=== PATIENT | female | born 1985 | race Caucasian/White ===

== ENCOUNTER 2018-04-24 18:03 | Emergency (ER) | payer MEDICARE, SELFPAY ==
[2018-04-24 18:10] VITALS: BP 144/92; PULSE 102; RESP 16; TEMP 36.1; O2SAT 97
--- NOTE | 2018-04-24 18:45 | ED.GENADUL ---
Disposition Clinical Impression: Infected dental carries Disposition: HOME Condition: Stable Instructions: Dental Caries (ED), Dental Abscess (ED) Additional Instructions: Return immediately to the emergency department if you have any severe swelling of your tongue, back your throat, difficulty breathing or inability to swallow. Otherwise take your antibiotic as prescribed. Follow-up with your dentist in the next week for reassessment and further establishment of treatment plan. While on the ibuprofen please do not take any other NSAIDs but you may take [id number] acetaminophen/Tylenol as needed. Prescriptions: Ibuprofen 600 mg PO Q6H PRN #16 tablet PRN Reason: Pain Penicillin V Potassium 500 mg PO Q6H #28 tablet Referrals: Dilcia Swan [Primary Care Provider] - 1 week (If unable to follow-up with your dentist please follow-up with your primary care provider for reassessment in 1 week) Medical Decision Making - Medical Decision Making Patient presenting the emergency department with complaint of left-sided upper and lower dental pain with more specific on the lower jaw. Patient states over the past 24 hours she has noted some swelling to left side of her face and some earache and then today while eating dinner she had significant increase in pain of left lower tooth. Physical exam shows significant severe to decay throughout the oral cavity which patient has been told that she is going to have to have multiple teeth removed but she does not have the finances of the funding to have this done. Tooth of concern is tooth #19 that show severe decay, partial tooth loss, and significant amount of pain and discomfort with any pressure to the tooth. Given facial swelling, worsening dental pain and severe decay there is concern for slight infected dental caries but no obvious abscess is noted as there is no fluctuance seen. Patient did consent to dental block and Hurricaine gel was placed at the base of the tooth and then 1 mL of 0.5% benzocaine was injected for an apical block. Patient tolerated procedure appropriately. Patient states that she had appropriate anesthetic level achieved using this technique. Patient placed upon penicillin every 6 hours for 1 week and informed that she should follow-up with her dentist in 1 week's time. After discussion of diagnosis and plan of care with patient patient agreed and stated no further needs, questions, or concerns at this time. Patient educated on emergent signs of dental infection and to return if these occur. History of Present Illness - General Chief complaint: DentalOral Stated complaint: DENTAL Time Seen by Provider: 04/24/18 18:08 Source: patient, RN notes reviewed Mode of arrival: ambulatory Limitations: no limitations - History of Present Illness Initial comments: Patient reports for the past week she has had ongoing dental pain. She states that she has had very poor dentition and was recently seen by the dentist within the last month and told that she had to have a good majority of her teeth pulled but she was unable to afford this procedure. Today while eating dinner she bit down on a pork chop and noticed significant pain to her left lower jaw and somewhat to her upper jaw. Patient states over the past week she has had mild swelling to the left side of her face. Patient denies any fever, difficulty breathing, difficulty swallowing. Onset/Timin -: week(s) Location: face, left Severity scale (1-10): 10 Quality: aching, sharp Consistency: constant Improves with: none Worsens with: none Associated Symptoms: denies other symptoms Treatments Prior to Arrival: NSAID - Related Data Albuterol [Ventolin Hfa] 1 puff IH Q4H PRN PRN inh 04/17/15 Albuterol/Ipratropium [Duoneb Updraft] 3 ml IN Q4H PRN PRN 07/26/15 Budesonide/Formoterol Fumarate [Symbicort 80-4.5 Mcg Inhaler] 10.2 gm IH BID 03/09/17 Ibuprofen 600 mg PO Q6H PRN #16 tablet 04/24/18 Penicillin V Potassium 500 mg PO Q6H #28 tablet 04/24/18 Allergies Allergy/AdvReac Type Severity Reaction Status Date / Time No Known Allergies Allergy Unverified 10/23/17 15:51 Review of Systems Constitutional: no symptoms reported. denies: fever ENT: ear pain (Left side), dental pain. 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 Absent: normocephalic (Very mild swelling noted to left cheek) - Eye Eye exam: Present: normal apperance, PERRL, EOMI. Absent: scleral icterus, conjunctival injection, nystagmus Pupils: Present: normal accommodation - ENT ENT exam: Present: mucous membranes moist, TM's normal bilaterally, normal external ear exam - Expanded ENT Exam No standard instances Mouth exam: Present: tongue normal. Absent: drooling, trismus, muffled voice, tongue elevation Teeth exam: Present: dental caries (Significant throughout the entire oral cavity), fractured tooth # (Area of concern shows a partially fractured tooth [id number] and also tooth #14), dental tenderness # (13,14,16,18,19), other (Patient has multiple missing teeth). Absent: normal inspection, gingival enlargement Throat exam: normal inspection. negative: R peritonsillar mass, L peritonsillar mass - Neck Neck exam: Present: full ROM. Absent: tenderness, meningismus, lymphadenopathy - Respiratory Respiratory exam: Present: normal lung sounds bilaterally. Absent: respiratory distress - Cardiovascular Cardiovascular Exam: Present: regular rate, normal rhythm, normal heart sounds - Neurological Exam Neurological exam: Present: alert, oriented X3. Absent: altered - Psychiatric Psychiatric exam: Present: agitated, anxious - Skin Skin exam: Present: warm, dry, normal color Course Vital Signs - 24 hr 04/24/18 18:10 Temperature 36.1 C L Pulse 102 H Respiratory 16 Rate Blood Pressure 144/92 Pulse Oximetry 97
[2018-04-24] MEDS: Benzocaine 20% Gel 30 GM JAR MM (18:57)
[2018-04-24] MEDS: Bupivacaine 0.5% Pres-Free 30 ML VIAL (18:57)
[2018-04-24] MEDS: Penicillin V POTASSIUM 500 MG TAB PO (18:57)
[2018-04-24] MEDS: Bupivacaine 0.25% Pres-Free 30 ML VIAL IJ (18:57)
== END 2018-04-24 19:34 | disposition home or self-care (01) ==
LOC: ER 06-09 21:07
PROVIDERS: Emergency Provider Student in an Organized Health Care Education/Training Program; PCP Nurse Practitioner Family
DX: K02.9 Dental caries, unspecified (principal); K04.7 Periapical abscess without sinus; J44.9 Chronic obstructive pulmonary disease, unspecified; F17.210 Nicotine dependence, cigarettes, uncomplicated
CPT/HCPCS: 64402 ×2; 99283 ×2

== ENCOUNTER 2018-07-23 18:26 | Outpatient (REF) | payer MEDICARE, MEDICAID, SELFPAY ==
[2018-07-25 11:59] LABS: Hepatitis C Ab w Rflx HCV PCR Negative (NEGAT)
[2018-07-25 12:00] LABS: HIV-1/2 Ag & Ab Screen Negative (NEGAT)
[2018-07-25 12:47] LABS: Syphilis Serology (RPR) Negative (Negative)
[2018-07-25 15:25] LABS: Chlamydia Result Negative; GC Result Negative
[2018-07-27 11:45] LABS: HSV Type 1 Ab, IgG Negative; HSV Type 2 Ab, IgG Positive
== END 2018-07-23 18:46 ==
LOC: NCHCN 18:26
PROVIDERS: PCP Nurse Practitioner Family; Visit Provider Nurse Practitioner Family
DX: Z11.3 Encounter for screening for infections with a predominantly sexual mode of transmission (principal); Z11.59 Encounter for screening for other viral diseases; Z11.4 Encounter for screening for human immunodeficiency virus [HIV]
CPT/HCPCS: 86803; 87389; 87491; 87591; 86592; 86695; 86696

== ENCOUNTER 2018-08-22 15:01 | Emergency (ER) | payer MEDICARE, SELFPAY ==
[2018-08-22 15:06] VITALS: BP 134/88; PULSE 87; TEMP 36.5; O2SAT 98
--- NOTE | 2018-08-22 15:12 | W.ED.GENAD ---
Discharge Plan Disposition Patient Disposition: HOME Condition: Improving Discharge Details Chief Complaint: Orthopedic Clinical Impression: Left thumb sprain Primary Care Provider: Dilcia Swan ED Provider: Herberth Chavez Home Meds and New Rx's Prescriptions: Continued Ventolin HFA 60 PUFF HFA aerosol inhaler 1 puff Inhalation Q4H PRN PRNRF: 0 ipratropium-albuterol 3 ML solution for nebulization 3 ml IN Q4H PRN PRNRF: 0 Symbicort 10.2 GM HFA aerosol inhaler 10.2 gm Inhalation BID RF: 0 Discharge Instructions Instructions: Hand Sprain (ED) Additional Instructions: Wear splint for 5-7 days time as needed. May remove for sleep or bathing. Follow-up with regular doctor if he still of persistent pain in 1 week's time. Use ice to reduce discomfort. May continue [id number] medicine such as Tylenol or ibuprofen as needed for discomfort Medical Decision Making 32-year-old female states that she stumbled at a constitution party on [address] and struck her thumb against a wall. She is unable to describe the inciting event more than that. She got herself in any other way. Since that time she said dull, achy, constant left thumb pain is worse with movement. No numbness or tingling. Patient referred for x-ray: No evidence of underlying fracture. We will place in a splint for 1 week's time for thumb sprain. If she has persistent discomfort she may require repeat x-ray to rule out occult fracture which I discussed with her. HPI General Mode of arrival: ambulatory. Date/Time Provider Initiated Documentation: 08/22/18 15:05. Limitations to Documentation: no limitations. Information obtained by: patient. History of Present Illness 32 year old F presents to the emergency department with the chief complaint of Left thumb injury and persistent pain since Sandra, described as mild, Quality is described as aching, and is localized to the left and upper extremity. Patient reports no radiation. Patient started experiencing this day(s) and it has been constant. No relieving factors improve symptom(s), Movement worsens symptoms . Patient notes no other symptoms.. Patient did receive the following treatments prior to arrival, none Related Data Home Medications Medication Instructions Recorded Confirmed Ventolin HFA 1 puff INHALATION Q4H PRN PRN inh 04/17/15 08/22/18 ipratropium-albuterol 3 ml IN Q4H PRN PRN 07/26/15 08/22/18 Symbicort 10.2 gm INHALATION BID 03/09/17 08/22/18 Previous Rx's Medication Instructions Recorded Ventolin HFA 1 puff INHALATION Q4H PRN PRN inh 04/17/15 Allergies Allergy/AdvReac Type Severity Reaction Status Date / Time No Known Allergies Allergy Unverified 08/22/18 15:09 General Stated Complaint: Orthopedic DOROTEO: 4 Review of Systems Review of Systems For systems reviewed and otherwise neg [facility] Medical History Asthma Chronic anxiety Obesity Tobacco use Surgical History Myringotomy w/ PE (pressure equalizing) tubes Social History Smoking/Tobacco Use Status: Current every day Exam Narrative Exam Narrative: GEN: awake, alert, oriented 3. Pleasant, well groomed, interactive. HEAD: Normocephalic, atraumatic ENT: Mucous membranes moist, oropharynx unremarkable, External ear exam unremarkable EYES: PERRL, EOMI EXT: Full ROM, no edema, no rash. Pain with palpation of the base of the left thumb as well as some minimal disc with axial loading, no pain with resisted supination. Patient able to fully range the thumb actively on her own. Capillary refill less than 2 seconds and sensation is intact throughout Neuro: Grossly normal neurologic exam, conversant, interactive. Psych: Speech fluent, thoughts congruent, affect normal Course Vital Signs Temperature 36.5 C 08/22/18 15:06 Pulse 87 08/22/18 15:06 Blood Pressure 134/88 08/22/18 15:06 Pulse Oximetry 98 08/22/18 15:06 Temperature 36.5 C 08/22/18 15:06 Temperature Source Skin 08/22/18 15:06 Pulse 87 08/22/18 15:06 Respiratory Effort 08/22/18 15:08 Blood Pressure 134/88 08/22/18 15:06 Blood Pressure Position Sitting 08/22/18 15:06 Pulse Oximetry 98 08/22/18 15:06 Oxygen Delivery Method Room Air 08/22/18 15:06 Oxygen Flow Rate 0 08/22/18 15:06 Pain Level 8 08/22/18 15:08
--- NOTE | 2018-08-22 15:25 | DI.RAD_ITS ---
SYMPTOMS/DIAGNOSIS: LEFT BASE OF THUMB PAIN S/P HITTING AGAINST WALL, BENDING BACKWARDS, FELT LIKE A POP LEFT THUMB: Four views were obtained. No bony or soft tissue abnormality seen.
== END 2018-08-22 15:40 | disposition home or self-care (01) ==
PROVIDERS: Emergency Provider Emergency Medicine; PCP Nurse Practitioner Family
DX: S63.602A Unspecified sprain of left thumb, initial encounter (principal); W01.10XA Fall on same level from slipping, tripping and stumbling with subsequent striking against unspecified object, initial encounter
CPT/HCPCS: 99283; 73140; 99282; L3807

== ENCOUNTER 2018-10-18 13:56 | Outpatient (CLI) | payer MEDICARE, SELFPAY ==
[2018-10-18 15:54] LABS: Abs Immature Grans 0.02 k/cumm (0.0-0.09); Absolute Basophil Count 0.04 k/cumm (0.0-0.2); Absolute Eosinophil Count 0.38 k/cumm (0.0-0.7); Absolute Lymphocyte Count 2.72 k/cumm (1.2-3.4); Absolute Monocyte Count 0.63 k/cumm (0.11-0.7); Absolute Neutrophil Count 4.89 k/cumm (1.2-6.7); Basophils % 0.5; Eosinophils % 4.4; HCT 41.2 % (36.0-46.0); HGB 13.9 g/dL (12.0-15.5); Immature Grans % 0.2; Lymphocytes % 31.3; Mean Corp. HGB Concentration 33.7 g/dL (32.0-36.0); Mean Corpuscular Hemoglobin 30.5 pg (27.0-33.0); Mean Corpuscular Volume 90.4 fL (80-95); Mean Platelet Volume 10.4 fL (8.0-11.0); Monocytes % 7.3; Neutrophils % 56.3; Platelet Count 210 x1000/uL (130-400); RBC 4.56 m/cumm (4.00-5.20); RBC Distribution Width 14.3 % (11.7-14.6); White Blood Cell Count 8.68 k/cumm (4.4-10.8)
[2018-10-18 17:10] LABS: ALT 14 U/L (12-78); AST 15 U/L (15-37); Albumin 3.5 g/dL (3.4-5.0); Alkaline Phosphatase 70 U/L (46-116); BUN 12 mg/dL (7-18); Bilirubin, Total 0.5 mg/dL (0.2-1.0); CREATININE 0.78 mg/dL (0.55-1.02); Calcium 8.7 mg/dL (8.5-10.1); Chloride 106 mmol/L (98-107); Glucose 71 mg/dL (70-100); HCG Quant, Pregnancy 1 mIU/mL (1-3); Potassium 3.9 mmol/L (3.5-5.1); Sodium 142 mmol/L (136-145); TSH (W/Ref FT4) 1.76 uIU/mL (0.358-3.74); Total Protein 6.9 g/dL (6.4-8.2)
[2018-10-18 18:04] LABS: *AMPHETAMINES SCREEN URINE Negative (Negative); *BARBITURATES SCREEN URINE Negative (Negative); *BENZODIAZEPINES SCREEN URINE Negative (Negative); Cannabinoids THC POSITIVE (Negative); Cocaine Screen,Urine Negative (Negative); METHADONE URINE SCREEN Negative (Negative); OPIATES URINE SCREEN Negative (Negative)
[2018-10-18 18:20] LABS: Tricyclic Antidepressants Negative (Negative)
[2018-10-18 19:07] LABS: Hemoglobin A1C 5.1 % (4.5-6.2)
[2018-10-22 11:18] LABS: Hepatitis C Ab w Rflx HCV PCR Negative (NEGAT)
[2018-10-22 11:21] LABS: HIV-1/2 Ag & Ab Screen Negative (NEGAT)
[2018-10-22 13:42] LABS: Chlamydia Result Negative; GC Result Negative; Specimen Description URINE
[2018-10-22 14:00] LABS: HSV Type 1 Ab, IgG Negative; HSV Type 2 Ab, IgG Positive
== END 2018-10-18 14:16 ==
PROVIDERS: PCP Nurse Practitioner Family; Visit Provider Nurse Practitioner Psychiatric/Mental Health
DX: F33.9 Major depressive disorder, recurrent, unspecified (principal); Z79.899 Other long term (current) drug therapy; Z11.4 Encounter for screening for human immunodeficiency virus [HIV]; Z11.59 Encounter for screening for other viral diseases
CPT/HCPCS: 36415; 80053; 80307; 86803; 87389; 87491; 87591; 83036; 84443; 84702; 85025; 86695; 86696

== ENCOUNTER 2018-10-31 12:10 | Emergency (ER) | payer MEDICARE, SELFPAY ==
[2018-10-31 12:18] VITALS: BP 136/76; PULSE 97; RESP 16; TEMP 36.8; O2SAT 95
[2018-10-31] MEDS: Penicillin V POTASSIUM 500 MG TAB PO (13:48)
[2018-10-31] MEDS: Albuterol HFA 8 GM 60 PUFF INH IH (13:49)
[2018-10-31] MEDS: Inhaler, Assist Device 1 EACH MC (13:50)
--- NOTE | 2018-10-31 13:55 | ED.GENADUL_ITS ---
Discharge Plan Disposition Patient Disposition: HOME Condition: Stable Discharge Details Chief Complaint: DentalOral Clinical Impression: Dental infection Primary Care Provider: Dilcia Swan ED Provider: Jenniffer Mcclure Home Meds and New Rx's Prescriptions: Continued albuterol sulfate [Ventolin HFA] 60 PUFF HFA aerosol inhaler 1 puff Inhalation Q4H PRN PRNRF: 0 ipratropium-albuterol 3 ML solution for nebulization 3 ml IN Q4H PRN PRNRF: 0 Symbicort 10.2 GM HFA aerosol inhaler 10.2 gm Inhalation BID RF: 0 Discharge Instructions Instructions: Dental Abscess (ED) Additional Instructions: Please return immediately to the emergency department if you develop any new or worsening symptoms or if you become otherwise concerned. It is extremely important that you make an appointment to be seen by your primary care doctor and a dentist as soon as possible in follow-up for this visit. Referrals: Dilcia Swan [Primary Care Provider] - Discharge Data Discharge Date/Time-TO BE ENTERED AT DEPARTURE: 10/31/18 13:56 Medical Decision Making Conchita Kraus is a 33-year-old woman with history of asthma, anxiety, poor dentition who presented to the emergency department with 2-3 months of chronic intermittent left jaw pain more constant over the past few weeks without other ENT symptoms. On exam patient is very well and nontoxic appearing. There is tenderness over the body of the left mandible and erythema of the left lower gingiva along the molars without edema. Patient also with mild bilateral wheeze on auscultation. Concern for dental infection, mild asthma. Plan for penicillin, DuoNeb. Will give butyryl inhaler for use at home. Patient reports that he does have a spacer at home. Exam/history is not consistent with dental abscess, Rony's angina or other deep space infection, osteomyelitis, mastoiditis, meningitis, other acute emergent life-threatening process. With resolved on reassessment, patient reporting shortness of breath resolved completely. I had a lengthy discussion with the patient regarding home care, return to emergency department cautions, and importance of outpatient follow-up with her PCP and also with dentist as soon as possible. Patient verbalizes understanding the plan is amenable. Dental list provided. Medical Records Medical records reviewed: Yes I reviewed the patient's medical records. HPI General Mode of arrival: ambulatory . Date/Time Provider Initiated Documentation: 10/31/18 12:27 . Limitations to Documentation: no limitations . Information obtained by: patient, RN notes reviewed and old records reviewed . HPI Narrative: Conchita Kraus is a 33-year-old woman with history of asthma, anxiety presenting to the emergency department with jaw pain. Patient reports that she has been having intermittent left jaw pain for months. She has been seen by a dentist in the past for this, who told her that she needed to have 24 teeth removed. Patient reports that she has been unable to finance dental follow-up. She reports that she has had 2 weeks of pain throughout her left jaw, typical of the pain she has been having for months but now more constant, not changed in severity, location, or quality. Does not radiate. No pain or difficulty with swallowing. No facial or intraoral swelling. Pt reports that she hasnt had a chance to fill her nebulizer rx (but does have one), but does not have albuterol INH and has been feeling as though she has needed her inhaler over the past 1-2 days. No fever, no cough, no rash, no other pain, no n/v/d. Related Data Home Medications Medication Instructions Recorded Confirmed albuterol sulfate [Ventolin HFA] 1 puff INHALATION Q4H PRN PRN inh 04/17/15 11/13/18 ipratropium-albuterol 3 ml IN Q4H PRN PRN 07/26/15 11/13/18 Symbicort 10.2 gm INHALATION BID 03/09/17 11/13/18 Previous Rx's Medication Instructions Recorded albuterol sulfate [Ventolin HFA] 1 puff INHALATION Q4H PRN PRN inh 04/17/15 Allergies Allergy/AdvReac Type Severity Reaction Status Date / Time No Known Allergies Allergy Unverified 10/31/18 12:38 General Stated Complaint: DentalOral DOROTEO: 4 Review of Systems Review of Systems Constitutional: denies fevers Eyes: denies eye pain ENT: reports chronic left jaw pain now constant, denies sore throat, facial swelling Cardiovascular: denies chest pain, edema Respiratory: denies cough, reports mild SOB as per HPI GI: denies abdominal pain, vomiting, diarrhea : denies flank pain MSK: denies back pain, neck pain, arthralgias, myalgias Skin: denies rash Neuro: denies headaches, numbness, weakness PFSH Medical History Asthma Chronic anxiety Obesity Tobacco use Social History Smoking/Tobacco Use Status: Current every day Tobacco Type: cigarettes Alcohol Intake: current Alcohol Intake frequency: a few times a month Alcohol type: hard liquor Drug use: Daily Substance use type: marijuana and crack/cocaine Details: cocaine and marijuana last night Do you feel safe at home: Yes Do you feel safe in your relationship?: Yes Exam Narrative Exam Narrative: Constitutional: well and [id number], pleasant, conversing normally HENT: head atraumatic/normocephalic/normal inspection, mucous membranes moist, poor denition throughout, left lower outer gum line erythematous along molars without edema, left mandiblular body TTP without edema or overlying skin changes, no TMJ TTP, no trismus, normal voice, no mastoid tenderness palpation. External ears normal. Handling secretions without issue. Eyes: conjunctiva normal, sclera normal, pupils 3mm b/l Neck: no stridor, normal ROM, trachea midline Resp: normal work of breathing, mild wheeze throughout b/l, no rales or rhonchi Cardio: normal rate, normal rhythm, no murmur appreciated Skin: warm, dry, normal color, no rash Neuro: alert, not altered, grossly non-focal, normal tone Psych: normal mood, normal affect, normal behavior Course Vital Signs Temperature 36.8 C 10/31/18 12:18 Pulse 97 H 10/31/18 12:18 Respiratory Rate 16 10/31/18 12:18 Blood Pressure 136/76 10/31/18 12:18 Pulse Oximetry 95 10/31/18 12:18 Temperature 36.8 C 10/31/18 12:18 Temperature Source Temporal Artery Scan 10/31/18 12:18 Pulse 97 H 10/31/18 12:18 Respiratory Rate 16 10/31/18 12:18 Blood Pressure 136/76 10/31/18 12:18 Pulse Oximetry 95 10/31/18 12:18 Oxygen Delivery Method Room Air 10/31/18 12:18 Oxygen Flow Rate 0 10/31/18 12:18 Pain Level 8 10/31/18 12:18
== END 2018-10-31 13:56 | disposition home or self-care (01) ==
PROVIDERS: Emergency Provider Student in an Organized Health Care Education/Training Program; PCP Nurse Practitioner Family
DX: R68.84 Jaw pain (principal); K04.7 Periapical abscess without sinus; J44.9 Chronic obstructive pulmonary disease, unspecified; F17.210 Nicotine dependence, cigarettes, uncomplicated
CPT/HCPCS: 99283

== ENCOUNTER 2018-11-13 04:15 | Emergency (ER) | payer MEDICARE, SELFPAY ==
[2018-11-13 04:13] VITALS: BP 117/71; PULSE 76; RESP 16; TEMP 36.6; O2SAT 98
--- NOTE | 2018-11-13 04:17 | W.ED.GENAD ---
Discharge Plan Disposition Patient Disposition: HOME Condition: Stable Discharge Details Chief Complaint: SOB Clinical Impression: Asthma Reason For Visit: MIRYAM Primary Care Provider: Dilcia Swan ED Provider: Tomy Vidal Home Meds and New Rx's Prescriptions: No Action albuterol sulfate [Ventolin HFA] 60 PUFF HFA aerosol inhaler 1 puff Inhalation Q4H PRN PRNRF: 0 ipratropium-albuterol 3 ML solution for nebulization 3 ml IN Q4H PRN PRNRF: 0 Symbicort 10.2 GM HFA aerosol inhaler 10.2 gm Inhalation BID RF: 0 Discharge Instructions Additional Instructions: I placed you on our career development consultant's list to assist in getting a nebulizer machine if you are having difficulty follow up with your primary care provider as scheduled today return to the emergency department if you feel you are having worsening trouble breathing not improving with your inhaler Medical Decision Making 33 yo female with hx of asthma, anxiety, comes in with chief complaint of her nebulizer not working. she apparently has shortness of breath in the morning chronically and uses her nebulizer and resolves her symptoms. This morning she went to use it and it was broken so she called ems. EMS gave one neb and she now has no complaints on my exam other than that she wants a cup of coffee. She is speaking in full sentences with no respiratory dsitress. She has mild apical wheezing bilaterally otherwise clear lungs. Do not feel lab work or imaging indicated as she is currently asymptomatic. Will d/c home and placed her on the career development consultant's list to see if they can assist in getting her a new nebulizer machine Differential Diagnosis asthma, uri, anxiety, HPI General Mode of arrival: EMS. Date/Time Provider Initiated Documentation: 11/13/18 04:16. Limitations to Documentation: no limitations. Information obtained by: patient. History of Present Illness 33 year old F presents to the emergency department with the chief complaint of shortness of breath, described as mild, with intensity rated at 4. Patient started experiencing this day(s) (1) and it has been now resolved. No relieving factors improve symptom(s), No exacerbating factors reported . Related Data Home Medications Medication Instructions Recorded Confirmed albuterol sulfate [Ventolin HFA] 1 puff INHALATION Q4H PRN PRN inh 04/17/15 11/13/18 ipratropium-albuterol 3 ml IN Q4H PRN PRN 07/26/15 11/13/18 Symbicort 10.2 gm INHALATION BID 03/09/17 11/13/18 Previous Rx's Medication Instructions Recorded albuterol sulfate [Ventolin HFA] 1 puff INHALATION Q4H PRN PRN inh 04/17/15 Allergies Allergy/AdvReac Type Severity Reaction Status Date / Time No Known Allergies Allergy Unverified 10/31/18 12:38 General DOROTEO: 4 Review of Systems Review of Systems All systems reviewed & are unremarkable except as noted in HPI and below Constitutional Denies chills, Denies fever(s) and Denies weakness Cardiovascular Denies chest pain and Denies dyspnea Respiratory Denies cough and Denies dyspnea Gastrointestinal Denies abdominal pain, Denies nausea and Denies vomiting Genitourinary Denies dysuria Musculoskeletal Denies joint swelling Integumentary/Breasts Denies rash Neurologic Denies weakness [facility] Medical History Asthma Chronic anxiety Obesity Tobacco use Surgical History Myringotomy w/ PE (pressure equalizing) tubes Social History Smoking/Tobacco Use Status: Current every day Tobacco Type: cigarettes Alcohol Intake: current Alcohol Intake frequency: a few times a month Alcohol type: hard liquor Drug use: Daily Substance use type: marijuana and crack/cocaine Details: cocaine and marijuana last night Do you feel safe at home: Yes Do you feel safe in your relationship?: Yes Exam Const General: no acute distress Orientation: alert HENMT Head: normal to inspection Ears: external ears normal General nose exam: external nose normal Mouth: moist mucous membranes Eyes General: appearance normal, both eyes and all related structures Neck Neck: normal visual inspection Resp Effort & Inspection: normal respiratory effort and able to speak in complete sentences Cardio Rate: regular rate Skin General skin exam: no rashes or lesions noted Neuro General: alert and oriented x3 Extrem General: normal to inspection Psych Mental Status: mental status grossly normal
--- NOTE | 2018-11-13 04:23 | ED.GENADUL_ITS ---
Discharge Plan Disposition Patient Disposition: HOME Condition: Stable Discharge Details Chief Complaint: SOB Clinical Impression: Asthma Reason For Visit: MIRYAM Primary Care Provider: Dilcia Swan ED Provider: Tomy Vidal Home Meds and New Rx's Prescriptions: No Action albuterol sulfate [Ventolin HFA] 60 PUFF HFA aerosol inhaler 1 puff Inhalation Q4H PRN PRNRF: 0 ipratropium-albuterol 3 ML solution for nebulization 3 ml IN Q4H PRN PRNRF: 0 Symbicort 10.2 GM HFA aerosol inhaler 10.2 gm Inhalation BID RF: 0 Discharge Instructions Additional Instructions: I placed you on our medicare specialist's list to assist in getting a nebulizer machine if you are having difficulty follow up with your primary care provider as scheduled today return to the emergency department if you feel you are having worsening trouble breathing not improving with your inhaler Medical Decision Making 33 yo female with hx of asthma, anxiety, comes in with chief complaint of her nebulizer not working. she apparently has shortness of breath in the morning chronically and uses her nebulizer and resolves her symptoms. This morning she went to use it and it was broken so she called ems. EMS gave one neb and she now has no complaints on my exam other than that she wants a cup of coffee. She is speaking in full sentences with no respiratory dsitress. She has mild apical wheezing bilaterally otherwise clear lungs. Do not feel lab work or imaging indicated as she is currently asymptomatic. Will d/c home and placed her on the medicare specialist's list to see if they can assist in getting her a new nebulizer machine Differential Diagnosis asthma, uri, anxiety, HPI General Mode of arrival: EMS . Date/Time Provider Initiated Documentation: 11/13/18 04:16 . Limitations to Documentation: no limitations . Information obtained by: patient . History of Present Illness 33 year old F presents to the emergency department with the chief complaint of shortness of breath, described as mild, with intensity rated at 4. Patient started experiencing this day(s) (1) and it has been now resolved. No relieving factors improve symptom(s), No exacerbating factors reported . Related Data Home Medications Medication Instructions Recorded Confirmed albuterol sulfate [Ventolin HFA] 1 puff INHALATION Q4H PRN PRN inh 04/17/15 11/13/18 ipratropium-albuterol 3 ml IN Q4H PRN PRN 07/26/15 11/13/18 Symbicort 10.2 gm INHALATION BID 03/09/17 11/13/18 Previous Rx's Medication Instructions Recorded albuterol sulfate [Ventolin HFA] 1 puff INHALATION Q4H PRN PRN inh 04/17/15 Allergies Allergy/AdvReac Type Severity Reaction Status Date / Time No Known Allergies Allergy Unverified 10/31/18 12:38 General DOROTEO: 4 Review of Systems Review of Systems All systems reviewed & are unremarkable except as noted in HPI and below Constitutional Denies chills, Denies fever(s) and Denies weakness Cardiovascular Denies chest pain and Denies dyspnea Respiratory Denies cough and Denies dyspnea Gastrointestinal Denies abdominal pain, Denies nausea and Denies vomiting Genitourinary Denies dysuria Musculoskeletal Denies joint swelling Integumentary/Breasts Denies rash Neurologic Denies weakness [facility] Medical History Asthma Chronic anxiety Obesity Tobacco use Surgical History Myringotomy w/ PE (pressure equalizing) tubes Social History Smoking/Tobacco Use Status: Current every day Tobacco Type: cigarettes Alcohol Intake: current Alcohol Intake frequency: a few times a month Alcohol type: hard liquor Drug use: Daily Substance use type: marijuana and crack/cocaine Details: cocaine and marijuana last night Do you feel safe at home: Yes Do you feel safe in your relationship?: Yes Exam Const General: no acute distress Orientation: alert HENMT Head: normal to inspection Ears: external ears normal General nose exam: external nose normal Mouth: moist mucous membranes Eyes General: appearance normal, both eyes and all related structures Neck Neck: normal visual inspection Resp Effort & Inspection: normal respiratory effort and able to speak in complete sentences Cardio Rate: regular rate Skin General skin exam: no rashes or lesions noted Neuro General: alert and oriented x3 Extrem General: normal to inspection Psych Mental Status: mental status grossly normal
[2018-11-13 04:34] VITALS: RESP 18
[2018-11-13 04:47] VITALS: PULSE 77; RESP 18; O2SAT 99
[2018-11-13] MEDS: Inhaler, Assist Device 1 EACH MC (04:47)
[2018-11-13] MEDS: Albuterol HFA 8 GM 60 PUFF INH IH (04:47)
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
== END 2018-11-13 04:52 | disposition home or self-care (01) ==
LOC: ER 05:02
PROVIDERS: Emergency Provider Emergency Medicine; PCP Nurse Practitioner Family
DX: J45.909 Unspecified asthma, uncomplicated (principal); F17.210 Nicotine dependence, cigarettes, uncomplicated
CPT/HCPCS: 99283

== ENCOUNTER 2018-12-05 18:13 | Emergency (ER) | payer MEDICARE, SELFPAY ==
[2018-12-05 18:23] VITALS: BP 122/82; PULSE 88; RESP 16; TEMP 37; O2SAT 98
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
[2018-12-05 19:41] LABS: HCG Quant, Pregnancy 57420 mIU/mL (1-3)
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
--- NOTE | 2018-12-06 09:59 | PDOC.ERCMPRO ---
Care Management Progress Note 12/06-Conchita was transferred home via RCT last evening. RCT authorization completed and faxed by this CM today.
== END 2018-12-05 19:57 | disposition home or self-care (01) ==
PROVIDERS: Emergency Provider Emergency Medicine; PCP Nurse Practitioner Family
DX: S80.02XA Contusion of left knee, initial encounter (principal); V43.22XA Person on outside of car injured in collision with other type car in nontraffic accident, initial encounter
CPT/HCPCS: 36415; 73562; 99283; 84702; 99282

== ENCOUNTER 2018-12-27 12:28 | Emergency (ER) | payer MEDICARE, MEDICAID, SELFPAY ==
[2018-12-27 12:34] VITALS: BP 130/89; PULSE 97; RESP 20; TEMP 36.8; O2SAT 100
--- NOTE | 2018-12-27 12:49 | DI.RAD_ITS ---
SYMPTOMS/DIAGNOSIS: FALL, PAIN DISTAL 1/3 LEFT HUMERUS: Three views were obtained. No fracture is seen. Note is made of a small osteochondroma of the distal humeral diaphyseal, metaphyseal junction. Note is also made of soft tissue calcification probably representing a supraspinatus peritendinitis.
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
[2018-12-27] MEDS: Acetaminophen 325 MG TAB 650 MG PO (13:44)
[2018-12-27 16:50] VITALS: BP 130/89; PULSE 97; RESP 20; TEMP 36.8; O2SAT 100
== END 2018-12-27 13:44 | disposition home or self-care (01) ==
PROVIDERS: Emergency Provider Physician Assistant; PCP Nurse Practitioner Family
DX: M65.822 Other synovitis and tenosynovitis, left upper arm (principal); S40.021A Contusion of right upper arm, initial encounter; V43.22XA Person on outside of car injured in collision with other type car in nontraffic accident, initial encounter
CPT/HCPCS: 99283; 73060; 99282

== ENCOUNTER 2019-01-02 14:51 | Outpatient (CLI) | payer MEDICARE, MEDICAID, SELFPAY ==
[2019-01-02 16:05] LABS: ALT 22 U/L (12-78); AST 22 U/L (15-37); Albumin 3.3 g/dL (3.4-5.0); Alkaline Phosphatase 60 U/L (46-116); Bilirubin, Direct 0.09 mg/dL (0.00-0.20); Bilirubin, Total 0.2 mg/dL (0.2-1.0); CREATININE 0.53 mg/dL (0.55-1.02); TSH (W/Ref FT4) 1.79 uIU/mL (0.358-3.74); Total Protein 6.7 g/dL (6.4-8.2); Uric Acid 2.9 mg/dL (2.6-6.0)
[2019-01-02 16:39] LABS: Abs Immature Grans 0.02 k/cumm (0.0-0.09); Absolute Basophil Count 0.02 k/cumm (0.0-0.2); Absolute Eosinophil Count 0.18 k/cumm (0.0-0.7); Absolute Lymphocyte Count 2.97 k/cumm (1.2-3.4); Absolute Monocyte Count 0.64 k/cumm (0.11-0.7); Absolute Neutrophil Count 5.51 k/cumm (1.2-6.7); Basophils % 0.2; Eosinophils % 1.9; HCT 38.9 % (36.0-46.0); HGB 13.2 g/dL (12.0-15.5); Immature Grans % 0.2; Lymphocytes % 31.8; Mean Corp. HGB Concentration 33.9 g/dL (32.0-36.0); Mean Corpuscular Hemoglobin 30.7 pg (27.0-33.0); Mean Corpuscular Volume 90.5 fL (80-95); Mean Platelet Volume 10.3 fL (8.0-11.0); Monocytes % 6.9; Platelet Count 243 x1000/uL (130-400); RBC Distribution Width 13.8 % (11.7-14.6); White Blood Cell Count 9.34 k/cumm (4.4-10.8)
[2019-01-03 10:53] LABS: Rubella IgG Ab (UVM) Positive
[2019-01-03 11:08] LABS: Varicella IgG Antibody Positive
[2019-01-03 11:13] LABS: Syphilis Serology (RPR) Negative (Negative)
[2019-01-03 11:19] LABS: HIV-1/2 Ag & Ab Screen Negative (NEGAT)
[2019-01-03 11:41] LABS: Hepatitis B Surface Ag Negative (NEGAT)
[2019-01-03 11:57] LABS: Hepatitis C Ab w Rflx HCV PCR Negative (NEGAT)
== END 2019-01-02 15:11 ==
PROVIDERS: PCP Nurse Practitioner Family; Visit Provider Advanced Practice Midwife
DX: Z34.90 Encounter for supervision of normal pregnancy, unspecified, unspecified trimester (principal); Z13.29 Encounter for screening for other suspected endocrine disorder
CPT/HCPCS: 36415; 80055; 80076; 86787; 86803; 86850; 86900; 86901; 87340; 87389; 82565; 84443; 84550; 86592; 86762

== ENCOUNTER 2019-01-02 15:39 | Outpatient (REF) | payer MEDICARE, MEDICAID, SELFPAY ==
--- NOTE | 2019-01-02 14:20 | PAPFT_PTH ---
PATIENT: Conchita Kraus LOC: [facility] U#:[id number] AGE/SX: 33/F ROOM: RE01/02/[address]: Radha Azevedo RN : 1985 BED: DIS: 01/02/2019 SPEC #: [id number] RECD: 01/02/19 17:32 STATUS: DESIREE REKatrin #: [id number] LENA: 01/02/19 14:[address]: Radha Azevedo DEPT: [facility] Cytology RECD BY: Sonia Rodriguez ENTERED: 01/02/19 17:33 SP TYPE: PAPFT OTHR DR: Rochelle Muñoz Tissues: 1 - CX/ENDOCX FOR PAP SMEARS Procedures: PAP THIN PREP/UVM Screening HPV DNA PROBE Comments: [id number]
[2019-01-02 19:00] LABS: *AMPHETAMINES SCREEN URINE Negative (Negative); *BARBITURATES SCREEN URINE Negative (Negative); *BENZODIAZEPINES SCREEN URINE Negative (Negative); Cannabinoids THC POSITIVE (Negative); Cocaine Screen,Urine Negative (Negative); METHADONE URINE SCREEN Negative (Negative); OPIATES URINE SCREEN Negative (Negative)
[2019-01-02 19:16] LABS: Tricyclic Antidepressants Negative (Negative)
[2019-01-04 14:42] LABS: Chlamydia Result Negative; GC Result Negative; Specimen Description CERVIX
[2019-01-08 05:30] LABS: Buprenorphine Negative; Norbuprenorphine Negative
== END 2019-01-02 15:59 ==
LOC: LBN 15:39
PROVIDERS: PCP Nurse Practitioner Family; Visit Provider Advanced Practice Midwife
DX: Z34.91 Encounter for supervision of normal pregnancy, unspecified, first trimester (principal); Z11.3 Encounter for screening for infections with a predominantly sexual mode of transmission; Z12.4 Encounter for screening for malignant neoplasm of cervix; Z11.51 Encounter for screening for human papillomavirus (HPV); R82.79 Other abnormal findings on microbiological examination of urine
CPT/HCPCS: 80307; 87491; 87591; 88142; 87086; 87624

== ENCOUNTER 2019-01-11 13:22 | Emergency (ER) | payer MEDICARE, MEDICAID, SELFPAY ==
[2019-01-11 13:25] VITALS: BP 126/86; PULSE 97; RESP 18; TEMP 36.7; O2SAT 98
--- NOTE | 2019-01-11 13:49 | W.ED.GENAD ---
Discharge Plan Disposition Patient Disposition: HOME Discharge Details Chief Complaint: DentalOral Primary Care Provider: Rochelle Muñoz ED Provider: Jose Armando Conklin Home Meds and New Rx's Prescriptions: Continued albuterol sulfate [Ventolin HFA] 60 PUFF HFA aerosol inhaler 1 puff Inhalation Q4H PRN PRNRF: 0 ipratropium-albuterol 3 ML solution for nebulization 3 ml IN Q4H PRN PRNRF: 0 Symbicort 10.2 GM HFA aerosol inhaler 10.2 gm Inhalation BID RF: 0 Discharge Data Discharge Date/Time-TO BE ENTERED AT DEPARTURE: 01/11/19 14:40 Medical Decision Making Patient presenting to the emergency department for chief complaint of dental pain. Patient states that this is been ongoing. I had previously seen patient and patient had complained of some dental discomfort with no apparent physical exam findings. Patient was given penicillin prescription to start if she noticed any symptoms given previous history of dental infections and abscess which she stated she started the next day. Patient remained on this for a couple days and did not see improvement of symptoms and so was placed on clindamycin by another provider. Patient has seen a dentist who referred her to an oral surgeon and informed her to continue on the clindamycin. Patient states that yesterday evening she missed a dose of clindamycin and noted this morning increase in pain and discomfort along with some slight swelling to her left lower jaw. Physical exam does show some erythema and swelling surrounding the base of tooth #19 with area of fluctuance and induration palpated on the external jawline. Patient has no signs of Rony's angina, peritonsillar retropharyngeal abscess, or airway obstruction. Patient has no trismus drooling or difficulty speaking in full sentences. Did discuss with patient risk versus benefit of needle drainage which I feel would help her situation given that she is taking the clindamycin and still noting swelling. Patient is highly anxious about needle injections but is agreeable to needle drainage. Did discuss risk versus benefit of dental block along with topical medication and patient stated that she would prefer only to have one needle in her mouth as she is highly anxious. Oral benzocaine was placed upon the area for drainage and left for 10 minutes. Patient stated appropriate anesthetic level using this method. An additional 1 spray of oral benzocaine was sprayed onto the area just prior to attempt of needle drainage with 18-gauge needle. This was inserted into the area of fluctuance with only bloody drainage noted. Patient tolerated procedure appropriately. Patient was encouraged to continue use clindamycin given that penicillin did not seem to work otherwise close return precautions were discussed and patient was strongly encouraged to follow-up with dental provider. After discussion of diagnosis and plan of care patient has no further needs, questions, or concerns and states clear understanding to return to the emergency department for any worsening symptoms. HPI General Mode of arrival: ambulatory. Date/Time Provider Initiated Documentation: 01/11/19 13:24. Limitations to Documentation: no limitations. Information obtained by: patient. History of Present Illness 33 year old F presents to the emergency department with the chief complaint of Dental pain, described as severe, with intensity rated at 9. Quality is described as sharp, and is localized to the mouth. Patient started experiencing this day(s) (10) and it has been constant. No relieving factors improve symptom(s), Patient notes no other symptoms.. Patient did receive the following treatments prior to arrival, NSAID Related Data Home Medications Medication Instructions Recorded Confirmed albuterol sulfate [Ventolin HFA] 1 puff INHALATION Q4H PRN PRN inh 04/17/15 01/11/19 ipratropium-albuterol 3 ml IN Q4H PRN PRN 07/26/15 01/11/19 Symbicort 10.2 gm INHALATION BID 03/09/17 01/02/19 Previous Rx's Medication Instructions Recorded albuterol sulfate [Ventolin HFA] 1 puff INHALATION Q4H PRN PRN inh 04/17/15 Allergies Allergy/AdvReac Type Severity Reaction Status Date / Time No Known Allergies Allergy Unverified 01/11/19 13:31 General Stated Complaint: DentalOral DOROTEO: 3 Review of Systems Constitutional Denies chills and Denies fever(s) ENT Reports as per HPI, Denies change in voice, Reports dental pain, Denies dysphagia, Denies throat swelling and Denies tongue swelling Cardiovascular Denies chest pain and Denies dyspnea Respiratory Denies dyspnea, Denies stridor and Denies wheezing Gastrointestinal Denies abdominal pain, Denies dysphagia, Denies nausea and Denies vomiting Integumentary/Breasts Denies rash Allergic/Immunologic Denies throat swelling, Denies tongue swelling and Denies wheezing [facility] Medical History Asthma Chronic anxiety Obesity Tobacco use Surgical History Myringotomy w/ PE (pressure equalizing) tubes Social History Smoking/Tobacco Use Status: Current every day (1/2ppd) Tobacco Type: cigarettes Alcohol Intake: former (prior to ) Drug use: Daily Substance use type: marijuana (qd now bid) Details: marijuana 3 x daily Do you feel safe at home: Yes Do you feel safe in your relationship?: Yes History History 6 Para 3 Hx # Term Pregnancies 3 Multiple births 0 Hx # Pregnancies Ectopic pregnancies 0 AB induced 1 Hx Number of Living Children 3 AB spontaneous 1 Past Pregnancies Del. Date GA/Weeks # Outcome Route Wgt Sex Labor Lgth Anesthesia Location Prov Complic Unknown 40 No Successful vaginal 2.325 kg Female 20 min cottnah[place], by an rn dr conley Unknown 02/11/09 40 No Successful vaginal 2.325 kg Male 1 hr hesham conley Delivery Date: 02/11/09 No notes to display Delivery Date: On 01/14/19 @ 13:15 ERICA TALAMANTES DATE/INFO UNKNOWN, PT CLAIMS SHE HAS NO RECOLLECTION OF ONE OF HER PREGNANCIES. Delivery Date: On 01/02/19 @ 14:04 ERICA TALAMANTES precipitous, Exam Const General: cooperative Orientation: alert, awake and oriented x3 Limitations: mental status not altered [facility] Head: normal to inspection, normocephalic and atraumatic Ears: hearing grossly normal bilaterally, normal mastoids bilaterally and no periauricular adenopathy General nose exam: external nose normal Mouth: oropharynx normal, no drooling, no muffled voice, normal tongue and no trismus Teeth and gingiva: caries, gingiva abnormal, poor dentition and other (Partially fractured tooth #19erythema surrounding the base of the tooth) Throat: posterior oropharynx normal, tonsils normal and uvula midline Eyes General: appearance normal, both eyes and all related structures Pupils: PERRL Neck Neck: normal visual inspection, full ROM, no lymphadenopathy, no meningeal signs, trachea midline, supple, no anterior neck swelling and no midline deformity Resp Effort & Inspection: normal respiratory effort and able to speak in complete sentences Course Vital Signs Temperature 36.7 C 01/11/19 13:25 Pulse 97 H 01/11/19 13:25 Respiratory Rate 18 01/11/19 13:25 Blood Pressure 126/86 01/11/19 13:25 Pulse Oximetry 98 01/11/19 13:25 Temperature 36.7 C 01/11/19 13:25 Temperature Source Skin 01/11/19 13:25 Pulse 97 H 01/11/19 13:25 Respiratory Rate 18 01/11/19 13:25 Respiratory Effort Non-Labored 01/11/19 13:30 Blood Pressure 126/86 01/11/19 13:25 Blood Pressure Position Sitting 01/11/19 13:25 Pulse Oximetry 98 01/11/19 13:25 Oxygen Delivery Method Room Air 01/11/19 13:25 Oxygen Flow Rate 0 01/11/19 13:25 Pain Level 5 01/11/19 13:25
[2019-01-11] MEDS: Benzocaine 20% 60 ML CAN (14:36)
[2019-01-11 14:40] VITALS: BP 126/86; PULSE 97; RESP 18; TEMP 36.7; O2SAT 98
== END 2019-01-11 14:40 | disposition home or self-care (01) ==
PROVIDERS: Emergency Provider Nurse Practitioner Family; PCP Nurse Practitioner Family
DX: K04.7 Periapical abscess without sinus (principal)
CPT/HCPCS: 10160

== ENCOUNTER 2019-01-31 06:47 | Emergency (ER) | payer MEDICARE, MEDICAID, SELFPAY ==
[2019-01-31 06:52] VITALS: BP 130/81; PULSE 88; RESP 16; TEMP 36.4; O2SAT 98
== END 2019-01-31 07:52 ==
PROVIDERS: Emergency Provider Emergency Medicine; PCP Nurse Practitioner Family
DX: O99.612 Diseases of the digestive system complicating pregnancy, second trimester (principal); K04.7 Periapical abscess without sinus; Z3A.18 18 weeks gestation of pregnancy
CPT/HCPCS: 99283

== ENCOUNTER 2019-02-04 00:56 | Outpatient (CLI) | payer MEDICARE, MEDICAID, SELFPAY ==
--- NOTE | 2019-02-04 13:33 | DI.US_ITS ---
SYMPTOM/DIAGNOSIS: ROUTINE PNC, Z34.90 OBSTETRICAL ULTRASOUND: There is a single living intrauterine gestation. Estimated sonographic age is 19 weeks 1 day. No abnormalities are identified. The fetus is in the cephalic presentation. The placenta is posterior. The placental tip lies 2.5 cm from the internal os. IMPRESSION: Single living intrauterine gestation. Estimated sonographic age is 19 weeks 1 day. Predicted Gestational Age: Indication/History:routine PNC, z34.90 19 - Wks Range: 18 - to 20 - Prior US done on: 07/01/19 Determined by: xx First US xx History EDC by prior US: For multiple gestations: Baby PLACENTA: Grade: I Location: Posterior PRESENTATION: Cephalic XX Trans (Head RT LT ) Varied Breech BIOMETRY: Anatomy Identified: BPD: 43 mm 19 +1 wks 4 chamber Heart XX Heart Rate 155 BPM HC: 163 mm 19 +1 wks LVOT XX Post Fossa XX AC: 135 mm 19 - wks RVOT XX Ventricles XX FL: 30 mm 19 +1 wks Stomach XX Nose XX Bladder XX Lips XX Cisterna Magna: 3.6 mm CI: 80 Kidneys XX Palate XX Cerebellum: 1.9 CM 3 vessel cord XX Spine XX EFW: 272 grms 49 % Cord Insertion XX NS= not seen Composite Age (US) 19 +1 wks Many abnormalities cannot be diagnosed. A normal exam does not exclude congenital abnormality. EDC by US 06/30/19 Amniotic Fluid Index: Normal COMMENTS: RUQ: LUQ: RLQ: LLQ: Total: cm Biophysical Profile: Score 0/2 BRENNAN (>2cm) Respirations (>30 sec) Body flexion/extension Extremity flexion/extension TOTAL SCORE
== END 2019-02-04 01:16 ==
PROVIDERS: PCP Nurse Practitioner Family; Visit Provider Advanced Practice Midwife
DX: Z34.92 Encounter for supervision of normal pregnancy, unspecified, second trimester (principal)
CPT/HCPCS: 76805

== ENCOUNTER 2019-03-19 13:59 | Emergency (ER) | payer MEDICARE, MEDICAID, SELFPAY ==
[2019-03-19 14:07] VITALS: BP 134/72; PULSE 105; RESP 20; TEMP 36.5; O2SAT 98
--- NOTE | 2019-03-19 14:14 | ED.GENADUL_ITS ---
Discharge Plan Disposition Patient Disposition: AGAINST MEDICAL ADVICE Condition: Stable Discharge Details Chief Complaint: SOB Clinical Impression: Asthma exacerbation Primary Care Provider: Rochelle Muñoz ED Provider: Maria Esther Nieto Home Meds and New Rx's Prescriptions: Continued aspirin [Aspirin Low Dose] 81 mg tablet,delayed release (DR/EC) 81 mg PO DAILY Qty: 90 RF: 1 albuterol sulfate [Ventolin HFA] 60 PUFF HFA aerosol inhaler 1 puff Inhalation Q4H PRN PRNRF: 0 ipratropium-albuterol 3 ML solution for nebulization 3 ml IN Q4H PRN PRNRF: 0 Symbicort 10.2 GM HFA aerosol inhaler 10.2 gm Inhalation BID RF: 0 Discharge Instructions Instructions: Asthma (ED) Additional Instructions: Take your regular medications as directed. Follow-up with your primary care doctor in 1-2 days for reevaluation. Return immediately to the emergency department if you develop any worsening or new concerning symptoms. Discharge Data Discharge Date/Time-TO BE ENTERED AT DEPARTURE: 03/19/19 14:27 Discharge Physician: Maria Esther Nieto Medical Decision Making 33-year-old female at approximately 5 months presents after being sent from OB floor for possible asthma exacerbation. Upon arrival to room, patient cursing and yelling at staff. She is refusing staff to touch her and or help her with her gown. She initially refused me listening to her lungs with the stethoscope. She eventually was agreeable and she had diffuse rhonchi and wheezing throughout. Oxygen saturation 98% on room air, heart rate low 100s and remainder vitals within normal limits. Patient refusing steroids, blood work or imaging. She is requesting only albuterol neb treatment and is requesting to leave after. Before my reevaluation of patient, she was walking out of the room. She was noted by staff to be speaking in full sentences, cursing and yelling. She appeared to be improved after the albuterol neb treatment x2. Patient refused to sign AMA form. Case discussed with Dr. Willard who stated that patient returned to the OB floor after evaluated in the emergency department and appeared to be mildly improved. HPI General Mode of arrival: wheelchair . Date/Time Provider Initiated Documentation: 03/19/19 14:07 . Limitations to Documentation: no limitations . Information obtained by: patient . HPI Narrative: Patient is a 33-year-old female with a history of asthma, COPD, borderline personality disorder, PTSD who was sent from the OB floor for possible asthma exacerbation. She is G6, P3 at approximately 5 months . She states she has had bronchitis for the past month. She is a tobacco smoker. She is cursing and yelling at staff and difficult to obtain a history but states that she thinks she was affected by a smell up on the OB which triggered an asthma exacerbation today. She denies any history of intubations. Related Data Home Medications Medication Instructions Recorded Confirmed albuterol sulfate [Ventolin HFA] 1 puff INHALATION Q4H PRN PRN inh 04/17/15 03/19/19 ipratropium-albuterol 3 ml IN Q4H PRN PRN 07/26/15 03/19/19 Symbicort 10.2 gm INHALATION BID 03/09/17 03/19/19 aspirin 81 mg tablet,delayed 81 mg PO DAILY #90 tab 01/29/19 03/19/19 release Previous Rx's Medication Instructions Recorded albuterol sulfate [Ventolin HFA] 1 puff INHALATION Q4H PRN PRN inh 04/17/15 aspirin 81 mg tablet,delayed 81 mg PO DAILY #90 tab 01/29/19 release Allergies Allergy/AdvReac Type Severity Reaction Status Date / Time No Known Allergies Allergy Unverified 03/19/19 14:10 General Stated Complaint: SOB DOROTEO: 2 Review of Systems Review of Systems All systems reviewed & are unremarkable except as noted in HPI and below Constitutional Reports as per HPI, Denies chills and Denies fever(s) Eyes Denies blurry vision ENT Denies dizziness, Denies sore throat and Denies throat swelling Cardiovascular Denies chest pain and Reports dyspnea Respiratory Reports cough and Reports dyspnea Gastrointestinal Denies abdominal pain, Denies diarrhea and Denies vomiting Genitourinary Denies hematuria and Denies dysuria Musculoskeletal Denies back pain and Denies numbness Integumentary/Breasts Denies lesions and Denies rash Neurologic Denies dizziness, Denies focal weakness and Denies numbness Allergic/Immunologic Denies throat swelling PFSH Medical History Asthma Chronic anxiety Obesity Tobacco use Surgical History Myringotomy w/ PE (pressure equalizing) tubes Social History Smoking/Tobacco Use Status: Current every day Tobacco Type: cigarettes Alcohol Intake: former Drug use: Daily Substance use type: marijuana Details: marijuana 3 x daily Do you feel safe at home: Yes Do you feel safe in your relationship?: Yes Female Reproductive History Menstrual Age of Menarche: 12 Duration of menses: 3-5 days control method: none History History 6 Para 3 Hx # Term Pregnancies 3 Multiple births 0 Hx # Pregnancies Ectopic pregnancies 0 AB induced 1 Hx Number of Living Children 3 AB spontaneous 1 Past Pregnancies Del. Date GA/Weeks # Outcome Route Wgt Sex Labor Lgth Anesthes ia Location Prov Complic Unknown 40 No Successful vaginal 2.325 kg Female 20 min cottage, by an rn dr conley Unknown 02/11/09 40 No Successful vaginal 2.325 kg Male [address] conley 04/16/15 No Successful vaginal precipitous deliv ered 20 min after admission rn in Delivery Date: On 01/02/19 @ 14:04 ERICA TALAMANTES precipitous, Delivery Date: On 01/14/19 @ 13:15 ERICA TALAMANTES DATE/INFO UNKNOWN, PT CLAIMS SHE HAS NO RECOLLECTION OF ONE OF HER PREGNANCIES. Delivery Date: 02/11/09 No notes to display Delivery Date: 04/16/15 On 01/31/19 @ 11:24 ERICA TALAMANTES precipitous delivery w/o pp complications Exam Const General: well developed, anxious and other (cursing and yelling at staff) [facility] Head: normal to inspection Face and sinus: normal facial exam Eyes General: appearance normal, both eyes and all related structures Pupils: PERRL EOM: EOM intact bilaterally Neck Neck: normal visual inspection and No submandibular swelling Lymphatic: no lymphadenopathy noted Chest Chest: normal inspection of the chest and no tenderness Resp Effort & Inspection: normal respiratory effort and able to speak in complete sentences Auscultation: rhonchi upper bilaterally and lower bilaterally and wheezes lower bilaterally and upper bilaterally Cardio Rate: regular rate Rhythm: regular rhythm GI Inspection: normal to inspection Skin General skin exam: no rashes or lesions noted Neuro General: alert, awake and oriented x3 Cognition: normal cognition Motor: muscle tone normal throughout Sensory Exam: no sensory deficits noted Extrem General: normal to inspection, full ROM, normal capillary refill, no calf tenderness bilaterally and no edema Psych Appearance: grossly normal Mental Status: mental status grossly normal Speech and Movement: speech and movement normal Affect: anxious affect, hostile and irritable affect Attitude: belligerent Course Vital Signs Temperature 97.7 F 03/19/19 14:07 Pulse 105 H 03/19/19 14:07 Respiratory Rate 20 03/19/19 14:07 Blood Pressure 134/72 03/19/19 14:07 Pulse Oximetry 98 03/19/19 14:07 Temperature 97.7 F 03/19/19 14:07 Temperature Source Temporal Artery Scan 03/19/19 14:07 Pulse 105 H 03/19/19 14:07 Respiratory Rate 20 03/19/19 14:07 Respiratory Effort Labored 03/19/19 14:10 Blood Pressure 134/72 03/19/19 14:07 Blood Pressure Position Sitting 03/19/19 14:07 Pulse Oximetry 98 03/19/19 14:07 Oxygen Delivery Method Room Air 03/19/19 14:07 Oxygen Flow Rate 0 03/19/19 14:07
== END 2019-03-19 14:27 | disposition left against medical advice (07) ==
PROVIDERS: Emergency Provider Physician Assistant; PCP Nurse Practitioner Family
DX: O99.512 Diseases of the respiratory system complicating pregnancy, second trimester (principal); J45.901 Unspecified asthma with (acute) exacerbation; Z3A.22 22 weeks gestation of pregnancy
CPT/HCPCS: 36415; 80053; 94640; 99283; 83735; 84484; 85025

== ENCOUNTER 2019-03-20 23:06 | Inpatient (IN) | payer MEDICARE, MEDICAID, SELFPAY ==
[2019-03-20] MEDS: diphenhydrAMINE 25 MG CAP 50 MG PO (23:30)
[2019-03-20 23:37] VITALS: BP 142/81; PULSE 81; RESP 22; TEMP 36.4; O2SAT 100
--- NOTE | 2019-03-20 23:38 | W.ED.GENAD ---
Discharge Plan Disposition Patient Disposition: [facility] INPATIENT Condition: Poor Discharge Details Chief Complaint: PsychEval Clinical Impression: Threatening behavior, , Impulsiveness Primary Care Provider: Rochelle Muñoz ED Provider: Augie Luu Home Meds and New Rx's Prescriptions: No Action aspirin [Aspirin Low Dose] 81 mg tablet,delayed release (DR/EC) 81 mg PO DAILY Qty: 90 RF: 1 gabapentin 100 mg capsule 100 mg PO TID Qty: 60 RF: 2 albuterol sulfate [Ventolin HFA] 60 PUFF HFA aerosol inhaler 1 puff Inhalation Q4H PRN PRNRF: 0 ipratropium-albuterol 3 ML solution for nebulization 3 ml IN Q4H PRN PRNRF: 0 Symbicort 10.2 GM HFA aerosol inhaler 10.2 gm Inhalation BID RF: 0 Medical Decision Making After reviewing all of the medical records and notes available to me I do feel that patient currently has become unpredictable, impulsive, lacking insight and judgment. She has had multiple episodes of erratic and violent behavior. She has labile. She has reportedly made statements of ending her home . She has been mostly calm and cooperative here. There has been times of potential escalation which required redirection. She agreed to 50 mg of Benadryl to try to help her sleep. Because of her we are limited somewhat in terms of medications. Laboratory studies were obtained without incident. There are no significant abnormalities. Tylenol and aspirin are negative. Alcohol negative. Drug screen positive for marijuana which she has admitted to. Patient has been discussed with mental health. Patient has been discussed with care management. CPSO is present. EE paperwork has been completed by me. Case is been discussed with hospitalist. Patient will be placed in the transition unit while awaiting for second certification. Medical Records Medical records reviewed: Yes I reviewed the patient's medical records. Lab Data Lab results reviewed: Yes I reviewed the patient's lab results. HPI General Mode of arrival: ambulatory. Date/Time Provider Initiated Documentation: 03/20/19 23:35. Information obtained by: old records reviewed. HPI Narrative: Patient is brought in by police on a warrant for psychiatric evaluation. She currently is calm and cooperative with police chief present. However, she is not overly conversant with me. I have reviewed the medical records from her last few visits in this hospital including the center notes as well as the emergency department notes. I have reviewed mental health workers notes that were provided tonight. Patient's only complaint to me tonight is dental pain. She is on amoxicillin for a dental infection. She is 25 weeks and was seen in the center on the and the . The recent medical records and mental health notes report that she has been extremely impulsive, erratic, labile, aggressive and agitated. She has a long psychiatric history. On her visit to mental health today she reportedly threatened to self abort her on her own. It was deemed by her clinician Laine Chiang APRN that she has decompensated to the point of requiring involuntary hospitalization. Related Data Home Medications Medication Instructions Recorded Confirmed albuterol sulfate [Ventolin HFA] 1 puff INHALATION Q4H PRN PRN inh 04/17/15 03/21/19 ipratropium-albuterol 3 ml IN Q4H PRN PRN 07/26/15 03/21/19 Symbicort 10.2 gm INHALATION BID 03/09/17 03/21/19 aspirin 81 mg tablet,delayed 81 mg PO DAILY #90 tab 01/29/19 03/21/19 release gabapentin 100 mg capsule 100 mg PO TID #60 cap 03/20/19 03/21/19 Previous Rx's Medication Instructions Recorded albuterol sulfate [Ventolin HFA] 1 puff INHALATION Q4H PRN PRN inh 04/17/15 aspirin 81 mg tablet,delayed 81 mg PO DAILY #90 tab 01/29/19 release gabapentin 100 mg capsule 100 mg PO TID #60 cap 03/20/19 Allergies Allergy/AdvReac Type Severity Reaction Status Date / Time No Known Allergies Allergy Unverified 03/19/19 14:10 General Stated Complaint: PsychEval DOROTEO: 2 Review of Systems Review of Systems Unobtainable due to mental condition [facility] Medical History Asthma Chronic anxiety Obesity Tobacco use Surgical History Myringotomy w/ PE (pressure equalizing) tubes Social History Smoking/Tobacco Use Status: Current every day Tobacco Type: cigarettes Alcohol Intake: former Drug use: Daily Substance use type: marijuana Details: marijuana 3 x daily Do you feel safe at home: Yes Do you feel safe in your relationship?: Yes Female Reproductive History Menstrual Age of Menarche: 12 Duration of menses: 3-5 days control method: none History History 6 Para 3 Hx # Term Pregnancies 3 Multiple births 0 Hx # Pregnancies Ectopic pregnancies 0 AB induced 1 Hx Number of Living Children 3 AB spontaneous 1 Past Pregnancies Del. Date GA/Weeks # Outcome Route Wgt Sex Labor Lgth Anesthesia Location Prov Complic Unknown 40 No Successful vaginal 2.325 kg Female 20 min cottage, by an rn dr conley Unknown 02/11/09 40 No Successful vaginal 2.325 kg Male [address] conley 04/16/15 No Successful vaginal precipitous delivered 20 min after admission rn in Delivery Date: On 01/02/19 @ 14:04 ERICA TALAMANTES precipitous, Delivery Date: On 01/14/19 @ 13:15 ERICA TALAMANTES DATE/INFO UNKNOWN, PT CLAIMS SHE HAS NO RECOLLECTION OF ONE OF HER PREGNANCIES. Delivery Date: 02/11/09 No notes to display Delivery Date: 04/16/15 On 01/31/19 @ 11:24 ERICA TALAMANTES precipitous delivery w/o pp complications Exam Narrative Exam Narrative: Vitals: Afebrile. BP somewhat elevated but likely related to situation. Const: WDWN female in NAD. HEENT: NC/AT. Normal facial exam. Eyes: Normal conjunctiva and sclera. Neck: Supple. Trachea midline. Lungs: Normal respiratory effort. Lungs are clear tonight. Cor: RRR without murmur/gallop. Good radial pulses. Neuro: A+O x 3. CN grossly in tact. Good strength and no focal deficit. Skin: Warm and dry. Sores/scabs noted on arms. Psych: Poor eye contact, not willing to talk much with me, mostly calm but has had periods of escalation requiring re-direction
[2019-03-21 00:11] LABS: Abs Immature Grans 0.03 k/cumm (0.0-0.09); Absolute Basophil Count 0.03 k/cumm (0.0-0.2); Absolute Eosinophil Count 0.16 k/cumm (0.0-0.7); Absolute Lymphocyte Count 2.52 k/cumm (1.2-3.4); Absolute Monocyte Count 0.88 k/cumm (0.11-0.7); Absolute Neutrophil Count 6.72 k/cumm (1.2-6.7); Basophils % 0.3; Eosinophils % 1.5; HCT 40.8 % (36.0-46.0); HGB 13.3 g/dL (12.0-15.5); Immature Grans % 0.3; Lymphocytes % 24.4; Mean Corp. HGB Concentration 32.6 g/dL (32.0-36.0); Mean Corpuscular Hemoglobin 30.4 pg (27.0-33.0); Mean Corpuscular Volume 93.2 fL (80-95); Mean Platelet Volume 10.4 fL (8.0-11.0); Monocytes % 8.5; Platelet Count 203 x1000/uL (130-400); RBC 4.38 m/cumm (4.00-5.20); RBC Distribution Width 13.5 % (11.7-14.6); White Blood Cell Count 10.34 k/cumm (4.4-10.8)
[2019-03-21 00:31] LABS: ALT 17 U/L (12-78); AST 28 U/L (15-37); Albumin 3.2 g/dL (3.4-5.0); Alkaline Phosphatase 81 U/L (46-116); BUN 12 mg/dL (7-18); Bilirubin, Total 0.5 mg/dL (0.2-1.0); CREATININE 0.59 mg/dL (0.55-1.02); Calcium 9.1 mg/dL (8.5-10.1); Chloride 103 mmol/L (98-107); Glucose 86 mg/dL (70-100); Potassium 3.7 mmol/L (3.5-5.1); Sodium 136 mmol/L (136-145); TSH 3.76 uIU/mL (0.36-3.74); Total Protein 7.4 g/dL (6.4-8.2)
[2019-03-21 00:32] LABS: Bilirubin Negative (Negative); Blood Trace-lysed (Negative); Clarity Clear (Clear); Glucose Negative (Negative); Ketones 40 mg/dL (Negative); Leukocyte Esterase Trace (Negative); Nitrite Negative (Negative)
[2019-03-21 00:32] LABS: ETHANOL BLOOD < 3.0 mg/dL (<3)
[2019-03-21 00:39] LABS: Salicylate 3.2 mg/dL (2.8-20.0)
[2019-03-21 00:40] LABS: Acetaminophen < 2 ug/mL (10-30)
[2019-03-21 00:41] LABS: *AMPHETAMINES SCREEN URINE Negative (Negative); *BARBITURATES SCREEN URINE Negative (Negative); *BENZODIAZEPINES SCREEN URINE Negative (Negative); Cannabinoids THC POSITIVE (Negative); Cocaine Screen,Urine Negative (Negative); METHADONE URINE SCREEN Negative (Negative); OPIATES URINE SCREEN Negative (Negative)
[2019-03-21 00:43] LABS: Tricyclic Antidepressants Negative (Negative)
--- NOTE | 2019-03-21 00:47 | PDOC.ERCMPRO ---
Care Management Progress Note S/O: Conchita arrived in protective custody of law enforcement officers and is here under a Audit Manager's warrant requesting EE. Reported that she has been verbally threatening and exhibiting erratic behaviors. Conchita has not been taking her medications durig this and as been threatening to staff members and providers over the past few months. She has been refusing care after showing up for her office appointments and has left AMA from the ER during a recent visit. She is not currently actively voicing any intent to harm herself or anyone else. She accepted PO Benadryl and has been cooperative with care at this point. Dr. Luu completed the EE. Conchita is not able to agree with the plan for inpatient psychiatric admission for stabilization and treatment at this time. [facility] has been contacted to compete the psychiatric evaluation and is enroute from [facility]. Conchita is well known to our local agency, [facility], who will follow up in the morning. Conchita has been unable to exhibit capacity to agree with the need to seek inpatient psychiatric care. Please see and MD notes for further information. INVOLUNTARY FOR INPATIENT PSYCHIATRIC STABILIZATION. EE completed and she is now on involuntary status. High risk for elopement and high risk for impulsive, aggressive behaviors. Conchita is unpredictable in terms of her response at this time and cannot agree to inpatient psychiatric treatment but is at risk for harming herself and others. Safety plan has been established with the care team, to adhere to patient goals, identify restrictions based on behavioral status, address nutrition, and determine allowed personal belongings, tools for hygiene and personal care. Determine level of activity including ambulation, level of supervision, visitors, and determine privileges based on behaviors and level of engagement by patient; please note safety plan below. Conchita was not able to participate in developing the plan and is not able to articulate agreement. Huddle Participants: Sintia Gonzalez, Investigator Utility Bill Complaints; ANITRA Abad, Gala, RN-Mandate Retail Service Merchandiser SAFETY PLAN: ED Room #5 03/21/19 00:30 1. Will remain on suicide precautions. In Paper Clothes 2. Will remain in room under direct supervision of one-on-one staff at all times provided by CPSO; ANDRES, BAG FILLER MACHINE OPERATOR facility maintenance worker. 3. May have paper cups, plates, finger foods, safety spoon 4. Follow [facility] Management of the Admitted Behavioral Health Patient policy. 5. Comfort bath system only. May shower if available, escorted by clinical staff and at the discretion of the RN. 6. May keep her hat. No other personal belongings. 7. No visitors at this time. 9. Bathroom privileges: escort to bathroom at RN discretion. 10. No Phone at this time. 11. Will remain in the ED to complete her evaluation and transfer to a M/S Transition Bed will be coordinated by the Investigator Utility Bill Complaints based on bed availability and staffing. 12. TV and remote if available at RN discretion. 13. Paper and crayons for activity at RN discretion 14. Due to INVOLUNTARY status, the patient must remain in the hospital. Second Certification will be scheduled with [facility]. Patient is currently involuntarily at [facility] and in need of inpatient psychiatric admission when a bed becomes available. [facility]/Frontline Insurance Sales Producer will seek placement. Please contact the Principal Database Developer Mandate Retail Service Merchandiser ([phone]) and [facility] Insurance Sales Producer ([phone]) for any needed changes in the Safety Plan. Safety plan has been provided to interdepartmental care team including Clinical Coordinator, Nursing Grey Roll Man
[2019-03-21 00:48] LABS: Bacteria Few HPF (Negative); C & S Indicated? No/Sq. Contamination; Casts Negative LPF (Negative); Crystals Negative HPF (Negative); Epithelial Cells Many HPF (Negative); Mucus Negative (Negative); RBC 0-2 (0-2); WBC 0-2 HPF (0-5)
[2019-03-21] MEDS: Acetaminophen 325 MG TAB 650 MG PO ×2 (00:52→05:56)
[2019-03-21] MEDS: Amoxicillin 500 MG CAP PO ×3 (00:52→14:04)
--- NOTE | 2019-03-21 01:27 | CMSP_ITS ---
Care Management Safety Plan INVOLUNTARY FOR INPATIENT PSYCHIATRIC STABILIZATION. EE completed and she is now on involuntary status. High risk for elopement and high risk for impulsive, aggressive behaviors. Conchita is unpredictable in terms of her response at this time and cannot agree to inpatient psychiatric treatment but is at risk for harm ing herself and others. Safety plan has been established with the care team, to adhere to patient goals, identify restrictions based on behavioral status, address nutrition, and determine allowed personal belongings, tools for hygiene and personal care. Determine level of activity including ambulation, level of supervision, visitors, and determine privileges based on behaviors and level of engagement by patient; please note safety plan below. Conchita was not able to participate in developing the plan and is not able to articulate agreement. Huddle Participants: Sintia Gonzalez, Student Affairs Dean; ANITRA Abad, Gala, RN-Phlebotomist Medical Lab Assistant SAFETY PLAN: ED Room #5 03/21/19 00:30 1. Will remain on suicide precautions. In Paper Clothes 2. Will remain in room under direct supervision of one-on-one staff at all times provided by CPSO; ANDRES, BREASTFEEDING PROGRAM COORDINATOR cpr instructor. 3. May have paper cups, plates, finger foods, safety spoon 4. Follow [facility] Management of the Admitted Behavioral Health Patient policy. 5. Comfort bath system only. May shower if available, escorted by clinical staff and at the discretion of the RN. 6. May keep her hat. No other personal belongings. 7. No visitors at this time. 9. Bathroom privileges: escort to bathroom at RN discretion. 10. No Phone at this time. 11. Will remain in the ED to complete her evaluation and transfer to a M/S Transition Bed will be coordinated by the Student Affairs Dean based on bed availability and staffing. 12. TV and remote if available at RN discretion. 13. Paper and crayons for activity at RN discretion 14. Due to INVOLUNTARY status, the patient must remain in the hospital. Second Certification will be scheduled with [facility]. Patient is currently involuntarily at [facility] and in need of inpatient psychiatric admission when a bed becomes available. [facility]/Frontline Roller Cleaner will seek placement. Please contact the Binding End Stitcher Phlebotomist Medical Lab Assistant ([phone]) and [facility] Roller Cleaner ([phone]) for any needed changes in the Safety Plan. Safety plan has been provided to interdepartmental care team including Clinical Coordinator, Nursing Information Technology Instructor
--- NOTE | 2019-03-21 01:38 | NUR.NOTE ---
Verbal report given to ANITRA Kat Nursing Note:
[2019-03-21] MEDS: Albuterol 2.5 MG/3 ML INH SOLN VIAL UPD (03:00)
--- NOTE | 2019-03-21 03:54 | NUR.NOTE ---
Nursing Note: at 0200 pt was admitted to safety room with CPSO and ER nurse ([place]) with pt. Patient was immediately upset with room setup and lights. Bedside table and radio removed from room. Patient unlocked bed and moved to side of wall that is away from door, she also wanted a breathing treatment for her COPD, explained that she had an inhaler but MD would have to be called to get breathing treatment ordered. When this RN and charge nurse (Alana) went into room to talk to pt and pt became upset started to try and throw chair, then started to punch wall and hit her head on wall and kick at wall. 0225 aliyah barfield was called. Staff attempted to calm pt down and call to MD was made to get breathing treatment and Benadryl ordered. MD returned call and orders were placed for as needed medications.Aliyah barfield cancelled at 0233.
[2019-03-21] MEDS: Albuterol HFA 8 GM 60 PUFF INH IH (05:56)
[2019-03-21 06:00] VITALS: RESP 16
[2019-03-21] MEDS: diphenhydrAMINE 25 MG CAP 50 MG PO ×2 (06:03→19:40)
--- NOTE | 2019-03-21 06:37 | HPE_ITS ---
Date of service: 03/21/19 Time of Service: 06:37 Assessment and Plan (1) Borderline personality disorder: Current visit: Yes Status: Acute patient apparently has expressed intent of self harm and harm to her unborn child and expressed these intention to her mental health worker at [facility] leading to a court order for EE evaluation. Patient is admitted to [facility] under involuntary status pending 2nd psychiatric certification. She is not currently on any psychiatric meds. Last night when she became violent, attempting to hit her head against the wall, I ordered Zyprexa 10 mg IM based upon my conversation with Dr. Augie Luu as well as upon my own review of its class C rating. Apparently benzodiazepines have a class D rating out of concern for development of child having floppy baby syndrome. I also ordered Benadryl 50 mg orally. She had previously recieved this while in the ER. [facility] is suppose to follow up with psychiatric inpatient referrals once the 2nd psychiatric evaluation is completed. (2) Dental abscess: Current visit: Yes Status: Acute patient even refused my examination of her mouth to assess the degree of her dental infections. Her amoxicillin has been reordered. (3) : Current visit: No Status: Acute I have consulted w/ the [facility] for Dr. Willard to evaluate and follow the patient for her and to advise us on what can or can not be used to treat this patient including analgesics for her dental pain, medications for her asthma and what mood stabilizing or anxiolytics are safe to use in . Qualifiers: Weeks of gestation: 25 weeks Qualified Code(s): Z3A.25 - 25 weeks gestation of (4) Asthma: Current visit: No Status: Chronic continue Symbicort and prn DuoNeb treatments. Qualifiers: Asthma severity: mild Asthma persistence: persistent Asthma complication type: uncomplicated Qualified Code(s): J45.30 - Mild persistent asthma, uncomplicated History of Present Illness Chief Complaint: threatening self harm; harm to her unborn child; threat of harm to others Narrative: Information obtained from ER notes and notes from [facility]. Limited history obtained from patient as she asked me to leave the room and refused further interview and exam. 33 yr old female w/ PMH of unspecified psychiatric disorder and asthma. She was brought to [facility] ER last night upon court order and was accompanied by a [place] police. She was ordered for an EE evaluation by the court due to impulsive, erratic, labile and aggressive behaviors including threats to terminate her on her own. She is 25 weeks gravid. She has history of w/ 1 miscarriage and 1 . She has been very erratic in her behavior in the [facility] alte rnating between agreeing to care and refusing care including walking out on multiple occasions during her examinations, refusing heart rate monitoring/ultrasounds, glucose tolerance tests. She has indicated of desire to put her current child with which she is up for adoption but has refused cooperation in going through proper authorities for adoption wanting to just give the child away. Patient was not agreeable to voluntary psychiatric inpatient treatment and due to her threats of self harm and aggressive threatening behavior to her care providers, a manager group home ordered an involuntary emergencry evaluation (EE). She was evaluated by Dr. Luu last night who agreed with the need for involuntary admission. She is awaiting a 2nd certification today. Patient is currently being treated for couple of dental abscess and is on amoxicillin. Review of Systems Review of Systems Unobtainable due to mental condition [facility] Medical History (Updated 03/21/19 @ 08:42 by Brady Soria) Asthma Borderline personality disorder (Acute) Chronic anxiety Difficulty voiding (Inactive 01/08/15) Obesity Obesity affecting , antepartum (Inactive 10/08/14) PTSD (post-traumatic stress disorder) (Acute) Supervision of normal first (Inactive 10/08/14) Tobacco use Surgical History Myringotomy w/ PE (pressure equalizing) tubes Social History Smoking/Tobacco Use Status: Current every day Tobacco Type: cigarettes Alcohol Intake: former Drug use: Daily Substance use type: marijuana Details: marijuana 3 x daily Do you feel safe at home: Yes Do you feel safe in your relationship?: Yes Female Reproductive History Menstrual Age of Menarche: 12 Duration of menses: 3-5 days control method: none History History 6 Para 3 Hx # Term Pregnancies 3 Multiple births 0 Hx # Pregnancies Ectopic pregnancies 0 AB induced 1 Hx Number of Living Children 3 AB spontaneous 1 Past Pregnancies Del. Date GA/Weeks # Outcome Route Wgt Sex Labor Lgth Anesthes ia Location Prov Complic Unknown 40 No Successful vaginal 2.325 kg Female 20 min cottnahid, by an rn dr conley Unknown 02/11/09 40 No Successful vaginal 2.325 kg Male [address] conley 04/16/15 No Successful vaginal precipitous deliv ered 20 min after admission rn in Delivery Date: On 01/02/19 @ 14:04 ERICA TALAMANTES precipitous, Delivery Date: On 01/14/19 @ 13:15 ERICA TALAMANTES DATE/INFO UNKNOWN, PT CLAIMS SHE HAS NO RECOLLECTION OF ONE OF HER PREGNANCIES. Delivery Date: 02/11/09 No notes to display Delivery Date: 04/16/15 On 01/31/19 @ 11:24 ERICA TALAMANTES precipitous delivery w/o pp complications Meds Home Medications Medication Instructions Recorded Confirmed Type albuterol sulfate [Ventolin HFA] 1 puff INHALATION Q4H PRN PRN inh 04/17/15 03/21/19 Rx ipratropium-albuterol 3 ml IN Q4H PRN PRN 07/26/15 03/21/19 History Symbicort 10.2 gm INHALATION BID 03/09/17 03/21/19 History aspirin 81 mg tablet,delayed 81 mg PO DAILY #90 tab 01/29/19 03/21/19 Rx release gabapentin 100 mg capsule 100 mg PO TID #60 cap 03/20/19 03/21/19 Rx Allergies Allergy/AdvReac Type Severity Reaction Status Date / Time No Known Allergies Allergy Unverified 03/19/19 14:10 Exam Narrative Exam Narrative: patient refused examination Results Labs : 03/20/19 23:58 03/20/19 23:58 Laboratory Results - last 24 hr 03/20/19 03/20/19 03/20/19 23:58 23:58 23:58 WBC 10.34 RBC 4.38 Hgb 13.3 Hct 40.8 MCV 93.2 MCH 30.4 MCHC 32.6 RDW 13.5 Plt Count 203 MPV 10.4 Immature Gran % 0.3 Neutrophils % 65.0 Lymphocytes % 24.4 Monocytes % 8.5 Eosinophils % 1.5 Basophils % 0.3 Absolute Neutrophils 6.72 H Absolute Lymphocytes 2.52 Absolute Monocytes 0.88 H Absolute Eosinophils 0.16 Absolute Basophils 0.03 Sodium 136 Potassium 3.7 Chloride 103 Carbon Dioxide 22.0 Anion Gap 11.0 BUN 12 Creatinine 0.59 Estimated GFR/1.73 m2 >= 60.00 Glucose 86 Calcium 9.1 Total Bilirubin 0.5 AST 28 ALT 17 Alkaline Phosphatase 81 Total Protein 7.4 Albumin 3.2 L TSH 3.76 H Urine Color Urine Clarity Urine pH Ur Specific [place] Urine Protein Urine Ketones Urine Blood Urine Nitrite Urine Bilirubin Urine Urobilinogen Ur Leukocyte Esterase Urine RBC Urine WBC Ur Epithelial Cells Urine Crystals Urine Bacteria Urine Casts Urine Mucus Ur Culture Indicated? Urine Glucose Salicylates 3.2 Urine Opiates Screen Urine Methadone Screen Acetaminophen < 2 L Ur Barbiturates Screen Ur Tricyclics Screen Ur Amphetamines Screen U Benzodiazepines Scrn Urine Cocaine Screen Ur THC Screen Ethyl Alcohol < 3.0 03/21/19 03/21/19 00:10 00:10 WBC RBC Hgb Hct MCV MCH MCHC RDW Plt Count MPV Immature Gran % Neutrophils % Lymphocytes % Monocytes % Eosinophils % Basophils % Absolute Neutrophils Absolute Lymphocytes Absolute Monocytes Absolute Eosinophils Absolute Basophils Sodium Potassium Chloride Carbon Dioxide Anion Gap BUN Creatinine Estimated GFR/1.73 m2 Glucose Calcium Total Bilirubin AST ALT Alkaline Phosphatase Total Protein Albumin TSH Urine Color Yellow Urine Clarity Clear Urine pH 7.0 Ur Specific [place] 1.020 Urine Protein Negative Urine Ketones 40 H Urine Blood Trace-lysed H Urine Nitrite Negative Urine Bilirubin Negative Urine Urobilinogen 1.0 H Ur Leukocyte Esterase Trace H Urine RBC 0-2 Urine WBC 0-2 Ur Epithelial Cells Many Urine Crystals Negative Urine Bacteria Few Urine Casts Negative Urine Mucus Negative Ur Culture Indicated? No/sq. contamination Urine Glucose Negative Salicylates Urine Opiates Screen Negative Urine Methadone Screen Negative Acetaminophen Ur Barbiturates Screen Negative Ur Tricyclics Screen Negative Ur Amphetamines Screen Negative U Benzodiazepines Scrn Negative Urine Cocaine Screen Negative Ur THC Screen Positive Ethyl Alcohol Last Vital Signs Temp 36.4 C L 03/20/19 23:37 Pulse 81 03/20/19 23:37 Resp 16 03/21/19 06:00 BP 142/81 H 03/20/19 23:37 Pulse Ox 100 03/20/19 23:37
[2019-03-21] MEDS: Gabapentin 100 MG CAP PO ×2 (09:48→14:04)
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
[2019-03-21] MEDS: Acetaminophen 500 MG TAB 1000 MG PO (12:00)
--- NOTE | 2019-03-21 12:03 | PHARADMIT ---
Addendum entered by Christopher Abraham III 03/26/19 13:24: Pharmacy Note Subjective CM and Mental health workers progressing with keeping patient calm and informed. Objective No VS, No Labs, Had BM Assessment Refused meds over night, taking them today. Plan Awaiting placement at psych facility that can accommodate her Original Note: Admission Pharmacy Clinical Review ERRATIC BEHAVIOR, AGITATION, On EE Status Code Status Full Code Current Weight Wgt-86 kg (Old weight from 2018) Renally Cleared and Narrow Therapeutic Index Meds CrCl~ 79.1 mL//min Meds-OK QTc Value / Action Taken none current BP Control, Fever BP-142/81 Tmax-36.4C Electrolytes reviewed Na- 136 K+3.7 DVT Prophylaxis None ( uncooperative) Opiate Usage / Scheduled Bowel Regimen Ordered No No Plt/SCr for Heparin / Enoxaparin Plts-203 SCr-0.59 INR for Warfarin NA H/H stable, WBC/Bands H&H- 13.3/40.8 WBC-10.34 Antibiotic appropriateness Amoxil Cultures and Sensitivities NA Surgical ABX d/c within 24 hr NA DM control / Insulin Dosing BG-86 Heart Failure (Check EF%) (YEVGENIY's, B-Block, Diuretics) none IV to PO Switch NA Home Meds Reviewed Yes Home Meds Not Ordered Ordered Comments
[2019-03-21 12:15] VITALS: RESP 15
[2019-03-21] MEDS: QUEtiapine 25 MG TAB 50 MG PO (12:25)
[2019-03-21] MEDS: oxyCODONE 5 MG TAB PO (12:25)
--- NOTE | 2019-03-21 12:27 | PGE_ITS ---
Date of Service Date of service: 03/21/19 Time of Service: 12:27 Subjective Interval history since last seen: Conchita is here at [facility] in the transitional unit awaiting psychiatric placement. Mental health is working on placement. She has been followed by Supervisor Waterproofing, Dr. Willard saw her today. Dr. Willard is familiar with the patient from [facility]. She agrees to medical management with psychiatric medications. She recommends using any combination of medication to help the patient with her symptoms including seroquel, buspar, haldol or ativan, as well as any other psychiatric medication. The patient is in her 2nd trimester of at 25 weeks. The DISPATCHER RADIO service has been unable to assess heart tones due to the patient being unwilling to allow them to apply the doppler to her abdomen. The patient has been hitting her stomach, she states she does not want to feel the baby move. She has been calm for brief periods, alternating with severe agitation with yelling and throwing chairs and refusing care. She is refusing medications when offered. A stat dose of haldol was ordered when she appeared to be in danger of hurting herself and others, however, she was able to calm down on her own temporarily and it was not given. She appears to be a threat to herself and others and may need restraints to keep herself, her fetus and others around her safe. 1240- Conchita is becoming increasingly agitated. She is punching her stomach, kicking mann, yelling and screaming, attempting to hit and bite staff. Her case was discussed with Dr. Johnson who recommended Haldol, ativan and benadryl combination, IM. She is also placed in restraints for her safety and staff safety. 1325- Conchita is sitting up in bed. Nursing is attempting to give a nebulizer treatment. She is yelling but does not appear to be attempting to harm staff. There is food smeared on the wall, pieces of food all over the room, appears to have been thrown. 1545- Conchita is sleeping on her left side. No physical restraints in place. She has a 1:1 patient observer. Objective Objective Clinical Data: Abnormal lab results 03/20/19 03/20/19 03/20/19 Range/Units 23:58 23:58 23:58 Absolute Neutrophils 6.72 H (1.2-6.7) k/cumm Absolute Monocytes 0.88 H (0.11-0.7) k/cumm Albumin 3.2 L (3.4-5.0) g/dL TSH 3.76 H (0.36-3.74) uIU/mL Urine Ketones (Negative) mg/dL Urine Blood (Negative) Urine Urobilinogen (Up TO 0.2) EU/dL Ur Leukocyte Esterase (Negative) Acetaminophen < 2 L (10-30) ug/mL 03/21/19 Range/Units 00:10 Absolute Neutrophils (1.2-6.7) k/cumm Absolute Monocytes (0.11-0.7) k/cumm Albumin (3.4-5.0) g/dL TSH (0.36-3.74) uIU/mL Urine Ketones 40 H (Negative) mg/dL Urine Blood Trace-lysed H (Negative) Urine Urobilinogen 1.0 H (Up TO 0.2) EU/dL Ur Leukocyte Esterase Trace H (Negative) Acetaminophen (10-30) ug/mL Vital Signs Temperature 36.4 C L 03/20/19 23:37 Temperature Source Temporal Artery Scan 03/20/19 23:37 Pulse 81 03/20/19 23:37 Respiratory Rate 16 03/21/19 06:00 Respiratory Effort Non-Labored 03/21/19 03:00 Respiratory Depth Normal 03/21/19 03:00 Respiratory Pattern Normal 03/21/19 03:00 Blood Pressure 142/81 H 03/20/19 23:37 Pulse Oximetry 100 03/20/19 23:37 Oxygen Delivery Method Room Air 03/20/19 23:37 Oxygen Flow Rate 0 03/20/19 23:37 Pain Level 10 03/21/19 00:52 Comment 03/21/19 06:00 Intake & Output 03/20/19 03/21/19 03/21/19 23:59 11:59 23:59 Intake Total 240 / 240 Balance 240 / 240 Intake: Oral 240 / 240 Other: Comment pt noted to void in toilet; urine not assessed at this time r/t for agitation and flushing of toilet Voiding Methods Toilet Laboratory Results WBC 10.34 k/cumm (4.4-10.8) 03/20/19 23:58 RBC 4.38 m/cumm (4.00-5.20) 03/20/19 23:58 Hgb 13.3 g/dL (12.0-15.5) 03/20/19 23:58 Hct 40.8 % (36.0-46.0) 03/20/19 23:58 MCV 93.2 fL (80-95) 03/20/19 23:58 MCH 30.4 pg (27.0-33.0) 03/20/19 23:58 MCHC 32.6 g/dL (32.0-36.0) 03/20/19 23:58 RDW 13.5 % (11.7-14.6) 03/20/19 23:58 Plt Count 203 x1000/uL (130-400) 03/20/19 23:58 MPV 10.4 fL (8.0-11.0) 03/20/19 23:58 Immature Gran % 0.3 03/20/19 23:58 65.0 03/20/19 23:58 24.4 03/20/19 23:58 8.5 03/20/19 23:58 1.5 03/20/19 23:58 0.3 03/20/19 23:58 Absolute Neutrophils 6.72 k/cumm (1.2-6.7) H 03/20/19 23:58 Absolute Lymphocytes 2.52 k/cumm (1.2-3.4) 03/20/19 23:58 Absolute Monocytes 0.88 k/cumm (0.11-0.7) H 03/20/19 23:58 Absolute Eosinophils 0.16 k/cumm (0.0-0.7) 03/20/19 23:58 Absolute Basophils 0.03 k/cumm (0.0-0.2) 03/20/19 23:58 Sodium 136 mmol/L (136-145) 03/20/19 23:58 Potassium 3.7 mmol/L (3.5-5.1) 03/20/19 23:58 Chloride 103 mmol/L (98-107) 03/20/19 23:58 Carbon Dioxide 22.0 mmol/L (21.0-32.0) 03/20/19 23:58 11.0 mmol/L (3-11) 03/20/19 23:58 BUN 12 mg/dL (7-18) 03/20/19 23:58 0.59 mg/dL (0.55-1.02) 03/20/19 23:58 >= 60.00 (mL/min/1.73m2) 03/20/19 23:58 Glucose 86 mg/dL (70-100) 03/20/19 23:58 Calcium 9.1 mg/dL (8.5-10.1) 03/20/19 23:58 0.5 mg/dL (0.2-1.0) 03/20/19 23:58 AST 28 U/L (15-37) 03/20/19 23:58 ALT 17 U/L (12-78) 03/20/19 23:58 81 U/L (46-116) 03/20/19 23:58 7.4 g/dL (6.4-8.2) 03/20/19 23:58 3.2 g/dL (3.4-5.0) L 03/20/19 23:58 TSH 3.76 uIU/mL (0.36-3.74) H 03/20/19 23:58 Yellow (Yellow) 03/21/19 00:10 Clear (Clear) 03/21/19 00:10 7.0 (5-8) 03/21/19 00:10 Ur Specific [place] 1.020 (1.005-1.025) 03/21/19 00:10 Negative mg/dL (Negative) 03/21/19 00:10 40 mg/dL (Negative) H 03/21/19 00:10 Trace-lysed (Negative) H 03/21/19 00:10 Negative (Negative) 03/21/19 00:10 Negative (Negative) 03/21/19 00:10 1.0 EU/dL (Up TO 0.2) H 03/21/19 00:10 Ur Leukocyte Esterase Trace (Negative) H 03/21/19 00:10 0-2 (0-2) 03/21/19 00:10 0-2 HPF (0-5) 03/21/19 00:10 Ur Epithelial Cells Many HPF (Negative) 03/21/19 00:10 Negative HPF (Negative) 03/21/19 00:10 Few HPF (Negative) 03/21/19 00:10 Negative LPF (Negative) 03/21/19 00:10 Negative (Negative) 03/21/19 00:10 Ur Culture Indicated? No/sq. contamination 03/21/19 00:10 Negative mg/dL (Negative) 03/21/19 00:10 Salicylates 3.2 mg/dL (2.8-20.0) 03/20/19 23:58 Negative (Negative) 03/21/19 00:10 Negative (Negative) 03/21/19 00:10 Acetaminophen < 2 ug/mL (10-30) L 03/20/19 23:58 Ur Barbiturates Screen Negative (Negative) 03/21/19 00:10 Ur Tricyclics Screen Negative (Negative) 03/21/19 00:10 Ur Amphetamines Screen Negative (Negative) 03/21/19 00:10 U Benzodiazepines Scrn Negative (Negative) 03/21/19 00:10 Negative (Negative) 03/21/19 00:10 Ur THC Screen Positive (Negative) 03/21/19 00:10 Ethyl Alcohol < 3.0 mg/dL (<3) 03/20/19 23:58
[2019-03-21] MEDS: Haloperidol 5 MG/ML VIAL 2 MG IM (12:45)
[2019-03-21] MEDS: diphenhydrAMINE 50 MG/ML VIAL IM (13:03)
[2019-03-21] MEDS: LORazepam 2 MG/ML VIAL IM (13:04)
[2019-03-21 13:21] VITALS: RESP 4
[2019-03-21] MEDS: Albuterol/Ipratropium 3 ML UPD VIAL IH (13:21)
--- NOTE | 2019-03-21 14:21 | PDOC.CMSAFE ---
Care Management Safety Plan SAFETY PLAN: Transition Bed 235 Med/Surg 03/21/19 1300 1. Will remain on suicide precautions, in paper clothes and t-shirt. 2. Will remain in room under direct supervision of one-on-one staff at all times provided by [employer]; ANDRES, MINOR LEAGUE BASEBALL PLAYER hedis abstractor. 3. May have paper cups, plates, finger foods, safety spoon 4. Follow [facility] Management of the Admitted Behavioral Health Patient policy. 5. Comfort bath system only. May shower if available, escorted by clinical staff and at the discretion of the RN. 6. Permitted to have her hat, glasses, t-shirt (for comfort), necklace. No other personal belongings. 7. No visitors at this time. 8. No Phone contact or personal cell phone at this time. Incoming legal calls permitted. 9. Will remain in the ED to complete her evaluation and transfer to a M/S Transition Bed will be coordinated by the Metal [employer] Plastic Heater based on bed availability and staffing. 10. TV permitted, remote available at RN discretion. 11. Paper and crayons for activity at RN discretion. 12. Permitted toothpick to clean hole in tooth; facilitated by RN at RN discretion. 13. Due to INVOLUNTARY status, the patient must remain in the hospital. Second Certification will be scheduled with [facility]. Patient is currently involuntarily at [facility] and in need of inpatient psychiatric admission when a bed becomes available. [facility]/Frontline Admissions Manager will seek placement. Please contact the Administrative Intern Satellite Communications Engineer ([phone]) and [facility] Admissions Manager ([phone]) for any needed changes in the Safety Plan. Safety plan has been provided to interdepartmental care team including Clinical Coordinator, Nursing Top Cager
--- NOTE | 2019-03-21 14:29 | CMPROGNOTE_ITS ---
Care Management Progress Note Conchita continues to be verbally threatening and exhibit erratic behaviors. Conchita also continues to be high risk for elopement with impulsive, aggressive behaviors. BAKARI NELSON was called multiple times throughout the morning. Staff consulted Psychiatrist who recommended Three Legged Stool approach: 1. Validate: this is a really tough situation 2. Cheerlead you are really doing well in this situation 3. Problem solve: present two options this or that. 4. Avoid word but utilize word and. Conchita was able to have some sporadic appropriate conversations and made some appropriate requests identifying needs in the community including wanting better medication management (for someone to give her prescribed medications as prescribed) and processed her feelings around meeting with the adoptive parents for her baby. She verbalized knowledge around recommended medication changes per her [facility] provider. MARI spoke with Fely Cruz Conchita's BOOKSTORE MANAGER leather case finisher who reported Conchita has a long history of dysregulated, aggressive behavior and was on ONH status which was revoked last night to support EE process. MARI left voicemail for [facility] Cold Press Loader Lizett providing case review and requesting placement assistance as Fely is recommending placement at [facility] due to acuity. The first CODE BARFIELD was due to posturing, property destruction, throwing items such as an oxygen tank, food and particle board and banging on the radiator hard enough to release screws. She was screaming for long periods of time and then would begin to weep and shortly thereafter become angry and verbally aggressive and re-escalate. During the first code barfield when she saw the bed with restraints outside of her room she verbalized again and again that she would regulate herself. She did attempt to regulate. She then asked for the men outside the room to be removed. CM requested Conchita allow the particle board to be removed from her room and the gentlemen would leave and code barfield would be completed. Conchita agreed and continued to attempt to regulate. This went on for about twenty minutes. Conchita then escalated without provocation and ran from the room, pushing through staff and through the transition bed door resulting in the second CODE BARFIELD. She then ran through the hallway and circled back to her room around the hallway. As this was an elopement attempt staff responded to support Conchita. Again, she stated she could regulate and de-escalate without chemical or physical restraint and was permitted to do so but continued to be unable to safely regulate. Conchita continued to barter when presented with restraint and medications. Staff attempted multiple times to allow Conchita to de-escalate and regulate on her own. She was ultimately restrained after hitting and attempting to bite staff. She continued to struggle and was able to break through her arm restraints, resulting in chemical and physical restraint orders. She continued to escalate, spitting at staff and screaming profanities for an extended period of time. Throughout the day Conchita continued with verbal threats stating after this medication wears off its game on to nursing staff. At the time of this documentation she is sleeping soundly with restraints removed. Psychiatric inpatient hospitalization continues to be sought. Request for Second Certification by a Psychiatrist was signed by Dr. Marc and faxed to [facility]. [facility] reported the second certification will be completed by second shift [facility] staff. Referrals: [place]: F#[phone]@1020 [facility] F#[phone]@1208 [place]: F#[phone]@@1312 [place]: F#[phone]@1142 [facility]: F#[phone]@1112 [facility]: F#[phone]@1046
--- NOTE | 2019-03-21 19:17 | CMPROGNOTE_ITS ---
Care Management Progress Note S/O: 2nd Certification performed by Dr. Cynthia Joseph a Psychiatrist at [facility]. Conchita was lying in bed and refused to interact and answer any questions. She kept saying Go away I want to sleep. Conchita turned her back to the screen and pulled the covers up stating Good Bye. Dr. Joseph completed the documentation and Conchita remains Involuntary status in need of inpatient Psychiatric hospitalization as soon as a bed is available. Conchita is not able to agree with the plan for inpatient psychiatric admission for stabilization and treatment at this time. States she wants to go home. INVOLUNTARY FOR INPATIENT PSYCHIATRIC STABILIZATION. 2nd Certification completed and she remains on involuntary status. High risk for elopement and high risk for impulsive, aggressive behaviors. Conchita is unpredictable in terms of her response at this time and cannot agree to inpatient psychiatric treatment but is at risk for harming herself and others. No change to the care plan that was established today at 13:00. Safety plan has been established with the care team, to adhere to patient goals, identify restrictions based on behavioral status, address nutrition, and determine allowed personal belongings, tools for hygiene and personal care. Determine level of activity including ambulation, level of supervision, visitors, and determine privileges based on behaviors and level of engagement by patient; please note safety plan below. Conchita was not able to participate in developing the plan and is not able to articulate agreement. SAFETY PLAN: Transition Bed 235 Med/Surg 03/21/19 1300 1. Will remain on suicide precautions, in paper clothes and t-shirt. 2. Will remain in room under direct supervision of one-on-one staff at all times provided by CPS[employer]; ANDRES, LAND ACQUISITION ANALYST instant potato processing supervisor. 3. May have paper cups, plates, finger foods, safety spoon 4. Follow [facility] Management of the Admitted Behavioral Health Patient policy. 5. Comfort bath system only. May shower if available, escorted by clinical staff and at the discretion of the RN. 6. Permitted to have her hat, glasses, t-shirt (for comfort), necklace. No other personal belongings. 7. No visitors at this time. 8. No Phone contact or personal cell phone at this time. Incoming legal calls permitted. 9. Will remain in the ED to complete her evaluation and transfer to a M/S Transition Bed will be coordinated by the Housecalls Nurse based on bed availability and staffing. 10. TV permitted, remote available at RN discretion. 11. Paper and crayons for activity at RN discretion. 12. Permitted toothpick to clean hole in tooth; facilitated by RN at RN discretion. 13. Due to INVOLUNTARY status, the patient must remain in the hospital. Second Certification will be scheduled with [facility]. Patient is currently involuntarily at [facility] and in need of inpatient psychiatric admission when a bed becomes available. [facility]/Frontline Survey Research Center Director will seek placement. Please contact the Gripper Attacher Manager Media Relations ([phone]) and [facility] Survey Research Center Director ([phone]) for any needed changes in the Safety Plan. Safety plan has been provided to interdepartmental care team including Clinical Coordinator, Nursing Laboratory Equipment Installer
[2019-03-21] MEDS: Haloperidol 1 MG TAB 2 MG PO (19:41)
[2019-03-22 00:04] VITALS: RESP 18
[2019-03-22 03:52] VITALS: RESP 22
[2019-03-22] MEDS: Albuterol/Ipratropium 3 ML UPD VIAL IH ×2 (03:52→12:28)
[2019-03-22] MEDS: diphenhydrAMINE 25 MG CAP 50 MG PO (04:05)
[2019-03-22] MEDS: LORazepam 1 MG TAB 2 MG PO ×3 (04:05→22:36)
[2019-03-22 04:22] VITALS: RESP 16
[2019-03-22] MEDS: QUEtiapine 25 MG TAB 50 MG PO ×2 (06:13→12:38)
[2019-03-22] MEDS: Amoxicillin 500 MG CAP PO ×3 (08:48→20:44)
[2019-03-22] MEDS: oxyCODONE 5 MG TAB PO ×2 (08:49→20:44)
[2019-03-22] MEDS: Acetaminophen 500 MG TAB 1000 MG PO (08:49)
[2019-03-22] MEDS: Gabapentin 100 MG CAP PO ×3 (08:49→20:44)
--- NOTE | 2019-03-22 09:37 | PDOC.MHPN2 ---
Date of service: 03/22/19 Time of Service: 09:46 Mental Health Progress Note Progress Note: Presenting Issue:Patient was brought in to [facility] Ed on a Warrant after violent outbursts and threatening to harm her unborn baby. Patient was not engaging in treatment and eloped from [facility] Services. Precipitating Factors Patient was presenting with emotional outbursts and at one point had to be physically and chemically restrained. The patient is . Disposition Today the patient is sleeping, she is currently not requiring restraint. She is sleeping for the first time since arriving at [facility] on Monday evening. * Behavior:Unknown *Eye Contact: Patient was sleeping. She didnot participate in the Second Certification on afternoon. *Mood: *Affect:Unknown *Appetite:Unknown *Sleep(trouble falling/staying asleep): Today the patient is sleeping. Plan(please elaborate and include that physician is consulted with plan and/or placement):To continue on EE status and obtain an appropriate placement. Clinician's Name , Title, and Signature Herberth Bueno BA,[facility]. Make sure that you are photocopying and submitting this to [facility] records Dept. to be scanned into chart.
--- NOTE | 2019-03-22 11:58 | CMSP_ITS ---
Care Management Safety Plan Conchita is presenting much differently today than interactions yesterday. She was appropriate and reasonable in interaction when CM met with her. She requested a shower, a comb to brush her hair, to utilize her cell phone for music and games (without sim card). She also requested updated clinicals be sent to [facility] since s he has presented with good behavior this morning and would like to increase the opportunity of placement or being walked of the EE. Conchita also requested for her T-shirt to be returned after it was cleaned which CM permitted as it was already on her care plan and is an item of comfort. Conchita was bright eyed, wearing her glasses and communicated appropriately. CM applauded her presentation and revie wed safety plan and made note of requested privileges. CM discussed privileges with Susana; Marisabel FRANCISCO; Nursing Icer Machine Operator, Elinor CAMPOS and Tricia; ANITRA. All were in agreement to trial increased privileges. MARI also spoke with Lizett; Oss Architect at [facility] and provided case pertinent updates. Lizett then called [facility] requesting psychiatrist provide re-evaluation of Conchita. Lizett reported the outcome of that conversation was that Conchita required further observation as she was medicated multiple times overnight and would require a period of stabilization over the weekend with only oral medications. Lizett reported per her conversation with Dr. Simon at [facility] that Conchita would likely be permitted to discharge home on Monday and walked off the EE. [facility] reports the most suitable disposition in the event Conchita continues to dysregulate would be [facility] because the facility can provide medical care as Conchita is . SAFETY PLAN: Transition Bed 235 Med/Surg 03/22/19 1. Will remain on suicide precautions, in paper clothes and t-shirt. 2. Will remain in room under direct supervision of one-on-one staff at all times provided by CPSO; ANDRES, DORIE lumber tying machine operator. 3. May have paper cups, plates, finger foods, and metal spoon (to be accounted for after meals by [facility] staff). 4. Follow [facility] Management of the Admitted Behavioral Health Patient policy. 5. Comfort bath system only. May shower if available, escorted by clinical staff and at the discretion of the RN. 6. Permitted to have her hat, glasses, t-shirt (for comfort), necklace. No other personal belongings. 7. No visitors at this time. 8. No Phone contact or personal cell phone at this time. Incoming legal calls permitted. 9. Will remain in a M/S Transition Bed at this time. 10. TV permitted, remote available at RN discretion. 11. Paper and crayons for activity at RN discretion. 12. Permitted toothpick to clean hole in tooth; facilitated by RN at RN discretion. 13. Due to INVOLUNTARY status, the patient must remain in the hospital. Second Certification will be scheduled with [facility]. Patient is currently involuntarily at [facility] and in need of inpatient psychiatric admission when a bed becomes available. [facility]/Frontline Camp Manager will seek placement. Please contact the Media Reconciliation Specialist Oss Architect ([phone]) and [facility] Camp Manager ([phone]) for any needed changes in the Safety Plan. Safety plan has been provided to interdepartmental care team including Clinical Coordinator, Nursing Icer Machine Operator
[2019-03-22 12:28] VITALS: RESP 16
[2019-03-22] MEDS: Budesonide/Formoterol 160/4.5 6 GM 60 PUFF INH IH ×2 (12:28→20:47)
[2019-03-22 12:58] VITALS: RESP 16
--- NOTE | 2019-03-22 15:37 | PDOC.CMSAFE ---
Care Management Safety Plan Conchita is presenting much differently today than interactions yesterday. She was appropriate and reasonable in interaction when CM met with her. She requested a shower, a comb to brush her hair, to utilize her cell phone for music and games (without sim card). She also requested updated clinicals be sent to [facility] since she has presented with good behavior this morning and would like to increase the opportunity of placement or being walked of the EE. Conchita also requested for her T-shirt to be returned after it was cleaned which CM permitted as it was already on her care plan and is an item of comfort. Conchita was bright eyed, wearing her glasses and communicated appropriately. CM applauded her presentation and reviewed safety plan and made note of requested privileges. CM discussed privileges with Susana; Marisabel FRANCISCO; Nursing Water Rights Specialist, Elinor CAMPOS and Tricia; ANITRA. All were in agreement to trial increased privileges. MARI also spoke with Lizett; Master Automotive Technician at [facility] and provided case pertinent updates. Lizett then called [facility] requesting psychiatrist provide re-evaluation of Conchita. Lizett reported the outcome of that conversation was that Conchita required further observation as she was medicated multiple times overnight and would require a period of stabilization over the weekend with only oral medications. Lizett reported per her conversation with Dr. Simon at [facility] that Conchita would likely be permitted to discharge home on Monday and walked off the EE. [facility] reports the most suitable disposition in the event Conchita continues to dysregulate would be [facility] because the facility can provide medical care as Conchita is . SAFETY PLAN: Transition Bed 235 Med/Surg 03/22/19 3852 1. Will remain on suicide precautions, in paper clothes and t-shirt. 2. Will remain in M/S Transition Bed under direct supervision of one-on-one staff at all times provided by CPSO; ANDRES, DORIE liquor stores and agencies supervisor. 3. May have paper cups, plates, finger foods, and metal spoon (to be accounted for after meals by [facility] staff). 4. Follow [facility] Management of the Admitted Behavioral Health Patient policy. 5. Comfort bath system, and may shower if available, escorted by clinical staff and at the discretion of the RN. 6. Permitted to have her hat, glasses, t-shirt (for comfort), necklace, comb. No other personal belongings. 7. No visitors at this time. 8. Cell phone permitted at this time; charging at station outside of transition bed area managed by CPSO. Incoming legal calls permitted. 9. TV permitted, remote available at RN discretion. 10. Paper and crayons, soft tip markers for activity at RN discretion. 11. Permitted toothpick to clean hole in tooth; facilitated by RN at RN discretion. 12. Due to INVOLUNTARY status, the patient must remain in the hospital. Second Certification will be scheduled with [facility]. Patient is currently involuntarily at [facility] and in need of inpatient psychiatric admission when a bed becomes available. [facility]/Frontline Registered Diet Technician will seek placement. Please contact the Pest Control Service Sales Agent Master Automotive Technician ([phone]) and [facility] Registered Diet Technician ([phone]) for any needed changes in the Safety Plan. Safety plan has been provided to interdepartmental care team including Clinical Coordinator, Nursing Water Rights Specialist
--- NOTE | 2019-03-22 15:42 | CMPROGNOTE_ITS ---
Care Management Progress Note Herberth; [facility] reports following placement efforts: [place]: F#[phone]@1020 Declined due to needs med/[place] access [facility] [place]#[phone]@1208 Declined no beds [place]: F#[phone]@@1312 No response [facility]: F#[phone]@1142 Declined no beds---identified by DM as most appropriate setting for continued dysregulated behavior: [facility] Broderick [facility]: F#[phone]@1112 Declined no medical access [facility]: F#[phone]@1046 Declined no beds
--- NOTE | 2019-03-22 15:42 | PDOC.CMPRO ---
Care Management Progress Note Herberth; [facility] reports following placement efforts: [place]: F#[phone]@1020 Declined due to needs med/OB access [facility]: F#[phone]@1208 Declined no beds [place]: F#[phone]@@1312 No response [facility]: F#[phone]@1142 Declined no beds---identified by DM as most appropriate setting for continued dysregulated behavior: [facility]: F#[phone]@1112 Declined no medical access [facility]: F#[phone]@1046 Declined no beds
--- NOTE | 2019-03-22 16:12 | W.PM.PROGNOT ---
Date of Service Date of service: 03/22/19 Time of Service: 16:12 Assessment and Plan (1) History of psychiatric disorder: Current visit: No Status: Chronic Significant initial agitation requiring chemical and mechanical restraints - appears vastly improved from an overall mood and behavior standpoint. Per discussion with Care Management, effort is being put into improving the patient's overall status by attempting oral medications with the hopes of a period of stabilization over the weekend, with improvement in opportunity for placement vs. outright discharge by being walked off her Emergency Evaluation and Involunatary admission. For reevaluation monday by Psych. Subjective Interval history since last seen: Appears to be doing much better today. Had been significantly agitated, requiring both chemical and mechanical restraints yesterday and overnight. However now appears improved, conversant, and appropriate. Exam Narrative Exam Narrative: General: Patient appears comfortable, AAOX3, NAD Psych: Normal mood and affect at time of exam. Objective Objective Clinical Data: Vital Signs Temperature 36.4 C L 03/20/19 23:37 Temperature Source Temporal Artery Scan 03/20/19 23:37 Pulse 81 03/20/19 23:37 Respiratory Rate 16 03/22/19 12:58 Respiratory Effort Non-Labored 03/21/19 03:00 Respiratory Depth Normal 03/21/19 03:00 Respiratory Pattern Normal 03/21/19 03:00 Blood Pressure 142/81 H 03/20/19 23:37 Pulse Oximetry 100 03/20/19 23:37 Oxygen Delivery Method Room Air 03/22/19 12:28 Oxygen Flow Rate 0 03/22/19 12:28 Pain Level 5 03/22/19 08:49 Comment 03/22/19 00:04 Intake & Output 03/21/19 03/22/19 03/22/19 23:59 11:59 23:59 Intake Total 400 / 640 Balance 400 / 640 Weight 86 kg Intake: Oral 400 / 640 Laboratory Results WBC 10.34 k/cumm (4.4-10.8) 03/20/19 23:58 RBC 4.38 m/cumm (4.00-5.20) 03/20/19 23:58 Hgb 13.3 g/dL (12.0-15.5) 03/20/19 23:58 Hct 40.8 % (36.0-46.0) 03/20/19 23:58 MCV 93.2 fL (80-95) 03/20/19 23:58 MCH 30.4 pg (27.0-33.0) 03/20/19 23:58 MCHC 32.6 g/dL (32.0-36.0) 03/20/19 23:58 RDW 13.5 % (11.7-14.6) 03/20/19 23:58 Plt Count 203 x1000/uL (130-400) 03/20/19 23:58 MPV 10.4 fL (8.0-11.0) 03/20/19 23:58 Immature Gran % 0.3 03/20/19 23:58 65.0 03/20/19 23:58 24.4 03/20/19 23:58 8.5 03/20/19 23:58 1.5 03/20/19 23:58 0.3 03/20/19 23:58 Absolute Neutrophils 6.72 k/cumm (1.2-6.7) H 03/20/19 23:58 Absolute Lymphocytes 2.52 k/cumm (1.2-3.4) 03/20/19 23:58 Absolute Monocytes 0.88 k/cumm (0.11-0.7) H 03/20/19 23:58 Absolute Eosinophils 0.16 k/cumm (0.0-0.7) 03/20/19 23:58 Absolute Basophils 0.03 k/cumm (0.0-0.2) 03/20/19 23:58 Sodium 136 mmol/L (136-145) 03/20/19 23:58 Potassium 3.7 mmol/L (3.5-5.1) 03/20/19 23:58 Chloride 103 mmol/L (98-107) 03/20/19 23:58 Carbon Dioxide 22.0 mmol/L (21.0-32.0) 03/20/19 23:58 11.0 mmol/L (3-11) 03/20/19 23:58 BUN 12 mg/dL (7-18) 03/20/19 23:58 0.59 mg/dL (0.55-1.02) 03/20/19 23:58 >= 60.00 (mL/min/1.73m2) 03/20/19 23:58 Glucose 86 mg/dL (70-100) 03/20/19 23:58 Calcium 9.1 mg/dL (8.5-10.1) 03/20/19 23:58 0.5 mg/dL (0.2-1.0) 03/20/19 23:58 AST 28 U/L (15-37) 03/20/19 23:58 ALT 17 U/L (12-78) 03/20/19 23:58 81 U/L (46-116) 03/20/19 23:58 7.4 g/dL (6.4-8.2) 03/20/19 23:58 3.2 g/dL (3.4-5.0) L 03/20/19 23:58 TSH 3.76 uIU/mL (0.36-3.74) H 03/20/19 23:58 Yellow (Yellow) 03/21/19 00:10 Clear (Clear) 03/21/19 00:10 7.0 (5-8) 03/21/19 00:10 Ur Specific [place] 1.020 (1.005-1.025) 03/21/19 00:10 Negative mg/dL (Negative) 03/21/19 00:10 40 mg/dL (Negative) H 03/21/19 00:10 Trace-lysed (Negative) H 03/21/19 00:10 Negative (Negative) 03/21/19 00:10 Negative (Negative) 03/21/19 00:10 1.0 EU/dL (Up TO 0.2) H 03/21/19 00:10 Ur Leukocyte Esterase Trace (Negative) H 03/21/19 00:10 0-2 (0-2) 03/21/19 00:10 0-2 HPF (0-5) 03/21/19 00:10 Ur Epithelial Cells Many HPF (Negative) 03/21/19 00:10 Negative HPF (Negative) 03/21/19 00:10 Few HPF (Negative) 03/21/19 00:10 Negative LPF (Negative) 03/21/19 00:10 Negative (Negative) 03/21/19 00:10 Ur Culture Indicated? No/sq. contamination 03/21/19 00:10 Negative mg/dL (Negative) 03/21/19 00:10 Salicylates 3.2 mg/dL (2.8-20.0) 03/20/19 23:58 Negative (Negative) 03/21/19 00:10 Negative (Negative) 03/21/19 00:10 Acetaminophen < 2 ug/mL (10-30) L 03/20/19 23:58 Ur Barbiturates Screen Negative (Negative) 03/21/19 00:10 Ur Tricyclics Screen Negative (Negative) 03/21/19 00:10 Ur Amphetamines Screen Negative (Negative) 03/21/19 00:10 U Benzodiazepines Scrn Negative (Negative) 03/21/19 00:10 Negative (Negative) 03/21/19 00:10 Ur THC Screen Positive (Negative) 03/21/19 00:10 Ethyl Alcohol < 3.0 mg/dL (<3) 03/20/19 23:58
[2019-03-22 16:19] VITALS: BP 114/74; PULSE 68; RESP 18; TEMP 37; O2SAT 98
--- NOTE | 2019-03-22 17:34 | PDOC.MHCN_ITS ---
Date of service: 03/22/19 Time of Service: 17:30 Mental Health Crisis Note Disposition BEHAVIOR: Client appeared to be in a good space, and was cooperative when engaged in conversation with this life underwriter. EYE CONTACT: Client provided minimal eye contact; majority of time spent with client, client stared off in other directions (out the window, looking at the floor, or towards the door). MOOD: Client appeared to be calm, and friendly when first meeting with this life underwriter. When presented with topic around their kitten, client presented as concerned, especially about the care the kitten would receive. Client became anxious and heightened when discussing when they would be able to leave. Client was able to return to a calm friendly state, when this life underwriter redirected the conversation back to the care of their kitten. CLient remained in the calm state before this life underwriter left. AFFECT: Client appeared to be labile, depending on the conversation topic that was initiated by client. APPETITE: N/A SLEEP(trouble falling/staying asleep: N/A Plan Client is awaiting placement, as there isn;t available bed at this time. Plan for kitten: Shashank, the client's neighbor, will provide care for the kitten, until the client return home. Provisional Diagnosis Borderline Personality Disorder Signature Clinician's Name/Title: Gail Kruse-Fred CAMERON Crisis on-call
[2019-03-22] MEDS: Albuterol 2.5 MG/3 ML INH SOLN VIAL UPD (20:43)
[2019-03-23 08:21] VITALS: RESP 4
[2019-03-23] MEDS: Albuterol/Ipratropium 3 ML UPD VIAL IH ×2 (08:21→23:13)
[2019-03-23] MEDS: Amoxicillin 500 MG CAP PO ×3 (10:00→21:00)
[2019-03-23] MEDS: Gabapentin 100 MG CAP (10:00)
[2019-03-23] MEDS: QUEtiapine 25 MG TAB 50 MG PO (10:00)
[2019-03-23] MEDS: LORazepam 1 MG TAB 2 MG PO (10:20)
--- NOTE | 2019-03-23 10:32 | PGE_ITS ---
Date of Service Date of service: 03/23/19 Time of Service: 10:32 Subjective Interval history since last seen: Attempted to see the patient - she was yelling loudly in her room, which I could hear from my office with the closed and came to speak with her. She had just taken her seroquel and gabapentin. When I tried speaking with the patient, she refused to speak to anyone who is not [place] and does not belong in this country. She was not open to taking more seroquel as recommended by myself and Tania Puga, ERICK. Per nursing, there is a behavioral contract with patient that, if she continues to escalate, her phone would be taken away from her. I do not feel that the patient has insight into her medical condition, and her behavior demonstrates resistance to care. I fear for safety of her . We will continue to attempt to provide care for the patient, but at this time she most certainly appears to require psychiatric hospitalization. Objective Objective Clinical Data: Vital Signs Temperature 37.0 C 03/22/19 16:19 Temperature Source Tympanic 03/22/19 16:19 Pulse 68 03/22/19 16:19 Respiratory Rate 18 03/22/19 16:19 Respiratory Effort Non-Labored 03/23/19 07:58 Respiratory Depth Normal 03/23/19 07:58 Respiratory Pattern Normal 03/23/19 07:58 Blood Pressure 114/74 03/22/19 16:19 Pulse Oximetry 98 03/22/19 16:19 Oxygen Delivery Method Room Air 03/22/19 16:19 Oxygen Flow Rate 0 03/22/19 16:19 Pain Level 0 03/22/19 16:19 Comment 03/22/19 00:04 Intake & Output 03/22/19 03/22/19 03/23/19 11:59 23:59 11:59 Intake Total 1247 / 1247 Balance 1247 / 1247 Intake: Oral 1247 / 1247 Other: Urine Color Yellow Urine Appearance Clear Urine Odor Normal Comment patient uses toilet independently and states she has been using it frequently pt up to void independently Voiding Methods Toilet Toilet Laboratory Results WBC 10.34 k/cumm (4.4-10.8) 03/20/19 23:58 RBC 4.38 m/cumm (4.00-5.20) 03/20/19 23:58 Hgb 13.3 g/dL (12.0-15.5) 03/20/19 23:58 Hct 40.8 % (36.0-46.0) 03/20/19 23:58 MCV 93.2 fL (80-95) 03/20/19 23:58 MCH 30.4 pg (27.0-33.0) 03/20/19 23:58 MCHC 32.6 g/dL (32.0-36.0) 03/20/19 23:58 RDW 13.5 % (11.7-14.6) 03/20/19 23:58 Plt Count 203 x1000/uL (130-400) 03/20/19 23:58 MPV 10.4 fL (8.0-11.0) 03/20/19 23:58 Immature Gran % 0.3 03/20/19 23:58 65.0 03/20/19 23:58 24.4 03/20/19 23:58 8.5 03/20/19 23:58 1.5 03/20/19 23:58 0.3 03/20/19 23:58 Absolute Neutrophils 6.72 k/cumm (1.2-6.7) H 03/20/19 23:58 Absolute Lymphocytes 2.52 k/cumm (1.2-3.4) 03/20/19 23:58 Absolute Monocytes 0.88 k/cumm (0.11-0.7) H 03/20/19 23:58 Absolute Eosinophils 0.16 k/cumm (0.0-0.7) 03/20/19 23:58 Absolute Basophils 0.03 k/cumm (0.0-0.2) 03/20/19 23:58 Sodium 136 mmol/L (136-145) 03/20/19 23:58 Potassium 3.7 mmol/L (3.5-5.1) 03/20/19 23:58 Chloride 103 mmol/L (98-107) 03/20/19 23:58 Carbon Dioxide 22.0 mmol/L (21.0-32.0) 03/20/19 23:58 11.0 mmol/L (3-11) 03/20/19 23:58 BUN 12 mg/dL (7-18) 03/20/19 23:58 0.59 mg/dL (0.55-1.02) 03/20/19 23:58 >= 60.00 (mL/min/1.73m2) 03/20/19 23:58 Glucose 86 mg/dL (70-100) 03/20/19 23:58 Calcium 9.1 mg/dL (8.5-10.1) 03/20/19 23:58 0.5 mg/dL (0.2-1.0) 03/20/19 23:58 AST 28 U/L (15-37) 03/20/19 23:58 ALT 17 U/L (12-78) 03/20/19 23:58 81 U/L (46-116) 03/20/19 23:58 7.4 g/dL (6.4-8.2) 03/20/19 23:58 3.2 g/dL (3.4-5.0) L 03/20/19 23:58 TSH 3.76 uIU/mL (0.36-3.74) H 03/20/19 23:58 Yellow (Yellow) 03/21/19 00:10 Clear (Clear) 03/21/19 00:10 7.0 (5-8) 03/21/19 00:10 Ur Specific [place] 1.020 (1.005-1.025) 03/21/19 00:10 Negative mg/dL (Negative) 03/21/19 00:10 40 mg/dL (Negative) H 03/21/19 00:10 Trace-lysed (Negative) H 03/21/19 00:10 Negative (Negative) 03/21/19 00:10 Negative (Negative) 03/21/19 00:10 1.0 EU/dL (Up TO 0.2) H 03/21/19 00:10 Ur Leukocyte Esterase Trace (Negative) H 03/21/19 00:10 0-2 (0-2) 03/21/19 00:10 0-2 HPF (0-5) 03/21/19 00:10 Ur Epithelial Cells Many HPF (Negative) 03/21/19 00:10 Negative HPF (Negative) 03/21/19 00:10 Few HPF (Negative) 03/21/19 00:10 Negative LPF (Negative) 07/25/19 00:10 Negative (Negative) 03/21/19 00:10 Ur Culture Indicated? No/sq. contamination 03/21/19 00:10 Negative mg/dL (Negative) 03/21/19 00:10 Salicylates 3.2 mg/dL (2.8-20.0) 03/20/19 23:58 Negative (Negative) 03/21/19 00:10 Negative (Negative) 03/21/19 00:10 Acetaminophen < 2 ug/mL (10-30) L 03/20/19 23:58 Ur Barbiturates Screen Negative (Negative) 03/21/19 00:10 Ur Tricyclics Screen Negative (Negative) 03/21/19 00:10 Ur Amphetamines Screen Negative (Negative) 03/21/19 00:10 U Benzodiazepines Scrn Negative (Negative) 03/21/19 00:10 Negative (Negative) 03/21/19 00:10 Ur THC Screen Positive (Negative) 03/21/19 00:10 Ethyl Alcohol < 3.0 mg/dL (<3) 03/20/19 23:58
--- NOTE | 2019-03-23 10:36 | W.PM.PROGNOT ---
Date of Service Date of service: 03/23/19 Time of Service: 10:36 Assessment and Plan (1) History of psychiatric disorder: Start date: 03/23/19 Start time: 10:42 Current visit: No Status: Chronic Irritated and agitated. Abusive toward staff unwilling to cooperate with nursing or physician. Refusing to take medication but on her terms. Screaming profanities. Refusing to be treated by Dr. Bojorquez because she is not spanish. Trying to correct her when she is talking. Patient is erratic increase seroquel and monitor Subjective Patient reports: other Interval history since last seen: Escalated at this time, screaming and yelling at staff. Abusive verbally towards staff. Resistant to care. Would not speak to Dr. Bojorquez because she was not spanish. Trying to correct and argue with staff. Refusing to take medication, only on her terms. Not open to suggestions or ideas. Exam Narrative Exam Narrative: Const: Looks about 20 years older than stated age, agitated, escalating. Yelling and screaming at staff. HENMT: Normocephalic, poor dentition EYES: Appear normal Chest: normal appearing Resp: not short of breath, speaking in complete sentences. Does not appear in distress Cardio: did not auscultate due to escalation Skin: wearing scrubs unable to examine skin and legs at this time. Neuro: Escalated, agitated Objective Objective Clinical Data: Vital Signs Temperature 37.0 C 03/22/19 16:19 Temperature Source Tympanic 03/22/19 16:19 Pulse 68 03/22/19 16:19 Respiratory Rate 18 03/22/19 16:19 Respiratory Effort Non-Labored 03/23/19 07:58 Respiratory Depth Normal 03/23/19 07:58 Respiratory Pattern Normal 03/23/19 07:58 Blood Pressure 114/74 03/22/19 16:19 Pulse Oximetry 98 03/22/19 16:19 Oxygen Delivery Method Room Air 03/22/19 16:19 Oxygen Flow Rate 0 03/22/19 16:19 Pain Level 0 03/22/19 16:19 Comment 03/22/19 00:04 Intake & Output 03/22/19 03/22/19 03/23/19 11:59 23:59 11:59 Intake Total 1247 / 1247 Balance 1247 / 1247 Intake: Oral 1247 / 1247 Other: Urine Color Yellow Urine Appearance Clear Urine Odor Normal Comment patient uses toilet independently and states she has been using it frequently pt up to void independently Voiding Methods Toilet Toilet Laboratory Results WBC 10.34 k/cumm (4.4-10.8) 03/20/19 23:58 RBC 4.38 m/cumm (4.00-5.20) 03/20/19 23:58 Hgb 13.3 g/dL (12.0-15.5) 03/20/19 23:58 Hct 40.8 % (36.0-46.0) 03/20/19 23:58 MCV 93.2 fL (80-95) 03/20/19 23:58 MCH 30.4 pg (27.0-33.0) 03/20/19 23:58 MCHC 32.6 g/dL (32.0-36.0) 03/20/19 23:58 RDW 13.5 % (11.7-14.6) 03/20/19 23:58 Plt Count 203 x1000/uL (130-400) 03/20/19 23:58 MPV 10.4 fL (8.0-11.0) 03/20/19 23:58 Immature Gran % 0.3 03/20/19 23:58 65.0 03/20/19 23:58 24.4 03/20/19 23:58 8.5 03/20/19 23:58 1.5 03/20/19 23:58 0.3 03/20/19 23:58 Absolute Neutrophils 6.72 k/cumm (1.2-6.7) H 03/20/19 23:58 Absolute Lymphocytes 2.52 k/cumm (1.2-3.4) 03/20/19 23:58 Absolute Monocytes 0.88 k/cumm (0.11-0.7) H 03/20/19 23:58 Absolute Eosinophils 0.16 k/cumm (0.0-0.7) 03/20/19 23:58 Absolute Basophils 0.03 k/cumm (0.0-0.2) 03/20/19 23:58 Sodium 136 mmol/L (136-145) 03/20/19 23:58 Potassium 3.7 mmol/L (3.5-5.1) 03/20/19 23:58 Chloride 103 mmol/L (98-107) 03/20/19 23:58 Carbon Dioxide 22.0 mmol/L (21.0-32.0) 03/20/19 23:58 11.0 mmol/L (3-11) 03/20/19 23:58 BUN 12 mg/dL (7-18) 03/20/19 23:58 0.59 mg/dL (0.55-1.02) 03/20/19 23:58 >= 60.00 (mL/min/1.73m2) 03/20/19 23:58 Glucose 86 mg/dL (70-100) 03/20/19 23:58 Calcium 9.1 mg/dL (8.5-10.1) 03/20/19 23:58 0.5 mg/dL (0.2-1.0) 03/20/19 23:58 AST 28 U/L (15-37) 03/20/19 23:58 ALT 17 U/L (12-78) 03/20/19 23:58 81 U/L (46-116) 03/20/19 23:58 7.4 g/dL (6.4-8.2) 03/20/19 23:58 3.2 g/dL (3.4-5.0) L 03/20/19 23:58 TSH 3.76 uIU/mL (0.36-3.74) H 03/20/19 23:58 Yellow (Yellow) 03/21/19 00:10 Clear (Clear) 03/21/19 00:10 7.0 (5-8) 03/21/19 00:10 Ur Specific [place] 1.020 (1.005-1.025) 03/21/19 00:10 Negative mg/dL (Negative) 03/21/19 00:10 40 mg/dL (Negative) H 03/21/19 00:10 Trace-lysed (Negative) H 03/21/19 00:10 Negative (Negative) 03/21/19 00:10 Negative (Negative) 03/21/19 00:10 1.0 EU/dL (Up TO 0.2) H 03/21/19 00:10 Ur Leukocyte Esterase Trace (Negative) H 03/21/19 00:10 0-2 (0-2) 03/21/19 00:10 0-2 HPF (0-5) 03/21/19 00:10 Ur Epithelial Cells Many HPF (Negative) 03/21/19 00:10 Negative HPF (Negative) 03/21/19 00:10 Few HPF (Negative) 03/21/19 00:10 Negative LPF (Negative) 03/21/19 00:10 Negative (Negative) 03/21/19 00:10 Ur Culture Indicated? No/sq. contamination 03/21/19 00:10 Negative mg/dL (Negative) 03/21/19 00:10 Salicylates 3.2 mg/dL (2.8-20.0) 03/20/19 23:58 Negative (Negative) 03/21/19 00:10 Negative (Negative) 03/21/19 00:10 Acetaminophen < 2 ug/mL (10-30) L 03/20/19 23:58 Ur Barbiturates Screen Negative (Negative) 03/21/19 00:10 Ur Tricyclics Screen Negative (Negative) 03/21/19 00:10 Ur Amphetamines Screen Negative (Negative) 03/21/19 00:10 U Benzodiazepines Scrn Negative (Negative) 03/21/19 00:10 Negative (Negative) 03/21/19 00:10 Ur THC Screen Positive (Negative) 03/21/19 00:10 Ethyl Alcohol < 3.0 mg/dL (<3) 03/20/19 23:58
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
[2019-03-23] MEDS: QUEtiapine 25 MG TAB (11:43)
--- NOTE | 2019-03-23 15:01 | CMPROGNOTE_ITS ---
- If Service Date Differs Date of service: 03/23/19 Time of Service: 15:01 Care Management Progress Note S/O: Conchita was much more cooperative yesterday but her behaviors escalated again this morning. She was refusing to take her medications, was uncooperative with staff and was yelling and using profanity with staff and providers. A discussion was held between Conchita and her nurse that involved the privilege to use her cell phone. The nurse agreed to let her keep the phone only if she was a ble to calm down, take her medications and remain appropriate. Conchita complied and for the remainder of the day was compliant. INVOLUNTARY FOR INPATIENT PSYCHIATRIC STABILIZATION. Conchita remains on involuntary status. High risk for elopement and high risk for impulsive, aggressive behaviors. Conchita is unpredictable in terms of her response at this time and cannot agree to inpatient psychiatric treatment but is at risk for harming herself and others. A Safety plan has been established with the care team, to adhere to patient goals, identify restrictions based on behavioral status, address nutrition, and determine allowed personal belongings, tools for hygiene and personal care. Determine level of activity including ambulation, level of supervision, visitors, and determine privileges based on behaviors and level of engagement by patient; please note safety plan below. Conchita was able to participate in developing the plan and is able to articulate agreement. Safety Plan discussed with PAPER MACHINE BACKTENDER wardrobe specialty worker Susana Reynolds RNCC, ANITRA Clarke, Mya [facility] and Theresa GUERRA. SAFETY PLAN: Transition Bed 235 Med/Surg 03/21/19 1300 1. Will remain on suicide precautions, in paper clothes and t-shirt. She may wear her Pikachu pajama bottoms at nursing discretion. 2. Will remain in room under direct supervision of one-on-one staff at all times provided by [employer]; ANDRES, VACUUM SPINDLE SANDER steam hoist operator. 3. May have paper cups, plates, finger foods, safety spoon 4. Follow [facility] Management of the Admitted Behavioral Health Patient policy. 5. Comfort bath system only. May shower if available, escorted by clinical staff and at the discretion of the RN. 6. Permitted to have her hat, glasses, t-shirt (for comfort), pajama bottoms and necklace. No other personal belongings. 7. No visitors at this time. 8. Cell phone permitted at this time at the discretion of the RN. Phone is to be charged at the nurses station outside of the transition area managed by [employer]. Incoming legal calls permitted. 9. TV permitted, remote available at RN discretion. 10. Paper and crayons for activity at RN discretion. 11. Permitted toothpick to clean hole in tooth; facilitated by RN at RN discretion. 12. Due to INVOLUNTARY status, the patient must remain in the hospital. Patient is currently involuntarily at [facility] and in need of inpatient psychiatric admission when a bed becomes available. [facility] QMHP/Frontline Chief Knowledge Officer will seek placement. Please contact the Broadcast Chief Engineer Counter Attendant ([phone]) and [facility] Chief Knowledge Officer ([phone]) for any needed changes in the Safety Plan. Safety plan has been provided to interdepartmental care team including Clinical Coordinator, Nursing Government Operations Consultant
--- NOTE | 2019-03-23 15:21 | PDOC.MHCN ---
Date of service: 03/23/19 Time of Service: 11:00 Mental Health Crisis Note Presenting Issue How did you arrive at the ED and why did you come: Client was reported to be in a heightened state and asked for this appeals writer to be present. Client was concerned about their kitten's wellbeing, as they believed that the med care manager (Shashank) was going to feed their kitten raw chicken. Precipitating Factors Upon arrival, client appeared to be in a heightened state. This appeals writer asked client what was going on for them and the client shared that they wanted to know if they were going to be able to go home, on Monday. Upon further questioning, client shared that they were told that they were going to be able to leave/go home, on Monday, if they had a good weekend. The client was very concerned, and wanted validation that this was accurate, as this was the client's desired outcome. This appeals writer explained to the client that this was not a decision that this appeals writer could make, and that it would be handled by a [facility], and the team. Client then shared that they were upset about their kitten and wanted to go home to ensure the safety of their kitten, as the kitten's med care manager (Shashank) asked if they could feed the kitten raw chicken (via Facebook Messenger). Client reported that they were experiencing heartburn and were uninterested in eating their eggs, as everything caused heartburn. Client shared that they were exhausted, and had been struggling to sleep for months and clarified that it was not due to being . Disposition BEHAVIOR: The client appeared to be agitated, uncertain where to go, wanting to sit but, not wanting to sit in the hallway chair or on their bed. Client chose to stand outside the doorway to their room, while talking with this appeals writer. Client displayed several emotions while talking to this appeals writer. Client reported to be irritated, worried and scared. EYE CONTACT: Client made minimal eye contact, and only when looking for responses from this appeals writer in reference to questions the client asked. All other times the client looked around, floor, window, door and into their room. MOOD: Upon arrival client appeared to be irritated with the current situation. When engaged in conversation, with this appeals writer, client appeared to be calm and willing to engage in conversation about their worries. Client was not willing to acknowledge the fetus, and stated that their main focus was to make sure that they were okay, first. AFFECT: Client appeared Labile, with Blunted speech patterns, which occurred when the topic of discussion was upsetting. APPETITE: Client shared that they were hungry but, that everything gave them heartburn and refused their eggs. SLEEP(trouble falling/staying asleep: Client shared that they were having a hard time sleeping for months, previous to coming into [facility]. Client shared that in order to have good behaviors until Monday that they wanted drugs to help them sleep, as this was the only way that they could think of to have good behaviors, until Monday. Plan This appeals writer provided cat food for the clients kitten (Leonarda Ray, soft food, from [facility], dropped off to (Shashank). [facility] staff were providing client with medication to help her sleep. [facility] staff were going to ensure client had heartburn medication, in hopes that they could eat after.
--- NOTE | 2019-03-23 15:23 | CMSP_ITS ---
- If Service Date Differs Date of service: 03/23/19 Time of Service: 15:23 Care Management Safety Plan INVOLUNTARY FOR INPATIENT PSYCHIATRIC STABILIZATION. Conchita remains on involuntary status. High risk for elopement and high risk for impulsive, aggressive behaviors. Conchita is unpredictable in terms of her response at this time and cannot agree to inpatient psychiatric treatment but is at risk for harming herself and others. A Safety plan has been established with the care team, to adhere to patient goals, identify restrictions based on behavioral status, address nutrition, and determine allowed personal belongings, tools for hygiene and personal care. Det ermine level of activity including ambulation, level of supervision, visitors, and determine privileges based on behaviors and level of engagement by patient; please note safety plan below. Conchita was able to participate in developing the plan and is able to articulate agreement. Safety Plan discussed with ROUSTABOUT CREW LEADER ornamental metal worker Susana Reynolds RNCC, Tricia, ANITRA, Mya [facility] and Theresa GUERRA. SAFETY PLAN: Transition Bed 235 Med/Surg 03/21/19 1300 1. Will remain on suicide precautions, in paper clothes and t-shirt. She may wear her Pikachu pajama bottoms at nursing discretion. 2. Will remain in room under direct supervision of one-on-one staff at all times provided by [employer]; ANDRES, DIRECTOR DIGITAL MARKETING order picker. 3. May have paper cups, plates, finger foods, safety spoon 4. Follow [facility] Management of the Admitted Behavioral Health Patient policy. 5. Comfort bath system only. May shower if available, escorted by clinical staff and at the discretion of the RN. 6. Permitted to have her hat, glasses, t-shirt (for comfort), pajama bottoms and necklace. No other personal belongings. 7. No visitors at this time. 8. Cell phone permitted at this time at the discretion of the RN. Phone is to be charged at the nurses station outside of the transition area managed by [employer]. Incoming legal calls permitted. 9. TV permitted, remote available at RN discretion. 10. Paper and crayons for activity at RN discretion. 11. Permitted toothpick to clean hole in tooth; facilitated by RN at RN discretion. 12. Due to INVOLUNTARY status, the patient must remain in the hospital. Patient is currently involuntarily at [facility] and in need of inpatient psychiatric admission when a bed becomes available. [facility] QMHP/Frontline Map Compiler will seek placement. Please contact the Client Care Coordinator Tire Fabric Impregnating Range Tender ([phone]) and [facility] Map Compiler ([phone]) for any needed changes in the Safety Plan. Safety plan has been provided to interdepartmental care team including Clinical Coordinator, Nursing Cook Chili
[2019-03-23] MEDS: Gabapentin 100 MG CAP PO ×2 (15:29→21:01)
[2019-03-23] MEDS: oxyCODONE 5 MG TAB PO (15:29)
[2019-03-23 16:02] VITALS: BP 114/80; PULSE 99; TEMP 36.8; O2SAT 97
[2019-03-24] MEDS: LORazepam 1 MG TAB 2 MG PO ×2 (00:24→16:51)
[2019-03-24 08:30] VITALS: PULSE 78; RESP 18; TEMP 36.1; O2SAT 98
[2019-03-24] MEDS: Amoxicillin 500 MG CAP PO ×3 (08:30→23:00)
[2019-03-24] MEDS: Folic Acid 1 MG TAB PO (08:30)
[2019-03-24] MEDS: Gabapentin 100 MG CAP PO ×3 (08:30→23:00)
[2019-03-24] MEDS: Aspirin E.C. 81 MG TABEC PO (08:31)
[2019-03-24] MEDS: QUEtiapine 25 MG TAB 50 MG PO (09:15)
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
[2019-03-24] MEDS: Polyethylene Glycol 3350 17 GM PACKET PO (11:36)
[2019-03-24] MEDS: Prenatal Multivitamin w/CA,FE TAB 1 TAB PO (11:36)
--- NOTE | 2019-03-24 14:21 | W.PM.PROGNOT ---
Date of Service Date of service: 03/24/19 Time of Service: 14:21 Assessment and Plan (1) History of psychiatric disorder: Start date: 03/24/19 Start time: 14:27 Current visit: No Status: Chronic Irritated and agitated. Continues to be noncompliant with treatment. Will not take meds the way they are scheduled. Does not want to cooperate with provider. Irrational throwing food at staff. Does not want Heart tones done on baby, unsure if any care given. I do not feel patient is safe to herself or to her baby with her outbursts and irrational thinking. Subjective Patient reports: other (Erratic behavior.) Interval history since last seen: Resistant to care, uncooperative with provider; would not speak to provider because she was eating, though when this provider tried to meet with her an hour and a half prior patient was still eating. Tried to talk to patient she started screaming at the top of her lungs, I told you I didn't want anyone until I was done eating. She looked as though she was going to throw her food at me and I told her don't even think about throwing your food or you will loose phone privelages. She then said she was going to eat her food somewhere else grabbed and walked to another room. I told her if she had any questions for me now was the time to speak with me she refused with child like behavior stating jc, I am not listening. I then proceeded to leave. I do not feel patient is safe to herself or to her baby with her outbursts and irrational thinking. Exam Narrative Exam Narrative: Const: Looks about 20 years older than stated age, agitated, escalating. Yelling and screaming at staff. HENMT: Normocephalic, poor dentition EYES: Appear normal Chest: normal appearing Resp: not short of breath, speaking in complete sentences. Does not appear in distress Cardio: did not auscultate due to escalation Skin: wearing scrubs unable to examine skin and legs at this time. Neuro: Escalated, agitated Objective Objective Clinical Data: Vital Signs Temperature 36.1 C L 03/24/19 08:30 Temperature Source Tympanic 03/24/19 08:30 Pulse 78 03/24/19 08:59 Respiratory Rate 16 03/24/19 08:59 Respiratory Effort Non-Labored 03/24/19 08:00 Respiratory Depth Normal 03/24/19 08:00 Respiratory Pattern Normal 03/24/19 08:00 Blood Pressure 114/80 03/23/19 16:02 Pulse Oximetry 98 03/24/19 08:59 Oxygen Delivery Method Room Air 03/24/19 08:59 Oxygen Flow Rate 0 03/24/19 08:59 Pain Level 0 03/24/19 08:30 Comment 03/22/19 00:04 Intake & Output 03/23/19 03/24/19 03/24/19 23:59 11:59 23:59 Intake Total 2700 / 3300 1000 / 1000 Balance 2700 / 3300 1000 / 1000 Weight 86 kg Intake: Oral 2700 / 3300 1000 / 1000 Other: Urine Color Yellow Urine Appearance Clear Urine Odor None Stool Characteristics Formed Hard Voiding Methods Toilet Toilet Laboratory Results WBC 10.34 k/cumm (4.4-10.8) 03/20/19 23:58 RBC 4.38 m/cumm (4.00-5.20) 03/20/19 23:58 Hgb 13.3 g/dL (12.0-15.5) 03/20/19 23:58 Hct 40.8 % (36.0-46.0) 03/20/19 23:58 MCV 93.2 fL (80-95) 03/20/19 23:58 MCH 30.4 pg (27.0-33.0) 03/20/19 23:58 MCHC 32.6 g/dL (32.0-36.0) 03/20/19 23:58 RDW 13.5 % (11.7-14.6) 03/20/19 23:58 Plt Count 203 x1000/uL (130-400) 03/20/19 23:58 MPV 10.4 fL (8.0-11.0) 03/20/19 23:58 Immature Gran % 0.3 03/20/19 23:58 65.0 03/20/19 23:58 24.4 03/20/19 23:58 8.5 03/20/19 23:58 1.5 03/20/19 23:58 0.3 03/20/19 23:58 Absolute Neutrophils 6.72 k/cumm (1.2-6.7) H 03/20/19 23:58 Absolute Lymphocytes 2.52 k/cumm (1.2-3.4) 03/20/19 23:58 Absolute Monocytes 0.88 k/cumm (0.11-0.7) H 03/20/19 23:58 Absolute Eosinophils 0.16 k/cumm (0.0-0.7) 03/20/19 23:58 Absolute Basophils 0.03 k/cumm (0.0-0.2) 03/20/19 23:58 Sodium 136 mmol/L (136-145) 03/20/19 23:58 Potassium 3.7 mmol/L (3.5-5.1) 03/20/19 23:58 Chloride 103 mmol/L (98-107) 03/20/19 23:58 Carbon Dioxide 22.0 mmol/L (21.0-32.0) 03/20/19 23:58 11.0 mmol/L (3-11) 03/20/19 23:58 BUN 12 mg/dL (7-18) 03/20/19 23:58 0.59 mg/dL (0.55-1.02) 03/20/19 23:58 >= 60.00 (mL/min/1.73m2) 03/20/19 23:58 Glucose 86 mg/dL (70-100) 03/20/19 23:58 Calcium 9.1 mg/dL (8.5-10.1) 03/20/19 23:58 0.5 mg/dL (0.2-1.0) 03/20/19 23:58 AST 28 U/L (15-37) 03/20/19 23:58 ALT 17 U/L (12-78) 03/20/19 23:58 81 U/L (46-116) 03/20/19 23:58 7.4 g/dL (6.4-8.2) 03/20/19 23:58 3.2 g/dL (3.4-5.0) L 03/20/19 23:58 TSH 3.76 uIU/mL (0.36-3.74) H 03/20/19 23:58 Yellow (Yellow) 03/21/19 00:10 Clear (Clear) 03/21/19 00:10 7.0 (5-8) 03/21/19 00:10 Ur Specific [place] 1.020 (1.005-1.025) 03/21/19 00:10 Negative mg/dL (Negative) 03/21/19 00:10 40 mg/dL (Negative) H 03/21/19 00:10 Trace-lysed (Negative) H 03/21/19 00:10 Negative (Negative) 03/21/19 00:10 Negative (Negative) 03/21/19 00:10 1.0 EU/dL (Up TO 0.2) H 03/21/19 00:10 Ur Leukocyte Esterase Trace (Negative) H 03/21/19 00:10 0-2 (0-2) 03/21/19 00:10 0-2 HPF (0-5) 03/21/19 00:10 Ur Epithelial Cells Many HPF (Negative) 03/21/19 00:10 Negative HPF (Negative) 03/21/19 00:10 Few HPF (Negative) 03/21/19 00:10 Negative LPF (Negative) 03/21/19 00:10 Negative (Negative) 03/21/19 00:10 Ur Culture Indicated? No/sq. contamination 03/21/19 00:10 Negative mg/dL (Negative) 03/21/19 00:10 Salicylates 3.2 mg/dL (2.8-20.0) 03/20/19 23:58 Negative (Negative) 03/21/19 00:10 Negative (Negative) 03/21/19 00:10 Acetaminophen < 2 ug/mL (10-30) L 03/20/19 23:58 Ur Barbiturates Screen Negative (Negative) 03/21/19 00:10 Ur Tricyclics Screen Negative (Negative) 03/21/19 00:10 Ur Amphetamines Screen Negative (Negative) 03/21/19 00:10 U Benzodiazepines Scrn Negative (Negative) 03/21/19 00:10 Negative (Negative) 03/21/19 00:10 Ur THC Screen Positive (Negative) 03/21/19 00:10 Ethyl Alcohol < 3.0 mg/dL (<3) 03/20/19 23:58
[2019-03-24] MEDS: QUEtiapine 25 MG TAB PO ×2 (16:13→23:00)
--- NOTE | 2019-03-24 18:20 | CMPROGNOTE_ITS ---
- If Service Date Differs Date of service: 03/24/19 Time of Service: 18:20 Care Management Progress Note S/O: Conchita remains unpredictable at this point. She appears to try to be compliant but quickly becomes agitated when someone enters the room or says or does something she does not like. She has refrained from throwing anything but has had several verbal outbursts. The safety plan was reviewed with staff and no new privileges have been added nor any removed. She continues to state she th inks she is leaving tomorrow and asked CM if she was the one who would make the decision. She has been asking for and taking PRN medications appropriately. INVOLUNTARY FOR INPATIENT PSYCHIATRIC STABILIZATION. Conchita remains on involuntary status. High risk for elopement and high risk for impulsive, aggressive behaviors. Conchita is unpredictable in terms of her response at this time and cannot agree to inpatient psychiatric treatment but is at risk for harming herself and others. A Safety plan has been established with the care team, to adhere to patient goals, identify restrictions based on behavioral status, address nutrition, and determine allowed personal belongings, tools for hygiene and personal care. Determine level of activity including ambulation, level of supervision, visitors, and determine privileges based on behaviors and level of engagement by patient; please note safety plan below. Conchita was able to participate in developing the plan and is able to articulate agreement. Safety Plan discussed with NATURAL GAS PLANT SUPERVISOR street worker Susana Reynolds RNCC, Anay, ANITRA, Mya DOUGHERTY and Theresa GUERRA. SAFETY PLAN: Transition Bed 235 Med/Surg 03/24/19 1500 1. Will remain on suicide precautions, in paper clothes and t-shirt. She may wear her Pikachu pajama bottoms at nursing discretion. 2. Will remain in room under direct supervision of one-on-one staff at all times provided by [employer]; ANDRES, MANUFACTURING ENGINEER PAINT supervisor customer records division. 3. May have paper cups, plates, finger foods, safety spoon and metal spoon. 4. Follow [facility] Management of the Admitted Behavioral Health Patient policy. 5. Comfort bath system only. May shower if available, escorted by clinical staff and at the discretion of the RN. 6. Permitted to have her hat, glasses, t-shirt (for comfort), pajama bottoms and necklace. No other personal belongings. 7. No visitors at this time. 8. Cell phone permitted at this time at the discretion of the RN. Phone is to be charged at the nurses station outside of the transition area managed by [employer]. Incoming legal calls permitted. 9. TV permitted, remote available at RN discretion. 10. Paper and crayons for activity at RN discretion. 11. Permitted toothpick to clean hole in tooth; facilitated by RN at RN discretion. 12. Due to INVOLUNTARY status, the patient must remain in the hospital. Patient is currently involuntarily at [facility] and in need of inpatient psychiatric admission when a bed becomes available. [facility]/Frontline Coat Joiner Lockstitch will seek placement. Please contact the Log Cutter Community Relations Director ([phone]) and [facility] Coat Joiner Lockstitch ([phone]) for any needed changes in the Safety Plan. Safety plan has been provided to interdepartmental care team including Clinical Coordinator, Nursing Housekeeper/Laundry Assistant
--- NOTE | 2019-03-24 18:27 | CMSP_ITS ---
- If Service Date Differs Date of service: 03/24/19 Time of Service: 18:27 Care Management Safety Plan NVOLUNTARY FOR INPATIENT PSYCHIATRIC STABILIZATION. Conchita remains on involuntary status. High risk for elopement and high risk for impulsive, aggressive behaviors. Conchita is unpredictable in terms of her response at this time and cannot agree to inpatient psychiatric treatment but is at risk for harming herself and others. A Safety plan has been established with the care team, to adhere to patient goals, identify restrictions based on behavioral status, address nutrition, and determine allowed personal belongings, tools for hygiene and personal care. Dete rmine level of activity including ambulation, level of supervision, visitors, and determine privileges based on behaviors and level of engagement by patient; please note safety plan below. Conchita was able to participate in developing the plan and is able to articulate agreement. Safety Plan discussed with DIDACTIC PROGRAM IN DIETETICS DIRECTOR mission worker Susana Reynolds RNCC, Anay, ANITRA, Mya DOUGHERTY and Theresa GUERRA. SAFETY PLAN: Transition Bed 235 Med/Surg 03/24/19 1500 1. Will remain on suicide precautions, in paper clothes and t-shirt. She may wear her Pikachu pajama bottoms at nursing discretion. 2. Will remain in room under direct supervision of one-on-one staff at all times provided by [employer]; ANDRES, RADIOCOMMUNICATIONS TECHNICIAN senior software quality engineer. 3. May have paper cups, plates, finger foods, safety spoon and metal spoon. 4. Follow [facility] Management of the Admitted Behavioral Health Patient policy. 5. Comfort bath system only. May shower if available, escorted by clinical staff and at the discretion of the RN. 6. Permitted to have her hat, glasses, t-shirt (for comfort), pajama bottoms and necklace. No other personal belongings. 7. No visitors at this time. 8. Cell phone permitted at this time at the discretion of the RN. Phone is to be charged at the nurses station outside of the transition area managed by [employer]. Incoming legal calls permitted. 9. TV permitted, remote available at RN discretion. 10. Paper and crayons for activity at RN discretion. 11. Permitted toothpick to clean hole in tooth; facilitated by RN at RN discretion. 12. Due to INVOLUNTARY status, the patient must remain in the hospital. Patient is currently involuntarily at [facility] and in need of inpatient psychiatric admission when a bed becomes available. [facility]/Frontline Nurse Aide Evaluator will seek placement. Please contact the Ward Secretary Utilities And Maintenance Supervisor ([phone]) and [facility] Nurse Aide Evaluator ([phone]) for any needed changes in the Safety Plan. Safety plan has been provided to interdepartmental care team including Clinical Coordinator, Nursing Manager Provider Relations
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
[2019-03-24] MEDS: Albuterol 2.5 MG/3 ML INH SOLN VIAL UPD (23:35)
[2019-03-24] MEDS: oxyCODONE 5 MG TAB PO (23:35)
[2019-03-25] MEDS: LORazepam 1 MG TAB 2 MG PO ×4 (01:28→18:13)
[2019-03-25] MEDS: Polyethylene Glycol 3350 17 GM PACKET PO ×2 (02:27→15:14)
[2019-03-25] MEDS: QUEtiapine 25 MG TAB PO ×4 (02:54→20:32)
[2019-03-25] MEDS: diphenhydrAMINE 25 MG CAP 50 MG PO ×2 (02:54→20:32)
[2019-03-25] MEDS: oxyCODONE 5 MG TAB PO ×2 (06:51→18:12)
[2019-03-25] MEDS: Amoxicillin 500 MG CAP PO ×3 (07:41→20:30)
[2019-03-25] MEDS: Gabapentin 100 MG CAP PO ×3 (07:42→20:30)
[2019-03-25] MEDS: Budesonide/Formoterol 160/4.5 6 GM 60 PUFF INH IH (10:00)
--- NOTE | 2019-03-25 12:39 | PGE_ITS ---
Date of Service Date of service: 03/25/19 Time of Service: 12:39 Assessment and Plan (1) History of psychiatric disorder: Start date: 03/25/19 Start time: 12:42 Current visit: No Status: Chronic Today calm and cooperative with provider. Allowed for physical exam. Concerned about leaving her cat and not being able to smoke at facility when placed. Continue to monitor behavior and look for placement. Subjective Patient reports: other (Erratic behavior.) Interval history since last seen: Doing better today, calm and cooperative with provider. Allowed for physical exam. Awaiting on placement at this time. Exam Narrative Exam Narrative: Const: Looks about 20 years older than stated age, calm, c ooperative sitting in chair. HENMT: Normocephalic, poor dentition EYES: Appear normal Chest: normal appearing Resp: not short of breath, LSC no wheezing, rales or rhonchi Cardio: RRR no murmur appreciated. Skin: wearing scrubs unable to examine skin and legs at this time. Neuro: [id number] calm cooperative Objective Objective Clinical Data: Vital Signs Temperature 36.1 C L 03/24/19 08:30 Temperature Source Tympanic 03/24/19 08:30 Pulse 78 03/24/19 08:59 Pulse Rhythm Regular 03/25/19 09:00 Respiratory Rate 16 03/24/19 08:59 Respiratory Effort Non-Labored 03/25/19 09:00 Respiratory Depth Normal 03/25/19 09:00 Respiratory Pattern Normal 03/25/19 09:00 Blood Pressure 114/80 03/23/19 16:02 Pulse Oximetry 98 03/24/19 08:59 Oxygen Delivery Method Room Air 03/24/19 08:59 Oxygen Flow Rate 0 03/24/19 08:59 Pain Level 0 03/25/19 05:23 Comment 03/25/19 08:36 Intake & Output 03/24/19 03/25/19 03/25/19 23:59 11:59 23:59 Intake Total 600 / 1600 2240 / 2240 Balance 600 / 1600 2240 / 2240 Intake: Oral 600 / 1600 2240 / 2240 Other: Comment patient voids independently in toilet voided in toilet Voiding Methods Toilet Toilet Laboratory Results WBC 10.34 k/cumm (4.4-10.8) 03/20/19 23:58 RBC 4.38 m/cumm (4.00-5.20) 03/20/19 23:58 Hgb 13.3 g/dL (12.0-15.5) 03/20/19 23:58 Hct 40.8 % (36.0-46.0) 03/20/19 23:58 MCV 93.2 fL (80-95) 03/20/19 23:58 MCH 30.4 pg (27.0-33.0) 03/20/19 23:58 MCHC 32.6 g/dL (32.0-36.0) 03/20/19 23:58 RDW 13.5 % (11.7-14.6) 03/20/19 23:58 Plt Count 203 x1000/uL (130-400) 03/20/19 23:58 MPV 10.4 fL (8.0-11.0) 03/20/19 23:58 Immature Gran % 0.3 03/20/19 23:58 65.0 03/20/19 23:58 24.4 03/20/19 23:58 8.5 03/20/19 23:58 1.5 03/20/19 23:58 0.3 03/20/19 23:58 Absolute Neutrophils 6.72 k/cumm (1.2-6.7) H 03/20/19 23:58 Absolute Lymphocytes 2.52 k/cumm (1.2-3.4) 03/20/19 23:58 Absolute Monocytes 0.88 k/cumm (0.11-0.7) H 03/20/19 23:58 Absolute Eosinophils 0.16 k/cumm (0.0-0.7) 03/20/19 23:58 Absolute Basophils 0.03 k/cumm (0.0-0.2) 03/20/19 23:58 Sodium 136 mmol/L (136-145) 03/20/19 23:58 Potassium 3.7 mmol/L (3.5-5.1) 03/20/19 23:58 Chloride 103 mmol/L (98-107) 03/20/19 23:58 Carbon Dioxide 22.0 mmol/L (21.0-32.0) 03/20/19 23:58 11.0 mmol/L (3-11) 03/20/19 23:58 BUN 12 mg/dL (7-18) 03/20/19 23:58 0.59 mg/dL (0.55-1.02) 03/20/19 23:58 >= 60.00 (mL/min/1.73m2) 03/20/19 23:58 Glucose 86 mg/dL (70-100) 03/20/19 23:58 Calcium 9.1 mg/dL (8.5-10.1) 03/20/19 23:58 0.5 mg/dL (0.2-1.0) 03/20/19 23:58 AST 28 U/L (15-37) 03/20/19 23:58 ALT 17 U/L (12-78) 03/20/19 23:58 81 U/L (46-116) 03/20/19 23:58 7.4 g/dL (6.4-8.2) 03/20/19 23:58 3.2 g/dL (3.4-5.0) L 03/20/19 23:58 TSH 3.76 uIU/mL (0.36-3.74) H 03/20/19 23:58 Yellow (Yellow) 03/21/19 00:10 Clear (Clear) 03/21/19 00:10 7.0 (5-8) 03/21/19 00:10 Ur Specific [place] 1.020 (1.005-1.025) 03/21/19 00:10 Negative mg/dL (Negative) 03/21/19 00:10 40 mg/dL (Negative) H 03/21/19 00:10 Trace-lysed (Negative) H 03/21/19 00:10 Negative (Negative) 03/21/19 00:10 Negative (Negative) 03/21/19 00:10 1.0 EU/dL (Up TO 0.2) H 03/21/19 00:10 Ur Leukocyte Esterase Trace (Negative) H 03/21/19 00:10 0-2 (0-2) 03/21/19 00:10 0-2 HPF (0-5) 03/21/19 00:10 Ur Epithelial Cells Many HPF (Negative) 03/21/19 00:10 Negative HPF (Negative) 03/21/19 00:10 Few HPF (Negative) 03/21/19 00:10 Negative LPF (Negative) 03/21/19 00:10 Negative (Negative) 03/21/19 00:10 Ur Culture Indicated? No/sq. contamination 03/21/19 00:10 Negative mg/dL (Negative) 03/21/19 00:10 Salicylates 3.2 mg/dL (2.8-20.0) 03/20/19 23:58 Negative (Negative) 03/21/19 00:10 Negative (Negative) 03/21/19 00:10 Acetaminophen < 2 ug/mL (10-30) L 03/20/19 23:58 Ur Barbiturates Screen Negative (Negative) 03/21/19 00:10 Ur Tricyclics Screen Negative (Negative) 03/21/19 00:10 Ur Amphetamines Screen Negative (Negative) 03/21/19 00:10 U Benzodiazepines Scrn Negative (Negative) 03/21/19 00:10 Negative (Negative) 03/21/19 00:10 Ur THC Screen Positive (Negative) 03/21/19 00:10 Ethyl Alcohol < 3.0 mg/dL (<3) 03/20/19 23:58
[2019-03-25] MEDS: Prenatal Multivitamin w/CA,FE TAB 1 TAB PO (13:00)
--- NOTE | 2019-03-25 15:00 | PDOC.MHCN_ITS ---
Date of service: 03/25/19 Time of Service: 10:45 Mental Health Crisis Note Presenting Issue How did you arrive at the ED and why did you come: Client was brought to [facility] ([facility]) by law enforcement on a mental health warrant on 03/20/2019 to be screened for safety. Precipitating Factors Refer to Application for Warrant for Emergency Examination dated 03/20/2019 written by Lennox Robertson. Disposition BEHAVIOR: Cooperative and appropriate with this clinician. EYE CONTACT: Minimal MOOD: Euthymic AFFECT: Anxious APPETITE: Unknown to this clinician. SLEEP(trouble falling/staying asleep: Unknown to this clinician. Plan The client remains on Emergency Examination status and there are no available psychiatric beds in the [facility]; CV = Timur reports no available beds, UV = Tena Ledezma reports no available beds, BR = Talat reports per Dr. Hagen that the client needs on site medical and OB services, RR = Brandy reports there is only one bed available and they are saving it for their ED, [facility] = [facility] reports that they are not currently taking individuals on EE status and [facility] = [facility] are aware that the client remains at [facility] on EE status. The client will be reevaluated within 12 hours for admission into a psychiatric facility.
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
[2019-03-25] MEDS: Albuterol 2.5 MG/3 ML INH SOLN VIAL UPD (20:01)
[2019-03-26] MEDS: LORazepam 1 MG TAB 2 MG PO ×4 (05:58→18:36)
[2019-03-26] MEDS: QUEtiapine 25 MG TAB PO ×3 (06:26→19:42)
[2019-03-26] MEDS: Polyethylene Glycol 3350 17 GM PACKET PO ×2 (06:27→19:42)
[2019-03-26] MEDS: Prenatal Multivitamin w/CA,FE TAB 1 TAB PO (10:28)
[2019-03-26] MEDS: Gabapentin 100 MG CAP PO ×3 (10:28→19:42)
[2019-03-26] MEDS: Amoxicillin 500 MG CAP PO ×3 (10:29→19:42)
[2019-03-26] MEDS: Budesonide/Formoterol 160/4.5 6 GM 60 PUFF INH IH (10:38)
--- NOTE | 2019-03-26 11:12 | CMSP_ITS ---
Care Management Safety Plan INVOLUNTARY FOR INPATIENT PSYCHIATRIC STABILIZATION. Conchita remains on involuntary status at this time though has been compliant with all expectations and is taking her medications appropriately and articulating her needs, feelings and processing her emotional responses. Due to previous presentation it is assumed Conchita has the ability to present with impulsive, unpredictable and aggressive behaviors though she has shown vast improvement over the weekend and remains cooperative at this time. Please refer to Mental Health screener note and Care Management progress note for further details. A Safety plan has been established to adhere to patient goals, identify restrictions based on behavioral status, address nutrition, and determine allowed personal belongings, tools for hygiene and personal care. Determine level of activity including ambulation, level of supervision, visitors, and determine privileges based on behaviors and level of engagement by patient; please note safety plan below. Conchita was able to participate in developing the plan and articulated agreement. SAFETY PLAN: Transition Bed 235 Med/Surg 03/26/19 1400 1. Will remain on suicide precautions, in paper clothes, permitted to have her t-shirt and her pajama bottoms. 2. Will remain in room under direct supervision of one-on-one staff at all times provided by [employer]; ANDRES, TRANSMISSIONS SYSTEMS OPERATOR corporate scheduler. 3. May have paper cups, plastic plates and bowels, safety spoon and/or metal spoon. 4. Follow [facility] Management of the Admitted Behavioral Health Patient policy. 5. Comfort bath system. May shower if available, escorted by clinical staff and at the discretion of the RN. 6. Permitted to have her hat, glasses, t-shirt, pajama bottoms, comb and necklace. No other personal belongings. 7. No visitors at this time. 8. Cell phone, tablet and wireless earphones permitted at this time at the discretion of the RN. Personal Phone is to be charged at the nurses station outside of the transition area managed by [employer]. Incoming legal calls permitted. 9. TV permitted, remote available at RN discretion. 10. Paper, crayons and chalk for activity at RN discretion. 11. Permitted toothpick to clean hole in tooth; facilitated by RN at RN discretion. 12. Due to INVOLUNTARY status, the patient must remain in the hospital until released or placed by [facility]. Patient is currently involuntarily at [facility] and in need of inpatient psychiatric admission when a bed becomes available. [facility] QM[facility]/Frontline Gang Knife Fish Chopper will seek placement. Please contact the [place] Assembler Site Interpreter ([phone]) and [facility] Gang Knife Fish Chopper ([phone]) for any needed changes in the Safety Plan. Safety plan has been provided to interdepartmental care team including Clinical Coordinator, Nursing Chiropractic Assistant
--- NOTE | 2019-03-26 11:14 | PDOC.CMPRO ---
Care Management Progress Note 0930 CM spoke with Ester and Gail at [facility] requesting information regarding who from WHOLESALE LOAN PROCESSOR and Emergency Services would be seeing Conchita this morning. Neither were able to provide this information. 1000 CM left VM for Lizett [facility] CM requesting updates on placement efforts and provided case review from yesterday/this morning as Lizett was out sick. CM met with Conchita and reviewed planning for the day and agreed to keep Conchita updated with any developments. Conchita reviewed her evening and morning and shared hopes for gaining momentum in planning her return home. 1100 CM spoke with Lizett [facility] health careers instructor who reported she would be reaching out to WHOLESALE LOAN PROCESSOR and [facility] re: Psychiatric re-evaluation for involuntary status. As well, she validated concerns around lack of placement progress and agreed to follow up with this inspector automatic typewriter regarding next steps. 1130 Jeanette Frausto: WHOLESALE LOAN PROCESSOR CM and QMHP of [facility] arrived to see Conchita. She reported coordination of a coordinated services plan scheduled for today with all of Conchita's providers through [facility] including her therapist, as well as women's wellness and PCP to discuss managing Conchita in the community. Jeanette Lucas spoke with Conchita and reviewed expectations and goals (please refer to her note for further details). Jeanette Lucas reported Conchita was completely appropriate in her interaction with her and was able to regulate through some tough discussions. She reported Conchita showed good insight and verbalized her needs appropriately. 1220 CM met with Conchita and applauded her progress and ability to appropriately engage with Jeanette Lucas. Conchita was eating lunch and struggling with the paper products as her rice was softening the paper and releasing it into her food. CM discussed plastic plate alternative with the Kitchen, and Dr. Bojorquez who agreed to permit plastic plates/bowls when appropriate. 1430 CM left VM for Lizett [facility] CM requesting updates on Psychiatric evaluation. 1445 CM met with Conchita who was friendly and appropriate in interaction. She joked around and discussed serious topics as well including worries around having a possible yeast infection and disposition. She reported wanting to return home to her jessie and feeling she could be successful with the plan discussed with Jeanette Frausto earlier in the day. CM modeled coping mechanisms as Conchita reported feeling bored; CM encouraged her to utilize the chalk board (and modeled some doodling) and to look outside the window. 1530 CM rec'd call from Lizett who reported Conchita's community based WHOLESALE LOAN PROCESSOR team was moving forward with a plan to walk her off Involuntary status tomorrow. 1615 CM rec'd call from Meghna stating [facility] was requiring a Psychiatric evaluation provided by a [facility] Psychiatrist prior to permitting Conchita to be walked off involuntary status. Jeanette Frausto reported she had not yet been required to complete a request for second certification form-CM reviewed the new requirement with the [facility] as one was completed for Conchita after admission to [facility]. Jeanette Frausto reported another form would need to be completed. CM completed form, obtained MD signature and faxed to [email or web address]. 1635 CM responded to Conchita's request to see her. Conchita requested a fan. CM attempted to move forward with adding a wireless fan to her care plan but came across opposition with a steaming cabinet tender who shared concerns around the blades and questioned well, will she flip out if she doesn't get it?. 1640 CM met with Conchita and reviewed requirement of Psych Eval. Conchita appropriately shared concerns stating I hope this won't block me from going home. CM reminded Conchita that the evaluation was a process we had been advocating for and part of the process; she was receptive to this information. CM notified Conchita that the fan would not be permitted. CM reviewed process of care planning and re-educated Conchita on process of adding items to the care plan as unilateral decision making is not permitted with patients. Conchita reported well darn and appropriately processed her feelings around not being permitted to have a fan for further comfort. CM also noted an area at her doorway where forced cool air blew from a ceiling vent and encouraged Conchita to utilize it. CM validated and encouraged her continued stabilization and ability to verbalize her emotions even when faced with rejection of her appropriate request. CM reviewed on-call support, encouraged Conchita to have a good evening and agreed to check in with Conchita in the morning. Anticipate Tele Psyche Eval via [facility] within the next twenty four hours.
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
[2019-03-26] MEDS: oxyCODONE 5 MG TAB PO ×2 (16:31→23:07)
[2019-03-26] MEDS: diphenhydrAMINE 25 MG CAP 50 MG PO (19:45)
[2019-03-26] MEDS: Albuterol/Ipratropium 3 ML UPD VIAL IH (21:05)
[2019-03-27] MEDS: QUEtiapine 25 MG TAB PO ×2 (01:58→13:34)
[2019-03-27] MEDS: Acetaminophen 500 MG TAB 1000 MG PO ×2 (01:58→16:50)
[2019-03-27] MEDS: Prenatal Multivitamin w/CA,FE TAB 1 TAB PO (07:17)
[2019-03-27] MEDS: Amoxicillin 500 MG CAP PO ×2 (07:17→13:09)
[2019-03-27] MEDS: Polyethylene Glycol 3350 17 GM PACKET PO (07:18)
[2019-03-27] MEDS: oxyCODONE 5 MG TAB PO ×3 (07:18→16:50)
[2019-03-27] MEDS: Gabapentin 100 MG CAP PO ×2 (07:18→13:09)
[2019-03-27] MEDS: LORazepam 1 MG TAB 2 MG PO ×2 (07:38→15:06)
[2019-03-27] MEDS: Budesonide/Formoterol 160/4.5 6 GM 60 PUFF INH IH (09:45)
--- NOTE | 2019-03-27 10:24 | PDOC.CMPRO ---
Care Management Progress Note 0945 CM attended morning meeting and reviewed anticipated plan for the day. NS requested updates re: discharge planning due to [employer] scheduling. [address] [facility] P#[phone] and spoke to Filiberto requesting Tele-Psyche evaluation information. Filiberto reported as soon as an MD was identified to complete the evaluation he would contact this filing writer. 1020 M/S notified that Conchita was requesting CM visit. 1030 CM spoke with Jeanette Frausto at [facility] who reported she would arrive to complete Conchita's morning evaluation at 1100. She reported speaking with Lizett: [facility] CM and shared the expectation would be for Psyche evaluation to take place around [id number], but that both were advocating for a sooner time period to allow her community based team to support her after discharge. 1035 CM rec'd call from [employer] Mya Gallo re: processing interactions with Conchita and concerns. Mya offered supports for Conchita if needed throughout the day and required clinical support. 1045 ANITRA Clarke entered CM office to inquire around process of DC and share concerns re: discharge plan to the community and re-admission concerns. 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 1100 Jeanette Frausto HP and Viktoria from [employer] arrived to meet with Conchita. 1140 Jeanette Frausto QMHP and Viktoria came out from meeting with Conchita and reported she continues to be appropriate and well engaged in discharge planning discussions. 1155 Jeanette Frausto called to inquire around 24 hour requirements for repeat Psyche [id number] Certifications and reported she would clarify timing requirements. She also shared concerns around Conchita discharging in the evening due to lack of availability of services. 1155 ANITRA Clarke entered CM office to inform that Conchita was requesting CM presence. 1200 CM met with Conchita who was appropriate in interaction and verbalized understanding around planning for the day. She shared concerns around an area on her lower thigh above her knee where she reported her muscle felt hard and she thought she might be developing a clot. CM then informed MAINSTREAMING FACILITATOR: Margie of patient report. 1320 Filiberto from [facility] called to inform Psych Evaluation was coordinated for 1600. CM notified Jeanette Frausto at [facility] of timing. 1345 Tricia; RN entered CM office to notify of concern for clot in Conchita's leg-reporting the area was warm to the touch and near her varicose vein. She also reported Conchita's yeast infection had not been attended to yesterday evening as planning and Conchita had now itched herself to the point of bleeding. CM notified Margie of the above immediately after report. [id number] CM met with Conchita and provided de-escalation and processing support to allow Conchita to share her concerns appropriately due to struggling with the idea of transitioning home and meeting with the Psychiatrist. 1600 CM spoke with Ana Cristina Hazel, Psychiatrist at [facility], providing case review with [facility] crisis workers. CM facilitated psychiatric evaluation in which Conchita presented honestly and engaged fully. Afterward, Ana Cristina reported she would be walking Conchita off the Involuntary status. CM met with provider, and nurse to review needs for discharge.
--- NOTE | 2019-03-27 11:07 | CMSP_ITS ---
Care Management Safety Plan INVOLUNTARY FOR INPATIENT PSYCHIATRIC STABILIZATION. Conchita remains on involuntary status at this time though has been compliant with all expectations and is taking her medications appropriately and articulating her needs, feelings and processing her emotional responses. Due to previous presentation it is assumed Conchita has the ability to present with impulsive, unpredictable and aggressive behaviors though she has shown vast improvement over the weekend and remains cooperative at this time. Please refer to Mental Health screener note and Care Management progress note for further details. A Safety plan has been established to adhere to patient goals, identify restrictions based on behavioral status, address nutrition, and determine allowed personal belongings, tools for hygiene and personal care. Determine level of activity including ambulation, level of supervision, visitors, and determine privileges based on behaviors and level of engagement by patient; please note safety plan below. Conchita was able to participate in developing the plan and articulated agreement. SAFETY PLAN: Transition Bed 235 Med/Surg 03/27/19 1. Will remain on suicide precautions, in paper clothes, permitted to have her t-shirt and her pajama bottoms. 2. Will remain in room under direct supervision of one-on-one staff at all times provided by [employer]; ANDRES, INSURANCE APPRAISER social work program coordinator. 3. May have paper cups, plastic plates and bowels, safety spoon and/or metal spoon. 4. Follow [facility] Management of the Admitted Behavioral Health Patient policy. 5. Comfort bath system. May shower if available, escorted by clinical staff and at the discretion of the RN. 6. Permitted to have her hat, glasses, t-shirt, pajama bottoms, comb and necklace. No other personal belongings. 7. No visitors at this time. 8. Cell phone, tablet and wireless earphones permitted at this time at the discretion of the RN. Personal Phone is to be charged at the nurses station outside of the transition area managed by [employer]. Incoming legal calls permitted. 9. TV permitted, remote available at RN discretion. 10. Paper, crayons and chalk for activity at RN discretion. 11. Permitted toothpick to clean hole in tooth; facilitated by RN at RN discretion. 12. Due to INVOLUNTARY status, the patient must remain in the hospital until released or placed by [facility]. Patient is currently involuntarily at [facility] and in need of inpatient psychiatric admission when a bed becomes available. [facility] QMHP/Frontline Procedure Writer will seek placement. Please contact the Institutional Asset Manager Tool Polishing Machine Operator ([phone]) and [facility] Procedure Writer ([phone]) for any needed changes in the Safety Plan. Safety plan has been provided to interdepartmental care team including Clinical Coordinator, Nursing Blade Boner
--- NOTE | 2019-03-27 15:00 | W.PM.PROGNOT ---
Date of Service Date of service: 03/27/19 Time of Service: 15:00 Assessment and Plan (1) History of psychiatric disorder: Current visit: No Status: Chronic mental health re-evaluation this afternoon at 4 pm. continue medications and hold on EE per court order for now. no behavioral issues today (2) Asthma: Current visit: No Status: Chronic stable, inhalers prn Qualifiers: Asthma severity: mild Asthma persistence: persistent Asthma complication type: uncomplicated Qualified Code(s): J45.30 - Mild persistent asthma, uncomplicated (3) Smoker: Current visit: No Status: Chronic non smoking facility, no issues (4) : Current visit: No Status: Acute stable. OB following Qualifiers: Weeks of gestation: 25 weeks Qualified Code(s): Z3A.25 - 25 weeks gestation of (5) Dental abscess: Current visit: Yes Status: Acute continue amoxicillin day 03/06 (6) Discharge planning issues: Current visit: Yes Status: Acute inpatient psychiatric facility when bed available. mental health re-evaluation today at 4 pm (7) Yeast infection involving the vagina and surrounding area: Current visit: Yes Status: Acute likely secondary to antibiotic therapy for dental abscess. consistent with episodes in the past. discussed with OB who recommends fluconizole. patient prefers per past experience. fluconazole 150 mg po today and repeat on monday (8) Right leg swelling: Current visit: Yes Status: Acute will obtain right lower extremity US to r/o DVT. patient has been declining asa. Subjective Interval history since last seen: patient has been compliant with medication management today. c/o vaginal itching and white discharge consistent with history of vaginal yeast infection per her report. she is also c/o right lateral lower extremity pain and swelling. she has had no fevers, is eating and drinking and reports she is voiding and moving her bowels. she denies any other issues and has been cooperative. initially she refused her seroquel this morning stating I don't like to put pills in my body, especially if I don't think they are helping, and that one doesn't help. She ultimately did agree to take it without incident. she was weepy during my interview stating she was missing someone she couldn't speak to. Exam Const General: in distress mild, disheveled and ill appearing (older than stated age) chronically Nutritional Appearance: obese Orientation: alert and awake Limitations: behavioral limitations HENMT Head: normal to inspection, normocephalic and atraumatic Mouth: moist mucous membranes Resp Effort & Inspection: normal respiratory effort and able to speak in complete sentences Cardio Rate: regular rate Rhythm: regular rhythm GI Inspection: obesity Skin Lesions: lesion noted (multiple lesion extremities bilaterally consistent with picking, ) Rashes: no rashes (no infected appearance to lesions) Neuro General: alert, awake and oriented x3 Speech: speech normal Gait: normal gait Motor: muscle tone normal throughout Psych Appearance: disheveled Mood: labile mood Affect: sad Attitude: cooperative Insight: poor Judgment: poor Objective Objective Clinical Data: Vital Signs Temperature 36.1 C L 03/24/19 08:30 Temperature Source Tympanic 03/24/19 08:30 Pulse 78 03/24/19 08:30 Pulse Rhythm Regular 03/27/19 08:35 Respiratory Rate 18 03/24/19 08:30 Respiratory Effort Non-Labored 03/27/19 08:35 Respiratory Depth Normal 03/27/19 08:35 Respiratory Pattern Normal 03/27/19 08:35 Blood Pressure 114/80 03/23/19 16:02 Pulse Oximetry 98 03/24/19 08:30 Oxygen Delivery Method Room Air 03/24/19 08:30 Oxygen Flow Rate 0 03/24/19 08:30 Pain Level 4 03/27/19 13:58 Comment 03/26/19 20:41 Intake & Output 03/26/19 03/27/19 03/27/19 23:59 11:59 23:59 Intake Total 1050 / 1950 600 / 900 300 / 900 Balance 1050 / 1950 600 / 900 300 / 900 Intake: Oral 1050 / 1950 600 / 900 300 / 900 Other: Urine Appearance Clear Clear Comment voded in toilet voided in the toilet voided in toilet Stool Size Small Small Small Stool Characteristics Hard Hard Hard Voiding Methods Toilet Toilet Laboratory Results WBC 10.34 k/cumm (4.4-10.8) 03/20/19 23:58 RBC 4.38 m/cumm (4.00-5.20) 03/20/19 23:58 Hgb 13.3 g/dL (12.0-15.5) 03/20/19 23:58 Hct 40.8 % (36.0-46.0) 03/20/19 23:58 MCV 93.2 fL (80-95) 03/20/19 23:58 MCH 30.4 pg (27.0-33.0) 03/20/19 23:58 MCHC 32.6 g/dL (32.0-36.0) 03/20/19 23:58 RDW 13.5 % (11.7-14.6) 03/20/19 23:58 Plt Count 203 x1000/uL (130-400) 03/20/19 23:58 MPV 10.4 fL (8.0-11.0) 03/20/19 23:58 Immature Gran % 0.3 03/20/19 23:58 65.0 03/20/19 23:58 24.4 03/20/19 23:58 8.5 03/20/19 23:58 1.5 03/20/19 23:58 0.3 03/20/19 23:58 Absolute Neutrophils 6.72 k/cumm (1.2-6.7) H 03/20/19 23:58 Absolute Lymphocytes 2.52 k/cumm (1.2-3.4) 03/20/19 23:58 Absolute Monocytes 0.88 k/cumm (0.11-0.7) H 03/20/19 23:58 Absolute Eosinophils 0.16 k/cumm (0.0-0.7) 03/20/19 23:58 Absolute Basophils 0.03 k/cumm (0.0-0.2) 03/20/19 23:58 Sodium 136 mmol/L (136-145) 03/20/19 23:58 Potassium 3.7 mmol/L (3.5-5.1) 03/20/19 23:58 Chloride 103 mmol/L (98-107) 03/20/19 23:58 Carbon Dioxide 22.0 mmol/L (21.0-32.0) 03/20/19 23:58 11.0 mmol/L (3-11) 03/20/19 23:58 BUN 12 mg/dL (7-18) 03/20/19 23:58 0.59 mg/dL (0.55-1.02) 03/20/19 23:58 >= 60.00 (mL/min/1.73m2) 03/20/19 23:58 Glucose 86 mg/dL (70-100) 03/20/19 23:58 Calcium 9.1 mg/dL (8.5-10.1) 03/20/19 23:58 0.5 mg/dL (0.2-1.0) 03/20/19 23:58 AST 28 U/L (15-37) 03/20/19 23:58 ALT 17 U/L (12-78) 03/20/19 23:58 81 U/L (46-116) 03/20/19 23:58 7.4 g/dL (6.4-8.2) 03/20/19 23:58 3.2 g/dL (3.4-5.0) L 03/20/19 23:58 TSH 3.76 uIU/mL (0.36-3.74) H 03/20/19 23:58 Yellow (Yellow) 03/21/19 00:10 Clear (Clear) 03/21/19 00:10 7.0 (5-8) 03/21/19 00:10 Ur Specific [place] 1.020 (1.005-1.025) 03/21/19 00:10 Negative mg/dL (Negative) 03/21/19 00:10 40 mg/dL (Negative) H 03/21/19 00:10 Trace-lysed (Negative) H 03/21/19 00:10 Negative (Negative) 03/21/19 00:10 Negative (Negative) 03/21/19 00:10 1.0 EU/dL (Up TO 0.2) H 03/21/19 00:10 Ur Leukocyte Esterase Trace (Negative) H 03/21/19 00:10 0-2 (0-2) 03/21/19 00:10 0-2 HPF (0-5) 03/21/19 00:10 Ur Epithelial Cells Many HPF (Negative) 03/21/19 00:10 Negative HPF (Negative) 03/21/19 00:10 Few HPF (Negative) 03/21/19 00:10 Negative LPF (Negative) 03/21/19 00:10 Negative (Negative) 03/21/19 00:10 Ur Culture Indicated? No/sq. contamination 03/21/19 00:10 Negative mg/dL (Negative) 03/21/19 00:10 Salicylates 3.2 mg/dL (2.8-20.0) 03/20/19 23:58 Negative (Negative) 03/21/19 00:10 Negative (Negative) 03/21/19 00:10 Acetaminophen < 2 ug/mL (10-30) L 03/20/19 23:58 Ur Barbiturates Screen Negative (Negative) 03/21/19 00:10 Ur Tricyclics Screen Negative (Negative) 03/21/19 00:10 Ur Amphetamines Screen Negative (Negative) 03/21/19 00:10 U Benzodiazepines Scrn Negative (Negative) 03/21/19 00:10 Negative (Negative) 03/21/19 00:10 Ur THC Screen Positive (Negative) 03/21/19 00:10 Ethyl Alcohol < 3.0 mg/dL (<3) 03/20/19 23:58
[2019-03-27] MEDS: Fluconazole 150 MG TAB PO (16:12)
--- NOTE | 2019-03-27 17:15 | DSE_ITS ---
Date of service: 03/27/19 Time of Service: 16:00 DS: Diagnosis Discharge Diagnosis (1) History of psychiatric disorder: Status: Chronic (2) Asthma: Status: Chronic (3) Smoker: Status: Chronic (4) : Status: Acute (5) Dental abscess: Status: Acute (6) Discharge planning issues: Status: Acute (7) Yeast infection involving the vagina and surrounding area: Status: Acute (8) Right leg swelling: Status: Acute Discharge Plan Disposition Patient Disposition: HOME Condition: Poor Discharge Details Chief Complaint: PsychEval Clinical Impression: Threatening behavior, , Impulsiveness Reason For Visit: ERRATIC BEHAVIOR, AGITATION, Admit Date/Time: 03/23/19 17:33 Admit Provider: Brady Soria Attending Provider: Amy Bojorquez Primary Care Provider: Rochelle Muñoz ED Provider: Augie Luu [facility] Course Hospital Course: this is a 33 yr old female w/ PMH of unspecified psychiatric disorder and asthma. She was brought to [facility] ER upon court order and was accompanied by a traffic police officer. She was ordered for an EE evaluation by the court due to impulsive, erratic, labile and aggressive behaviors including threats to terminate her on her own. She is 25 weeks gravid. She has history of w/ 1 miscarriage and 1 . She has been very erratic in her behavior in the [facility] [facility] [employer] clinic alternating between agreeing to care and refusing care including walking out on multiple occasions during her examinations, refusing heart rate monitoring/ultrasounds, glucose tolerance tests. She has indicated of desire to put her current child with which she is up for adoption but has refused cooperation in going through proper authorities for adoption wanting to just give the child away. Patient was not agreeable to voluntary psychiatric inpatient treatment and due to her threats of self harm and aggressive threatening behavior to her care providers, a patrol judge ordered an involuntary emergency evaluation (EE). She was evaluated by Dr. Luu who agreed with the need for involuntary admission. She underwent another certification today and is now deemed safe to discharge back to home. She has been started on and taking seroquel, buspar and has been cooperative and back to her baseline. She is also currently being treated for couple of dental abscess and is on amoxicillin. She will follow up in the am with her provider for discharge evaluation. Mental health is following. medically she has been stable. she is complaining of a vaginal yeast infection but was refusing diflucan after requesting it. she has had no bleeding or abdominal pain. she refuses evaluation by the grab jack worker transportation inspector. she has had no fevers. Home Meds and New Rx's Prescriptions: New quetiapine 25 mg Tablet 25 mg PO BID Qty: 2 RF: 0 amoxicillin 500 mg Capsule 500 mg PO TID Qty: 1 RF: 0 buspirone 5 mg Tablet 10 mg PO TID Qty: 1 RF: 0 ranitidine HCl 150 mg Tablet 75 mg PO BID Qty: 2 RF: 0 folic acid 1 mg Tablet 1 mg PO DAILY Qty: 30 RF: 0 lorazepam 1 mg Tablet 2 mg PO Q4H PRN PRN (Reason: Agitation) Qty: 2 RF: 0 PNV cmb#95-ferrous fumarate-FA [] 28 mg iron- 800 mcg Tablet 1 tab PO DAILY Qty: 30 RF: 0 Continued aspirin [Aspirin Low Dose] 81 mg tablet,delayed release (DR/EC) 81 mg PO DAILY Qty: 90 RF: 1 gabapentin 100 mg capsule 100 mg PO TID Qty: 60 RF: 2 albuterol sulfate [Ventolin HFA] 60 PUFF HFA aerosol inhaler 1 puff Inhalation Q4H PRN PRNRF: 0 ipratropium-albuterol 3 ML solution for nebulization 3 ml IN Q4H PRN PRNRF: 0 Symbicort 10.2 GM HFA aerosol inhaler 10.2 gm Inhalation BID RF: 0 Discharge Instructions Instructions: Suicide Prevention for Adults (DC) Additional Instructions: keep MD appointment tomorrow as planned as you will need your prescriptions and close follow up. return sooner for new or worsening symptoms. Stand Alone Forms: Nursing Discharge Form Activity:: Activity as Tolerated Equipment/Supplies:: No Equipment Needed Diet:: As Tolerated Discharge Orders Discharge Orders: Discharge Order (Routine); Ordered 03/27/19 Ordered By: Margie Mckenna Discharge Data Discharge Date/Time-TO BE ENTERED AT DEPARTURE: 03/27/19 19:45 DS: Data Vitals/I&O Vitals and I&O: Vital Signs Temperature 36.1 C L 03/24/19 08:30 Temperature Source Tympanic 03/24/19 08:30 Pulse 78 03/24/19 08:30 Pulse Rhythm Regular 03/27/19 08:35 Respiratory Rate 18 03/24/19 08:30 Respiratory Effort Non-Labored 03/27/19 08:35 Respiratory Depth Normal 03/27/19 08:35 Respiratory Pattern Normal 03/27/19 08:35 Blood Pressure 114/80 03/23/19 16:02 Pulse Oximetry 98 03/24/19 08:30 Oxygen Delivery Method Room Air 03/24/19 08:30 Oxygen Flow Rate 0 03/24/19 08:30 Pain Level 8 03/27/19 16:50 Comment 03/26/19 20:41 Intake & Output 03/26/19 03/27/19 03/27/19 23:59 11:59 23:59 Intake Total 1050 / 1950 600 / 900 300 / 900 Balance 1050 / 1950 600 / 900 300 / 900 Intake: Oral 1050 / 1950 600 / 900 300 / 900 Other: Urine Appearance Clear Clear Comment voded in toilet voided in the toilet voided in toilet Stool Size Small Small Small Stool Characteristics Hard Hard Hard Voiding Methods Toilet Toilet [facility] Medical History (Updated 03/27/19 @ 15:07 by Margie Mckenna NP) Asthma Borderline personality disorder (Acute) Chronic anxiety Difficulty voiding (Inactive 01/08/15) Obesity Obesity affecting , antepartum (Inactive 10/08/14) PTSD (post-traumatic stress disorder) (Acute) Supervision of normal first (Inactive 10/08/14) Tobacco use Surgical History Myringotomy w/ PE (pressure equalizing) tubes Social History Smoking/Tobacco Use Status: Current every day Tobacco Type: cigarettes Alcohol Intake: former Drug use: Daily Substance use type: marijuana Details: marijuana 3 x daily Do you feel safe at home: Yes Do you feel safe in your relationship?: Yes Female Reproductive History Menstrual Age of Menarche: 12 Duration of menses: 3-5 days control method: none History History 6 Para 3 Hx # Term Pregnancies 3 Multiple births 0 Hx # Pregnancies Ectopic pregnancies 0 AB induced 1 Hx Number of Living Children 3 AB spontaneous 1 Past Pregnancies Del. Date GA/Weeks # Outcome Route Wgt Sex Labor Lgth Anesthes ia Location Prov Complic Unknown 40 No Successful vaginal 2.325 kg Female 20 min [place], by an rn dr conley Unknown 02/11/09 40 No Successful vaginal 2.325 kg Male [address] conley 04/16/15 No Successful vaginal precipitous deliv ered 20 min after admission rn in Delivery Date: On 01/02/19 @ 14:04 ERICA TALAMANTES precipitous, Delivery Date: On 01/14/19 @ 13:15 ERICA TALAMANTES DATE/INFO UNKNOWN, PT CLAIMS SHE HAS NO RECOLLECTION OF ONE OF HER PREGNANCIES. Delivery Date: 02/11/09 No notes to display Delivery Date: 04/16/15 On 01/31/19 @ 11:24 ERICA TALAMANTES precipitous delivery w/o pp complications
--- NOTE | 2019-03-27 17:34 | PDOC.CMDIS ---
LACE Index Scoring Tool - Questions: Length of Stay (in days): 7 - 13 Acuity (Admit via E.D.?): Yes E.D. Visits: 10 - Answers: Total Score: 12 Risk of Readmission: High Risk Care Management Discharge Reason for Hospitalization: Erratic Behaviors, Agitation, Discharge Plan: Conchita was released from Involuntary Status by Dr. Ana Cristina Hazel at [facility]. CM coordianated a ride with [employer] [place] for [id number] at the front entrance. Conchita reported she would not be utilizing the ride and would be walking home. CM provided clinical information to Patient/Family Education Needs: Review of discharge instructions, discuss Ask Me Three. - MH Services (Omit if N/A) Current MH Services: CLIENT RESOLUTION SPECIALIST (Resumption of supports with addition of medication managment.)
--- NOTE | 2019-03-27 20:14 | PDOC.CMPRO ---
- If Service Date Differs Date of service: 03/27/19 Time of Service: 20:14
--- NOTE | 2019-03-28 14:15 | PDOC.MHCN ---
Date of service: 03/27/19 Time of Service: 11:00 Mental Health Crisis Note Presenting Issue How did you arrive at the ED and why did you come: Client was brought to [facility] ([facility]) by law enforcement on an Application for Warrant for Emergency Examination on 03/20/2019. Precipitating Factors Refer to Application for Warrant for Emergency Examination dated 03/20/2019 written by Lennox Robertson. Disposition BEHAVIOR: Appropriate and cooperative with this clinician. EYE CONTACT: Appropriate MOOD: Anxiuos AFFECT: Congruent to mood APPETITE: Difficulty eating because dental issues. Client reports eating with her front teeth. SLEEP(trouble falling/staying asleep: Client states, As good as I can in a hospital bed. She reports having difficulty falling back to sleep after waking up in the night to urinate. Plan Client engaged in a telemedicine psychiatric evaluation with Dr. Ana Cristina Hazel from [facility] and she added an addendum to the Second Physician (Psychiatrist) Certification originally dated 03/21/2019 stating that Conchita is a person in need of treatment but does not pose imminent risk of harm to herself or others and can be treated in a less restrictive setting. The client states that she does not wish to pursue inpatient treatment and is able to participate in outpatient treatment planning. The client agreed to engage in mental health treatment; 1) daily medication monitoring, 2) scheduled appointment with Laine Chiang on 03/28/2019 at 3:00 p.m., 3) scheduled appointment with Adelita Gallagher, client's therapist, on 04/08/2019 at 11:00 a.m., 4) follow up with [facility], 5) follow up with UDAY Alfonso, and 6) engage with Ruben Marti around developing a Wellness Action Recovery Plan to assist with maintaining stability. The client has been walked off her Emergency Examination and discharged from [facility] with H.S medications for 03/27/2019 and a.m. medications for 03/28/2019. The client will follow up with [facility] staff in the morning to follow up with treatment.
== END 2019-03-27 19:45 | disposition home or self-care (01) | DRG 883 ==
LOC: ER 03-21 01:21 → TMS 03-21 01:54 → MS 03-27 17:16
PROVIDERS: Nurse Practitioner Family; Admitting Provider Internal Medicine; Emergency Provider Emergency Medicine; PCP Nurse Practitioner Family; Visit Provider Internal Medicine
DX: F60.3 Borderline personality disorder (principal); O98.812 Other maternal infectious and parasitic diseases complicating pregnancy, second trimester; K04.7 Periapical abscess without sinus; Z3A.25 25 weeks gestation of pregnancy; J45.909 Unspecified asthma, uncomplicated; Z91.19 Patient's noncompliance with other medical treatment and regimen; Z78.1 Physical restraint status; O99.334 Smoking (tobacco) complicating childbirth; F17.210 Nicotine dependence, cigarettes, uncomplicated; B37.3 Candidiasis of vulva and vagina
CPT/HCPCS: 36415; 80053; 80307; 99219; 99231; 99233; 99285; NC; 80320; 80329; 81003; 81015; 84443; 85025; 99224; 99239; 99284; G0378; J1200; J1630; J2060; J7613; J7620

== ENCOUNTER 2019-04-02 16:53 | Emergency (ER) | payer MEDICARE, MEDICAID, SELFPAY ==
[2019-04-02 16:56] VITALS: BP 130/78; PULSE 83; RESP 16; TEMP 36.6; O2SAT 97
--- NOTE | 2019-04-02 16:57 | ED.GENADUL_ITS ---
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 Clinical Impression: Abdominal cramping affecting Primary Care Provider: Rochelle Muñoz ED Provider: Estrella Doll Home Meds and New Rx's Prescriptions: Continued aspirin [Aspirin Low Dose] 81 mg tablet,delayed release (DR/EC) 81 mg PO DAILY Qty: 90 RF: 1 gabapentin 100 mg capsule 100 mg PO TID Qty: 60 RF: 2 albuterol sulfate [Ventolin HFA] 60 PUFF HFA aerosol inhaler 1 puff Inhalation Q4H PRN PRNRF: 0 ipratropium-albuterol 3 ML solution for nebulization 3 ml IN Q4H PRN PRNRF: 0 Symbicort 10.2 GM HFA aerosol inhaler 10.2 gm Inhalation BID RF: 0 quetiapine 25 mg Tablet 25 mg PO BID Qty: 2 RF: 0 amoxicillin 500 mg Capsule 500 mg PO TID Qty: 1 RF: 0 buspirone 5 mg Tablet 10 mg PO TID Qty: 1 RF: 0 ranitidine HCl 150 mg Tablet 75 mg PO BID Qty: 2 RF: 0 folic acid 1 mg Tablet 1 mg PO DAILY Qty: 30 RF: 0 lorazepam 1 mg Tablet 2 mg PO Q4H PRN PRN (Reason: Agitation) Qty: 2 RF: 0 PNV cmb#95-ferrous fumarate-FA [] 28 mg iron- 800 mcg Tablet 1 tab PO DAILY Qty: 30 RF: 0 Discharge Instructions Instructions: Abdominal Pain in (ED) Additional Instructions: Encourage hydration. Keep your upcoming appointment with Dr. Willard. If you develop fevers/chills, increased pain, vaginal discharge or other new/worsening symptoms please seek care urgently once again. You may use Tylenol for your discomfort. We will contact you if there are any unusual re Referrals: Shayy Willard MD [ [facility] STAFF PHYSICIAN] - Discharge Data Discharge Date/Time-TO BE ENTERED AT DEPARTURE: 04/02/19 19:36 Medical Decision Making Patient 33 year old female, well known to the department, presenting today, brought in via EMS, with c/c of abdominal discomfort. STates that she is 6 months gestation. REcently admitted here. States that she has had this abdominal pain intermittently for the past week. Reprots that it feels like cramping. Denies any vaginal discharge, no bleeding. Denies SOB, CP. Continues to feel movement. States that pain can be severe but lasts short period of time. On exam, abdomen is consistent with gestational age. No pain elicitaed with palpation, no guarding or peritoneal findings. Plan for labs, hydration, consult with RN RESEARCH. Discussed these plans with the patient who is in agreement. She has had US showing single intrauterine . heart rate 140. Consulted with Dr. Galindo. Patient has had very difficult thus far, primarily from her mental health issues. She has plan to put child up for adoption after. He advised that patient needs a stress test but that patient becomes very upset when he is around. Patient reports to me that she will not be assessed by anyone other than Dr. Willard who is currenlty on vacation. Nursing staff from OB will come to evaluate the patient and monitor her while in the deparment. testing preformed by OB nurse with patient in the ER. Results relayed to Dr. Galindo. Consulted with Dr. Galindo who advised that patient is safe for discharge. Labs reviewed, no significant abnormality noted. Mild leukocytosis. With the abdomen benign, OB testing reassuring, do not feel that imaging is needed at this time. Patient lives locally, is able to return with worsneing symptoms. UA pending. 1918: patient yelling in the room, very anxious. this came on very suddenly. Patient had been calm and cooperative. She has 2mg PO ativan PRN ordered at baseline. As she has IV access, will give 1mg IV now. Patient requesting I need one of my PRNs. 0: Patient offered to have PO and she continued to yell profanities at myself and nursing staff. Wants to have IV out and leave department. Nurse she is requesting is with another patient, will not allow another nurse to remove IV. Patient deescalated once her preferred nurse was able to see her and remove her IV. She declines medications. She will not wait for UA. Patient eloped from department. She has appointment with Dr. Willard next week and refuses to see another provider this week despite my urging for her to be seen sooner. Se was given strict return precautions. HPI General Mode of arrival: EMS . Date/Time Provider Initiated Documentation: 04/02/19 16:55 . Limitations to Documentation: no limitations . Information obtained by: patient, EMS and RN notes reviewed . History of Present Illness 33 year old F presents to the emergency department with the chief complaint of LLQ cramping affecting second trimester , described as severe, with intensity rated at 9. Quality is described as other (cramping), and is localized to the abdomen. Patient reports no radiation. Patient started experiencing this day(s) (intermittent, currently for the past 2 hours) and it has been intermittent. No relieving factors improve symptom(s), No exacerbating factors reported . Patient notes no other symptoms.; denies chest pain, cough, fever/chills, headaches, loss of appetite, nausea/vomiting, rash, shortness of breath, syncope and weakness. Patient did receive the following treatments prior to arrival, none Related Data Home Medications Medication Instructions Recorded Confirmed albuterol sulfate [Ventolin HFA] 1 puff INHALATION Q4H PRN PRN inh 04/17/15 04/02/19 ipratropium-albuterol 3 ml IN Q4H PRN PRN 07/26/15 04/02/19 Symbicort 10.2 gm INHALATION BID 03/09/17 04/02/19 aspirin 81 mg tablet,delayed 81 mg PO DAILY #90 tab 01/29/19 04/02/19 release gabapentin 100 mg capsule 100 mg PO TID #60 cap 03/20/19 04/02/19 PNV cmb#95-ferrous fumarate-FA 1 tab PO DAILY #30 tab 03/27/19 04/02/19 [] amoxicillin 500 mg PO TID #1 cap 03/27/19 04/02/19 buspirone 10 mg PO TID #1 tab 03/27/19 04/02/19 folic acid 1 mg PO DAILY #30 tab 03/27/19 04/02/19 lorazepam 2 mg PO Q4H PRN PRN #2 tab 03/27/19 04/02/19 quetiapine 25 mg PO BID #2 tab 03/27/19 04/02/19 ranitidine HCl 75 mg PO BID #2 tab 03/27/19 04/02/19 Previous Rx's Medication Instructions Recorded albuterol sulfate [Ventolin HFA] 1 puff INHALATION Q4H PRN PRN inh 04/17/15 aspirin 81 mg tablet,delayed 81 mg PO DAILY #90 tab 01/29/19 release gabapentin 100 mg capsule 100 mg PO TID #60 cap 03/20/19 PNV cmb#95-ferrous fumarate-FA 1 tab PO DAILY #30 tab 03/27/19 [] amoxicillin 500 mg PO TID #1 cap 03/27/19 buspirone 10 mg PO TID #1 tab 03/27/19 folic acid 1 mg PO DAILY #30 tab 03/27/19 lorazepam 2 mg PO Q4H PRN PRN #2 tab 03/27/19 quetiapine 25 mg PO BID #2 tab 03/27/19 ranitidine HCl 75 mg PO BID #2 tab 03/27/19 Allergies Allergy/AdvReac Type Severity Reaction Status Date / Time No Known Allergies Allergy Unverified 04/02/19 17:00 General DOROTEO: 2 Review of Systems Constitutional Reports as per HPI, Denies chills, Denies fatigue, Denies fever(s) and Denies headache(s) ENT Denies headache(s) Cardiovascular Reports as per HPI, Denies chest pain and Denies dyspnea Respiratory Reports as per HPI, Denies cough and Denies dyspnea Gastrointestinal Reports as per HPI, Reports abdominal pain, Denies melena, Denies change in stool character, Denies coffee ground emesis, Denies constipation, Denies diarrhea, Denies nausea and Denies vomiting Genitourinary Reports as per HPI, Reports abnormal menses (patient ), Denies genital lesions, Denies dysuria, Denies flank pain, Denies urinary hesitancy, Denies vaginal discharge and Denies vaginal odor Musculoskeletal Reports as per HPI and Denies back pain Integumentary/Breasts Reports as per HPI and Denies rash Neurologic Reports as per HPI and Denies headache(s) Endocrine Denies fatigue [facility] Medical History Asthma Borderline personality disorder (Acute) Chronic anxiety Difficulty voiding (Inactive 01/08/15) Obesity Obesity affecting , antepartum (Inactive 10/08/14) PTSD (post-traumatic stress disorder) (Acute) Supervision of normal first (Inactive 10/08/14) Tobacco use Surgical History Myringotomy w/ PE (pressure equalizing) tubes Social History Smoking/Tobacco Use Status: Current every day Tobacco Type: cigarettes Alcohol Intake: former Drug use: Daily Substance use type: marijuana Details: marijuana 3 x daily Do you feel safe at home: Yes Do you feel safe in your relationship?: Yes Female Reproductive History Menstrual Age of Menarche: 12 Duration of menses: 3-5 days control method: none History History 6 Para 3 Hx # Term Pregnancies 3 Multiple births 0 Hx # Pregnancies Ectopic pregnancies 0 AB induced 1 Hx Number of Living Children 3 AB spontaneous 1 Past Pregnancies Del. Date GA/Weeks # Outcome Route Wgt Sex Labor Lgth Anesthes ia Location Prov Complic Unknown 40 No Successful vaginal 2.325 kg Female 20 min cottage, by an rn dr conley Unknown 02/11/09 40 No Successful vaginal 2.325 kg Male [address] conley 04/16/15 No Successful vaginal precipitous deliv ered 20 min after admission rn in Delivery Date: On 01/02/19 @ 14:04 ERICA TALAMANTES precipitous, Delivery Date: On 01/14/19 @ 13:15 ERICA TALAMANTES DATE/INFO UNKNOWN, PT CLAIMS SHE HAS NO RECOLLECTION OF ONE OF HER PREGNANCIES. Delivery Date: 02/11/09 No notes to display Delivery Date: 04/16/15 On 01/31/19 @ 11:24 ERICA TALAMANTES precipitous delivery w/o pp complications Exam Const General: cooperative, uncomfortable (patient appears uncomfortable, holding LLQ), no acute distress, well developed, No well groomed (patient disheveled) and ill appearing chronically (poor skin color) Nutritional Appearance: average body habitus and well nourished Orientation: alert and awake HENMT Head: normal to inspection Mouth: moist mucous membranes Resp Effort & Inspection: normal respiratory effort, able to speak in complete sentences and no respiratory distress Auscultation: clear to auscultation bilaterally, no rales, no rhonchi and no wheezes Cardio Rate: regular rate Rhythm: regular rhythm Heart Sounds: S1 normal and S2 normal GI Inspection: normal to inspection (patient 6 months gestation, exam is normal for gestational age) Palpation: firm (normal palpation of uterus), no guarding, no pulsatile masses, not rigid and nontender Back/Spine/Pelvis Back: no CVA tenderness Skin Wounds: wounds noted (patient has been picking at skin on all extremities, wounds in various stat) Neuro General: alert and awake Cognition: normal cognition Speech: speech normal Gait: normal gait Extrem General: normal capillary refill, no joint enlargement, no pedal edema, no calf tenderness, normal gait and other (patient has multiple pick beltran to all extremities) Psych Appearance: grossly normal and well kempt Mental Status: mental status grossly normal Speech and Movement: speech and movement normal
[2019-04-02] MEDS: Normal Saline 1,000 ML 1000 ML IV (17:29)
[2019-04-02 17:31] LABS: Abs Immature Grans 0.09 k/cumm (0.0-0.09); Absolute Basophil Count 0.02 k/cumm (0.0-0.2); Absolute Eosinophil Count 0.21 k/cumm (0.0-0.7); Absolute Lymphocyte Count 2.33 k/cumm (1.2-3.4); Absolute Monocyte Count 1.03 k/cumm (0.11-0.7); Basophils % 0.2; Eosinophils % 1.8; HCT 34.9 % (36.0-46.0); HGB 11.5 g/dL (12.0-15.5); Immature Grans % 0.8; Lymphocytes % 20.1; Mean Corpuscular Hemoglobin 30.9 pg (27.0-33.0); Mean Corpuscular Volume 93.8 fL (80-95); Mean Platelet Volume 10.1 fL (8.0-11.0); Monocytes % 8.9; Neutrophils % 68.2; Platelet Count 209 x1000/uL (130-400); RBC 3.72 m/cumm (4.00-5.20); RBC Distribution Width 13.3 % (11.7-14.6); White Blood Cell Count 11.58 k/cumm (4.4-10.8)
[2019-04-02 17:46] LABS: ALT 22 U/L (12-78); AST 17 U/L (15-37); Albumin 2.5 g/dL (3.4-5.0); Alkaline Phosphatase 66 U/L (46-116); Anion Gap 10.2 mmol/L (3-11); BUN 20 mg/dL (7-18); Bilirubin, Total 0.2 mg/dL (0.2-1.0); CO2 24.8 mmol/L (21.0-32.0); CREATININE 0.76 mg/dL (0.55-1.02); Chloride 104 mmol/L (98-107); Glucose 87 mg/dL (70-100); Lipase 157 U/L (73-393); Potassium 4.3 mmol/L (3.5-5.1); Sodium 139 mmol/L (136-145); Total Protein 6.5 g/dL (6.4-8.2)
== END 2019-04-02 19:36 | disposition home or self-care (01) ==
PROVIDERS: Emergency Provider Physician Assistant; PCP Nurse Practitioner Family
DX: O26.892 Other specified pregnancy related conditions, second trimester (principal); O99.332 Smoking (tobacco) complicating pregnancy, second trimester; O99.322 Drug use complicating pregnancy, second trimester; O99.342 Other mental disorders complicating pregnancy, second trimester; Z3A.26 26 weeks gestation of pregnancy; F60.3 Borderline personality disorder; F17.210 Nicotine dependence, cigarettes, uncomplicated; F12.90 Cannabis use, unspecified, uncomplicated
CPT/HCPCS: 36415; 80053; 83690; 96360; 96361; 99284; 85025

== ENCOUNTER 2019-04-05 17:29 | Emergency (ER) | payer MEDICARE, MEDICAID, SELFPAY ==
--- NOTE | 2019-04-05 17:37 | NUR.NOTE ---
Nursing Note: pt states that she has a tooth infection pt had [pervious tooth infection 1 month ago in what she believes to be the same tooth. pt states that she cant get them pulled because im
[2019-04-05 17:39] VITALS: BP 119/72; PULSE 91; RESP 16; TEMP 37.2; O2SAT 97
--- NOTE | 2019-04-05 17:51 | ED.GENADUL_ITS ---
Discharge Plan Disposition Patient Disposition: HOME Discharge Details Chief Complaint: DentalOral Clinical Impression: Pain, dental Primary Care Provider: Rochelle Muñoz ED Provider: Jose Armando Conklin Home Meds and New Rx's Prescriptions: New penicillin V potassium 500 mg tablet 500 mg PO QID 7 Days Qty: 28 RF: 0 Continued aspirin [Aspirin Low Dose] 81 mg tablet,delayed release (DR/EC) 81 mg PO DAILY Qty: 90 RF: 1 albuterol sulfate [Ventolin HFA] 60 PUFF HFA aerosol inhaler 1 puff Inhalation Q4H PRN PRNRF: 0 ipratropium-albuterol 3 ML solution for nebulization 3 ml IN Q4H PRN PRNRF: 0 Symbicort 10.2 GM HFA aerosol inhaler 10.2 gm Inhalation BID RF: 0 quetiapine 25 mg Tablet 25 mg PO BID Qty: 2 RF: 0 buspirone 5 mg Tablet 10 mg PO TID Qty: 1 RF: 0 ranitidine HCl 150 mg Tablet 75 mg PO BID Qty: 2 RF: 0 folic acid 1 mg Tablet 1 mg PO DAILY Qty: 30 RF: 0 lorazepam 1 mg Tablet 2 mg PO Q4H PRN PRN (Reason: Agitation) Qty: 2 RF: 0 PNV cmb#95-ferrous fumarate-FA [] 28 mg iron- 800 mcg Tablet 1 tab PO DAILY Qty: 30 RF: 0 gabapentin 400 mg Capsule 400 mg PO DAILY RF: 0 Discharge Instructions Instructions: Toothache (ED) Additional Instructions: Continue to take your [id number] Tylenol as needed for pain and do salt water rinses. If symptoms are not improving in the next 24 hours please please start the antibiotics. Return the emergency department for new or worsening symptoms otherwise follow-up with your primary care provider as needed for reassessment Referrals: Rochelle Muñoz [Primary Care Provider] - Discharge Data Discharge Date/Time-TO BE ENTERED AT DEPARTURE: 04/05/19 18:11 Medical Decision Making Patient presenting to the emergency department for chief complaint of dental pain. She states that this started yesterday after eating ice cream. She states significant history of dental fractures and infections and is and dentist has informed her that she cannot have any procedures done when she is . Physical exam shows multiple fractured teeth and tooth loss. Area of concern is left upper and lower jaw. Patient has significant tenderness to tooth #20. No erythema surrounding the base, no palpable fluctuance or swelling to the face, no signs of Rony's angina, peritonsillar abscess, retropharyngeal abscess or acute airway emergency. It is difficult given patient's significant dental loss, and caries with patient's increasing pain whether this is infection or just chronic dental pain. Did discuss with patient waiting additional 24 hours before starting antibiotic but so that patient does not have to return to the emergency department she was given a prescription for penicillin and informed to start this if her symptoms do not improve in the next day or so. Return precautions discussed. After discussion of diagnosis and plan of care patient has no further needs, questions, or concerns and states clear understanding to return to the emergency department for any worsening symptoms. HPI General Mode of arrival: ambulatory . Date/Time Provider Initiated Documentation: 04/05/19 17:42 . Limitations to Documentation: no limitations . Information obtained by: patient . History of Present Illness 33 year old F presents to the emergency department with the chief complaint of Dental pain, described as severe, with intensity rated at 8. Quality is described as sharp, and is localized to the mouth. Patient started experiencing this day(s) (1) and it has been constant. No relieving factors improve symptom(s), Patient notes no other symptoms.. Patient did receive the following treatments prior to arrival, other (Acetaminophen) Related Data Home Medications Medication Instructions Recorded Confirmed albuterol sulfate [Ventolin HFA] 1 puff INHALATION Q4H PRN PRN inh 04/17/15 04/05/19 ipratropium-albuterol 3 ml IN Q4H PRN PRN 07/26/15 04/05/19 Symbicort 10.2 gm INHALATION BID 03/09/17 04/05/19 aspirin 81 mg tablet,delayed 81 mg PO DAILY #90 tab 01/29/19 04/05/19 release PNV cmb#95-ferrous fumarate-FA 1 tab PO DAILY #30 tab 03/27/19 04/05/19 [] buspirone 10 mg PO TID #1 tab 03/27/19 04/05/19 folic acid 1 mg PO DAILY #30 tab 03/27/19 04/05/19 lorazepam 2 mg PO Q4H PRN PRN #2 tab 03/27/19 04/05/19 quetiapine 25 mg PO BID #2 tab 03/27/19 04/05/19 ranitidine HCl 75 mg PO BID #2 tab 03/27/19 04/05/19 gabapentin 400 mg PO DAILY 04/05/19 04/05/19 penicillin V potassium 500 mg PO QID 7 Days #28 tab 04/05/19 Previous Rx's Medication Instructions Recorded albuterol sulfate [Ventolin HFA] 1 puff INHALATION Q4H PRN PRN inh 04/17/15 aspirin 81 mg tablet,delayed 81 mg PO DAILY #90 tab 01/29/19 release PNV cmb#95-ferrous fumarate-FA 1 tab PO DAILY #30 tab 03/27/19 [] buspirone 10 mg PO TID #1 tab 03/27/19 folic acid 1 mg PO DAILY #30 tab 03/27/19 lorazepam 2 mg PO Q4H PRN PRN #2 tab 03/27/19 quetiapine 25 mg PO BID #2 tab 03/27/19 ranitidine HCl 75 mg PO BID #2 tab 03/27/19 penicillin V potassium 500 mg PO QID 7 Days #28 tab 04/05/19 Allergies Allergy/AdvReac Type Severity Reaction Status Date / Time No Known Allergies Allergy Unverified 04/05/19 17:40 General Stated Complaint: DentalOral DOROTEO: 4 Review of Systems Constitutional Denies chills and Denies fever(s) ENT Reports as per HPI, Denies change in voice, Reports dental pain, Denies dysphagia, Denies throat swelling and Denies tongue swelling Cardiovascular Denies chest pain and Denies dyspnea Respiratory Denies dyspnea, Denies stridor and Denies wheezing Gastrointestinal Denies abdominal pain, Denies dysphagia, Denies nausea and Denies vomiting Integumentary/Breasts Denies rash Allergic/Immunologic Denies throat swelling, Denies tongue swelling and Denies wheezing [facility] Medical History Asthma Borderline personality disorder (Acute) Chronic anxiety Difficulty voiding (Inactive 01/08/15) Obesity Obesity affecting , antepartum (Inactive 10/08/14) PTSD (post-traumatic stress disorder) (Acute) Supervision of normal first (Inactive 10/08/14) Tobacco use Surgical History Myringotomy w/ PE (pressure equalizing) tubes Social History Smoking/Tobacco Use Status: Current every day Tobacco Type: cigarettes Alcohol Intake: former Drug use: Daily Substance use type: marijuana Details: marijuana 3 x daily Do you feel safe at home: Yes Do you feel safe in your relationship?: Yes Female Reproductive History Menstrual Age of Menarche: 12 Duration of menses: 3-5 days control method: none History History 6 Para 3 Hx # Term Pregnancies 3 Multiple births 0 Hx # Pregnancies Ectopic pregnancies 0 AB induced 1 Hx Number of Living Children 3 AB spontaneous 1 Past Pregnancies Del. Date GA/Weeks # Outcome Route Wgt Sex Labor Lgth Anesthes ia Location Prov Complic Unknown 40 No Successful vaginal 2.325 kg Female 20 min cottage, by an rn dr conley Unknown 02/11/09 40 No Successful vaginal 2.325 kg Male [address] conley 04/16/15 No Successful vaginal precipitous deliv ered 20 min after admission rn in Delivery Date: On 01/02/19 @ 14:04 ERICA TALAMANTES precipitous, Delivery Date: On 01/14/19 @ 13:15 ERICA TALAMANTES DATE/INFO UNKNOWN, PT CLAIMS SHE HAS NO RECOLLECTION OF ONE OF HER PREGNANCIES. Delivery Date: 02/11/09 No notes to display Delivery Date: 04/16/15 On 01/31/19 @ 11:24 ERICA TALAMANTES precipitous delivery w/o pp complications Exam Const General: cooperative Orientation: alert, awake and oriented x3 Limitations: mental status not altered [facility] Head: normal to inspection, normocephalic and atraumatic Ears: hearing grossly normal bilaterally, normal mastoids bilaterally and no periauricular adenopathy General nose exam: external nose normal Mouth: oropharynx normal, no drooling, no muffled voice, normal tongue and no trismus Teeth and gingiva: caries, poor dentition and other (Multiple fractured teeth and missing teeth) Throat: posterior oropharynx normal, tonsils normal and uvula midline Eyes General: appearance normal, both eyes and all related structures Pupils: PERRL Neck Neck: normal visual inspection, full ROM, no lymphadenopathy, no meningeal s igns, trachea midline, supple, no anterior neck swelling and no midline deformity Resp Effort & Inspection: normal respiratory effort and able to speak in complete sentences Course Vital Signs Temperature 37.2 C 04/05/19 17:39 Pulse 91 H 04/05/19 17:39 Respiratory Rate 16 04/05/19 17:39 Blood Pressure 119/72 04/05/19 17:39 Pulse Oximetry 97 04/05/19 17:39 Temperature 37.2 C 04/05/19 17:39 Temperature Source Skin 04/05/19 17:39 Pulse 91 H 04/05/19 17:39 Respiratory Rate 16 04/05/19 17:39 Respiratory Effort 04/05/19 17:42 Blood Pressure 119/72 04/05/19 17:39 Blood Pressure Position Sitting 04/05/19 17:39 Pulse Oximetry 97 04/05/19 17:39 Oxygen Delivery Method Room Air 04/05/19 17:39 Oxygen Flow Rate 0 04/05/19 17:39 Pain Level 6 04/05/19 17:39
[2019-04-05 18:08] VITALS: BP 119/72; PULSE 91; RESP 16; TEMP 37.2; O2SAT 97
== END 2019-04-05 18:11 | disposition home or self-care (01) ==
PROVIDERS: Emergency Provider Nurse Practitioner Family; PCP Nurse Practitioner Family
DX: O99.89 Other specified diseases and conditions complicating pregnancy, childbirth and the puerperium (principal); G89.29 Other chronic pain; K08.89 Other specified disorders of teeth and supporting structures; Z3A.00 Weeks of gestation of pregnancy not specified
CPT/HCPCS: 99282

== ENCOUNTER 2019-04-08 10:16 | Outpatient (CLI) | payer MEDICARE, MEDICAID, SELFPAY ==
--- NOTE | 2019-04-08 10:45 | DI.US_ITS ---
SYMPTOM/DIAGNOSIS; EDEMA BILATERAL LEGS R60.0, RULE OUT DVT DUPLEX VENOUS ULTRASOUND BOTH LOWER EXTREMITIES: 04/08 Duplex evaluation of the deep venous system was performed according to the usual protocol. The deep veins are freely compressible throughout to the level of the popliteal veins. There is normal doppler flow visible throughout and there is excellent flow augmentation with manual calf compression. CONCLUSION: No evidence of deep venous thrombosis.
== END 2019-04-08 10:36 ==
PROVIDERS: PCP Nurse Practitioner Family; Visit Provider Obstetrics & Gynecology
DX: R60.0 Localized edema (principal)
CPT/HCPCS: 93970

== ENCOUNTER 2019-05-01 17:59 | Outpatient (REF) | payer MEDICARE, MEDICAID, SELFPAY | END 2019-05-01 18:19 | LOC: LBN 17:59 | PROVIDERS: PCP Nurse Practitioner Family; Visit Provider Obstetrics & Gynecology Gynecology | DX: Z34.93 Encounter for supervision of normal pregnancy, unspecified, third trimester (principal); R82.79 Other abnormal findings on microbiological examination of urine | CPT/HCPCS: 87086 ==

== ENCOUNTER 2019-05-03 02:50 | Outpatient (CLI) | payer MEDICARE, MEDICAID, SELFPAY ==
--- NOTE | 2019-05-03 13:28 | DI.US_ITS ---
SYMPTOMS/DIAGNOSIS: INTERVAL GROWTH IN OBESE PT, Z34.90 OB ULTRASOUND: OB ultrasound was performed utilizing third trimester protocol. biometry is consistent with a gestational age of 30 weeks 5 days and an EDC of 07/07/19. The estimated weight is 1633 grams which is at the 16th percentile for predicted gestational age. The placenta is posterior with no evidence of placenta previa. The fetus is in cephalic presentation. cardiac activity observed at a rate of 145 bpm. The amniotic fluid index is 16 which is in the normal range and visually there is a normal quantity of amniotic fluid. Predicted Gestational Age: Indication/History: 31+4 Wks Range: 30+4 to 32+4 Prior US done on: Determined by: First US LMP History EDC by prior US: 07/01/19 For multiple gestations: Baby PLACENTA: Grade: I-II Location: Anterior Posterior X PRESENTATION: RT X LT LOW LYING PREVIA Cephalic X Trans (Head RT LT ) Varied Breech BIOMETRY: Anatomy Identified: BPD: 75 mm 30+1 wks 4 chamber Heart Heart Rate 145 BPM HC: 283 mm 31+1 wks LVOT Post Fossa AC: 266 mm 30+5 wks RVOT Ventricles FL: 59 mm 30+6 wks Stomach Nose Bladder Lips Cisterna Magna: mm CI: 81.2 Kidneys Palate Cerebellum: mm 3 vessel cord Spine EFW: 1633 grms 16% Cord Insertion NS= not seen Composite Age (US) 30+5 wks Many abnormalities cannot be diagnosed. A normal exam does not exclude congenital abnormality. EDC by US 07/07/19 Amniotic Fluid Index: Normal COMMENTS: RUQ: 6.18 LUQ: 3.81 RLQ: 6.48 LLQ: 0.00 Total: 16.5 cm Biophysical Profile: Score 0/2 BRENNAN (>2cm) Respirations (>30 sec) Body flexion/extension Extremity flexion/extension TOTAL SCORE
== END 2019-05-03 03:10 ==
PROVIDERS: PCP Nurse Practitioner Family; Visit Provider Obstetrics & Gynecology Gynecology
DX: Z34.93 Encounter for supervision of normal pregnancy, unspecified, third trimester (principal)
CPT/HCPCS: 76816

== ENCOUNTER 2019-05-06 10:14 | Emergency (ER) | payer MEDICARE, MEDICAID, SELFPAY ==
--- NOTE | 2019-05-06 09:54 | W.ED.GENAD ---
Discharge Plan Disposition Patient Disposition: OTHER Condition: Stable Discharge Details Chief Complaint: SOB Clinical Impression: Asthma exacerbation, Left before treatment completed Primary Care Provider: Rochelle Muñoz ED Provider: Maria Esther Nieto Home Meds and New Rx's Prescriptions: No Action aspirin [Aspirin Low Dose] 81 mg tablet,delayed release (DR/EC) 81 mg PO DAILY Qty: 90 RF: 1 cephalexin [Keflex] 500 mg capsule 500 mg PO TID Qty: 5 RF: 0 gabapentin 100 mg capsule 100 mg PO TID Qty: 90 RF: 5 (DME) blood-glucose meter [Accu-Chek Ethel Plus Meter] Misc See Rx Instructions .ROUTE .MEDSUPPLY Qty: 1 RF: 0 (DME) Accu-Chek Ethel Plus test strp Strip See Rx Instructions .ROUTE .MEDSUPPLY Qty: 100 RF: 1 (DME) lancets [Accu-Chek Softclix Lancets] Misc See Rx Instructions .ROUTE .MEDSUPPLY Qty: 100 RF: 2 albuterol sulfate [Ventolin HFA] 60 PUFF HFA aerosol inhaler 1 puff Inhalation Q4H PRN PRNRF: 0 ipratropium-albuterol 3 ML solution for nebulization 3 ml IN Q4H PRN PRNRF: 0 Symbicort 10.2 GM HFA aerosol inhaler 10.2 gm Inhalation BID RF: 0 quetiapine 25 mg Tablet 25 mg PO BID Qty: 2 RF: 0 buspirone 5 mg Tablet 10 mg PO TID Qty: 1 RF: 0 ranitidine HCl 150 mg Tablet 75 mg PO BID Qty: 2 RF: 0 folic acid 1 mg Tablet 1 mg PO DAILY Qty: 30 RF: 0 lorazepam 1 mg Tablet 2 mg PO Q4H PRN PRN (Reason: Agitation) Qty: 2 RF: 0 PNV cmb#95-ferrous fumarate-FA [] 28 mg iron- 800 mcg Tablet 1 tab PO DAILY Qty: 30 RF: 0 Discharge Data Discharge Date/Time-TO BE ENTERED AT DEPARTURE: 05/06/19 11:32 Medical Decision Making 33-year-old female with history of asthma, borderline personality disorder, PTSD who presents with shortness of breath [place] the court house today. Per EMS they gave her nebs and her oxygen saturation was 98% on room air. Upon arrival to the ED, patient ran away from the ambulance and through the front hospital lobby. Nurse was able to track patient down on OB and brought her down by wheelchair. Upon my evaluation, she is on the phone with [facility] [employer] requesting her regular medications. She is screaming and yelling. She was refusing neb treatment and attempted to rip off her hospital bracelet and broke 1 of her own bracelet and became very anxious, irritable and ran out of the ER. She was speaking in full sentences and had wheezing and rhonchi but had no signs of airway compromise. O2 sat 97% on room air with normal respiratory rate and good air movement. HPI General Mode of arrival: EMS. Date/Time Provider Initiated Documentation: 05/06/19 10:17. Limitations to Documentation: no limitations. Information obtained by: patient and EMS. HPI Narrative: Patient is a 33-year-old female who is approximately 6 months with history of asthma, borderline personality disorder, PTSD who presented per EMS for shortness of breath. EMS had picked patient up at the court house where she became short of breath today. Upon EMS arrival, patient ran from the ambulance and went through the hospital front entrance. The nurse was able to track patient down in OB and brought her down by wheelchair. Patient admits to shortness of breath since this morning. Related Data Home Medications Medication Instructions Recorded Confirmed albuterol sulfate [Ventolin HFA] 1 puff INHALATION Q4H PRN PRN inh 04/17/15 05/03/19 ipratropium-albuterol 3 ml IN Q4H PRN PRN 07/26/15 05/03/19 Symbicort 10.2 gm INHALATION BID 03/09/17 05/03/19 aspirin 81 mg tablet,delayed 81 mg PO DAILY #90 tab 01/29/19 05/03/19 release PNV cmb#95-ferrous fumarate-FA 1 tab PO DAILY #30 tab 03/27/19 05/03/19 [] buspirone 10 mg PO TID #1 tab 03/27/19 05/03/19 folic acid 1 mg PO DAILY #30 tab 03/27/19 05/03/19 lorazepam 2 mg PO Q4H PRN PRN #2 tab 03/27/19 05/03/19 quetiapine 25 mg PO BID #2 tab 03/27/19 05/03/19 ranitidine HCl 75 mg PO BID #2 tab 03/27/19 05/03/19 gabapentin 100 mg capsule 100 mg PO TID #90 cap 04/12/19 05/03/19 blood sugar diagnostic #100 each 04/22/19 05/03/19 blood-glucose meter #1 each 04/22/19 05/03/19 lancets #100 each 04/22/19 05/03/19 cephalexin 500 mg capsule 500 mg PO TID #5 cap 05/03/19 05/03/19 Previous Rx's Medication Instructions Recorded albuterol sulfate [Ventolin HFA] 1 puff INHALATION Q4H PRN PRN inh 04/17/15 aspirin 81 mg tablet,delayed 81 mg PO DAILY #90 tab 01/29/19 release PNV cmb#95-ferrous fumarate-FA 1 tab PO DAILY #30 tab 03/27/19 [] buspirone 10 mg PO TID #1 tab 03/27/19 folic acid 1 mg PO DAILY #30 tab 03/27/19 lorazepam 2 mg PO Q4H PRN PRN #2 tab 03/27/19 quetiapine 25 mg PO BID #2 tab 03/27/19 ranitidine HCl 75 mg PO BID #2 tab 03/27/19 gabapentin 100 mg capsule 100 mg PO TID #90 cap 04/12/19 blood sugar diagnostic #100 each 04/22/19 blood-glucose meter #1 each 04/22/19 lancets #100 each 04/22/19 cephalexin 500 mg capsule 500 mg PO TID #5 cap 05/03/19 Allergies Allergy/AdvReac Type Severity Reaction Status Date / Time No Known Allergies Allergy Unverified 05/06/19 15:48 General DOROTEO: 4 Review of Systems Review of Systems All systems reviewed & are unremarkable except as noted in HPI and below Constitutional Reports as per HPI, Denies chills and Denies fever(s) Eyes Denies blurry vision ENT Denies dizziness, Denies sore throat and Denies throat swelling Cardiovascular Denies chest pain and Reports dyspnea Respiratory Denies cough and Reports dyspnea Gastrointestinal Denies abdominal pain, Denies diarrhea and Denies vomiting Genitourinary Denies hematuria and Denies dysuria Musculoskeletal Denies back pain and Denies numbness Integumentary/Breasts Denies lesions and Denies rash Neurologic Denies dizziness, Denies focal weakness and Denies numbness Allergic/Immunologic Denies throat swelling PFSH Medical History Asthma Borderline personality disorder (Acute) Cellulitis of left lower extremity without foot (Acute) 05/03/19. Onset of pain with cellulitis. Rx with Keflex. Chronic anxiety with depression Difficulty voiding (Inactive 01/08/15) urge to void, but only able to void in small amounts Lymphedema (Acute) 2nd trimester. 02/2019. nl bilateral LE dopplers. ARLEY hose not helpful (hard time staying on). 04/2019 PT declined massage secondary to new onset of LLE cellulitis Obesity Obesity affecting , antepartum (Inactive 10/08/14) early 1hr GTT. PTSD (post-traumatic stress disorder) (Acute) Supervision of normal first (Inactive 10/08/14) Tobacco use Surgical History Myringotomy w/ PE (pressure equalizing) tubes as a child Social History Smoking/Tobacco Use Status: Current every day Tobacco Type: cigarettes Alcohol Intake: former Drug use: Daily Substance use type: marijuana Details: marijuana 3 x daily Do you feel safe at home: Yes Do you feel safe in your relationship?: Yes Female Reproductive History Menstrual Age of Menarche: 12 Duration of menses: 3-5 days control method: none History History 6 Para 3 Hx # Term Pregnancies 3 Multiple births 0 Hx # Pregnancies Ectopic pregnancies 0 AB induced 1 Hx Number of Living Children 3 AB spontaneous 1 Past Pregnancies Del. Date GA/Weeks # Outcome Route Wgt Sex Labor Lgth Anesthesia Location Prov Complic Unknown 40 No Successful vaginal 2.325 kg Female 20 min cottage, by an rn dr conley Unknown 02/11/09 40 No Successful vaginal 2.325 kg Male 1 hr hesham conley 04/16/15 No Successful vaginal precipitous delivered 20 min after admission rn in Delivery Date: On 01/02/19 @ 14:04 ERICA TALAMANTES precipitous, Delivery Date: On 01/14/19 @ 13:15 ERICA TALAMANTES DATE/INFO UNKNOWN, PT CLAIMS SHE HAS NO RECOLLECTION OF ONE OF HER PREGNANCIES. Delivery Date: 02/11/09 No notes to display Delivery Date: 04/16/15 On 01/31/19 @ 11:24 ERICA TALAMANTES precipitous delivery w/o pp complications Exam Const General: anxious Nutritional Appearance: obese Orientation: alert and awake [facility] Head: normal to inspection Face and sinus: normal facial exam Eyes General: appearance normal, both eyes and all related structures EOM: EOM intact bilaterally Neck Neck: normal visual inspection and No submandibular swelling Lymphatic: no lymphadenopathy noted Resp Effort & Inspection: normal respiratory effort and able to speak in complete sentences Auscultation: rhonchi and wheezes Cardio Rate: regular rate Rhythm: regular rhythm GI Inspection: normal to inspection Palpation: soft, not firm, not rigid and nontender Auscultation: normal bowel sounds Skin General skin exam: no rashes or lesions noted Neuro General: alert, awake and oriented x3 Cognition: normal cognition Speech: speech normal Motor: muscle tone normal throughout Sensory Exam: no sensory deficits noted Extrem General: normal to inspection, full ROM, normal capillary refill, no calf tenderness bilaterally and no edema Psych Appearance: disheveled Speech and Movement: agitated Mood: anxious mood Affect: anxious affect and irritable affect
[2019-05-06 10:10] VITALS: BP 126/73; PULSE 98; RESP 16; TEMP 36.7; O2SAT 96
--- NOTE | 2019-05-06 10:26 | NUR.NOTE ---
patient brought in by ems. left ems and refused to come in er. went into main lobby and up to specialty clinics. patient agreed to come to er. brought down in w/c. patient allowed vs to be taken. patient then tried to call [facility] for delivery of her meds and was hung up on per her. patient then stated she doesn't have time to be sick. she ripped her medical bracelet off and in the process ripped a personal rubber bracelet off that she had worn for the past three years. patient became extremely upset and left the er to go to the lobby where she now is screaming and undirectable. patient is 6 mths . RT is trying to work with her to get her a breathing treatment if she agrees.
== END 2019-05-06 11:32 | disposition other institution (70) ==
LOC: ER 10:43
PROVIDERS: Emergency Provider Physician Assistant; PCP Nurse Practitioner Family
DX: O99.513 Diseases of the respiratory system complicating pregnancy, third trimester (principal); O99.333 Smoking (tobacco) complicating pregnancy, third trimester; O99.323 Drug use complicating pregnancy, third trimester; O99.343 Other mental disorders complicating pregnancy, third trimester; J45.901 Unspecified asthma with (acute) exacerbation; F17.210 Nicotine dependence, cigarettes, uncomplicated; F12.10 Cannabis abuse, uncomplicated; F60.3 Borderline personality disorder; Z53.29 Procedure and treatment not carried out because of patient's decision for other reasons; Z3A.30 30 weeks gestation of pregnancy
CPT/HCPCS: 94640; 99284

== ENCOUNTER 2019-05-06 12:27 | Inpatient (IN) | payer MEDICARE, MEDICAID, SELFPAY ==
--- NOTE | 2019-05-06 13:24 | NUR.NOTE ---
Nursing Note: pt presents here with [facility] after leaving from this facility a few hrs ago. Pt here with SOFTWARE CONFIGURATION ANALYST worker Karla who states pt was seen [place] [address] stating I dont feel safe so I will make myself unsafe. There is currently no room available in ED- have requested 1:1 to sit with pt. Continues to remain in protective custody of [facility] until room available and pt can safely be brought back into the department. pt is tearful at times, but states shes 'calm' and doesnt want to be institutionalized again.
[2019-05-06 13:45] VITALS: BP 131/75; PULSE 111; RESP 20; TEMP 37.2; O2SAT 99
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
[2019-05-06] MEDS: Albuterol/Ipratropium 3 ML UPD VIAL UPD ×3 (16:24→22:59)
--- NOTE | 2019-05-06 16:50 | CMSP_ITS ---
Care Management Safety Plan VOLUNTARY FOR INPATIENT PSYCHIATRIC STABILIZATION. Conchita is well known to [facility] due to previous admissions. She became dysregulated in the Emergency Department during scheduled breathing treatment. She was escorted out of the building after screaming and spitting at staff in the ED. responded when she started walking down the middle of the road. She was brought back to the ED for evaluation by tar pot worker who deemed Conchita meets criteria for inpatient stabilization. Conchita is voluntary at this time. Staff consulted Psychiatrist who recommended morning huddles to keep staff on same page and focused with consistent limit setting behavior. Three Legged Stool approach: 1. Validate: this is a really tough situation 2. Cheerlead you are really doing well in this situation 3. Problem solve: present two options this or that. 4. Avoid word but utilize word and. Conchita remains in the ED at this time. May transition to M/S. CM spoke with Fely Cruz Conchita's WELT SOLE LAYER rn case management who reported Conchita is voluntary at this time and will need to be re-evaluated if she attempts to leave [facility]. Safety plan has been established with patient, and care team, to adhere to patient goals, identify restrictions based on behavioral status, address nutrition, and determine allowed personal belongings, tools for hygiene and personal care. Determine level of activity including ambulation, level of supervision, visitors, and determine privileges based on behaviors and level of engagement by pt. SAFETY PLAN: 1. Will remain on suicide precautions and in paper clothes 2. Will remain in room under direct supervision of one-on-one staff at all times provided by CPSO; ANDRES, ARTILLERY OR NAVAL GUNFIRE OBSERVER automatic grinder operator. 3. May have paper cups, plates, finger foods. 4. Follow [facility] Management of the Admitted Behavioral Health Patient policy. 5. Comfort bath system only. 6. No personal belongings 7. Visitors-No visitors at this time 8. Activities: per RN discretion; no sharps. Television permitted if appropriate. 9. [facility] when ambulating outside of room at all times. 10. Phone: limited to legal contact at this time. 11. Due to VOLUNTARY status, if patient wishes to leave [facility], the [facility] limehouse worker must be contacted to re-evaluate patient prior to patient exiting the building. Patient is currently voluntarily at [facility] and seeking inpatient admission when a bed becomes available. [facility] Frontline Pediatric Neurologist will continue seeking placement. Please contact the Raw Juice Weigher Grocery Caddy ([phone]) and [facility] Pediatric Neurologist ([phone]) for any needed changes in the Safety Plan. Safety plan has been provided to interdepartmental care team.
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
[2019-05-06] MEDS: Haloperidol 5 MG/ML VIAL IM (19:45)
[2019-05-06 20:26] VITALS: PULSE 105; O2SAT 95
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
--- NOTE | 2019-05-06 21:34 | PDOC.CMSAFED ---
Care Management Safety Plan CM received notification from M/S Director that Conchita would be admitted to Transition Bed. Due to ongoing posturing, and verbal and physical outbursts requiring multiple CODE ACOSTA responses, Conchita required additional Emergency Evaluation (EE) and transitioned to INVOLUNTARY STATUS. At this time, Conchita is a danger to others. Coupled with the events that occurred earlier today, an emergency examination was completed by this screener, Fely Cruz, REPRODUCTION ARTIST Broomcorn Sorter [facility]. Dr. Maria Esther Nieto completed the physician's certificate. Both were faxed to [facility] ([facility] Conchita is currently in custody of the [[facility]] commissioner as the EE paperwork and physician's certificate have been completed and faxed. Second certification should be completed in the next 24 hours. Conchita will be admitted to a psychiatric transition bed on the MED/SURG unit. CM consulted Psychiatrist, Dr. Johnson who recommended morning huddles to keep staff informed, aligned and collectively focused with consistent limit setting in response to Conchita's behavior. No changes to current safety plan at this time. Plan for huddle with [facility] M/S Staff including Dr. Johnson @0800, 05/07/19 for treatment planning considerations. Three Legged Stool approach: 1. Validate: this is a really tough situation 2. Cheerlead you are really doing well in this situation 3. Problem solve: present two options this or that. 4. Avoid word but utilize word and. Safety plan has been established with patient, and care team, to adhere to patient goals, identify restrictions based on behavioral status, address nutrition, and determine allowed personal belongings, tools for hygiene and personal care. Determine level of activity including ambulation, level of supervision, visitors, and determine privileges based on behaviors and level of engagement by pt. SAFETY PLAN: 1. Will remain on suicide precautions and in paper clothes 2. Will remain in room under direct supervision of one-on-one staff at all times provided by CPSO; ANDRES, NATURAL GAS FIELD PROCESSING SUPERVISOR case worker. 3. May have paper cups, plates, finger foods. 4. Follow [facility] Management of the Admitted Behavioral Health Patient policy. 5. Comfort bath system only. 6. No personal belongings 7. Visitors-No visitors at this time 8. Activities: per RN discretion; no sharps. Television and remote permitted at RN discretion. 9. Bathroom privileges-bathroom available in transition room. 10. Phone: limited to legal contact at this time. 11. Due to INVOLUNTARY status, Conchita will remain at [facility] until disposition determination by [facility] and [facility] pipe production worker coordination. Patient is currently involuntarily at [facility]. Care Management will support [facility] Crisis Team in seeking inpatient admission. Due to INVOLUNTARY status, required Senior Sales Administrator supported transport will be coordinated through [facility]. Please contact the Forging Machine Operator Public Transit Bus Driver ([phone]) and [facility] Accounting Clerk ([phone]) for any needed changes in the Safety Plan. Safety plan has been provided to interdepartmental care team.
[2019-05-06 21:48] VITALS: BP 131/75; PULSE 105; RESP 20; O2SAT 95
--- NOTE | 2019-05-06 23:57 | NUR.NOTE ---
at 2200 pt arrived to med/surg room 235. pt was asked to get off the ED stretcher and onto her stretcher bed. pt was told that she would be more comfortable. sheets were removed from bed and pt was transferred over to stretcher bed. pt then tried to rene the ED Nurse this nurse and the CPSO with the ED stretcher. This nurse was able to grab the stretcher away from pt ED nurse told pt to stop and sit on the bed. pt did so then went to use the bathroom.
[2019-05-07] MEDS: Albuterol 2.5 MG/3 ML INH SOLN VIAL UPD (03:13)
--- NOTE | 2019-05-07 03:19 | NUR.NOTE ---
pt wanted PRN updraft at around 0300 with a piece to make it go deeper into her lungs pt was told that this was not avaliable at this time. pt said I don't want it then I'm just going to suffocate. nurse walked out of room. pt then took updraft. pt requested to have something to help her sleep pt offered ativan. pt refused. pt was upset and yelling and swearing. pt was told to let the nurse know if she changed her mind about the Ativan. at 0322 pt appears to be resting in stretcher. will continue to monitor.
--- NOTE | 2019-05-07 06:38 | NUR.NOTE ---
pt requested to have TV remote nurse went to get remote as requested and brought it into her room. pt yelled, Get out! what is wrong with you, and just screaming at this time. remote was put back with CPSO. pt was told that she could have it back if she calmed down.
--- NOTE | 2019-05-07 08:05 | NUR.NOTE ---
Nursing Note: Late entry for 05/06/19 @ 1500- Pt was verbally abusive You queer, get out of my room slamming door into my back. Pt later telling staff members that this press writer likes it up the ass and is a queer. Screaming and banging of door is scaring other patients in the department. Difficult to re-direct patient, de-escalation techniques unsuccessful. 1:[address]
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
[2019-05-07] MEDS: Albuterol/Ipratropium 3 ML UPD VIAL UPD ×2 (10:17→16:30)
[2019-05-07] MEDS: LORazepam 1 MG TAB 2 MG PO ×2 (10:58→15:04)
--- NOTE | 2019-05-07 12:09 | PDOC.CMSAFE ---
- If Service Date Differs Date of service: 05/07/19 Time of Service: 12:09 Care Management Safety Plan When engaging with Conchita the best approach is straight forward and direct, do not change direction or offer to give in to demands Per the following approach works well: Three Legged Stool approach: 1. Validate: this is a really tough situation 2. Cheerlead you are really doing well in this situation 3. Problem solve: present two options this or that. 4. Avoid word but utilize word and. Huddle: Fely BALLARD ([facility]), Ioaan, RN CM, RNCC Susana and Primary RN Charmaine Safety plan has been established with patient, and care team, to adhere to patient goals, identify restrictions based on behavioral status, address nutrition, and determine allowed personal belongings, tools for hygiene and personal care. Determine level of activity including ambulation, level of supervision, visitors, and determine privileges based on behaviors and level of engagement by patient. SAFETY PLAN: 1. Will remain on suicide precautions she is able to wear her own clothing 2. Will remain in room under direct supervision of one-on-one staff at all times provided by [employer]; ANDRES, DEVELOPMENT TECHNOLOGIST director of accounts payable. 3. May have paper cups, plates, finger foods and cardboard utensils 4. Follow [facility] Management of the Admitted Behavioral Health Patient policy. 5. Comfort bath system only. 6. No personal belongings 7. Visitors-No visitors at this time with the exception of SENIOR BIOINFORMATICS SCIENTIST or mental health 8. Activities: per RN discretion; no sharps. Television and remote permitted at RN discretion. 9. Bathroom privileges-bathroom available in transition room. 10. Phone: limited to legal contact at this time. 11. Due to INVOLUNTARY status, Conchita will remain at [facility] until disposition determination by [facility] and [facility] therapeutic activities services worker coordination. Plan:[facility] has contacted [facility] there are no beds available at this time. [facility] will continue to be in contact with DM and facility to determine bed availability. Conchita remains involuntary at this time the 2nd certification with [place] psychiatric facility will occur within 24 hours. If psychiatric facility is identified Conchita will be transported via automobile club membership sales agent coordinated by [facility].
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
[2019-05-07] MEDS: Gabapentin 100 MG CAP PO (13:01)
[2019-05-07] MEDS: busPIRone 5 MG TAB 10 MG PO (13:01)
--- NOTE | 2019-05-07 13:40 | PDOC.CMPRO ---
- If Service Date Differs Date of service: 05/07/19 Time of Service: 13:40 Care Management Progress Note S/O: CM met with Conchita in the transition bed area. She has been destructive to property today including punching the windows in the transition area and the computer screen. She was yelling and screaming uncontrollably at staff, Conchita was able to peacefully enter into restraints which was discontinued once she was calm. Conchita is alert today she refused to take her medications this morning she did however agree to taking oral Ativan. was consulted r/t Conchita's concern that she had not felt the baby move in two days. Conchita does ask what will happen to her if there is no psychiatric facility willing to take her. A: Conchita is a 33 year old female admitted involuntary status awaiting 2nd certification and placement at psychiatric facility. She is well known to [facility] and [facility]. She is serviced by CLIENT ADVISOR program and has been for several years. Conchita has a history of chronic anxiety, borderline personality disorder, PTSD and currently 6 1/2 months . When engaging with Conchita the best approach is straight forward and direct, do not change direction or offer to give in to demands Per the following approach works well: Three Legged Stool approach: 1. Validate: this is a really tough situation 2. Cheerlead you are really doing well in this situation 3. Problem solve: present two options this or that. 4. Avoid word but utilize word and. Huddle: Fely BALLARD ([facility]), Ioana, ANITRA GUERRA, RNARMAAN Meza and Primary RN Charmaine Safety plan has been established with patient, and care team, to adhere to patient goals, identify restrictions based on behavioral status, address nutrition, and determine allowed personal belongings, tools for hygiene and personal care. Determine level of activity including ambulation, level of supervision, visitors, and determine privileges based on behaviors and level of engagement by patient. SAFETY PLAN: 1. Will remain on suicide precautions she is able to wear her own clothing 2. Will remain in room under direct supervision of one-on-one staff at all times provided by [employer]; ANDERS, PULPWOOD BUYER woodworking shop laborer. 3. May have paper cups, plates, finger foods and cardboard utensils 4. Follow [facility] Management of the Admitted Behavioral Health Patient policy. 5. Comfort bath system only. 6. No personal belongings 7. Visitors-No visitors at this time with the exception of CLIENT ADVISOR or mental health 8. Activities: per RN discretion; no sharps. Television and remote permitted at RN discretion. 9. Bathroom privileges-bathroom available in transition room. 10. Phone: limited to legal contact at this time. 11. Due to INVOLUNTARY status, Conchita will remain at [facility] until disposition determination by [facility] and [facility] reel worker coordination. Plan:[facility] has contacted [facility] there are no beds available at this time. [facility] will continue to be in contact with [facility] and facility to determine bed availability. Conchita remains involuntary at this time the 2nd certification with [place] psychiatric facility will occur within 24 hours. If psychiatric facility is identified Conchita will be transported via laboratory cureman coordinated by [facility].
[2019-05-07 16:30] VITALS: RESP 18; RESP 5
--- NOTE | 2019-05-07 16:54 | PDOC.CMDIS ---
- If Service Date Differs Date of service: 05/07/19 Time of Service: 16:55 LACE Index Scoring Tool - Questions: Length of Stay (in days): 3 Acuity (Admit via E.D.?): Yes Care Management Discharge Reason for Hospitalization: Psychiatric admission Discharge Plan: Second Certification did not go through patient met with from the [facility] over the IPAD. It was determined that Conchita could be discharged with ongoing community supports. Conchita is being d/c home today to continue with AIRCRAFT LOADMASTER SUPERINTENDENT support and psychiatric provider support. She will be discharged home with enough medication this evenings dose, AIRCRAFT LOADMASTER SUPERINTENDENT will deliver her regular medications on Monday. CM to coordinate transportation home through [facility]. Patient/Family Education Needs: Discharge education, limitations and follow up plan of care including self management. Conchita was able to discuss her concerns with psychiatric provider and Conchita states going home is the best option for her she would like to be with her 'jessie. - MH Services (Omit if N/A) Current MH Services: AIRCRAFT LOADMASTER SUPERINTENDENT
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
[2019-05-07] MEDS: Acetaminophen 325 MG TAB PO (17:12)
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
--- NOTE | 2019-05-08 08:34 | PT.INNT ---
Date of service: 05/08/19 Time of Service: 08:34 PT Notes Physical therapy evaluation and treatment not done today as patient was discharged to home on 05/07/2019. Thank you very much for this referral. Winnie Velázquez PT, DPT, CLT [facility]
== END 2019-05-07 17:46 | disposition home or self-care (01) | DRG 832 ==
LOC: ER 18:16 → MS 21:56
PROVIDERS: Admitting Provider Family Medicine; Emergency Provider Physician Assistant; PCP Nurse Practitioner Family; Visit Provider Internal Medicine
DX: O99.342 Other mental disorders complicating pregnancy, second trimester (principal); R45.851 Suicidal ideations; L03.116 Cellulitis of left lower limb; O99.412 Diseases of the circulatory system complicating pregnancy, second trimester; O26.892 Other specified pregnancy related conditions, second trimester; O99.332 Smoking (tobacco) complicating pregnancy, second trimester; F91.8 Other conduct disorders; F60.3 Borderline personality disorder; Z78.1 Physical restraint status; Z3A.25 25 weeks gestation of pregnancy; I89.0 Lymphedema, not elsewhere classified; F17.210 Nicotine dependence, cigarettes, uncomplicated
CPT/HCPCS: 80048; 93005; 94640; 96374; 99222; 99238; 99284; 99285; NC; 80320; 85025; 93010; J1630; J7613; J7620

== ENCOUNTER 2019-05-20 09:40 | Emergency (ER) | payer MEDICARE, MEDICAID, SELFPAY ==
--- NOTE | 2019-05-20 09:42 | ED.GENADUL_ITS ---
Discharge Plan Disposition Patient Disposition: HOME Condition: Good Discharge Details Chief Complaint: EarProblem Clinical Impression: Left otitis externa, Acute left otitis media Primary Care Provider: Rochelle Muñoz ED Provider: Brian Radford Home Meds and New Rx's Prescriptions: New wvaoodmm-ebqwkjqxt-SA 3.5-10,000-1 mg/mL-unit/mL-% drops,suspension 4 drp OT Q6H 7 Days Qty: 10 RF: 0 amoxicillin 500 mg tablet 500 mg PO BID 7 Days Qty: 14 RF: 0 No Action aspirin [Aspirin Low Dose] 81 mg tablet,delayed release (DR/EC) 81 mg PO DAILY Qty: 90 RF: 1 hydrocodone-acetaminophen [[place]] 5-325 mg tablet 1 tab PO BID MDD 2 PRN (Reason: pain) Qty: 10 RF: 0 (DME) POCKET CHAMBER Spacer See Rx Instructions .ROUTE .MEDSUPPLY Qty: 1 RF: 0 (DME) blood-glucose meter [Accu-Chek Ethel Plus Meter] Misc See Rx Instructions .ROUTE .MEDSUPPLY Qty: 1 RF: 0 (DME) Accu-Chek Ethel Plus test strp Strip See Rx Instructions .ROUTE .MEDSUPPLY Qty: 100 RF: 1 (DME) lancets [Accu-Chek Softclix Lancets] Misc See Rx Instructions .ROUTE .MEDSUPPLY Qty: 100 RF: 2 albuterol sulfate [Ventolin HFA] 60 PUFF HFA aerosol inhaler 1 puff Inhalation Q4H PRN PRNRF: 0 ipratropium-albuterol 3 ML solution for nebulization 3 ml IN Q4H PRN PRNRF: 0 Symbicort 10.2 GM HFA aerosol inhaler 10.2 gm Inhalation BID RF: 0 quetiapine 25 mg Tablet 25 mg PO BID Qty: 2 RF: 0 buspirone 5 mg Tablet 10 mg PO TID Qty: 1 RF: 0 ranitidine HCl 150 mg Tablet 75 mg PO BID Qty: 2 RF: 0 folic acid 1 mg Tablet 1 mg PO DAILY Qty: 30 RF: 0 lorazepam 1 mg Tablet 2 mg PO Q4H PRN PRN (Reason: Agitation) Qty: 2 RF: 0 PNV cmb#95-ferrous fumarate-FA [] 28 mg iron- 800 mcg Tablet 1 tab PO DAILY Qty: 30 RF: 0 gabapentin 100 mg Capsule 100 mg PO DAILY@1400 Qty: 0 RF: 0 gabapentin 100 mg Capsule 200 mg PO BID Qty: 30 RF: 0 Discharge Instructions Instructions: Otitis Externa (ED), Otitis Media (ED) Additional Instructions: You have an ear infection in your left ear. You have both otitis externa which is an infection of the canal and otitis media which is an infection behind the ear. Please continue to take 25 mg of Benadryl every 6 hours to help with the congestion. Take Tylenol as needed for pain. If you notice any worsening of your symptoms, or any new symptoms such as vomiting, diarrhea, fever, chills, shortness of breath, chest pain, numbness, weakness, or fainting , please return immediately to the emergency department for reevaluation. Please follow up with your primary care provider as soon as possible for reassessment and reevaluation. As always, it was a pleasure participating in your medical care today. Referrals: Rochelle Muñoz [Primary Care Provider] - Medical Decision Making This is a 33-year-old female who arrives notably pleasant today. She presents with left-sided ear pain for the last few days. She admits to some mild serous discharge from the left ear. Physical exam demonstrates mild serous effusion behind the right tympanic membrane, left tympanic membrane demonstrates purulent effusion with no evidence of rupture or perforation. TM is bulging. There is evidence of notable otitis externa as well. No mastoid tenderness, no clinical evidence of meningitis. At this time signs and symptoms are clinically consistent with unruptured otitis media of the left as well as otitis externa on the left. She is . We will avoid any floor quinolones even topically. She will be given topical polymyxin neomycin steroid drop for the left and amoxicillin for the otitis media on the left. We will recommend continued Benadryl at home for antihistamine effect. I have extensively reviewed the treatment plan and discharge instructions with the patient. I have addressed all patient concerns at this time. The patient was made aware of what symptoms to monitor for that would warrant a return to the emergency department. Discussed the plan with the patient, they demonstrate verbal understanding and agreement with our assessment and plan at this time. HPI General Date/Time Provider Initiated Documentation: 05/20/19 09:41 . HPI Narrative: 33-year-old female with a history of asthma, COPD, borderline personality disorder, PTSD, , who presents today for evaluation of left ear pain. Patient states that for the last 2 to 3 days she has noticed pain in her left ear in conjunction with mild serous drainage. Pain is made worse with palpation. She notes a slight decrease in hearing. She denies any fever, headache, neck pain. She denies any cough, shortness of breath, abdominal pain, nausea vomiting or diarrhea. No other complaints at this time. Related Data Home Medications Medication Instructions Recorded Confirmed albuterol sulfate [Ventolin HFA] 1 puff INHALATION Q4H PRN PRN inh 04/17/15 05/20/19 ipratropium-albuterol 3 ml IN Q4H PRN PRN 07/26/15 05/20/19 Symbicort 10.2 gm INHALATION BID 03/09/17 05/20/19 aspirin 81 mg tablet,delayed 81 mg PO DAILY #90 tab 01/29/19 05/20/19 release PNV cmb#95-ferrous fumarate-FA 1 tab PO DAILY #30 tab 03/27/19 05/20/19 [] buspirone 10 mg PO TID #1 tab 03/27/19 05/20/19 folic acid 1 mg PO DAILY #30 tab 03/27/19 05/20/19 lorazepam 2 mg PO Q4H PRN PRN #2 tab 03/27/19 05/20/19 quetiapine 25 mg PO BID #2 tab 03/27/19 05/20/19 ranitidine HCl 75 mg PO BID #2 tab 03/27/19 05/20/19 blood sugar diagnostic #100 each 04/22/19 05/20/19 blood-glucose meter #1 each 04/22/19 05/20/19 lancets #100 each 04/22/19 05/20/19 gabapentin 100 mg PO DAILY@1400 #0 cap 05/07/19 05/20/19 gabapentin 200 mg PO BID #30 cap 05/07/19 05/20/19 inhalational spacing device #1 each 05/11/19 05/20/19 hydrocodone 5 mg-acetaminophen 325 1 tab PO BID PRN #10 tab MDD 2 05/17/19 05/20/19 mg tablet amoxicillin 500 mg PO BID 7 Days #14 tab 05/20/19 hadnrxma-ersluuqss-QM 4 drp OT Q6H 7 Days #10 ml 05/20/19 Previous Rx's Medication Instructions Recorded albuterol sulfate [Ventolin HFA] 1 puff INHALATION Q4H PRN PRN inh 04/17/15 aspirin 81 mg tablet,delayed 81 mg PO DAILY #90 tab 01/29/19 release PNV cmb#95-ferrous fumarate-FA 1 tab PO DAILY #30 tab 03/27/19 [] buspirone 10 mg PO TID #1 tab 03/27/19 folic acid 1 mg PO DAILY #30 tab 03/27/19 lorazepam 2 mg PO Q4H PRN PRN #2 tab 03/27/19 quetiapine 25 mg PO BID #2 tab 03/27/19 ranitidine HCl 75 mg PO BID #2 tab 03/27/19 blood sugar diagnostic #100 each 04/22/19 blood-glucose meter #1 each 04/22/19 lancets #100 each 04/22/19 gabapentin 100 mg PO DAILY@1400 #0 cap 05/07/19 gabapentin 200 mg PO BID #30 cap 05/07/19 inhalational spacing device #1 each 05/11/19 hydrocodone 5 mg-acetaminophen 325 1 tab PO BID PRN #10 tab MDD 2 05/17/19 mg tablet amoxicillin 500 mg PO BID 7 Days #14 tab 05/20/19 hlpbwmhd-tvdrjtaka-EE 4 drp OT Q6H 7 Days #10 ml 05/20/19 Allergies Allergy/AdvReac Type Severity Reaction Status Date / Time No Known Allergies Allergy Verified 05/17/19 13:55 General DOROTEO: 2 PFSH Social History Smoking/Tobacco Use Status: Current every day Tobacco Type: cigarettes Alcohol Intake: former Drug use: Daily Substance use type: marijuana Details: marijuana 3 x daily Do you feel safe at home: Yes Do you feel safe in your relationship?: Yes Female Reproductive History Menstrual Age of Menarche: 12 Duration of menses: 3-5 days control method: none History History 6 Para 3 Hx # Term Pregnancies 3 Multiple births 0 Hx # Pregnancies Ectopic pregnancies 0 AB induced 1 Hx Number of Living Children 3 AB spontaneous 1 Past Pregnancies Del. Date GA/Weeks # Outcome Route Wgt Sex Labor Lgth Anesthes ia Location Prov Complic Unknown 40 No Successful vaginal 2.325 kg Female 20 min [place], by an rn dr conley Unknown 02/11/09 40 No Successful vaginal 2.325 kg Male [address] conley 04/16/15 No Successful vaginal precipitous deliv ered 20 min after admission rn in Delivery Date: On 01/02/19 @ 14:04 ERICA TALAMANTES precipitous, Delivery Date: On 01/14/19 @ 13:15 ERICA TALAMANTES DATE/INFO UNKNOWN, PT CLAIMS SHE HAS NO RECOLLECTION OF ONE OF HER PREGNANCIES. Delivery Date: 02/11/09 No notes to display Delivery Date: 04/16/15 On 01/31/19 @ 11:24 ERCIA TALAMANTES precipitous delivery w/o pp complications Exam Narrative Exam Narrative: 1.Const: Well-nourished, Well-developed, appearing stated age 2.Eyes: PERRL, no conjunctival injection, and symmetrical lids. 3.ENT: Atraumatic external nose and ears. Moist MM. Neck: Symmetric, trachea midline, No thyromegaly. Right ear demonstrates a small amount of serous fluid behind the right tympanic membrane, no evidence of otitis externa. No evidence of purulent otitis media. Left ear demonstrates notable inflammation and irritation of the left ear canal, no mastoid tenderness. No evidence of rupture of the tympanic membrane. Left tympanic membrane demonstrates notable bulging with evidence of purulent fluid. No evidence of acute rupture. Signs and symptoms consistent with otitis externa and otitis media on the left. 4.CVS: +S1/S2, No murmurs or gallops. Peripheral pulses 2+ and equal in all extremities. Brisk capillary refill in all extremities. 5.RESP: Unlabored respiratory effort. Clear to auscultation bilaterally. No wheezes rales or rhonchi 6.GI: Soft, Nontender/Nondistended, No hepatosplenomegaly. No guarding or rebound. 7.MSK: Normocephalic/Atraumatic, Extremities w/o deformity or ttp No cyanosis or clubbing, Normal movement of all extremities patient demonstrates good movement of cervical neck. There is no nuchal rigidity, no nuchal tenderness. Patient is able to flex the neck without any difficulty or significant pain. Negative Kernig's and Brudzinski sign. 8.Skin: Warm, Dry. No rashes or lesions. 9.Neuro: clinical data programmer II-XII grossly intact. Sensation grossly intact, no focal neurologic deficits. 10.Psych: (AAO) x3. Appropriate mood and affect
[2019-05-20 09:43] VITALS: BP 117/78; PULSE 99; RESP 18; TEMP 37.1; O2SAT 97
[2019-05-20 09:59] VITALS: BP 117/78; PULSE 99; RESP 18; TEMP 37.1; O2SAT 97
== END 2019-05-20 10:00 | disposition home or self-care (01) ==
LOC: ER 09:54
PROVIDERS: Emergency Provider Student in an Organized Health Care Education/Training Program; PCP Nurse Practitioner Family
DX: O99.89 Other specified diseases and conditions complicating pregnancy, childbirth and the puerperium (principal); H60.502 Unspecified acute noninfective otitis externa, left ear; H66.92 Otitis media, unspecified, left ear; J44.9 Chronic obstructive pulmonary disease, unspecified; J45.909 Unspecified asthma, uncomplicated; F17.210 Nicotine dependence, cigarettes, uncomplicated; Z3A.34 34 weeks gestation of pregnancy
CPT/HCPCS: 99283

== ENCOUNTER 2019-05-21 18:39 | Emergency (ER) | payer MEDICARE, MEDICAID, SELFPAY ==
[2019-05-21 18:45] VITALS: BP 161/99; PULSE 96; RESP 16; TEMP 36.7
[2019-05-21] MEDS: Acetaminophen 500 MG TAB 1000 MG PO (20:02)
[2019-05-21 20:57] VITALS: BP 155/90; PULSE 9; RESP 16; TEMP 36.7
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
== END 2019-05-21 21:00 | disposition home or self-care (01) ==
PROVIDERS: Emergency Provider Physician Assistant; PCP Nurse Practitioner Family
DX: T23.201A Burn of second degree of right hand, unspecified site, initial encounter (principal); T31.10 Burns involving 10-19% of body surface with 0% to 9% third degree burns; X19.XXXA Contact with other heat and hot substances, initial encounter
CPT/HCPCS: 16020

== ENCOUNTER 2019-05-25 02:50 | Emergency (ER) | payer MEDICARE, MEDICAID, SELFPAY ==
[2019-05-25 03:02] VITALS: BP 116/84; PULSE 83; RESP 18; TEMP 37; O2SAT 97
--- NOTE | 2019-05-25 03:05 | ED.GENADUL_ITS ---
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 Clinical Impression: Worried well, Primary Care Provider: Rochelle Muñoz ED Provider: Brian Radford Home Meds and New Rx's Prescriptions: No Action aspirin [Aspirin Low Dose] 81 mg tablet,delayed release (DR/EC) 81 mg PO DAILY Qty: 90 RF: 1 hydrocodone-acetaminophen [[place]] 5-325 mg tablet 1 tab PO BID MDD 2 PRN (Reason: pain) Qty: 10 RF: 0 (DME) POCKET CHAMBER Spacer See Rx Instructions .ROUTE .MEDSUPPLY Qty: 1 RF: 0 (DME) blood-glucose meter [Accu-Chek Ethel Plus Meter] Misc See Rx Instructions .ROUTE .MEDSUPPLY Qty: 1 RF: 0 (DME) Accu-Chek Ethel Plus test strp Strip See Rx Instructions .ROUTE .MEDSUPPLY Qty: 100 RF: 1 (DME) lancets [Accu-Chek Softclix Lancets] Misc See Rx Instructions .ROUTE .MEDSUPPLY Qty: 100 RF: 2 albuterol sulfate [Ventolin HFA] 60 PUFF HFA aerosol inhaler 1 puff Inhalation Q4H PRN PRNRF: 0 ipratropium-albuterol 3 ML solution for nebulization 3 ml IN Q4H PRN PRNRF: 0 Symbicort 10.2 GM HFA aerosol inhaler 10.2 gm Inhalation BID RF: 0 quetiapine 25 mg Tablet 25 mg PO BID Qty: 2 RF: 0 buspirone 5 mg Tablet 10 mg PO TID Qty: 1 RF: 0 ranitidine HCl 150 mg Tablet 75 mg PO BID Qty: 2 RF: 0 folic acid 1 mg Tablet 1 mg PO DAILY Qty: 30 RF: 0 lorazepam 1 mg Tablet 2 mg PO Q4H PRN PRN (Reason: Agitation) Qty: 2 RF: 0 PNV cmb#95-ferrous fumarate-FA [] 28 mg iron- 800 mcg Tablet 1 tab PO DAILY Qty: 30 RF: 0 xdtyrkhj-sznebvuaz-PG 3.5-10,000-1 mg/mL-unit/mL-% drops,suspension 4 drp OT Q6H 7 Days Qty: 10 RF: 0 amoxicillin 500 mg tablet 500 mg PO BID 7 Days Qty: 14 RF: 0 gabapentin 100 mg Capsule 100 mg PO DAILY@1400 Qty: 0 RF: 0 gabapentin 100 mg Capsule 200 mg PO BID Qty: 30 RF: 0 Discharge Instructions Instructions: (ED) Additional Instructions: At this time your baby has an excellent heart rate, and shows normal movements. Please return promptly on Monday for your follow-up appointment with your obstetrics health insurance adjuster. If you notice any vaginal bleeding, worsening cramping, change in movement, pain, please return immediately for reassessment. If you notice any worsening of your symptoms, or any new symptoms such as vomiting, diarrhea, fever, chills, shortness of breath, chest pain, numbness, weakness, or fainting , please return immediately to the emergency department for reevaluation. Please follow up with your primary care provider as soon as possible for reassessment and reevaluation. As always, it was a pleasure participating in your medical care today. Referrals: 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,[facility] [OTHER] - Discharge Data Discharge Date/Time-TO BE ENTERED AT DEPARTURE: 05/25/19 03:11 Medical Decision Making This is a 33-year-old female who is currently at 7 months, with a past medical history of PTSD, borderline personality disorder, who presents today for evaluation of movements. Patient states that yesterday she was walking, tripped and landed on her left knee, however she also very gently grazed her abdomen on the ground at that time. She denies any significant pain, or change in her chronic cramping. She denies any vaginal discharge or bleeding. However today she felt that she noticed no kicking of the baby throughout the whole day. She contacted EMS for further evaluation. Currently the patient denies any other complaints. She states that her cramping is normal and not worse than normal. She denies any significant abdominal or pelvic pain. She denies any vaginal discharge or bleeding. Physical exam demonstrates no evidence of significant trauma. No abdominal tenderness, no pain out of proportion. Bedside ultrasound demonstrated fetus and was actively moving, demonstrated a heart rate in the 140s. Notably limited bedside exam showed no gross evidence of large vascular lozano or atypical presentation of the placenta, however exam was limited. With normal movements and normal heart rate no abdominal tenderness the patient was notably reassured. With no evidence of significant trauma and signs and symptoms and consistent with a significant traumatic mechanism I feel that the patient signs and symptoms at this time are clinically inconsistent with abruption. However I did make it clear to the patient that my exam is extremely limited, and not formal. I did discuss transfer for formal ultrasonography versus continued observation here versus discharge with close follow-up on Monday. At this time patient does not want transfer, and she does feel comfortable would like to go home with close follow-up on Monday with her obstetrics health insurance adjuster. We discussed risks and benefits of this, as well as red flags for which to immediately return and she understands. I have extensively reviewed the treatment plan and discharge instructions with the patient. I have addressed all patient concerns at this time. The patient was made aware of what symptoms to monitor for that would warrant a return to the emergency department. Discussed the plan with the patient, they demonstrate verbal understanding and agreement with our assessment and plan at this time. HPI General Date/Time Provider Initiated Documentation: 05/25/19 03:05 . HPI Narrative: This is a 33-year-old female who is currently at 7 months, with a past medical history of PTSD, borderline personality disorder, who presents today for evaluation of movements. Patient states that yesterday she was walking, tripped and landed on her left knee, however she also very gently grazed her abdomen on the ground at that time. She denies any significant pain, or change in her chronic cramping. She denies any vaginal discharge or bleeding. However today she felt that she noticed no kicking of the baby throughout the whole day. She contacted EMS for further evaluation. Currently the patient denies any other complaints. She states that her cramping is normal and not worse than normal. She denies any significant abdominal or pelvic pain. She denies any vaginal discharge or bleeding. She denies any other complaints at this time. Related Data Home Medications Medication Instructions Recorded Confirmed albuterol sulfate [Ventolin HFA] 1 puff INHALATION Q4H PRN PRN inh 04/17/15 05/24/19 ipratropium-albuterol 3 ml IN Q4H PRN PRN 07/26/15 05/24/19 Symbicort 10.2 gm INHALATION BID 03/09/17 05/24/19 aspirin 81 mg tablet,delayed 81 mg PO DAILY #90 tab 01/29/19 05/24/19 release PNV cmb#95-ferrous fumarate-FA 1 tab PO DAILY #30 tab 03/27/19 05/24/19 [] buspirone 10 mg PO TID #1 tab 03/27/19 05/24/19 folic acid 1 mg PO DAILY #30 tab 03/27/19 05/24/19 lorazepam 2 mg PO Q4H PRN PRN #2 tab 03/27/19 05/24/19 quetiapine 25 mg PO BID #2 tab 03/27/19 05/24/19 ranitidine HCl 75 mg PO BID #2 tab 03/27/19 05/24/19 blood sugar diagnostic #100 each 04/22/19 05/24/19 blood-glucose meter #1 each 04/22/19 05/24/19 lancets #100 each 04/22/19 05/24/19 gabapentin 100 mg PO DAILY@1400 #0 cap 05/07/19 05/24/19 gabapentin 200 mg PO BID #30 cap 05/07/19 05/24/19 inhalational spacing device #1 each 05/11/19 05/24/19 hydrocodone 5 mg-acetaminophen 325 1 tab PO BID PRN #10 tab MDD 2 05/17/19 05/24/19 mg tablet amoxicillin 500 mg PO BID 7 Days #14 tab 05/20/19 05/24/19 gorcruzk-jsiqisrhq-FI 4 drp OT Q6H 7 Days #10 ml 05/20/19 05/24/19 Previous Rx's Medication Instructions Recorded albuterol sulfate [Ventolin HFA] 1 puff INHALATION Q4H PRN PRN inh 04/17/15 aspirin 81 mg tablet,delayed 81 mg PO DAILY #90 tab 01/29/19 release PNV cmb#95-ferrous fumarate-FA 1 tab PO DAILY #30 tab 03/27/19 [] buspirone 10 mg PO TID #1 tab 03/27/19 folic acid 1 mg PO DAILY #30 tab 03/27/19 lorazepam 2 mg PO Q4H PRN PRN #2 tab 03/27/19 quetiapine 25 mg PO BID #2 tab 03/27/19 ranitidine HCl 75 mg PO BID #2 tab 03/27/19 blood sugar diagnostic #100 each 04/22/19 blood-glucose meter #1 each 04/22/19 lancets #100 each 04/22/19 gabapentin 100 mg PO DAILY@1400 #0 cap 05/07/19 gabapentin 200 mg PO BID #30 cap 05/07/19 inhalational spacing device #1 each 05/11/19 hydrocodone 5 mg-acetaminophen 325 1 tab PO BID PRN #10 tab MDD 2 05/17/19 mg tablet amoxicillin 500 mg PO BID 7 Days #14 tab 05/20/19 rojxtuwa-ymajoqpsj-TR 4 drp OT Q6H 7 Days #10 ml 05/20/19 Allergies Allergy/AdvReac Type Severity Reaction Status Date / Time No Known Allergies Allergy Verified 05/25/19 03:05 General Stated 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: 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 DOROTEO: 4 Review of Systems Review of Systems ROS Unobtainable: All systems reviewed & are unremarkable except as noted in HPI and below PFSH Social History Smoking/Tobacco Use Status: Current every day Tobacco Type: cigarettes Alcohol Intake: former Drug use: Daily Substance use type: marijuana Details: marijuana 3 x daily Do you feel safe at home: Yes Do you feel safe in your relationship?: Yes Female Reproductive History Menstrual Age of Menarche: 12 Duration of menses: 3-5 days control method: none History History 6 Para 3 Hx # Term Pregnancies 3 Multiple births 0 Hx # Pregnancies Ectopic pregnancies 0 AB induced 1 Hx Number of Living Children 3 AB spontaneous 1 Past Pregnancies Del. Date GA/Weeks # Outcome Route Wgt Sex Labor Lgth Anesthes ia Location Prov Complic Unknown 40 No Successful vaginal 2.325 kg Female 20 min [place], by an rn dr conley Unknown 02/11/09 40 No Successful vaginal 2.325 kg Male 1 hr c ottnahid conley 04/16/15 No Successful vaginal precipitous deliv ered 20 min after admission rn in Delivery Date: On 01/02/19 @ 14:04 ERICA TALAMANTES precipitous, Delivery Date: On 01/14/19 @ 13:15 ERICA TALAMANTES DATE/INFO UNKNOWN, PT CLAIMS SHE HAS NO RECOLLECTION OF ONE OF HER PREGNANCIES. Delivery Date: 02/11/09 No notes to display Delivery Date: 04/16/15 On 01/31/19 @ 11:24 ERICA TALAMANTES precipitous delivery w/o pp complications Exam Narrative Exam Narrative: 1.Const: Well-nourished, Well-developed, appearing stated age 2.Eyes: PERRL, no conjunctival injection, and symmetrical lids. 3.ENT: Atraumatic external nose and ears. Moist MM. Neck: Symmetric, trachea midline, No thyromegaly. 4.CVS: +S1/S2, No murmurs or gallops. Peripheral pulses 2+ and equal in all extremities. Brisk capillary refill in all extremities. 5.RESP: Unlabored respiratory effort. Clear to auscultation bilaterally. No wheezes rales or rhonchi 6.GI: Soft, Nontender/Nondistended, No hepatosplenomegaly. No guarding or rebound. Appropriately gravid abdomen, nontender. No evidence of bruising, abrasions, or trauma to the abdomen. 7.MSK: Normocephalic/Atraumatic, Extremities w/o deformity or ttp No cyanosis or clubbing, Normal movement of all extremities 8.Skin: Warm, Dry. No rashes or lesions. Mild abrasion over the left knee. 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 Sensation grossly intact, no focal neurologic deficits. 10.Psych: (AAO) x3. Appropriate mood and affect Course Vital Signs Vital signs: Vital Signs Temperature 37 C 05/25/19 03:02 Pulse 83 05/25/19 03:02 Respiratory Rate 18 05/25/19 03:02 Blood Pressure 116/84 05/25/19 03:02 Pulse Oximetry 97 05/25/19 03:02 Temperature 37 C 05/25/19 03:02 Temperature Source Temporal Artery Scan 05/25/19 03:02 Pulse 83 05/25/19 03:02 Respiratory Rate 18 05/25/19 03:02 Blood Pressure 116/84 05/25/19 03:02 Pulse Oximetry 97 05/25/19 03:02 Oxygen Delivery Method Room Air 05/25/19 03:02 Oxygen Flow Rate 0 05/25/19 03:02 Pain Level 0 05/25/19 03:02
--- NOTE | 2019-05-25 04:04 | NUR.NOTE ---
Nursing Note: faxed referal to pr[facility] ortega on 05/25/19
== END 2019-05-25 03:11 | disposition home or self-care (01) ==
LOC: ER 03:11
PROVIDERS: Emergency Provider Student in an Organized Health Care Education/Training Program; PCP Nurse Practitioner Family
DX: O36.8130 Decreased fetal movements, third trimester, not applicable or unspecified (principal); Z3A.30 30 weeks gestation of pregnancy; Z71.1 Person with feared health complaint in whom no diagnosis is made
CPT/HCPCS: 99282

== ENCOUNTER 2019-05-27 15:03 | Emergency (ER) | payer MEDICARE, MEDICAID, SELFPAY ==
[2019-05-27 15:08] VITALS: BP 129/82; PULSE 80; RESP 18; TEMP 36.4; O2SAT 99
--- NOTE | 2019-05-27 15:19 | DI.US_ITS ---
EXAM: US LOWER EXTREMITY VENOUS LT CLINICAL HISTORY: calf pain, edema, . TECHNIQUE: Left lower extremity venous ultrasound performed using grayscale, color-flow, and spectra l Doppler analysis. COMPARISON: US extremity venous BI from 04/08/2019 FINDINGS: The left common femoral, femoral and popliteal veins demonstrate normal compressibility, augmentation , and color Doppler. The posterior tibial vein are patent. There is edema seen in the soft tissues o f the left lower extremity. No focal fluid collection is present. IMPRESSION: Negative for DVT.
[2019-05-27 15:23] VITALS: RESP 18
--- NOTE | 2019-05-27 15:33 | W.ED.GENAD ---
Discharge Plan Disposition Patient Disposition: HOME Condition: Stable Discharge Details Chief Complaint: Vascular Clinical Impression: Acute leg pain Primary Care Provider: Rochelle Muñoz ED Provider: Jose Armando Conklin Home Meds and New Rx's Prescriptions: No Action (DME) POCKET CHAMBER Spacer See Rx Instructions .ROUTE .MEDSUPPLY Qty: 1 RF: 0 (DME) blood-glucose meter [Accu-Chek Ethel Plus Meter] Misc See Rx Instructions .ROUTE .MEDSUPPLY Qty: 1 RF: 0 (DME) Accu-Chek Ethel Plus test strp Strip See Rx Instructions .ROUTE .MEDSUPPLY Qty: 100 RF: 1 (DME) lancets [Accu-Chek Softclix Lancets] Misc See Rx Instructions .ROUTE .MEDSUPPLY Qty: 100 RF: 2 olanzapine [Zyprexa] 5 mg tablet 5 mg PO BID Qty: 30 RF: 4 albuterol sulfate [Ventolin HFA] 60 PUFF HFA aerosol inhaler 1 puff Inhalation Q4H PRN PRNRF: 0 ipratropium-albuterol 3 ML solution for nebulization 3 ml IN Q4H PRN PRNRF: 0 Symbicort 10.2 GM HFA aerosol inhaler 10.2 gm Inhalation BID RF: 0 folic acid 1 mg Tablet 1 mg PO DAILY Qty: 30 RF: 0 PNV cmb#95-ferrous fumarate-FA [] 28 mg iron- 800 mcg Tablet 1 tab PO DAILY Qty: 30 RF: 0 omeprazole 40 mg Capsule,Delayed Release(Dr/Ec) 40 mg PO DAILY AM RF: 0 buspirone 5 mg tablet 15 mg PO TID RF: 0 lorazepam [Ativan] 2 mg Tablet 2 mg PO 5XW RF: 0 olanzapine 2.5 mg Tablet RF: 0 aspirin [Aspir-81] 81 mg Tablet,Delayed Release (Dr/Ec) RF: 0 gabapentin 100 mg Capsule 100 mg PO DAILY@1400 Qty: 0 RF: 0 gabapentin 100 mg Capsule 200 mg PO BID Qty: 30 RF: 0 Discharge Instructions Instructions: RICE Therapy (ED), Leg Pain (ED) Additional Instructions: You may take acetaminophen as needed for discomfort just take as directed on packaging. Follow-up with your primary care provider if you continue with your leg pain over the next 2 weeks. Referrals: Rochelle Muñoz [Primary Care Provider] - (As needed for reassessment or if not improving) Discharge Data Discharge Date/Time-TO BE ENTERED AT DEPARTURE: 05/27/19 16:55 Medical Decision Making <SOM Naylor - Last Filed: 05/29/19 15:34> Patient is a 33-year-old female, well-known to the department, who is 7 months gestation presenting today with chief complaint of left posterior calf pain. She reports the Pain began approximately 2 days ago after trauma. She reports that she did fall. Denies any altered sensation. Denies other injury the time of the incident. Patient has since then been having pain in the posterior left calf. She does have chronic bilateral lower extremity edema. She is followed closely by CLINIC LICENSED PRACTICAL NURSE. She denies any chest pain or shortness of breath. Is not having any bleeding or vaginal discharge. No abdominal pain. On exam, she is resting comfortably. She does have a positive Homans exam. Nursing staff measured bilateral calves and noted the left to be at 1 cm larger than the right. 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 No evidence of cellulitis at this point. She is afebrile with stable vital signs. Patient has been in consult with her CLINIC LICENSED PRACTICAL NURSE who advised that she come here for a formal DVT study. Patient has no history of blood clot. At the end of my shift, care was transitioned to Jose Armando Conklin NP with imaging pending. Plan is to be in contact with CLINIC LICENSED PRACTICAL NURSE once imaging has been completed. <Jose Armando Conklin NP - Last Filed: 05/27/19 17:05> Patient signed out to me by Estrella KEARNS. Patient is pending ultrasound for rule out of DVT. Patient became agitated on way to ultrasound and requesting her normal dose of 2 mg of Ativan. This was ordered to help keep patient calm during procedure. chiller technician called emergency department and stated that patient was again for the third time refusing study. Dr. Epperson CLIN[facility] LICENSED PRACTICAL NURSE whom referred patient to the ER was contacted. He stated he would come down and discuss treatment plan with patient. He was able to calm patient down enough to finish the study and DI. After ultrasound study was performed by botany technician patient started becoming irate and upset again. Technicians stated pulmonary port showed no evidence of DVT. Due to this and patient's agitation about being in the hospital setting discharge paperwork was prepared for her to be able to leave given negative study. Patient was informed to follow-up with primary care as needed for reassessment. HPI <SOM Naylor - Last Filed: 05/29/19 15:34> General Mode of arrival: ambulatory. Date/Time Provider Initiated Documentation: 05/27/19 15:05. Limitations to Documentation: no limitations. Information obtained by: patient and RN notes reviewed. History of Present Illness 33 year old F presents to the emergency department with the chief complaint of left posterior calf pain, described as moderate, with intensity rated at 6. Quality is described as aching, and is localized to the left and lower extremity. Patient reports no radiation. Patient started experiencing this day(s) (2) and it has been constant. Immobilization improves symptom(s), Movement worsens symptoms . Patient notes no other symptoms.; denies chest pain, fever/chills, nausea/vomiting, rash and shortness of breath. Patient did receive the following treatments prior to arrival, none Related Data Home Medications Medication Instructions Recorded Confirmed albuterol sulfate [Ventolin HFA] 1 puff INHALATION Q4H PRN PRN inh 04/17/15 05/24/19 ipratropium-albuterol 3 ml IN Q4H PRN PRN 07/26/15 05/27/19 Symbicort 10.2 gm INHALATION BID 03/09/17 05/27/19 PNV cmb#95-ferrous fumarate-FA 1 tab PO DAILY #30 tab 03/27/19 05/27/19 [] folic acid 1 mg PO DAILY #30 tab 03/27/19 05/24/19 blood sugar diagnostic #100 each 04/22/19 05/24/19 blood-glucose meter #1 each 04/22/19 05/24/19 lancets #100 each 04/22/19 05/24/19 gabapentin 100 mg PO DAILY@1400 #0 cap 05/07/19 05/27/19 gabapentin 200 mg PO BID #30 cap 05/07/19 05/27/19 inhalational spacing device #1 each 05/11/19 05/24/19 aspirin [Aspir-81] 05/27/19 buspirone 15 mg PO TID 05/27/19 05/27/19 lorazepam [Ativan] 2 mg PO 5XW 05/27/19 05/27/19 olanzapine mg 05/27/19 omeprazole 40 mg PO DAILY AM 05/27/19 05/27/19 olanzapine 5 mg tablet 5 mg PO BID #30 tab 05/29/19 Previous Rx's Medication Instructions Recorded albuterol sulfate [Ventolin HFA] 1 puff INHALATION Q4H PRN PRN inh 04/17/15 PNV cmb#95-ferrous fumarate-FA 1 tab PO DAILY #30 tab 03/27/19 [] folic acid 1 mg PO DAILY #30 tab 03/27/19 blood sugar diagnostic #100 each 04/22/19 blood-glucose meter #1 each 04/22/19 lancets #100 each 04/22/19 gabapentin 100 mg PO DAILY@1400 #0 cap 05/07/19 gabapentin 200 mg PO BID #30 cap 05/07/19 inhalational spacing device #1 each 05/11/19 olanzapine 5 mg tablet 5 mg PO BID #30 tab 05/29/19 Allergies Allergy/AdvReac Type Severity Reaction Status Date / Time No Known Allergies Allergy Verified 05/27/19 15:13 General Stated Complaint: Vascular DOROTEO: 3 Review of Systems <SOM Naylor Last Filed: 05/29/19 15:34> Constitutional Constitutional: Reports as per HPI, Denies chills, Denies fever(s), Denies headache(s) and Denies weakness ENT Ears, Nose, Mouth, and Throat: Denies headache(s) Cardiovascular Cardiovascular: Reports as per HPI, Denies chest pain, Denies chest pain at rest, Denies chest pain with activity, Denies dyspnea and Denies dyspnea on exertion Respiratory Respiratory: Reports as per HPI, Denies cough, Denies hemoptysis, Denies pain on inspiration, Denies pain with cough, Denies dyspnea and Denies dyspnea on exertion Musculoskeletal Musculoskeletal: Reports as per HPI and Denies tingling Integumentary/Breasts Skin/Breast: Reports as per HPI, Denies rash and Denies wounds Neurologic Neurologic: Reports as per HPI, Denies headache(s), Denies tingling, Denies paresthesias and Denies weakness PFSH <SOM Naylor - Last Filed: 05/29/19 15:34> Medical History Asthma Borderline personality disorder (Acute) Cellulitis of left lower extremity without foot (Acute) 05/03/19. Onset of pain with cellulitis. Rx with Keflex. Chronic anxiety with depression Difficulty voiding (Inactive 01/08/15) urge to void, but only able to void in small amounts Lymphedema (Acute) 2nd trimester. 02/2019. nl bilateral LE dopplers. ARLEY hose not helpful (hard time staying on). 04/2019 PT declined massage secondary to new onset of LLE cellulitis Obesity Obesity affecting , antepartum (Inactive 10/08/14) early 1hr GTT. PTSD (post-traumatic stress disorder) (Acute) Supervision of normal first (Inactive 10/08/14) Tobacco use Surgical History Myringotomy w/ PE (pressure equalizing) tubes as a child Social History Smoking/Tobacco Use Status: Current every day Tobacco Type: cigarettes Alcohol Intake: former Drug use: Daily Substance use type: does not use Details: marijuana 3 x daily Do you feel safe at home: Yes Do you feel safe in your relationship?: Yes Female Reproductive History Menstrual Age of Menarche: 12 Duration of menses: 3-5 days control method: none History History 6 Para 3 Hx # Term Pregnancies 3 Multiple births 0 Hx # Pregnancies Ectopic pregnancies 0 AB induced 1 Hx Number of Living Children 3 AB spontaneous 1 Past Pregnancies Del. Date GA/Weeks # Outcome Route Wgt Sex Labor Lgth Anesthesia Location Prov Complic Unknown 40 No Successful vaginal 2.325 kg Female 20 min [place], by an rn dr conley Unknown 02/11/09 40 No Successful vaginal 2.325 kg Male 1 hr hesham conley 04/16/15 No Successful vaginal precipitous delivered 20 min after admission rn in Delivery Date: On 01/02/19 @ 14:04 ERICA TALAMANTES precipitous, Delivery Date: On 01/14/19 @ 13:15 ERICA TALAMANTES DATE/INFO UNKNOWN, PT CLAIMS SHE HAS NO RECOLLECTION OF ONE OF HER PREGNANCIES. Delivery Date: 02/11/09 No notes to display Delivery Date: 04/16/15 On 01/31/19 @ 11:24 [place] precipitous delivery w/o pp complications Exam <SOM Naylor - Last Filed: 05/29/19 15:34> Const General: cooperative, comfortable, no acute distress, well developed, well groomed and ill appearing chronically Nutritional Appearance: well nourished and overweight Orientation: alert and awake Resp Effort & Inspection: normal respiratory effort, able to speak in complete sentences and no respiratory distress Auscultation: clear to auscultation bilaterally Cardio Rate: regular rate Rhythm: regular rhythm Heart Sounds: S1 normal and S2 normal Skin General skin exam: other (patient has scabs diffusely about the RLE and left knee consistent iwth pic) Neuro General: alert and awake Cognition: normal cognition Speech: speech normal Gait: normal gait Motor: muscle tone normal throughout Sensory Exam: no sensory deficits noted Extrem General: normal capillary refill, no joint enlargement, normal gait, calf tenderness (+Homanns) on the left and edema Laterality: bilateral (equal bilaterally ) Psych Appearance: grossly normal and well kempt Mental Status: mental status grossly normal Speech and Movement: speech and movement normal Course <SOM Naylor - Last Filed: 05/29/19 15:34> Vital Signs Vital signs: Vital Signs Temperature 36.4 C L 05/27/19 15:08 Pulse 80 05/27/19 15:08 Respiratory Rate 18 05/27/19 15:08 Blood Pressure 129/82 05/27/19 15:08 Pulse Oximetry 99 05/27/19 15:08 Temperature 36.4 C L 05/27/19 15:08 Pulse 80 05/27/19 15:08 Respiratory Rate 18 05/27/19 15:23 Respiratory Effort 05/27/19 15:26 Respiratory Depth Normal 05/27/19 15:23 Respiratory Pattern Normal 05/27/19 15:23 Blood Pressure 129/82 05/27/19 15:08 Blood Pressure Position Sitting 05/27/19 15:08 Pulse Oximetry 99 05/27/19 15:08 Oxygen Delivery Method Room Air 05/27/19 15:08 Oxygen Flow Rate 0 05/27/19 15:08 Pain Level 4 05/27/19 15:23 Comment 05/27/19 15:08
--- NOTE | 2019-05-27 15:47 | NUR.NOTE ---
pt has been pleasant and cooperative , she has a bandange on her right hand and all five fingers . it is clean and intact Nursing Note:
[2019-05-27] MEDS: LORazepam 1 MG TAB 2 MG PO (16:23)
--- NOTE | 2019-05-27 16:25 | NUR.NOTE ---
pt became agitated at ultrasound when she refused to take her pants off. she was returned to the ER and she requested her ativan. nurse brought it but she refused pills and requested an injection , when nurse returned with the injection , she refused the injection and demanded pills but not from this nurse . eventually she took the pills and ambulated to the ultrasound unit .Nursing Note:
--- NOTE | 2019-05-27 16:49 | NUR.NOTE ---
code flip called in DI after pt becoming agitated and yelling swears . she said that she would not come out of the DI room if this nurse ( me ) was still standing in the naik. Nursing Note:
--- NOTE | 2019-05-27 16:56 | NUR.NOTE ---
pt was given her discharge papers and was seen leaving the hospital by Bharati mckeon social services analyst. Nursing Note:
--- NOTE | 2019-05-27 17:10 | DI.VRAD_ITS ---
PROCEDURE INFORMATION: Exam: US Duplex Left Lower Extremity Veins, Limited Exam date and time: 05/27/2019 3:20 PM Clinical history: 33 years old, female; Pain; Leg, lower; Left TECHNIQUE: Imaging protocol: Real-time Duplex ultrasound of the Left Lower Extremity with 2-D [place] scale, color Doppler flow and spectral waveform analysis with image documentation. Limited exam focused on the left lower extremity veins. COMPARISON: US extremity venous BI 04/08/2019 10:52 AM FINDINGS: Left deep veins: Unremarkable. The common femoral, femoral, proximal profunda femoral and popliteal veins are patent without thrombus. Normal Doppler waveforms. Normal compressibility and/or augmentation response. Left superficial veins: Unremarkable. Saphenofemoral junction is patent without thrombus. Soft tissues: There is diffuse subcutaneous edema. No subcutaneous fluid collections are identified. IMPRESSION: 1. Negative for DVT. 2. Subcutaneous edema. Dictated and Authenticated by: Westley Jaquez MD. Ordering:CANDICE De La Rosa MD
== END 2019-05-27 16:55 | disposition home or self-care (01) ==
PROVIDERS: Emergency Provider Nurse Practitioner Family; PCP Nurse Practitioner Family
DX: O99.89 Other specified diseases and conditions complicating pregnancy, childbirth and the puerperium (principal); M79.605 Pain in left leg; Z3A.30 30 weeks gestation of pregnancy
CPT/HCPCS: 99283; 93971

== ENCOUNTER 2019-05-29 13:55 | Emergency (ER) | payer MEDICARE, MEDICAID, SELFPAY ==
[2019-05-29] VITALS (8 sets, daily range): BP systolic 113–119; BP diastolic 44–59; PULSE 71–85; RESP 16; TEMP 36.6; O2SAT 97–98
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
--- NOTE | 2019-05-29 14:34 | NUR.NOTE ---
Nursing Note: DI notified that patient is ready for echo. staff from [facility] at bedside.
[2019-05-29 14:40] LABS: HCT 34.8 % (36.0-46.0); HGB 11.2 g/dL (12.0-15.5); Mean Corp. HGB Concentration 32.2 g/dL (32.0-36.0); Mean Corpuscular Hemoglobin 29.2 pg (27.0-33.0); Mean Corpuscular Volume 90.9 fL (80-95); Platelet Count 210 x1000/uL (130-400); RBC 3.83 m/cumm (4.00-5.20); RBC Distribution Width 13.3 % (11.7-14.6); White Blood Cell Count 9.41 k/cumm (4.4-10.8)
[2019-05-29 14:57] LABS: NT-proBNP 152 pg/mL
[2019-05-29 15:17] LABS: ALT 16 U/L (14-59); AST 19 U/L (15-37); Albumin 2.5 g/dL (3.4-5.0); Alkaline Phosphatase 149 U/L (46-116); Anion Gap 8.9 mmol/L (3-11); BUN 7 mg/dL (7-18); Bilirubin, Total 0.5 mg/dL (0.2-1.0); CO2 26.1 mmol/L (21.0-32.0); CREATININE 0.76 mg/dL (0.55-1.02); Calcium 8.4 mg/dL (8.5-10.1); Chloride 102 mmol/L (98-107); Glucose 95 mg/dL (70-100); Potassium 3.9 mmol/L (3.5-5.1); Sodium 137 mmol/L (136-145); Total Protein 6.7 g/dL (6.4-8.2)
[2019-05-29 15:17] LABS: Bilirubin Negative (Negative); Blood Negative (Negative); Clarity Clear (Clear); Glucose Negative (Negative); Ketones Negative (Negative); Leukocyte Esterase Trace (Negative); Nitrite Negative (Negative); Urobilinogen 0.2 EU/dL (Up TO 0.2)
[2019-05-29 15:25] LABS: Bacteria Moderate HPF (Negative); C & S Indicated? Yes; Casts Negative LPF (Negative); Crystals Negative HPF (Negative); Epithelial Cells Few HPF (Negative); Mucus Heavy (Negative); Other Cells Negative (Negative); RBC Negative (0-2)
[2019-05-29] MEDS: Albuterol HFA 8 GM 60 PUFF INH IH (16:05)
== END 2019-05-29 16:13 | disposition home or self-care (01) ==
PROVIDERS: Emergency Provider Student in an Organized Health Care Education/Training Program; PCP Nurse Practitioner Family
DX: O12.03 Gestational edema, third trimester (principal); F17.210 Nicotine dependence, cigarettes, uncomplicated; Z3A.30 30 weeks gestation of pregnancy
CPT/HCPCS: 36415; 80053; 85027; 99283; 81003; 81015; 83880; 87086

== ENCOUNTER 2019-06-04 17:27 | Outpatient (REF) | payer MEDICARE, MEDICAID, SELFPAY | END 2019-06-04 17:47 | LOC: LBN 17:27 | PROVIDERS: PCP Nurse Practitioner Family; Visit Provider Obstetrics & Gynecology Gynecology | DX: Z34.93 Encounter for supervision of normal pregnancy, unspecified, third trimester (principal); Z36.85 Encounter for antenatal screening for Streptococcus B | CPT/HCPCS: 87081 ==

== ENCOUNTER 2019-06-11 13:05 | Outpatient (CLI) | payer MEDICARE, MEDICAID, SELFPAY ==
--- NOTE | 2019-06-11 15:00 | DI.US_ITS ---
EXAM: US OB [facility] CLINICAL HISTORY: EFW, smoker, , Z34.90 TECHNIQUE: Ultrasound performed using standard protocol. FINDINGS: The fetus is in cephalic position. The placenta is posterior and grade 1-2. The biometric measureme nts correspond to 35 weeks 4 days. The estimated weight is 2676 grams. The amniotic fluid ind ex is 16.2. IMPRESSION: Fetus size and weight are at the low normal range.
== END 2019-06-11 13:25 ==
PROVIDERS: PCP Nurse Practitioner Family; Visit Provider Obstetrics & Gynecology Gynecology
DX: O26.843 Uterine size-date discrepancy, third trimester
CPT/HCPCS: 76816

== ENCOUNTER 2019-06-14 10:09 | Observation (INO) | payer MEDICARE, MEDICAID, SELFPAY ==
[2019-06-14 10:52] LABS: HCT 37.3 % (36.0-46.0); HGB 12.3 g/dL (12.0-15.5); Mean Corpuscular Hemoglobin 29.1 pg (27.0-33.0); Mean Corpuscular Volume 88.4 fL (80-95); Mean Platelet Volume 10.7 fL (8.0-11.0); Platelet Count 259 x1000/uL (130-400); RBC 4.22 m/cumm (4.00-5.20); RBC Distribution Width 13.6 % (11.7-14.6)
[2019-06-14] MEDS: Gabapentin 100 MG CAP 200 MG PO (14:22)
[2019-06-14] MEDS: Haloperidol 5 MG/ML VIAL IM (14:28)
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
== END 2019-06-14 16:30 | disposition home or self-care (01) | DRG 833 ==
PROVIDERS: Admitting Provider Obstetrics & Gynecology; PCP Nurse Practitioner Family; Visit Provider Obstetrics & Gynecology
DX: O26.893 Other specified pregnancy related conditions, third trimester (principal); O99.343 Other mental disorders complicating pregnancy, third trimester; O99.333 Smoking (tobacco) complicating pregnancy, third trimester; O99.313 Alcohol use complicating pregnancy, third trimester; Z3A.37 37 weeks gestation of pregnancy; F60.3 Borderline personality disorder; F43.10 Post-traumatic stress disorder, unspecified; F91.8 Other conduct disorders; F17.210 Nicotine dependence, cigarettes, uncomplicated; Z72.89 Other problems related to lifestyle
CPT/HCPCS: 85027; 86850; 86900; 86901; 99223; 99233; J1630

== ENCOUNTER 2019-06-24 00:28 | Inpatient (IN) | payer MEDICARE, MEDICAID, SELFPAY ==
[2019-06-24] MEDS: MORPHine 10 MG/ML VIAL IM (00:52)
[2019-06-24] MEDS: Normal Saline Flush 10 ML SYR IVP ×2 (01:05→14:44)
--- NOTE | 2019-06-24 08:59 | W.PM.HP.N ---
Date of service: 06/24/19 Time of Service: 09:00 Assessment and Plan Assessment and plan (1) Self-harming behavior: Status: Acute (2) Cellulitis of left lower extremity without foot: Status: Acute (3) Lymphedema: Status: Acute (4) Borderline personality disorder: Status: Acute Assessment and plan: Patient is currently 38.4 weeks gestation with significant mental health issues. Repeatedly in prior conversations she has threatened self-harm and harm to the fetus. Her care has been significantly limited due to these mental health issues and inability to cooperate with staff and routine visits. I reviewed options with the patient. My recommendation would be that if labor did not ensue spontaneously by the morning that we would augment labor by rupture of membranes. The patient is agreeable to this. History of Present Illness History of Present Illness Chief Complaint: Rule out labor. Narrative: 33 year old presents at 38.4 weeks gestation last evening with complaint of contractions and pelvic pressure. On initial examination cervix was 2.5cm/70/-2 and soft. The patient reported that she could not do it anymore . She reports being extremely uncomfortable and wishes to undergo induction of labor. As per earlier encounter she did attempt induction of labor just over 1 week ago which ended and combative behavior and having been removed by the police from the hospital premises. She has been having quite a bit of difficulty with the father the baby who has not been terribly involved in this process. This has been a source of agitation for her. By 2 AM she was noted to be adele every 3 to 4 minutes and was becoming increasingly aggravated. She was provided 10 mg of IM morphine in addition to an oral Ativan that she had taken prior to presenting to the hospital. [facility] Social History Smoking/Tobacco Use Status: Current every day Tobacco Type: cigarettes Alcohol Intake: former Drug use: Daily Substance use type: does not use Details: marijuana 3 x daily Do you feel safe at home: Yes Do you feel safe in your relationship?: Yes Female Reproductive History Menstrual Age of Menarche: 12 Duration of menses: 3-5 days control method: none History History 6 Para 3 Hx # Term Pregnancies 3 Multiple births 0 Hx # Pregnancies Ectopic pregnancies 0 AB induced 1 Hx Number of Living Children 3 AB spontaneous 1 Past Pregnancies Del. Date GA/Weeks # Outcome Route Wgt Sex Labor Lgth Anesthesia Location Prov Complic Unknown 40 No Successful vaginal 5 lb 2 oz Female 20 min cottage, by an rn dr conley Unknown 02/11/09 40 No Successful vaginal 5 lb 2 oz Male [address] conley 04/16/15 No Successful vaginal precipitous delivered 20 min after admission rn in Delivery Date: On 01/02/19 @ 14:04 ERICA TALAMANTES precipitous, Delivery Date: On 01/14/19 @ 13:15 ERICA TALAMANTES DATE/INFO UNKNOWN, PT CLAIMS SHE HAS NO RECOLLECTION OF ONE OF HER PREGNANCIES. Delivery Date: 02/11/09 No notes to display Delivery Date: 04/16/15 On 01/31/19 @ 11:24 ERICA TALAMANTES precipitous delivery w/o pp complications Meds Home Medications and Allergies Home Medications Medication Instructions Recorded Confirmed Type albuterol sulfate [Ventolin HFA] 1 puff INHALATION Q4H PRN PRN inh 04/17/15 05/24/19 Rx ipratropium-albuterol 3 ml IN Q4H PRN PRN 07/26/15 05/27/19 History Symbicort 10.2 gm INHALATION BID 03/09/17 05/27/19 History PNV cmb#95-ferrous fumarate-FA 1 tab PO DAILY #30 tab 03/27/19 05/27/19 Rx [] folic acid 1 mg PO DAILY #30 tab 03/27/19 05/24/19 Rx blood sugar diagnostic #100 each 04/22/19 05/24/19 Rx blood-glucose meter #1 each 04/22/19 05/24/19 Rx lancets #100 each 04/22/19 05/24/19 Rx gabapentin 100 mg PO DAILY@1400 #0 cap 05/07/19 05/27/19 Rx gabapentin 200 mg PO BID #30 cap 05/07/19 05/27/19 Rx inhalational spacing device #1 each 05/11/19 05/24/19 Rx aspirin [Aspir-81] 05/27/19 History buspirone 15 mg PO TID 05/27/19 05/27/19 History lorazepam [Ativan] 2 mg PO 5XW 05/27/19 05/27/19 History olanzapine mg 05/27/19 History omeprazole 40 mg PO DAILY AM 05/27/19 05/27/19 History olanzapine 5 mg tablet 5 mg PO BID #30 tab 05/29/19 Rx terconazole 0.8 % vaginal cream 1 appful VG QHS 3 Days #20 gm 05/31/19 Rx furosemide 20 mg tablet 20 mg PO ONCE #1 tab 06/07/19 Rx quetiapine 25 mg tablet 25 mg PO BID #60 tab 06/16/19 Rx Allergies Allergy/AdvReac Type Severity Reaction Status Date / Time No Known Allergies Allergy Verified 06/04/19 15:25 Exam Other: Cervix is 2/70%/-2/soft Results Labs Result diagrams: 06/24/19 09:28
[2019-06-24 09:52] LABS: Abs Immature Grans 0.04 k/cumm (0.0-0.09); Absolute Basophil Count 0.02 k/cumm (0.0-0.2); Absolute Eosinophil Count 0.18 k/cumm (0.0-0.7); Absolute Lymphocyte Count 2.22 k/cumm (1.2-3.4); Absolute Monocyte Count 0.86 k/cumm (0.11-0.7); Absolute Neutrophil Count 6.98 k/cumm (1.2-6.7); Basophils % 0.2; Eosinophils % 1.7; HCT 38.6 % (36.0-46.0); HGB 12.4 g/dL (12.0-15.5); Immature Grans % 0.4; Lymphocytes % 21.6; Mean Corp. HGB Concentration 32.1 g/dL (32.0-36.0); Mean Corpuscular Hemoglobin 28.7 pg (27.0-33.0); Mean Corpuscular Volume 89.4 fL (80-95); Mean Platelet Volume 11.2 fL (8.0-11.0); Monocytes % 8.3; Neutrophils % 67.8; Platelet Count 241 x1000/uL (130-400); RBC 4.32 m/cumm (4.00-5.20); RBC Distribution Width 14.5 % (11.7-14.6)
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
[2019-06-24] MEDS: diphenhydrAMINE 50 MG/ML VIAL IM (13:25)
[2019-06-24] MEDS: LORazepam 2 MG/ML VIAL IM (13:26)
[2019-06-24] MEDS: Haloperidol 5 MG/ML VIAL 4 MG IM (13:27)
[2019-06-24] MEDS: Lactated Ringers 1,000 ML 125 ML IV (14:10)
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
--- NOTE | 2019-06-24 15:43 | PDOC.ANES ---
Date of service: 06/24/19 Time of Service: 14:00 Anesthesia Note Report Anesthesia Note: Patient met at bedside to place PIV x2. Placement #3 and #4 by myself today as the patient previously removed the other two PIVs. 20g placed in Left AC and 20 in Right AC on first attempt on both IVs. The IVs were secured with tegaderm and reinforced with a soft gauze dressing. An attempt was made to interview patient on past anesthesia history and patient would not participate. [facility] record was reviewed.
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
[2019-06-25] MEDS: Ibuprofen 600 MG TAB PO ×2 (05:35→11:46)
[2019-06-25] MEDS: Acetaminophen 325 MG TAB 650 MG PO (08:41)
[2019-06-25] MEDS: LORazepam 1 MG TAB PO (10:35)
[2019-06-25] MEDS: Gabapentin 100 MG CAP 200 MG PO (10:35)
[2019-06-25] MEDS: busPIRone 5 MG TAB 15 MG PO (10:36)
[2019-06-25] MEDS: OLANZapine 5 MG TAB PO (10:36)
[2019-06-25] MEDS: Budesonide/Formoterol 160/4.5 6 GM 60 PUFF INH IH (10:39)
[2019-06-25] MEDS: Albuterol HFA 8 GM 60 PUFF INH IH (11:35)
--- NOTE | 2019-06-26 11:33 | PDOC.MHCN ---
Date of service: 06/24/19
== END 2019-06-25 11:55 | disposition home or self-care (01) | DRG 806 ==
PROVIDERS: Admitting Provider Obstetrics & Gynecology; PCP Nurse Practitioner Family; Visit Provider Obstetrics & Gynecology
DX: O99.344 Other mental disorders complicating childbirth (principal); O99.324 Drug use complicating childbirth; Z37.0 Single live birth; O99.334 Smoking (tobacco) complicating childbirth; Z3A.39 39 weeks gestation of pregnancy; F17.210 Nicotine dependence, cigarettes, uncomplicated; F60.3 Borderline personality disorder; F12.90 Cannabis use, unspecified, uncomplicated; Z91.5 Personal history of self-harm; F91.8 Other conduct disorders; Z78.1 Physical restraint status; Z53.29 Procedure and treatment not carried out because of patient's decision for other reasons
CPT/HCPCS: 36415; 85027; 86850; 86900; 86901; 99223; 99233; 85025; J1200; J1630; J2060; J2270; J3490

== ENCOUNTER 2019-07-04 13:36 | Emergency (ER) | payer MEDICARE, MEDICAID, SELFPAY ==
--- NOTE | 2019-07-04 13:54 | W.ED.GENAD ---
Discharge Plan Disposition Patient Disposition: OTHER Discharge Details Clinical Impression: Vaginal bleeding Primary Care Provider: Rochelle Muñoz ED Provider: Hugo Mcclure Home Meds and New Rx's Prescriptions: No Action (DME) POCKET CHAMBER Spacer See Rx Instructions .ROUTE .MEDSUPPLY Qty: 1 RF: 0 (DME) blood-glucose meter [Accu-Chek Ethel Plus Meter] Misc See Rx Instructions .ROUTE .MEDSUPPLY Qty: 1 RF: 0 olanzapine [Zyprexa] 5 mg tablet 5 mg PO BID Qty: 30 RF: 4 ibuprofen 600 mg tablet 600 mg PO Q6H PRN (Reason: pain) Qty: 30 RF: 1 albuterol sulfate [Ventolin HFA] 90 mcg/actuation HFA aerosol inhaler 1 puff Inhalation Q4H PRN PRN (Reason: bronchospasm) Qty: 200 RF: 5 ibuprofen 600 mg tablet 600 mg PO Q6H PRN (Reason: pain) Qty: 30 RF: 2 amoxicillin-pot clavulanate [Augmentin] 875-125 mg tablet 1 tab PO BID Qty: 14 RF: 0 ipratropium-albuterol 3 ML solution for nebulization 3 ml IN Q4H PRN PRNRF: 0 PNV cmb#95-ferrous fumarate-FA [] 28 mg iron- 800 mcg Tablet 1 tab PO DAILY Qty: 30 RF: 0 omeprazole 40 mg Capsule,Delayed Release(Dr/Ec) 40 mg PO DAILY AM RF: 0 buspirone 5 mg tablet 15 mg PO TID RF: 0 lorazepam [Ativan] 2 mg Tablet 2 mg PO 5XW RF: 0 gabapentin 100 mg Capsule 100 mg PO DAILY@1400 Qty: 0 RF: 0 gabapentin 100 mg Capsule 200 mg PO BID Qty: 30 RF: 0 Symbicort 160-4.5 mcg/actuation Hfa Aerosol Inhaler 2 puff INHALATION BID RF: 0 Medical Decision Making 33-year-old female with borderline personality disorder, status post recent uncomplicated delivery, here with vaginal bleeding after intercourse last night. Unfortunately, patient is not willing to provide history or allow for examination. She is requesting a female physician. I explained that I am the only physician present in the emergency department and that I would be happy to contact production laborer obstetrics to evaluate her. I noted to her that Dr. Epperson, who she knows well, was on-call for obstetrics and she refused this consultation. Plan to identify a potential alternative physician to perform medical screening exam. Patient eloped from the emergency department prior to completion of medical screening exam. I have notified her industrial design engineer. HPI General Mode of arrival: ambulatory. Date/Time Provider Initiated Documentation: 07/04/19 13:54. Limitations to Documentation: no limitations. Information obtained by: patient. HPI Narrative: 33-year-old female presents approximately 1 week status post uncomplicated delivery, here with complaint of vaginal bleeding after intercourse last night per triage nurse. Patient is refusing to provide history to me and refuses review of systems. Related Data Home Medications Medication Instructions Recorded Confirmed ipratropium-albuterol 3 ml IN Q4H PRN PRN 07/26/15 05/27/19 PNV cmb#95-ferrous fumarate-FA 1 tab PO DAILY #30 tab 03/27/19 05/27/19 [] blood-glucose meter #1 each 04/22/19 05/24/19 gabapentin 100 mg PO DAILY@1400 #0 cap 05/07/19 05/27/19 gabapentin 200 mg PO BID #30 cap 05/07/19 05/27/19 inhalational spacing device #1 each 05/11/19 05/24/19 buspirone 15 mg PO TID 05/27/19 05/27/19 lorazepam [Ativan] 2 mg PO 5XW 05/27/19 05/27/19 omeprazole 40 mg PO DAILY AM 05/27/19 05/27/19 olanzapine 5 mg tablet 5 mg PO BID #30 tab 05/29/19 Symbicort 2 puff INHALATION BID 06/25/19 06/25/19 albuterol sulfate 90 mcg/actuation 1 puff INHALATION Q4H PRN PRN #200 06/25/19 aerosol inhaler inh ibuprofen 600 mg tablet 600 mg PO Q6H PRN #30 tab 06/25/19 ibuprofen 600 mg tablet 600 mg PO Q6H PRN #30 tab 06/26/19 amoxicillin 875 mg-potassium 1 tab PO BID #14 tab 06/28/19 clavulanate 125 mg tablet Previous Rx's Medication Instructions Recorded PNV cmb#95-ferrous fumarate-FA 1 tab PO DAILY #30 tab 03/27/19 [] blood-glucose meter #1 each 04/22/19 gabapentin 100 mg PO DAILY@1400 #0 cap 05/07/19 gabapentin 200 mg PO BID #30 cap 05/07/19 inhalational spacing device #1 each 05/11/19 olanzapine 5 mg tablet 5 mg PO BID #30 tab 05/29/19 albuterol sulfate 90 mcg/actuation 1 puff INHALATION Q4H PRN PRN #200 06/25/19 aerosol inhaler inh ibuprofen 600 mg tablet 600 mg PO Q6H PRN #30 tab 06/25/19 ibuprofen 600 mg tablet 600 mg PO Q6H PRN #30 tab 06/26/19 amoxicillin 875 mg-potassium 1 tab PO BID #14 tab 06/28/19 clavulanate 125 mg tablet Allergies Allergy/AdvReac Type Severity Reaction Status Date / Time No Known Allergies Allergy Verified 06/04/19 15:25 General DOROTEO: 3 Review of Systems Narrative: Patient not willing to provide review of systems PFSH Social History Smoking/Tobacco Use Status: Current every day Tobacco Type: cigarettes Alcohol Intake: former Drug use: Daily Substance use type: does not use Details: marijuana 3 x daily Do you feel safe at home: Yes Do you feel safe in your relationship?: Yes Female Reproductive History Menstrual Age of Menarche: 12 Duration of menses: 3-5 days control method: none History History 6 Para 4 Hx # Term Pregnancies 4 Multiple births 0 Hx # Pregnancies Ectopic pregnancies 0 AB induced 1 Hx Number of Living Children 4 AB spontaneous 1 Past Pregnancies Del. Date GA/Weeks # Outcome Route Wgt Sex Labor Lgth Anesthesia Location Prov Complic Unknown 40 No Successful vaginal 2.325 kg Female 20 min cottage, by an rn dr conley Unknown 02/11/09 40 No Successful vaginal 2.325 kg Male [address] conley 04/16/15 No Successful vaginal precipitous delivered 20 min after admission rn in 06/24/19 39 No Successful vaginal 2.41 kg Male Shayy Aquino'Jeff Delivery Date: On 01/02/19 @ 14:04 ERICA TALAMANTES precipitous, Delivery Date: On 01/14/19 @ 13:15 ERICA TALAMANTES DATE/INFO UNKNOWN, PT CLAIMS SHE HAS NO RECOLLECTION OF ONE OF HER PREGNANCIES. Delivery Date: 02/11/09 No notes to display Delivery Date: 04/16/15 On 01/31/19 @ 11:24 ERICA TALAMANTES precipitous delivery w/o pp complications Delivery Date: 06/24/19 On 07/03/19 @ 15:45 Bharati Martell Artificial ROM; augemented by oxytocin; 18hrs 45 min. Exam Narrative Exam Narrative: Patient refusing to allow me to examine her or even enter the room Const General: no acute distress
== END 2019-07-04 13:55 | disposition other institution (70) ==
PROVIDERS: Emergency Provider Student in an Organized Health Care Education/Training Program; PCP Nurse Practitioner Family
DX: N93.0 Postcoital and contact bleeding (principal); F60.3 Borderline personality disorder; Z53.29 Procedure and treatment not carried out because of patient's decision for other reasons

== ENCOUNTER 2019-07-04 14:01 | Emergency (ER) | payer MEDICARE, MEDICAID, SELFPAY ==
[2019-07-04 14:14] VITALS: BP 132/84; PULSE 77; RESP 18; O2SAT 97
--- NOTE | 2019-07-04 14:58 | ED.GENADUL_ITS ---
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 Clinical Impression: Anxiousness Primary Care Provider: Rochelle Muñoz ED Provider: Hugo Mcclure Home Meds and New Rx's Prescriptions: No Action (DME) POCKET CHAMBER Spacer See Rx Instructions .ROUTE .MEDSUPPLY Qty: 1 RF: 0 (DME) blood-glucose meter [Accu-Chek Ethel Plus Meter] Misc See Rx Instructions .ROUTE .MEDSUPPLY Qty: 1 RF: 0 olanzapine [Zyprexa] 5 mg tablet 5 mg PO BID Qty: 30 RF: 4 ibuprofen 600 mg tablet 600 mg PO Q6H PRN (Reason: pain) Qty: 30 RF: 1 albuterol sulfate [Ventolin HFA] 90 mcg/actuation HFA aerosol inhaler 1 puff Inhalation Q4H PRN PRN (Reason: bronchospasm) Qty: 200 RF: 5 ibuprofen 600 mg tablet 600 mg PO Q6H PRN (Reason: pain) Qty: 30 RF: 2 amoxicillin-pot clavulanate [Augmentin] 875-125 mg tablet 1 tab PO BID Qty: 14 RF: 0 ipratropium-albuterol 3 ML solution for nebulization 3 ml IN Q4H PRN PRNRF: 0 PNV cmb#95-ferrous fumarate-FA [] 28 mg iron- 800 mcg Tablet 1 tab PO DAILY Qty: 30 RF: 0 omeprazole 40 mg Capsule,Delayed Release(Dr/Ec) 40 mg PO DAILY AM RF: 0 buspirone 5 mg tablet 15 mg PO TID RF: 0 lorazepam [Ativan] 2 mg Tablet 2 mg PO 5XW RF: 0 gabapentin 100 mg Capsule 100 mg PO DAILY@1400 Qty: 0 RF: 0 gabapentin 100 mg Capsule 200 mg PO BID Qty: 30 RF: 0 Symbicort 160-4.5 mcg/actuation Hfa Aerosol Inhaler 2 puff INHALATION BID RF: 0 Discharge Instructions Instructions: Against Medical Advice (ED), Anxiety (ED) Additional Instructions: You are leaving the emergency department without complete assessment. You have refused to provide a history and allow for physical examination. This is AGAINST MEDICAL ADVICE. Please follow-up with your doctor and mental health specialist. Return to the ER for any worsening or new concerning symptoms or if you wish to have examination. Referrals: Rochelle Muñoz [Primary Care Provider] - Discharge Data Discharge Date/Time-TO BE ENTERED AT DEPARTURE: 07/04/19 16:30 Medical Decision Making 14:45 --33-year-old female with borderline personality disorder, status post recent uncomplicated vaginal delivery, recently seen here briefly in the emerge department and eloped, now returns requesting evaluation. She again does not wish to provide me any medical history nor allow me to perform examination. She now request speaking with Dr. Epperson, her portfolio management marketing, as well as a mental health counselor. I was able to overhear her speaking with on-call mental health at [facility] and she noted that she is feeling overwhelmed, is afraid of herself but that she is not suicidal. I have contacted Dr. Epperson who will come down to evaluate the patient. I have also contacted [facility] crisis screener who will come to evaluate the patient. --When Dr. Epperson arrived to evaluate the patient, she noted that she did not want to see Dr. Epperson and requested that mental health speak with her. Dr. Epperson left the room in mental health entered and she noted she did not want to speak with mental health in 1 to speak with an emergency physician. Mental health of the room and I entered the room and she noted she did not want to speak with me but wanted to speak with Dr. Epperson. Dr. Epperson, mental health spool worker, and myself all reentered the room to try to address the patient's needs. Patient then noted she only wanted to speak with Dr. Epperson. Dr. Epperson did evaluate the patient and initial plan was for IUD placement here in the emerge department. Room was set up for this procedure and when Dr. Epperson return to perform procedure, patient refused. Patient refused further evaluation and treatment. Given unwillingness to allow for history taking, exam, and participation in evaluation, patient opted to not receive care AGAINST MEDICAL ADVICE. Patient was then escorted out of the emergency department by hospital security. HPI General Mode of arrival: ambulatory . Date/Time Provider Initiated Documentation: 07/04/19 14:58 . Limitations to Documentation: no limitations . Information obtained by: patient . HPI Narrative: 33-year-old female with borderline personality disorder, 1 week status post recent uncomplicated vaginal delivery, here for unknown reason. Patient stated to nursing that she had va ginal bleeding and abdominal discomfort after intercourse yesterday. She refuses to discuss this with me. Patient will not provide history or review of systems. Patient was just here in the emergency department and eloped prior to evaluation and medical screening exam. Related Data Home Medications Medication Instructions Recorded Confirmed ipratropium-albuterol 3 ml IN Q4H PRN PRN 07/26/15 05/27/19 PNV cmb#95-ferrous fumarate-FA 1 tab PO DAILY #30 tab 03/27/19 05/27/19 [] blood-glucose meter #1 each 04/22/19 05/24/19 gabapentin 100 mg PO DAILY@1400 #0 cap 05/07/19 05/27/19 gabapentin 200 mg PO BID #30 cap 05/07/19 05/27/19 inhalational spacing device #1 each 05/11/19 05/24/19 buspirone 15 mg PO TID 05/27/19 05/27/19 lorazepam [Ativan] 2 mg PO 5XW 05/27/19 05/27/19 omeprazole 40 mg PO DAILY AM 05/27/19 05/27/19 olanzapine 5 mg tablet 5 mg PO BID #30 tab 05/29/19 Symbicort 2 puff INHALATION BID 06/25/19 06/25/19 albuterol sulfate 90 mcg/actuation 1 puff INHALATION Q4H PRN PRN #200 06/25/19 aerosol inhaler inh ibuprofen 600 mg tablet 600 mg PO Q6H PRN #30 tab 06/25/19 ibuprofen 600 mg tablet 600 mg PO Q6H PRN #30 tab 06/26/19 amoxicillin 875 mg-potassium 1 tab PO BID #14 tab 06/28/19 clavulanate 125 mg tablet Previous Rx's Medication Instructions Recorded PNV cmb#95-ferrous fumarate-FA 1 tab PO DAILY #30 tab 03/27/19 [] blood-glucose meter #1 each 04/22/19 gabapentin 100 mg PO DAILY@1400 #0 cap 05/07/19 gabapentin 200 mg PO BID #30 cap 05/07/19 inhalational spacing device #1 each 05/11/19 olanzapine 5 mg tablet 5 mg PO BID #30 tab 05/29/19 albuterol sulfate 90 mcg/actuation 1 puff INHALATION Q4H PRN PRN #200 06/25/19 aerosol inhaler inh ibuprofen 600 mg tablet 600 mg PO Q6H PRN #30 tab 06/25/19 ibuprofen 600 mg tablet 600 mg PO Q6H PRN #30 tab 06/26/19 amoxicillin 875 mg-potassium 1 tab PO BID #14 tab 06/28/19 clavulanate 125 mg tablet Allergies Allergy/AdvReac Type Severity Reaction Status Date / Time No Known Allergies Allergy Verified 07/04/19 17:58 General Stated Complaint: SUPERVISOR SEWING ROOM DOROTEO: 4 Review of Systems Narrative: Unable to obtain [facility] Medical History Active labor (Acute) Asthma Borderline personality disorder (Acute) Cellulitis of left lower extremity without foot (Acute) 05/03/19. Onset of pain with cellulitis. Rx with Keflex. Chronic anxiety with depression Difficulty voiding (Inactive 01/08/15) urge to void, but only able to void in small amounts Lymphedema (Acute) 2nd trimester. 02/2019. nl bilateral LE dopplers. ARLEY hose not helpful (hard time staying on). 04/2019 PT declined massage secondary to new onset of LLE cellulitis Obesity Obesity affecting , antepartum (Inactive 10/08/14) early 1hr GTT. (Acute) PTSD (post-traumatic stress disorder) (Acute) Supervision of normal first (Inactive 10/08/14) Tobacco use Surgical History Myringotomy w/ PE (pressure equalizing) tubes as a child Social History Smoking/Tobacco Use Status: Current every day Tobacco Type: cigarettes Alcohol Intake: former Drug use: Daily Substance use type: does not use Details: marijuana 3 x daily Do you feel safe at home: Yes Do you feel safe in your relationship?: Yes Female Reproductive History Menstrual Age of Menarche: 12 Duration of menses: 3-5 days control method: none History History 6 Para 4 Hx # Term Pregnancies 4 Multiple births 0 Hx # Pregnancies Ectopic pregnancies 0 AB induced 1 Hx Number of Living Children 4 AB spontaneous 1 Past Pregnancies Del. Date GA/Weeks # Outcome Route Wgt Sex Labor Lgth Anesthes ia Location Prov Complic Unknown 40 No Successful vaginal 2.325 kg Female 20 min [place], by an rn dr conley Unknown 02/11/09 40 No Successful vaginal 2.325 kg Male [address] conley 04/16/15 No Successful vaginal precipitous deliv ered 20 min after admission rn in 06/24/19 39 No Successful vaginal 2.41 kg Male An ne O'Jeff Delivery Date: On 01/02/19 @ 14:04 ERICA TALAMANTES precipitous, Delivery Date: On 01/14/19 @ 13:15 ERICA TALAMANTES DATE/INFO UNKNOWN, PT CLAIMS SHE HAS NO RECOLLECTION OF ONE OF HER PREGNANCIES. Delivery Date: 02/11/09 No notes to display Delivery Date: 04/16/15 On 01/31/19 @ 11:24 ERICA TALAMANTES precipitous delivery w/o pp complications Delivery Date: 06/24/19 On 07/03/19 @ 15:45 Bharati Martell Artificial ROM; augemented by oxytocin; 18hrs 45 min. Exam Narrative Exam Narrative: Patient will not allow me to examine her Const General: uncooperative and no acute distress Psych Affect: anxious affect Course Vital Signs Vital signs: Vital Signs Pulse 77 07/04/19 14:14 Respiratory Rate 18 07/04/19 14:14 Blood Pressure 132/84 07/04/19 14:14 Pulse Oximetry 97 07/04/19 14:14 Pulse 77 07/04/19 14:14 Respiratory Rate 18 07/04/19 14:14 Respiratory Effort 07/04/19 14:17 Blood Pressure 132/84 07/04/19 14:14 Pulse Oximetry 97 07/04/19 14:14 Oxygen Delivery Method Room Air 07/04/19 14:14 Oxygen Flow Rate 0 07/04/19 14:14 Pain Level 9 07/04/19 14:14
--- NOTE | 2019-07-04 15:39 | PDOC.MHCN_ITS ---
Date of service: 07/04/19 Time of Service: 15:00 Mental Health Crisis Note Presenting Issue How did you arrive at the ED and why did you come: Client arrived to the ED for medical needs, while in the ED client refused to accept medical treatment. Doctor requested mental health to screen client. Precipitating Factors Client denied any homicidal or suicidal thoughts. Disposition BEHAVIOR: Upon arrival client was sitting on the bed, in her room, playing on her cellphone. Client reported to be waiting to see her doctor, Dr. Gale. EYE CONTACT: Client had appropriate eye contact when she was talking, when she was listening she remained focused on her cellphone that she was playing on. MOOD: Client remained calm but, became boisterous when requested the curtains to be closed. AFFECT: Flat. APPETITE: Client didn't share. SLEEP(trouble falling/staying asleep: Client didn't share Plan Client was going to be escorted of the property. Provisional Diagnosis Major depressive, BPD and PTSD and substance abuse. Signature Clinician's Name/Title: Gail Loyola [facility] mental health Screener
--- NOTE | 2019-07-04 16:22 | NUR.NOTE ---
Dr Valverde here to assess patient. pt refuses to be seen. Dr avila left and said he would not come back. Nursing Note:
== END 2019-07-04 16:30 | disposition left against medical advice (07) ==
PROVIDERS: Emergency Provider Student in an Organized Health Care Education/Training Program; PCP Nurse Practitioner Family
DX: F41.9 Anxiety disorder, unspecified (principal); F60.3 Borderline personality disorder; Z53.29 Procedure and treatment not carried out because of patient's decision for other reasons

== ENCOUNTER 2019-07-04 17:53 | Emergency (ER) | payer MEDICARE, MEDICAID, SELFPAY ==
[2019-07-04 17:55] VITALS: TEMP 36.5
--- NOTE | 2019-07-04 18:05 | ED.GENADUL_ITS ---
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 Clinical Impression: Borderline personality disorder Primary Care Provider: Rocehlle Muñoz ED Provider: Hugo Mcclure Home Meds and New Rx's Prescriptions: No Action (DME) POCKET CHAMBER Spacer See Rx Instructions .ROUTE .MEDSUPPLY Qty: 1 RF: 0 (DME) blood-glucose meter [Accu-Chek Ethel Plus Meter] Misc See Rx Instructions .ROUTE .MEDSUPPLY Qty: 1 RF: 0 olanzapine [Zyprexa] 5 mg tablet 5 mg PO BID Qty: 30 RF: 4 ibuprofen 600 mg tablet 600 mg PO Q6H PRN (Reason: pain) Qty: 30 RF: 1 albuterol sulfate [Ventolin HFA] 90 mcg/actuation HFA aerosol inhaler 1 puff Inhalation Q4H PRN PRN (Reason: bronchospasm) Qty: 200 RF: 5 ibuprofen 600 mg tablet 600 mg PO Q6H PRN (Reason: pain) Qty: 30 RF: 2 amoxicillin-pot clavulanate [Augmentin] 875-125 mg tablet 1 tab PO BID Qty: 14 RF: 0 ipratropium-albuterol 3 ML solution for nebulization 3 ml IN Q4H PRN PRNRF: 0 PNV cmb#95-ferrous fumarate-FA [] 28 mg iron- 800 mcg Tablet 1 tab PO DAILY Qty: 30 RF: 0 omeprazole 40 mg Capsule,Delayed Release(Dr/Ec) 40 mg PO DAILY AM RF: 0 buspirone 5 mg tablet 15 mg PO TID RF: 0 lorazepam [Ativan] 2 mg Tablet 2 mg PO 5XW RF: 0 gabapentin 100 mg Capsule 100 mg PO DAILY@1400 Qty: 0 RF: 0 gabapentin 100 mg Capsule 200 mg PO BID Qty: 30 RF: 0 Symbicort 160-4.5 mcg/actuation Hfa Aerosol Inhaler 2 puff INHALATION BID RF: 0 Discharge Data Discharge Date/Time-TO BE ENTERED AT DEPARTURE: 07/04/19 18:10 Medical Decision Making 33-year-old female with borderline personality disorder, here after refusing examination and care earlier this afternoon, again refusing to participate in history and examination. I explained to the patient that we would not be able to perform medical screening exam given her reluctance to participate in this exam. She became quite irate and verbally threatening. I asked security to escort the patient out of the building. I did encourage her to return at any point should she have any worsening, new concerning symptoms or or desire to participate in medical screening examination. HPI General Mode of arrival: ambulatory . Date/Time Provider Initiated Documentation: 07/04/19 18:05 . Information obtained by: patient . HPI Narrative: 33yo f with borderline personality disorder returns after leaving the emergency department without medical screening earlier. Patient does not wish to provide history again. Patient will not come into triage box for initial assessment. Related Data Home Medications Medication Instructions Recorded Confirmed ipratropium-albuterol 3 ml IN Q4H PRN PRN 07/26/15 05/27/19 PNV cmb#95-ferrous fumarate-FA 1 tab PO DAILY #30 tab 03/27/19 05/27/19 [] blood-glucose meter #1 each 04/22/19 05/24/19 gabapentin 100 mg PO DAILY@1400 #0 cap 05/07/19 05/27/19 gabapentin 200 mg PO BID #30 cap 05/07/19 05/27/19 inhalational spacing device #1 each 05/11/19 05/24/19 buspirone 15 mg PO TID 05/27/19 05/27/19 lorazepam [Ativan] 2 mg PO 5XW 05/27/19 05/27/19 omeprazole 40 mg PO DAILY AM 05/27/19 05/27/19 olanzapine 5 mg tablet 5 mg PO BID #30 tab 05/29/19 Symbicort 2 puff INHALATION BID 06/25/19 06/25/19 albuterol sulfate 90 mcg/actuation 1 puff INHALATION Q4H PRN PRN #200 06/25/19 aerosol inhaler inh ibuprofen 600 mg tablet 600 mg PO Q6H PRN #30 tab 06/25/19 ibuprofen 600 mg tablet 600 mg PO Q6H PRN #30 tab 06/26/19 amoxicillin 875 mg-potassium 1 tab PO BID #14 tab 06/28/19 clavulanate 125 mg tablet Previous Rx's Medication Instructions Recorded PNV cmb#95-ferrous fumarate-FA 1 tab PO DAILY #30 tab 03/27/19 [] blood-glucose meter #1 each 04/22/19 gabapentin 100 mg PO DAILY@1400 #0 cap 05/07/19 gabapentin 200 mg PO BID #30 cap 05/07/19 inhalational spacing device #1 each 05/11/19 olanzapine 5 mg tablet 5 mg PO BID #30 tab 05/29/19 albuterol sulfate 90 mcg/actuation 1 puff INHALATION Q4H PRN PRN #200 06/25/19 aerosol inhaler inh ibuprofen 600 mg tablet 600 mg PO Q6H PRN #30 tab 06/25/19 ibuprofen 600 mg tablet 600 mg PO Q6H PRN #30 tab 06/26/19 amoxicillin 875 mg-potassium 1 tab PO BID #14 tab 06/28/19 clavulanate 125 mg tablet Allergies Allergy/AdvReac Type Severity Reaction Status Date / Time No Known Allergies Allergy Verified 07/04/19 17:58 General Stated 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 DOROTEO: 3 Review of Systems Narrative: Unable to obtain [facility] Social History Smoking/Tobacco Use Status: Current every day Tobacco Type: cigarettes Alcohol Intake: former Drug use: Daily Substance use type: does not use Details: marijuana 3 x daily Do you feel safe at home: Yes Do you feel safe in your relationship?: Yes Female Reproductive History Menstrual Age of Menarche: 12 Duration of menses: 3-5 days control method: none History History 6 Para 4 Hx # Term Pregnancies 4 Multiple births 0 Hx # Pregnancies Ectopic pregnancies 0 AB induced 1 Hx Number of Living Children 4 AB spontaneous 1 Past Pregnancies Del. Date GA/Weeks # Outcome Route Wgt Sex Labor Lgth Anesthes ia Location Prov Complic Unknown 40 No Successful vaginal 2.325 kg Female 20 min cottage, by an rn dr conley Unknown 02/11/09 40 No Successful vaginal 2.325 kg Male [address] conley 04/16/15 No Successful vaginal precipitous deliv ered 20 min after admission rn in 06/24/19 39 No Successful vaginal 2.41 kg Male [place] Delivery Date: On 01/02/19 @ 14:04 ERICA TALAMANTES precipitous, Delivery Date: On 01/14/19 @ 13:15 ERICA TALAMANTES DATE/INFO UNKNOWN, PT CLAIMS SHE HAS NO RECOLLECTION OF ONE OF HER PREGNANCIES. Delivery Date: 02/11/09 No notes to display Delivery Date: 04/16/15 On 01/31/19 @ 11:24 ERICA TALAMANTES precipitous delivery w/o pp complications Delivery Date: 06/24/19 On 07/03/19 @ 15:45 Bharati Martell Artificial ROM; augemented by oxytocin; 18hrs 45 min. Exam Narrative Exam Narrative: Patient declined examination Course Vital Signs Vital signs: Vital Signs Temperature 36.5 C 07/04/19 17:55 Temperature 36.5 C 07/04/19 17:55 Comment cannot estimate weight - refusing to step on scale 07/04/19 17:55
== END 2019-07-04 18:10 | disposition left against medical advice (07) ==
LOC: ER 18:24
PROVIDERS: Emergency Provider Student in an Organized Health Care Education/Training Program; PCP Nurse Practitioner Family
DX: F60.3 Borderline personality disorder (principal); Z53.29 Procedure and treatment not carried out because of patient's decision for other reasons
CPT/HCPCS: 99281; 99284; 99282

== ENCOUNTER 2019-07-05 02:39 | Emergency (ER) | payer MEDICARE, MEDICAID, SELFPAY ==
--- NOTE | 2019-07-05 02:48 | W.ED.GENAD ---
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 Clinical Impression: Vaginal spotting Primary Care Provider: Rochelle Muñoz ED Provider: Brian Radford Home Meds and New Rx's Prescriptions: No Action (DME) POCKET CHAMBER Spacer See Rx Instructions .ROUTE .MEDSUPPLY Qty: 1 RF: 0 (DME) blood-glucose meter [Accu-Chek Ethel Plus Meter] Misc See Rx Instructions .ROUTE .MEDSUPPLY Qty: 1 RF: 0 olanzapine [Zyprexa] 5 mg tablet 5 mg PO BID Qty: 30 RF: 4 ibuprofen 600 mg tablet 600 mg PO Q6H PRN (Reason: pain) Qty: 30 RF: 1 albuterol sulfate [Ventolin HFA] 90 mcg/actuation HFA aerosol inhaler 1 puff Inhalation Q4H PRN PRN (Reason: bronchospasm) Qty: 200 RF: 5 ibuprofen 600 mg tablet 600 mg PO Q6H PRN (Reason: pain) Qty: 30 RF: 2 amoxicillin-pot clavulanate [Augmentin] 875-125 mg tablet 1 tab PO BID Qty: 14 RF: 0 ipratropium-albuterol 3 ML solution for nebulization 3 ml IN Q4H PRN PRNRF: 0 PNV cmb#95-ferrous fumarate-FA [] 28 mg iron- 800 mcg Tablet 1 tab PO DAILY Qty: 30 RF: 0 omeprazole 40 mg Capsule,Delayed Release(Dr/Ec) 40 mg PO DAILY AM RF: 0 buspirone 5 mg tablet 15 mg PO TID RF: 0 lorazepam [Ativan] 2 mg Tablet 2 mg PO 5XW RF: 0 gabapentin 100 mg Capsule 100 mg PO DAILY@1400 Qty: 0 RF: 0 gabapentin 100 mg Capsule 200 mg PO BID Qty: 30 RF: 0 Symbicort 160-4.5 mcg/actuation Hfa Aerosol Inhaler 2 puff INHALATION BID RF: 0 Discharge Data Discharge Date/Time-TO BE ENTERED AT DEPARTURE: 07/05/19 04:00 Medical Decision Making This is a 33-year-old female with a past medical history of PTSD, borderline personality disorder, recent delivery that was uneventful 10 days ago who presents for vaginal pain and spotting. Patient states that early yesterday she had anal intercourse and then subsequently vaginal intercourse. She has had pain and mild bleeding since then. She has come to the ER 3 times prior to [facility]'s visit, each time she is left AGAINST MEDICAL ADVICE, eloped, or refused medical screening exam. She presents again for continued symptoms. Patient's course during [facility] is been notably tumultuous. She has threatened to leave and actually left once and then turned around in the lobby and come back to be evaluated. Vaginal exam demonstrates no evidence of large tear, or other significant abnormality. Mild pelvic tenderness on exam. Physical exam is otherwise unremarkable. Patient has caused multiple delays in management and evaluation. She is repeatedly refused treatments and then again accepted later and then again refused and then shortly thereafter accepted. Currently the plan is to get a CT scan is no ultrasound is available, basic labs, and reassess. 4:30 AM Initially the patient did allow placement of the IV, which unfortunately she promptly ripped out. Repeat attempts were made however the patient became extremely noncompliant. For instance when the new IV was meant to be placed it was cleaned with alcohol on the prep to skin, patient was then immediately wipe that area with her hand. This happened multiple times multiple attempts. Unfortunately the patient continued to become noncompliant, things escalated, she began screaming, becoming very confrontational with staff. She then refused any further treatment or work-up. And her behavior became incongruent with safe, appropriate and effective medical management. Eventually she became a notable threat to staff. With a medical screening exam having been performed and demonstrating no evidence of an acute surgical abdomen, in conjunction with notably stable vital signs, no evidence of significant vaginal hemorrhage or bleed, and otherwise unremarkable exam and assessment the patient was allowed to leave AGAINST MEDICAL ADVICE, but safely and appropriately. She was escorted out of the emergency department by the [facility] staff. Prior to leaving it was made very clear to the patient on my recommendations for close follow-up, importance of avoiding any vaginal intercourse, and red flags for which to immediately return. She demonstrated clear verbal understanding of this. HPI General Date/Time Provider Initiated Documentation: 07/05/19 02:40. HPI Narrative: This is a 33-year-old female with a past medical history of PTSD, borderline personality disorder, recent uneventful vaginal delivery who presents for vaginal pain after vaginal intercourse. She had an unremarkable vaginal delivery 10 days ago. She had a vaginal intercourse earlier today immediately after anal intercourse. After that she had mild pain mild spotting. She is come to the ER 3 times prior to this evening, each time she is left AGAINST MEDICAL ADVICE after either eloping or refusing medical evaluation. Aside for vaginal pain she denies any other complaints at this time. She denies any nausea, vomiting, diarrhea or other complaints. Related Data Home Medications Medication Instructions Recorded Confirmed ipratropium-albuterol 3 ml IN Q4H PRN PRN 07/26/15 05/27/19 PNV cmb#95-ferrous fumarate-FA 1 tab PO DAILY #30 tab 03/27/19 05/27/19 [] blood-glucose meter #1 each 04/22/19 05/24/19 gabapentin 100 mg PO DAILY@1400 #0 cap 05/07/19 05/27/19 gabapentin 200 mg PO BID #30 cap 05/07/19 05/27/19 inhalational spacing device #1 each 05/11/19 05/24/19 buspirone 15 mg PO TID 05/27/19 05/27/19 lorazepam [Ativan] 2 mg PO 5XW 05/27/19 05/27/19 omeprazole 40 mg PO DAILY AM 05/27/19 05/27/19 olanzapine 5 mg tablet 5 mg PO BID #30 tab 05/29/19 Symbicort 2 puff INHALATION BID 06/25/19 06/25/19 albuterol sulfate 90 mcg/actuation 1 puff INHALATION Q4H PRN PRN #200 06/25/19 aerosol inhaler inh ibuprofen 600 mg tablet 600 mg PO Q6H PRN #30 tab 06/25/19 ibuprofen 600 mg tablet 600 mg PO Q6H PRN #30 tab 06/26/19 amoxicillin 875 mg-potassium 1 tab PO BID #14 tab 06/28/19 clavulanate 125 mg tablet Previous Rx's Medication Instructions Recorded PNV cmb#95-ferrous fumarate-FA 1 tab PO DAILY #30 tab 03/27/19 [] blood-glucose meter #1 each 04/22/19 gabapentin 100 mg PO DAILY@1400 #0 cap 05/07/19 gabapentin 200 mg PO BID #30 cap 05/07/19 inhalational spacing device #1 each 05/11/19 olanzapine 5 mg tablet 5 mg PO BID #30 tab 05/29/19 albuterol sulfate 90 mcg/actuation 1 puff INHALATION Q4H PRN PRN #200 06/25/19 aerosol inhaler inh ibuprofen 600 mg tablet 600 mg PO Q6H PRN #30 tab 06/25/19 ibuprofen 600 mg tablet 600 mg PO Q6H PRN #30 tab 06/26/19 amoxicillin 875 mg-potassium 1 tab PO BID #14 tab 06/28/19 clavulanate 125 mg tablet Allergies Allergy/AdvReac Type Severity Reaction Status Date / Time No Known Allergies Allergy Verified 07/04/19 17:58 General DOROTEO: 3 Review of Systems All systems reviewed & are unremarkable except as noted in HPI and below PFSH Social History Smoking/Tobacco Use Status: Current every day Tobacco Type: cigarettes Alcohol Intake: former Drug use: Daily Substance use type: does not use Details: marijuana 3 x daily Do you feel safe at home: Yes Do you feel safe in your relationship?: Yes Female Reproductive History Menstrual Age of Menarche: 12 Duration of menses: 3-5 days control method: none History History 6 Para 4 Hx # Term Pregnancies 4 Multiple births 0 Hx # Pregnancies Ectopic pregnancies 0 AB induced 1 Hx Number of Living Children 4 AB spontaneous 1 Past Pregnancies Del. Date GA/Weeks # Outcome Route Wgt Sex Labor Lgth Anesthesia Location Prov Complic Unknown 40 No Successful vaginal 2.325 kg Female 20 min cottage, by an rn dr conley Unknown 02/11/09 40 No Successful vaginal 2.325 kg Male [address] conley 04/16/15 No Successful vaginal precipitous delivered 20 min after admission rn in 06/24/19 39 No Successful vaginal 2.41 kg Male [facility] Delivery Date: On 01/02/19 @ 14:04 ERICA TALAMANTES precipitous, Delivery Date: On 01/14/19 @ 13:15 ERICA TALAMANTES DATE/INFO UNKNOWN, PT CLAIMS SHE HAS NO RECOLLECTION OF ONE OF HER PREGNANCIES. Delivery Date: 02/11/09 No notes to display Delivery Date: 04/16/15 On 01/31/19 @ 11:24 ERICA TALAMANTES precipitous delivery w/o pp complications Delivery Date: 06/24/19 On 07/03/19 @ 15:45 Bharati Martell Artificial ROM; augemented by oxytocin; 18hrs 45 min. Exam Narrative Exam Narrative: 1.Const: Well-nourished, Well-developed, appearing stated age 2.Eyes: PERRL, no conjunctival injection, and symmetrical lids. 3.ENT: Atraumatic external nose and ears. Moist MM. Neck: Symmetric, trachea midline, No thyromegaly. 4.CVS: +S1/S2, No murmurs or gallops. Peripheral pulses 2+ and equal in all extremities. Brisk capillary refill in all extremities. 5.RESP: Unlabored respiratory effort. Clear to auscultation bilaterally. No wheezes rales or rhonchi 6.GI: Soft, Nontender/Nondistended, No hepatosplenomegaly. No guarding or rebound. Mild pelvic tenderness on palpation. No evidence of an acute surgical abdomen. Female nurse Shanae was at bedside when vaginal exam was performed and there is no evidence of significant vaginal laceration, cervix appears unremarkable. No active bleeding. Small amount of old brown coagulated blood is noted over the cervix. Patient's vaginal pad demonstrates no evidence of acute bleeding. 7.MSK: Normocephalic/Atraumatic, Extremities w/o deformity or ttp No cyanosis or clubbing, Normal movement of all extremities 8.Skin: Warm, Dry. No rashes or lesions. 9.Neuro: recording engineer II-XII grossly intact. Sensation grossly intact, no focal neurologic deficits. 10.Psych: (AAO) x3. Notably confrontational, noncompliant with request.
[2019-07-05 03:08] VITALS: BP 144/92; PULSE 89; RESP 16; TEMP 36.5; O2SAT 95
--- NOTE | 2019-07-05 03:10 | NUR.NOTE ---
attempted to place pt in room 9, initially refused to go into room and stated she did not want to be seen if she was placed in room 9. Pt to waiting room for several minutes, then came back to room 9 and agreed to be examined by MD Radford. pelvic exam with RN flight control tower operator.
--- NOTE | 2019-07-05 03:35 | NUR.NOTE ---
Pt agreeable to having labs and CT. #20 RAC, labs drawn.
[2019-07-05 03:37] LABS: Abs Immature Grans 0.02 k/cumm (0.0-0.09); Absolute Basophil Count 0.03 k/cumm (0.0-0.2); Absolute Eosinophil Count 0.15 k/cumm (0.0-0.7); Absolute Lymphocyte Count 2.06 k/cumm (1.2-3.4); Absolute Neutrophil Count 4.19 k/cumm (1.2-6.7); Basophils % 0.4; Eosinophils % 2.1; HCT 44.9 % (36.0-46.0); HGB 14.5 g/dL (12.0-15.5); Immature Grans % 0.3; Lymphocytes % 29.2; Mean Corp. HGB Concentration 32.3 g/dL (32.0-36.0); Mean Corpuscular Hemoglobin 28.7 pg (27.0-33.0); Mean Corpuscular Volume 88.7 fL (80-95); Mean Platelet Volume 9.6 fL (8.0-11.0); Monocytes % 8.5; Neutrophils % 59.5; Platelet Count 327 x1000/uL (130-400); RBC 5.06 m/cumm (4.00-5.20); RBC Distribution Width 14.9 % (11.7-14.6); White Blood Cell Count 7.05 k/cumm (4.4-10.8)
--- NOTE | 2019-07-05 03:56 | NUR.NOTE ---
Pt pulled RAC IV. Refused to allow bandage to be placed. Pt agreeable to new IV. Attempted to place, pt repeatedly rubbing area after cleansed. Pt asked not to touch, states fuck you, it's itchy. Advised pt that no further attempts would be made to place IV. Pt screaming in room. engraver copperplate in to escort pt off property.
[2019-07-05 03:58] LABS: ALT 22 U/L (14-59); AST 24 U/L (15-37); Albumin 3.5 g/dL (3.4-5.0); Alkaline Phosphatase 147 U/L (46-116); Anion Gap 8.5 mmol/L (3-11); BUN 14 mg/dL (7-18); Bilirubin, Total 0.6 mg/dL (0.2-1.0); CO2 28.5 mmol/L (21.0-32.0); CREATININE 0.94 mg/dL (0.55-1.02); Calcium 9.1 mg/dL (8.5-10.1); Chloride 104 mmol/L (98-107); Glucose 86 mg/dL (70-100); Potassium 3.7 mmol/L (3.5-5.1); Sodium 141 mmol/L (136-145); Total Protein 8.4 g/dL (6.4-8.2)
== END 2019-07-05 04:00 | disposition left against medical advice (07) ==
LOC: ER 02:48
PROVIDERS: Emergency Provider Student in an Organized Health Care Education/Training Program; PCP Nurse Practitioner Family
DX: N93.9 Abnormal uterine and vaginal bleeding, unspecified (principal); Z53.29 Procedure and treatment not carried out because of patient's decision for other reasons
CPT/HCPCS: 36415; 80053; 99283; 85025

== ENCOUNTER 2019-07-14 19:33 | Emergency (ER) | payer MEDICARE, MEDICAID, SELFPAY ==
[2019-07-14 20:01] VITALS: BP 150/111; PULSE 84; RESP 22; TEMP 35.6; O2SAT 98
--- NOTE | 2019-07-14 20:30 | DI.CT_ITS ---
EXAM: CT ABDOMEN AND PELVIS WO CLINICAL HISTORY: pelvic pain, recent Mirena device TECHNIQUE: Without IV or oral contrast. COMPARISON: No exams were available for comparison FINDINGS: The patient was unable to cooperate with the exam and unable to breath hold. There is significant mo tion throughout the exam. The heart size is normal. The lung bases clear. The liver, spleen, pancr eas, kidneys and adrenals are grossly normal. The gallbladder is not well seen and appears contracte d. The appendix is reasonably well seen and appears normal. There is a moderate increased quantity of stool. There is no bowel wall thickening or gross evidence of inflammatory change. The uterus is enlarged. No discrete fibroid is seen. IUD is noted within the uterus; the superior arms appear to be positioned posteriorly and do not appear to extend into the uterine cornua. The IUD appears posi tioned low in the lower uterine segment. The bladder is unremarkable. IMPRESSION: Limited exam due to patient motion. An IUD is seen within an enlarged uterus; however, it appears to be positioned inferiorly in the lower uterine segment. No acute abnormality is seen.
--- NOTE | 2019-07-14 21:05 | DI.VRAD_ITS ---
PROCEDURE INFORMATION: Exam: CT Abdomen And Pelvis Without Contrast Exam date and time: 07/14/2019 8:24 PM Clinical history: 33 years old, female; Abdominal pain; Patient HX: Pelvic pain, recent merena device TECHNIQUE: Imaging protocol: Computed tomography of the abdomen and pelvis without contrast. Radiation optimization: All CT scans at this facility use at least one of these dose optimization techniques: automated exposure control; mA and/or kV adjustment per patient size (includes targeted exams where dose is matched to clinical indication); or iterative reconstruction. Other technique: Motion degraded study. COMPARISON: US OB [facility] WEIGHT 06/11/2019 3:20 PM FINDINGS: Lungs: Clear lung bases. Liver: Normal. No mass. Gallbladder and bile ducts: Normal. No calcified stones. No ductal dilation. Pancreas: Normal. No ductal dilation. Spleen: Normal. No splenomegaly. Adrenals: Normal. No mass. Kidneys and ureters: Normal. No hydronephrosis. Stomach and bowel: Unremarkable. No obstruction. No mucosal thickening. Appendix: No evidence of appendicitis. Intraperitoneal space: No free intraperitoneal gas. No ascites. Vasculature: Dilated greater saphenous veins at saphenofemoral junctions. Lymph nodes: No adenopathy. Bladder: Unremarkable as visualized. Reproductive: Enlarged anteverted uterus. Metallic intrauterine contraceptive device is suboptimally positioned and lower uterine segment. Superior arms of the device do not extend into cornuae. Bones/joints: Unremarkable. No acute fracture. The spine demonstrates mild degenerative changes at multiple levels. Soft tissues: Unremarkable. IMPRESSION: 1. Suboptimal positioning of intrauterine contraceptive device. 2. Dilated greater saphenous veins. Dictated and Authenticated by: Anthony Harkins MD. Ordering:JANAY Torres MD
--- NOTE | 2019-07-14 21:09 | NUR.NOTE ---
pt removed cap from iv tubing, screaming i'm bleeding. pt noted to have blood on left hand and right arm. IV flushed, +BR, +flush. Pt refused to clean blood off hand and arm, rubbing left hand on right forearm.
--- NOTE | 2019-07-14 21:17 | NUR.NOTE ---
pt refused her IV and then changed her mind and demanded it , once in, she took the drsng off. it was replaced. she then unscrewed the cap, bleeding all over. she is refusing her iv meds .Nursing Note:
[2019-07-14 21:27] LABS: Abs Immature Grans 0.02 k/cumm (0.0-0.09); Absolute Basophil Count 0.03 k/cumm (0.0-0.2); Absolute Lymphocyte Count 2.98 k/cumm (1.2-3.4); Absolute Monocyte Count 0.69 k/cumm (0.11-0.7); Absolute Neutrophil Count 4.71 k/cumm (1.2-6.7); Basophils % 0.3; Eosinophils % 3.4; HCT 42.1 % (36.0-46.0); HGB 13.2 g/dL (12.0-15.5); Immature Grans % 0.2; Lymphocytes % 34.1; Mean Corp. HGB Concentration 31.4 g/dL (32.0-36.0); Mean Corpuscular Hemoglobin 28.3 pg (27.0-33.0); Mean Corpuscular Volume 90.3 fL (80-95); Mean Platelet Volume 10.2 fL (8.0-11.0); Monocytes % 7.9; Neutrophils % 54.1; Platelet Count 261 x1000/uL (130-400); RBC 4.66 m/cumm (4.00-5.20); RBC Distribution Width 15.6 % (11.7-14.6); White Blood Cell Count 8.73 k/cumm (4.4-10.8)
--- NOTE | 2019-07-14 21:38 | ED.GENADUL_ITS ---
Discharge Plan Disposition Patient Disposition: HOME Condition: Stable Discharge Details Chief Complaint: Abd Prob Clinical Impression: Pelvic pain Primary Care Provider: Rochelle Muñoz ED Provider: Brian Radford Home Meds and New Rx's Prescriptions: No Action (DME) POCKET CHAMBER Spacer See Rx Instructions .ROUTE .MEDSUPPLY Qty: 1 RF: 0 Mirena 20 mcg/24 hours (5 yrs) 52 mg intrauterine device 1 device IY ONCE RF: 0 (DME) blood-glucose meter [Accu-Chek Ethel Plus Meter] Misc See Rx Instructions .ROUTE .MEDSUPPLY Qty: 1 RF: 0 olanzapine [Zyprexa] 5 mg tablet 5 mg PO BID Qty: 30 RF: 4 ibuprofen 600 mg tablet 600 mg PO Q6H PRN (Reason: pain) Qty: 30 RF: 1 albuterol sulfate [Ventolin HFA] 90 mcg/actuation HFA aerosol inhaler 1 puff Inhalation Q4H PRN PRN (Reason: bronchospasm) Qty: 200 RF: 5 ibuprofen 600 mg tablet 600 mg PO Q6H PRN (Reason: pain) Qty: 30 RF: 2 ipratropium-albuterol 3 ML solution for nebulization 3 ml IN Q4H PRN PRNRF: 0 PNV cmb#95-ferrous fumarate-FA [] 28 mg iron- 800 mcg Tablet 1 tab PO DAILY Qty: 30 RF: 0 omeprazole 40 mg Capsule,Delayed Release(Dr/Ec) 40 mg PO DAILY AM RF: 0 buspirone 5 mg tablet 15 mg PO TID RF: 0 lorazepam [Ativan] 2 mg Tablet 2 mg PO 5XW RF: 0 gabapentin 100 mg Capsule 100 mg PO DAILY@1400 Qty: 0 RF: 0 gabapentin 100 mg Capsule 200 mg PO BID Qty: 30 RF: 0 Symbicort 160-4.5 mcg/actuation Hfa Aerosol Inhaler 2 puff INHALATION BID RF: 0 Discharge Instructions Instructions: Pelvic Pain (ED) Additional Instructions: Your CT scan shows no evidence of life-threatening pelvic or abdominal abnormality. Your intrauterine device is still present in your uterus. Recommend avoid trying to pick at this or remove it. Please follow-up closely with your OB doctor. Please take Tylenol and Motrin as needed for pain. If you notice any worsening of your symptoms, or any new symptoms such as vomiting, diarrhea, fever, chills, shortness of breath, chest pain, numbness, weakness, or fainting , please return immediately to the emergency department for reevaluation. Please follow up with your primary care provider as soon as possible for reassessment and reevaluation. As always, it was a pleasure participating in your medical care today. Referrals: Rochelle Muñoz [Primary Care Provider] - Medical Decision Making This is a 33-year-old female well-known to the ED and hospital staff. She presents today for evaluation of pelvic pain. Symptoms have been present since she had an IUD placed 3 days ago. She denies any discharge or bleeding. She admits to mild cramping sensation. Exam demonstrates a nonsurgical appearing abdomen, and stable vital signs. No evidence of sepsis. Vaginal exam refused. CT scan was ordered and demonstrates slightly malpositioned intrauterine device per radiology, however the case was reviewed with Dr. Epperson of OB, he states that these findings are notably consistent with the patient's current state, and that this is a normal finding for her at this stage. Patient's laboratory work-up demonstrates no elevated white count, notably stable hemoglobin, and a normal lactate. No severe electrolyte abno rmalities or renal dysfunction. With no evidence of acute life-threatening abnormality, no acute evidence of surgical abdomen on exam or CT scan, and no evidence of acute life-threatening pelvic pathology, the patient will be discharged home. Discussed red flags which to return and prompt OB follow-up. I have extensively reviewed the treatment plan and discharge instructions with the patient. I have addressed all patient concerns at this time. The patient was made aware of what symptoms to monitor for that would warrant a return to the emergency department. Discussed the plan with the patient, they demonstrate verbal understanding and agreement with our assessment and plan at this time. Of note at time of discharge when the patient's IV was removed she refused to let us place a 4 x 4 gauze on it, which did cause some very mild bleeding which resolved on its own. Additionally when the discharge paperwork was handed to her she subsequently ripped it up into multiple pieces and threw it all over the room and the emergency department as she left. We did offer to get her new discharge paperwork however she refused. FINDINGS: Lungs: Clear lung bases. Liver: Normal. No mass. Gallbladder and bile ducts: Normal. No calcified stones. No ductal dilation. Pancreas: Normal. No ductal dilation. Spleen: Normal. No splenomegaly. Adrenals: Normal. No mass. Kidneys and ureters: Normal. No hydronephrosis. Stomach and bowel: Unremarkable. No obstruction. No mucosal thickening. Appendix: No evidence of appendicitis. Intraperitoneal space: No free intraperitoneal gas. No ascites. Vasculature: Dilated greater saphenous veins at saphenofemoral junctions. Lymph nodes: No adenopathy. Bladder: Unremarkable as visualized. Reproductive: Enlarged anteverted uterus. Metallic intrauterine contraceptive device is suboptimally positioned and lower uterine segment. Superior arms of the device do not extend into cornuae. Bones/joints: Unremarkable. No acute fracture. The spine demonstrates mild degenerative changes at multiple levels. Soft tissues: Unremarkable. IMPRESSION: 1. Suboptimal positioning of intrauterine contraceptive device. 2. Dilated greater saphenous veins. Thank you for allowing us to participate in the care of your patient. Dictated and Authenticated by: Anthony Harkins DO [facility] General Date/Time Provider Initiated Documentation: 07/14/19 20:02 . HPI Narrative: This is a 33-year-old female who is well-known to the emergency department. She presents today for evaluation of pelvic pain. Patient had an IUD placed 3 days ago. This is after a few previous episodes where she personally removed her intrauterine devices. Patient states that since then she has had some mild cramping. She denies any vaginal discharge or bleeding. She denies any fever or chills. She denies any nausea vomiting or diarrhea. She has no other complaints at this time. No other modifying factors. Related Data Home Medications Medication Instructions Recorded Confirmed ipratropium-albuterol 3 ml IN Q4H PRN PRN 07/26/15 07/14/19 PNV cmb#95-ferrous fumarate-FA 1 tab PO DAILY #30 tab 03/27/19 07/14/19 [] blood-glucose meter #1 each 04/22/19 07/14/19 gabapentin 100 mg PO DAILY@1400 #0 cap 05/07/19 07/14/19 gabapentin 200 mg PO BID #30 cap 05/07/19 07/14/19 inhalational spacing device #1 each 05/11/19 07/14/19 buspirone 15 mg PO TID 05/27/19 07/14/19 lorazepam [Ativan] 2 mg PO 5XW 05/27/19 07/14/19 omeprazole 40 mg PO DAILY AM 05/27/19 07/14/19 olanzapine 5 mg tablet 5 mg PO BID #30 tab 05/29/19 07/14/19 Symbicort 2 puff INHALATION BID 06/25/19 07/14/19 albuterol sulfate 90 mcg/actuation 1 puff INHALATION Q4H PRN PRN #200 06/25/19 07/14/19 aerosol inhaler inh ibuprofen 600 mg tablet 600 mg PO Q6H PRN #30 tab 06/25/19 07/14/19 ibuprofen 600 mg tablet 600 mg PO Q6H PRN #30 tab 06/26/19 07/14/19 levonorgestrel 20 mcg/24 hours (5 1 device IY ONCE 07/11/19 07/14/19 yrs) 52 mg intrauterine device Previous Rx's Medication Instructions Recorded PNV cmb#95-ferrous fumarate-FA 1 tab PO DAILY #30 tab 03/27/19 [] blood-glucose meter #1 each 04/22/19 gabapentin 100 mg PO DAILY@1400 #0 cap 05/07/19 gabapentin 200 mg PO BID #30 cap 05/07/19 inhalational spacing device #1 each 05/11/19 olanzapine 5 mg tablet 5 mg PO BID #30 tab 05/29/19 albuterol sulfate 90 mcg/actuation 1 puff INHALATION Q4H PRN PRN #200 06/25/19 aerosol inhaler inh ibuprofen 600 mg tablet 600 mg PO Q6H PRN #30 tab 06/25/19 ibuprofen 600 mg tablet 600 mg PO Q6H PRN #30 tab 06/26/19 Allergies Allergy/AdvReac Type Severity Reaction Status Date / Time No Known Allergies Allergy Verified 07/14/19 22:34 General Stated Complaint: Abd Prob DOROTEO: 3 Review of Systems All systems reviewed & are unremarkable except as noted in HPI and below PFSH Medical History (Updated 07/14/19 @ 09:12 by Guy Epperson MD) Asthma Borderline personality disorder (Acute) Cellulitis of left lower extremity without foot (Resolved) 05/03/19. Onset of pain with cellulitis. Rx with Keflex. Chronic anxiety with depression Difficulty voiding (Inactive 01/08/15) urge to void, but only able to void in small amounts Encounter for IUD insertion (Acute) Lymphedema (Acute) 2nd trimester. 02/2019. nl bilateral LE dopplers. ARLEY hose not helpful (hard time staying on). 04/2019 PT declined massage secondary to new onset of LLE cellulitis Obesity Obesity affecting , antepartum (Inactive 10/08/14) early 1hr GTT. (Resolved) PTSD (post-traumatic stress disorder) (Acute) Right leg swelling (Resolved) Supervision of normal first (Inactive 10/08/14) Tobacco use Surgical History Myringotomy w/ PE (pressure equalizing) tubes as a child Social History Smoking/Tobacco Use Status: Current every day Tobacco Type: cigarettes Alcohol Intake: former Drug use: Daily Substance use type: does not use Details: marijuana 3 x daily Do you feel safe at home: Yes Do you feel safe in your relationship?: Yes Female Reproductive History Menstrual Age of Menarche: 12 Duration of menses: 3-5 days control method: none and progestin IUCD (Mirena IUD inserted by Dr Epperson 07/11/19. Lot#[id number] EXP AUG 2021) History History 6 Para 4 Hx # Term Pregnancies 4 Multiple births 0 Hx # Pregnancies Ectopic pregnancies 0 AB induced 1 Hx Number of Living Children 4 AB spontaneous 1 Past Pregnancies Del. Date GA/Weeks # Outcome Route Wgt Sex Labor Lgth Anesthes ia Location Prov Complic Unknown 40 No Successful vaginal 2.325 kg Female 20 min cottage, by an rn dr conley Unknown 02/11/09 40 No Successful vaginal 2.325 kg Male [address] conley 04/16/15 No Successful vaginal precipitous deliv ered 20 min after admission rn in 06/24/19 39 No Successful vaginal 2.41 kg Male An teri [place] Delivery Date: On 01/02/19 @ 14:04 ERICA TALAMANTES precipitous, Delivery Date: On 01/14/19 @ 13:15 ERICA TALAMANTES DATE/INFO UNKNOWN, PT CLAIMS SHE HAS NO RECOLLECTION OF ONE OF HER PREGNANCIES. Delivery Date: 02/11/09 No notes to display Delivery Date: 04/16/15 On 01/31/19 @ 11:24 ERICA TALAMANTES precipitous delivery w/o pp complications Delivery Date: 06/24/19 On 07/03/19 @ 15:45 Bharati Martell Artificial ROM; augemented by oxytocin; 18hrs 45 min. Exam Narrative Exam Narrative: 1.Const: Well-nourished, Well-developed, appearing stated age 2.Eyes: PERRL, no conjunctival injection, and symmetrical lids. 3.ENT: Atraumatic external nose and ears. Moist MM. Neck: Symmetric, trachea midline, No thyromegaly. 4.CVS: +S1/S2, No murmurs or gallops. Peripheral pulses 2+ and equal in all extremities. Brisk capillary refill in all extremities. 5.RESP: Unlabored respiratory effort. Clear to auscultation bilaterally. No wheezes rales or rhonchi 6.GI: Soft. Nondistended, No hepatosplenomegaly. No guarding or rebound. No evidence of an acute surgical abdomen. Mild suprapubic tenderness. Vaginal exam refused by patient. 7.MSK: Normocephalic/Atraumatic, Extremities w/o deformity or ttp No cyanosis or clubbing, Normal movement of all extremities 8.Skin: Warm, Dry. No rashes or lesions. 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 Sensation grossly intact, no focal neurologic deficits. 10.Psych: (AAO) x3. Notably confrontational and emotionally labile. Patient appears at baseline. Course Vital Signs Vital signs: Vital Signs Temperature 35.6 C L 07/14/19 20:01 Pulse 84 07/14/19 20:01 Respiratory Rate 22 07/14/19 20:01 Blood Pressure 150/111 H 07/14/19 20:01 Pulse Oximetry 98 07/14/19 20:01 Temperature 35.6 C L 07/14/19 20:01 Temperature Source Temporal Artery Scan 07/14/19 20:01 Pulse 84 07/14/19 20:01 Respiratory Rate 22 07/14/19 20:01 Respiratory Effort 07/14/19 20:06 Blood Pressure 150/111 H 07/14/19 20:01 Blood Pressure Position Sitting 07/14/19 20:01 Pulse Oximetry 98 07/14/19 20:01 Comment 07/14/19 20:01 Lab/Test Results Lab/Test Results: Laboratory Tests Range/Units 07/14/19 21:00 Lactate (0.6-1.4) mmol/L 1.0
--- NOTE | 2019-07-14 21:41 | NUR.NOTE ---
pt was offerd pain med again ( after she refused ) the morphine was given . the pt then screamed that she only wanted a 1/2 dose . she has sworn many times and slammed a door. she has been warned that she can not be in the ED with that type of behavior Nursing Note:
[2019-07-14 21:53] LABS: ALT 19 U/L (14-59); AST 18 U/L (15-37); Albumin 3.4 g/dL (3.4-5.0); Alkaline Phosphatase 103 U/L (46-116); Anion Gap 8.5 mmol/L (3-11); BUN 20 mg/dL (7-18); Bilirubin, Total 0.2 mg/dL (0.2-1.0); CO2 26.5 mmol/L (21.0-32.0); CREATININE 0.94 mg/dL (0.55-1.02); Calcium 8.5 mg/dL (8.5-10.1); Chloride 107 mmol/L (98-107); Glucose 85 mg/dL (70-100); Potassium 4.1 mmol/L (3.5-5.1); Sodium 142 mmol/L (136-145); Total Protein 7.2 g/dL (6.4-8.2)
[2019-07-14] MEDS: Ketorolac 30 MG/ML VIAL IM (22:01)
--- NOTE | 2019-07-14 22:02 | NUR.NOTE ---
pt demanding her ativan after she refused it over an hour ago . she was given toradol for pain. she refused vital signs . her IV was removed and she would not let the nurse put a bandage on . she bled all over the place and ripped up her discharge instructions throwing them in the room . as she left she said thank you guys for sucking she is escorted by two sherriffs.Nursing Note:
== END 2019-07-14 22:05 | disposition home or self-care (01) ==
PROVIDERS: Emergency Provider Student in an Organized Health Care Education/Training Program; PCP Nurse Practitioner Family
DX: R10.2 Pelvic and perineal pain (principal); Z97.5 Presence of (intrauterine) contraceptive device
CPT/HCPCS: 36415; 80053; 96372; 96374; 96375; 99285; 74176; 83605; 85025; 99284; J1885; J2060

== ENCOUNTER 2019-07-17 17:12 | Emergency (ER) | payer MEDICARE, MEDICAID, SELFPAY ==
[2019-07-17 17:16] VITALS: BP 144/100; PULSE 88; RESP 18; TEMP 36.4; O2SAT 97
--- NOTE | 2019-07-17 18:29 | CMPROGNOTE_ITS ---
- If Service Date Differs Date of service: 07/17/19 Time of Service: 18:29 Care Management Progress Note Behavioral Health Plan Conchita Kraus, : 1985 Behavioral plan will be established with patient, and care team, to adhere to patient goals, identify restrictions based on behavioral status. Plan will determine level of activity including, level of supervision, and determine privileges based on level of acuity, behaviors and level of engagement by patient. Conchita has an active no trespass order at [facility] under the EMTALA we are required to treat any patient presenting to the ED with a medical screening. When Conchita arrives to the ED staff will promptly notify the; 1) the lighthouse keeper, and 2) security of her arrival. Security will call in a second deputy to sit with Terri hicks in the event she arrives to the ED for treatment. This has been agreed upon by Conchita and the hospital. Behavioral expectations of Conchita when she arrives for treatment. 1.The patient will not yell, or swear at hospital staff including nursing or any other providers. 2.. The patient will not yell, or swear at any person receiving care in the ED. 3.. The patient will not hit, punch, bite or physically assault any staff, patient or visitor in the ED. 4.. If the patient has capacity and is unwilling to participate in her care or obstructs the provider or staffs ability to care for her she will be warned once If the obstructing behavior continues she will be discharged from the ED and escorted by security off the premises. General care plan: 1.. Keep patients interactions focused and simple with limited number of tasks. Conchita may keep her belongings in the room however if she becomes violent or exhibits the above behaviors her belongings will be removed and placed at the nursing station until her departure. 2.. Call a Code Rashid immediately for any aggressive or threating behavior. 3.. Patient has a no trespassing order in place: this means that she needs to be accompanied by security during any planned or unplanned visit to [facility]. 4.. If patient shows up unannounced security needs to be notified immediately. 5.. Restraints (while not encouraged) may be instituted at any point during the continuum of care if necessary to protect the patient or staff. This includes both chemical and physical. If the restraints are applied for criminal purposes than a CPSO is not required.
--- NOTE | 2019-07-17 19:24 | NUR.NOTE ---
Assumed care of pt, report from Theresa. Pt sleeping in recliner in RWR, even, unlabored resp.
--- NOTE | 2019-07-17 20:27 | NUR.NOTE ---
Pt continues to sleep in RWR, RR 15, even, unlabored.
[2019-07-17 20:59] VITALS: RESP 15
--- NOTE | 2019-07-17 21:25 | ED.GENADUL_ITS ---
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 Clinical Impression: IUD complication Primary Care Provider: Preston Tran ED Provider: Hugo Mcclure Home Meds and New Rx's Prescriptions: Continued oxycodone-acetaminophen [Percocet] 5-325 mg tablet 1 tab PO Q8H MDD 3 PRN (Reason: pain) Qty: 20 RF: 0 (DME) POCKET CHAMBER Spacer See Rx Instructions .ROUTE .MEDSUPPLY Qty: 1 RF: 0 Mirena 20 mcg/24 hours (5 yrs) 52 mg intrauterine device 1 device IY ONCE RF: 0 (DME) blood-glucose meter [Accu-Chek Ethel Plus Meter] Misc See Rx Instructions .ROUTE .MEDSUPPLY Qty: 1 RF: 0 olanzapine [Zyprexa] 5 mg tablet 5 mg PO BID Qty: 30 RF: 4 albuterol sulfate [Ventolin HFA] 90 mcg/actuation HFA aerosol inhaler 1 puff Inhalation Q4H PRN PRN (Reason: bronchospasm) Qty: 200 RF: 5 ibuprofen 600 mg tablet 600 mg PO Q6H PRN (Reason: pain) Qty: 30 RF: 2 ipratropium-albuterol 3 ML solution for nebulization 3 ml IN Q4H PRN PRNRF: 0 omeprazole 40 mg Capsule,Delayed Release(Dr/Ec) 40 mg PO DAILY AM RF: 0 buspirone 5 mg tablet 15 mg PO TID RF: 0 lorazepam [Ativan] 2 mg Tablet 2 mg PO 5XW RF: 0 gabapentin 100 mg Capsule 100 mg PO DAILY@1400 Qty: 0 RF: 0 gabapentin 100 mg Capsule 200 mg PO BID Qty: 30 RF: 0 Symbicort 160-4.5 mcg/actuation Hfa Aerosol Inhaler 2 puff INHALATION BID RF: 0 No Action aspirin 325 mg tablet 325 mg PO DAILY Qty: 60 RF: 0 Discharge Instructions Additional Instructions: Please follow-up with your net developer consultant. Call for an appointment. Please contact your primary care physician to arrange follow-up. Return to the ER for any worsening or new concerning symptoms. Referrals: Rochelle Muñoz [NURSE PRACTITIONER] - Discharge Data Discharge Date/Time-TO BE ENTERED AT DEPARTURE: 07/17/19 22:15 Medical Decision Making 33-year-old female with borderline personality disorder here with pelvic discomfort that she suspects is secondary to IUD. Medical screening exam was performed. No acute medical condition was identified. Pelvic exam did reveal a slightly long IUD string that may be irritating vaginal wall. Patient was encouraged to follow-up with her net developer consultant and return for any worsening or new concerning symptoms. HPI General Mode of arrival: ambulatory . Date/Time Provider Initiated Documentation: 07/17/19 17:26 . Limitations to Documentation: no limitations . Information obtained by: patient . HPI Narrative: 33-year-old female with borderline personality disorder, here with chief complaint of pelvic pain. Patient states she suspects IUD was misplaced or else has migrated which is causing discomfort. Pain is mild. No modifiers. No associated pelvic discharge. Related Data Home Medications Medication Instructions Recorded Confirmed ipratropium-albuterol 3 ml IN Q4H PRN PRN 07/26/15 07/19/19 blood-glucose meter #1 each 04/22/19 07/17/19 gabapentin 100 mg PO DAILY@1400 #0 cap 05/07/19 07/19/19 gabapentin 200 mg PO BID #30 cap 05/07/19 07/19/19 inhalational spacing device #1 each 05/11/19 07/17/19 buspirone 15 mg PO TID 05/27/19 07/19/19 lorazepam [Ativan] 2 mg PO 5XW 05/27/19 07/19/19 omeprazole 40 mg PO DAILY AM 05/27/19 07/19/19 olanzapine 5 mg tablet 5 mg PO BID #30 tab 05/29/19 07/19/19 Symbicort 2 puff INHALATION BID 06/25/19 07/19/19 albuterol sulfate 90 mcg/actuation 1 puff INHALATION Q4H PRN PRN #200 06/25/19 07/19/19 aerosol inhaler inh ibuprofen 600 mg tablet 600 mg PO Q6H PRN #30 tab 06/26/19 07/19/19 levonorgestrel 20 mcg/24 hours (5 1 device IY ONCE 07/11/19 07/19/19 yrs) 52 mg intrauterine device oxycodone-acetaminophen 5 mg-325 1 tab PO Q8H PRN #20 tab MDD 3 07/15/19 07/19/19 mg tablet aspirin 325 mg PO DAILY #60 tab 07/26/19 Previous Rx's Medication Instructions Recorded blood-glucose meter #1 each 04/22/19 gabapentin 100 mg PO DAILY@1400 #0 cap 05/07/19 gabapentin 200 mg PO BID #30 cap 05/07/19 inhalational spacing device #1 each 05/11/19 olanzapine 5 mg tablet 5 mg PO BID #30 tab 05/29/19 albuterol sulfate 90 mcg/actuation 1 puff INHALATION Q4H PRN PRN #200 06/25/19 aerosol inhaler inh ibuprofen 600 mg tablet 600 mg PO Q6H PRN #30 tab 06/26/19 oxycodone-acetaminophen 5 mg-325 1 tab PO Q8H PRN #20 tab MDD 3 07/15/19 mg tablet aspirin 325 mg PO DAILY #60 tab 07/26/19 Allergies Allergy/AdvReac Type Severity Reaction Status Date / Time No Known Allergies Allergy Verified 07/19/19 13:46 General Stated Complaint: 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 Onset of pain with cellulitis. Rx with Keflex. Chronic anxiety with depression Difficulty voiding (Inactive 01/08/15) urge to void, but only able to void in small amounts Encounter for IUD insertion (Acute) Lymphedema (Acute) 2nd trimester. 02/2019. nl bilateral LE dopplers. ARLEY hose not helpful (hard time staying on). 04/2019 PT declined massage secondary to new onset of LLE cellulitis Obesity Obesity affecting , antepartum (Inactive 10/08/14) early 1hr GTT. (Resolved) PTSD (post-traumatic stress disorder) (Acute) Right leg swelling (Resolved) Supervision of normal first (Inactive 10/08/14) Tobacco use Surgical History Myringotomy w/ PE (pressure equalizing) tubes as a child Social History Smoking/Tobacco Use Status: Current every day Tobacco Type: cigarettes Alcohol Intake: former Drug use: Daily Substance use type: does not use Details: marijuana 3 x daily Do you feel safe at home: Yes Do you feel safe in your relationship?: Yes Female Reproductive History Menstrual Age of Menarche: 12 Duration of menses: 3-5 days control method: none and progestin IUCD (Mirena IUD inserted by Dr Epperson 07/11/19. Lot#[id number] EXP AUG 2021) History History 6 Para 4 Hx # Term Pregnancies 4 Multiple births 0 Hx # Pregnancies Ectopic pregnancies 0 AB induced 1 Hx Number of Living Children 4 AB spontaneous 1 Past Pregnancies Del. Date GA/Weeks # Outcome Route Wgt Sex Labor Lgth Anesthes ia Location Prov Complic Unknown 40 No Successful vaginal 2.325 kg Female 20 min cottage, by an rn dr conley Unknown 02/11/09 40 No Successful vaginal 2.325 kg Male [address] conley 04/16/15 No Successful vaginal precipitous deliv ered 20 min after admission rn in 06/24/19 39 No Successful vaginal 2.41 kg Male An ne [place] Delivery Date: On 01/02/19 @ 14:04 ERICA TALAMANTES precipitous, Delivery Date: On 01/14/19 @ 13:15 ERICA TALAMANTES DATE/INFO UNKNOWN, PT CLAIMS SHE HAS NO RECOLLECTION OF ONE OF HER PREGNANCIES. Delivery Date: 02/11/09 No notes to display Delivery Date: 04/16/15 On 01/31/19 @ 11:24 ERICA TALAMANTES precipitous delivery w/o pp complications Delivery Date: 06/24/19 On 07/03/19 @ 15:45 Bharati Martell Artificial ROM; augemented by oxytocin; 18hrs 45 min. Exam Const General: cooperative and no acute distress HENMT Mouth: moist mucous membranes Eyes Conjunctivae: normal conjunctivae Sclera: normal sclerae Neck Neck: trachea midline and supple Resp Auscultation: wheezes GI Palpation: soft, not firm, no guarding, no masses, not rigid and nontender External Female Exam: external appearance normal Speculum Exam - Vagina: no lacerations and other (IUD present and IUD string may be irritating vaginal wall) Speculum Exam - Cervix: normal appearance of the cervix Other: Exam performed with female nurse present Skin General skin exam: no rashes or lesions noted Neuro General: alert, awake and tone normal Psych Appearance: grossly normal Mental Status: mental status grossly normal Course Vital Signs Vital signs: Vital Signs Temperature 36.4 C L 07/17/19 17:16 Pulse 88 07/17/19 17:16 Respiratory Rate 18 07/17/19 17:16 Blood Pressure 144/100 H 07/17/19 17:16 Pulse Oximetry 97 07/17/19 17:16 Temperature 36.4 C L 07/17/19 17:16 Temperature Source Temporal Artery Scan 07/17/19 17:16 Pulse 88 07/17/19 17:16 Respiratory Rate 15 07/17/19 20:59 Respiratory Effort Non-Labored 07/17/19 17:21 Blood Pressure 144/100 H 07/17/19 17:16 Blood Pressure Position Sitting 07/17/19 17:16 Pulse Oximetry 97 07/17/19 17:16 Oxygen Delivery Method Room Air 07/17/19 17:16 Oxygen Flow Rate 0 07/17/19 17:16 Pain Level 8 07/17/19 17:23
--- NOTE | 2019-07-17 21:25 | NUR.NOTE ---
Pt to room 6 for exam. Ambulating with steady gait.
[2019-07-17] MEDS: Albuterol HFA 8 GM 60 PUFF INH IH (21:49)
--- NOTE | 2019-07-17 21:50 | NUR.NOTE ---
Pt reports feeling wheezy and SOB after walking to [place]. Pt reports she lost her albuterol inhaler, provided with new inhaler. MD Mcclure in to do pelvic with RN.
[2019-07-17 22:17] VITALS: BP 138/87; PULSE 78; RESP 18; TEMP 37.1; O2SAT 94
== END 2019-07-17 22:15 | disposition home or self-care (01) ==
PROVIDERS: Emergency Provider Student in an Organized Health Care Education/Training Program; PCP Nurse Practitioner Family
DX: T83.84XA Pain due to genitourinary prosthetic devices, implants and grafts, initial encounter (principal); Y84.8 Other medical procedures as the cause of abnormal reaction of the patient, or of later complication, without mention of misadventure at the time of the procedure
CPT/HCPCS: 99284; 99283

== ENCOUNTER 2019-07-19 13:28 | Emergency (ER) | payer MEDICARE, MEDICAID, SELFPAY ==
[2019-07-19 13:36] VITALS: BP 156/70; PULSE 70; RESP 16; TEMP 36; O2SAT 98
[2019-07-19 13:42] VITALS: RESP 16
--- NOTE | 2019-07-19 13:55 | DI.US_ITS ---
EXAM: US LOWER EXTREMITY VENOUS LT CLINICAL HISTORY: pain, vascular engorgement, r/o DVT TECHNIQUE: Ultrasound performed using standard protocol. COMPARISON: No exams were available for comparison FINDINGS: There is thrombus in the mid saphenous vein as well as in a superficial vein in the lateral calf. Th e deep venous system appears free of thrombus. No Brewer's cyst is seen. IMPRESSION: No evidence of deep venous thrombosis. Superficial thrombus in the saphenous vein and superficial lateral calf vein.
--- NOTE | 2019-07-19 13:58 | NUR.NOTE ---
Nursing Note: Pt changed lower half of body willingly for exam. Left leg elevated from dependent position to elevated on bed. Pt chooses to keep her belongings very close to her. Calm and appropriate interaction thus far in visit. Hospital security present per care plan. Given hermelinda coby and warm blankets for comfort. Pt understands plan of care to obtain US left left leg.
--- NOTE | 2019-07-19 14:10 | NUR.NOTE ---
Nursing Note: Pt given sports medicine coordinator to use in room for phone. Set reasonable expectations about length of stay for ultrasound to be accomplished. Pt acknowledges this and states she will stay. Ordered sandwich and lunch tray for pt per her request. Pt remains pleasant and exhibits appropriate behaviors at this time. Will continue to monitor.
--- NOTE | 2019-07-19 14:36 | ED.GENADUL_ITS ---
Discharge Plan Disposition Patient Disposition: HOME Discharge Details Chief Complaint: Vascular Clinical Impression: Superficial thrombophlebitis Primary Care Provider: Preston Tran ED Provider: Hugo Mcclure Home Meds and New Rx's Prescriptions: Continued oxycodone-acetaminophen [Percocet] 5-325 mg tablet 1 tab PO Q8H MDD 3 PRN (Reason: pain) Qty: 20 RF: 0 (DME) POCKET CHAMBER Spacer See Rx Instructions .ROUTE .MEDSUPPLY Qty: 1 RF: 0 Mirena 20 mcg/24 hours (5 yrs) 52 mg intrauterine device 1 device IY ONCE RF: 0 (DME) blood-glucose meter [Accu-Chek Ethel Plus Meter] Misc See Rx Instructions .ROUTE .MEDSUPPLY Qty: 1 RF: 0 olanzapine [Zyprexa] 5 mg tablet 5 mg PO BID Qty: 30 RF: 4 albuterol sulfate [Ventolin HFA] 90 mcg/actuation HFA aerosol inhaler 1 puff Inhalation Q4H PRN PRN (Reason: bronchospasm) Qty: 200 RF: 5 ibuprofen 600 mg tablet 600 mg PO Q6H PRN (Reason: pain) Qty: 30 RF: 2 ipratropium-albuterol 3 ML solution for nebulization 3 ml IN Q4H PRN PRNRF: 0 omeprazole 40 mg Capsule,Delayed Release(Dr/Ec) 40 mg PO DAILY AM RF: 0 buspirone 5 mg tablet 15 mg PO TID RF: 0 lorazepam [Ativan] 2 mg Tablet 2 mg PO 5XW RF: 0 gabapentin 100 mg Capsule 100 mg PO DAILY@1400 Qty: 0 RF: 0 gabapentin 100 mg Capsule 200 mg PO BID Qty: 30 RF: 0 Symbicort 160-4.5 mcg/actuation Hfa Aerosol Inhaler 2 puff INHALATION BID RF: 0 Discharge Instructions Instructions: Superficial Thrombophlebitis (ED) Additional Instructions: Please follow-up with your primary care physician for repeat exam. Call for an appointment. Please contact your primary care physician to arrange follow-up. Return to the ER for any worsening or new concerning symptoms. Referrals: Preston Tran NP [Primary Care Provider] - Discharge Data Discharge Date/Time-TO BE ENTERED AT DEPARTURE: 07/19/19 16:33 <Hugo Mcclure MD - Last Filed: 07/20/19 16:48> Care was signed out by SOM Gonsales at 4 PM. Plan at signout was to follow-up on ultrasound to assess for DVT. If no DVT treat for superficial thrombophlebitis. Ultrasound was reviewed and interpreted by radiology: Superficial thrombus in calf vein, superficial small and not at junction. thrombus in the mid saphenous vein Antibiotic's are not indicated given no concern at this time for supportive thrombo-phlebitis. Patient escalating in behavior despite de-escalation attempts. Patient aggressive and verbally abusive to staff. Attempted to go over discharge instruction with the patient and she refused. Patient escorted from the emergency department by security. HPI <SOM Brian - Last Filed: 07/20/19 16:36> General Date/Time Provider Initiated Documentation: 07/19/19 13:34 . HPI Narrative: This is a 33-year-old patient who is well-known to the emergency room. She presents for complaints of left leg pain. She reports vascular engorgement. Patient reports an area on the proximal medial left thigh as well as an additional area on the left calf which the vessels seem larger and more palpable. Patient reports the area of her thigh has some associated erythema. Patient denies injury, trauma to the leg. Patient denies any recent IV drug use in the area. Patient spoke with her PCP who recommended emergency room evaluation for ultrasound to rule out DVT. Patient denies any associated difficulty breathing or shortness of breath or wheezing. Denies headache or dizziness. Patient reports energy is normal and no fatigue. Patient denies any associated symptoms whatsoever. Denies lower leg swelling bilaterally. Related Data Home Medications Medication Instructions Recorded Confirmed ipratropium-albuterol 3 ml IN Q4H PRN PRN 07/26/15 07/19/19 blood-glucose meter #1 each 04/22/19 07/17/19 gabapentin 100 mg PO DAILY@1400 #0 cap 05/07/19 07/19/19 gabapentin 200 mg PO BID #30 cap 05/07/19 07/19/19 inhalational spacing device #1 each 05/11/19 07/17/19 buspirone 15 mg PO TID 05/27/19 07/19/19 lorazepam [Ativan] 2 mg PO 5XW 05/27/19 07/19/19 omeprazole 40 mg PO DAILY AM 05/27/19 07/19/19 olanzapine 5 mg tablet 5 mg PO BID #30 tab 05/29/19 07/19/19 Symbicort 2 puff INHALATION BID 06/25/19 07/19/19 albuterol sulfate 90 mcg/actuation 1 puff INHALATION Q4H PRN PRN #200 06/25/19 07/19/19 aerosol inhaler inh ibuprofen 600 mg tablet 600 mg PO Q6H PRN #30 tab 06/26/19 07/19/19 levonorgestrel 20 mcg/24 hours (5 1 device IY ONCE 07/11/19 07/19/19 yrs) 52 mg intrauterine device oxycodone-acetaminophen 5 mg-325 1 tab PO Q8H PRN #20 tab MDD 3 07/15/19 07/19/19 mg tablet Previous Rx's Medication Instructions Recorded blood-glucose meter #1 each 04/22/19 gabapentin 100 mg PO DAILY@1400 #0 cap 05/07/19 gabapentin 200 mg PO BID #30 cap 05/07/19 inhalational spacing device #1 each 05/11/19 olanzapine 5 mg tablet 5 mg PO BID #30 tab 05/29/19 albuterol sulfate 90 mcg/actuation 1 puff INHALATION Q4H PRN PRN #200 06/25/19 aerosol inhaler inh ibuprofen 600 mg tablet 600 mg PO Q6H PRN #30 tab 06/26/19 oxycodone-acetaminophen 5 mg-325 1 tab PO Q8H PRN #20 tab MDD 3 07/15/19 mg tablet Allergies Allergy/AdvReac Type Severity Reaction Status Date / Time No Known Allergies Allergy Verified 07/19/19 13:46 General Stated Complaint: Vascular DOROTEO: 3 Review of Systems <SOM Brian - Last Filed: 07/20/19 16:36> All systems reviewed & are unremarkable except as noted in HPI and below Constitutional Constitutional: Denies chills, Denies fatigue, Denies fever(s), Denies headache(s) and Denies malaise ENT Ears, Nose, Mouth, and Throat: Denies headache(s) Cardiovascular Cardiovascular: Denies chest pain, Denies chest pain at rest, Denies chest pain with activity, Denies dyspnea and Denies dyspnea on exertion Respiratory Respiratory: Denies cough, Denies pain on inspiration, Denies pain with cough, Denies dyspnea and Denies dyspnea on exertion Musculoskeletal Musculoskeletal: Denies back pain and Denies tingling Neurologic Neurologic: Denies headache(s) and Denies tingling Endocrine Endocrine: Denies fatigue PFSH <SOM Brian - Last Filed: 07/20/19 16:36> Medical History Asthma Borderline personality disorder (Acute) Cellulitis of left lower extremity without foot (Resolved) 05/03/19. Onset of pain with cellulitis. Rx with Keflex. Chronic anxiety with depression Difficulty voiding (Inactive 01/08/15) urge to void, but only able to void in small amounts Encounter for IUD insertion (Acute) Lymphedema (Acute) 2nd trimester. 02/2019. nl bilateral LE dopplers. ARLEY hose not helpful (hard time staying on). 04/2019 PT declined massage secondary to new onset of LLE cellulitis Obesity Obesity affecting , antepartum (Inactive 10/08/14) early 1hr GTT. (Resolved) PTSD (post-traumatic stress disorder) (Acute) Right leg swelling (Resolved) Supervision of normal first (Inactive 10/08/14) Tobacco use Social History Smoking/Tobacco Use Status: Current every day Tobacco Type: cigarettes Alcohol Intake: former Drug use: Daily Substance use type: does not use Details: marijuana 3 x daily Do you feel safe at home: Yes Do you feel safe in your relationship?: Yes Female Reproductive History Menstrual Age of Menarche: 12 Duration of menses: 3-5 days control method: none and progestin IUCD (Mirena IUD inserted by Dr Epperson 07/11/19. Lot#[id number] EXP AUG 2021) History History 6 Para 4 Hx # Term Pregnancies 4 Multiple births 0 Hx # Pregnancies Ectopic pregnancies 0 AB induced 1 Hx Number of Living Children 4 AB spontaneous 1 Past Pregnancies Del. Date GA/Weeks # Outcome Route Wgt Sex Labor Lgth Anesthes ia Location Prov Complic Unknown 40 No Successful vaginal 2.325 kg Female 20 min [place], by an rn dr conley Unknown 02/11/09 40 No Successful vaginal 2.325 kg Male 1 hr c baljit conley 04/16/15 No Successful vaginal precipitous jj michelle 20 min after admission rn in 06/24/19 39 No Successful vaginal 2.41 kg Male An [place] Delivery Date: On 01/02/19 @ 14:04 ERICA TALAMANTES precipitous, Delivery Date: On 01/14/19 @ 13:15 ERICA TALAMANTES DATE/INFO UNKNOWN, PT CLAIMS SHE HAS NO RECOLLECTION OF ONE OF HER PREGNANCIES. Delivery Date: 02/11/09 No notes to display Delivery Date: 04/16/15 On 01/31/19 @ 11:24 ERICA TALAMANTES precipitous delivery w/o pp complications Delivery Date: 06/24/19 On 07/03/19 @ 15:45 Bharati Martell Artificial ROM; augemented by oxytocin; 18hrs 45 min. Exam <SOM Brian - Last Filed: 07/20/19 16:36> Narrative Exam Narrative: CONST: Healthy appearing patient, in no acute distress. Well hydrated. Alert and alert. CHEST: Normal insepection of the chest. RESP: Normal respiratory effort. Speaking full sentences. No cough. No wheezing. No retractions. Clear to auscaltation. Breath sound equal and present bilaterally. CARDIO: No JVD. Normal PMI. Regular Rate. Regular Rhythm. Normal peripheral pulses. MUSCULOSKELETAL: Normal Gait. FROM of all extremities. Distal neurovascularly intact. Sensation intact distally. Left leg with an area on the mid thigh medially with mild vascular engorgement. SKIN: Normal. Dry. No rashes. NEURO: Alert and awake. Speech clear. PSYCH: Normal affect. Cooperative. Course <SOM Brian - Last Filed: 07/20/19 16:36> Vital Signs Vital signs: Vital Signs Temperature 36.0 C L 07/19/19 13:36 Pulse 70 07/19/19 13:36 Respiratory Rate 16 07/19/19 13:36 Blood Pressure 156/70 H 07/19/19 13:36 Pulse Oximetry 98 07/19/19 13:36 Temperature 36.0 C L 07/19/19 13:36 Temperature Source Skin 07/19/19 13:36 Pulse 70 07/19/19 13:36 Respiratory Rate 16 07/19/19 13:42 Respiratory Effort Non-Labored 07/19/19 13:42 Respiratory Depth Normal 07/19/19 13:42 Respiratory Pattern Normal 07/19/19 13:42 Blood Pressure 156/70 H 07/19/19 13:36 Blood Pressure Position Sitting 07/19/19 13:36 Pulse Oximetry 98 07/19/19 13:36 Oxygen Delivery Method Room Air 07/19/19 13:36 Oxygen Flow Rate 0 07/19/19 13:36 Pain Level 5 07/19/19 13:42 Sign Out <SOM Brian - Last Filed: 07/20/19 16:36> Sign Out Data: Sign Out Comment: Signout pending ultrasound results for DVT versus phlebitis Last updated by Roxy Mejía PA at 07/19/19 16:01
--- NOTE | 2019-07-19 15:24 | NUR.NOTE ---
Nursing Note: Pt provided with lunch tray as requested, currently eating. US due for approx 1545, pt aware.
--- NOTE | 2019-07-19 16:13 | DI.VRAD_ITS ---
Addendum created by Babar Martin MD on 07/19/2019 4:58:39 PM EST THIS REPORT CONTAINS FINDINGS THAT MAY BE CRITICAL TO PATIENT CARE. The findings were verbally communicated via telephone conference with Roxy Mejía at 4:58 PM EST on 07/19/2019. The findings were acknowledged and understood. Initial report created on 07/19/2019 4:12:44 PM EST PROCEDURE INFORMATION: Exam: US Duplex Left Lower Extremity Veins, Limited Exam date and time: 07/19/2019 3:58 PM Age: 33 years old Clinical history: Pain; Leg, lower; Left TECHNIQUE: Imaging protocol: Real-time Duplex ultrasound of the Left Lower Extremity with 2-D [place] scale, color Doppler flow and spectral waveform analysis with image documentation. Limited exam focused on the left lower extremity veins. COMPARISON: US LOWER EXTREMITY VENOUS LT 05/27/2019 4:04 PM FINDINGS: Left deep veins: Superficial thrombus in a left mid lateral Vein. The deep veins demonstrate no clots. Left superficial veins: Thrombus in the mid left greater saphenous vein. Soft tissues: Unremarkable. IMPRESSION: Thrombus in the mid left greater saphenous vein. Superficial thrombus in a left mid lateral Vein. Dictated and Authenticated by: Babar Martin MD. Ordering:ORLANDO Ramsey MD
--- NOTE | 2019-07-19 16:13 | NUR.NOTE ---
Nursing Note: Pt refuses VS at this time.
--- NOTE | 2019-07-19 16:23 | NUR.NOTE ---
Nursing Note: Pt has increased in agitation, crying and refusing to leave ED. On phone with mental health. Security present and following care plan for pt. aware.
--- NOTE | 2019-07-19 16:29 | NUR.NOTE ---
Nursing Note: Pt escorted out of ED by 2 hospital security members in accordance with pt's care plan. Pt using profane language toward staff and refusing to leave ED. Pt accusing male security of inappropriately opening curtain and watching me half naked. Pt's curtain only opened enough to ensure feet were visible and pt was safe. This nurse was present throughout this and did not see anything inappropriate in interaction with security and pt.
== END 2019-07-19 16:33 | disposition home or self-care (01) ==
PROVIDERS: Emergency Provider Student in an Organized Health Care Education/Training Program; PCP Nurse Practitioner Family
DX: O87.0 Superficial thrombophlebitis in the puerperium (principal)
CPT/HCPCS: 99284; 93971

== ENCOUNTER 2019-07-26 10:42 | Emergency (ER) | payer MEDICARE, MEDICAID, SELFPAY ==
[2019-07-26 10:44] VITALS: BP 126/71; PULSE 97; RESP 18; TEMP 36.2; O2SAT 98
--- NOTE | 2019-07-26 11:41 | ED.GENADUL_ITS ---
Discharge Plan Disposition Patient Disposition: HOME Discharge Details Chief Complaint: Dizzy/Sync Clinical Impression: Acute superficial venous thrombosis of left lower extremity Primary Care Provider: Preston Tran ED Provider: Hugo Mcclure Home Meds and New Rx's Prescriptions: New aspirin 325 mg tablet 325 mg PO DAILY Qty: 60 RF: 0 Continued oxycodone-acetaminophen [Percocet] 5-325 mg tablet 1 tab PO Q8H MDD 3 PRN (Reason: pain) Qty: 20 RF: 0 (DME) POCKET CHAMBER Spacer See Rx Instructions .ROUTE .MEDSUPPLY Qty: 1 RF: 0 Mirena 20 mcg/24 hours (5 yrs) 52 mg intrauterine device 1 device IY ONCE RF: 0 (DME) blood-glucose meter [Accu-Chek Ethel Plus Meter] Misc See Rx Instructions .ROUTE .MEDSUPPLY Qty: 1 RF: 0 olanzapine [Zyprexa] 5 mg tablet 5 mg PO BID Qty: 30 RF: 4 albuterol sulfate [Ventolin HFA] 90 mcg/actuation HFA aerosol inhaler 1 puff Inhalation Q4H PRN PRN (Reason: bronchospasm) Qty: 200 RF: 5 ibuprofen 600 mg tablet 600 mg PO Q6H PRN (Reason: pain) Qty: 30 RF: 2 ipratropium-albuterol 3 ML solution for nebulization 3 ml IN Q4H PRN PRNRF: 0 omeprazole 40 mg Capsule,Delayed Release(Dr/Ec) 40 mg PO DAILY AM RF: 0 buspirone 5 mg tablet 15 mg PO TID RF: 0 lorazepam [Ativan] 2 mg Tablet 2 mg PO 5XW RF: 0 gabapentin 100 mg Capsule 100 mg PO DAILY@1400 Qty: 0 RF: 0 gabapentin 100 mg Capsule 200 mg PO BID Qty: 30 RF: 0 Symbicort 160-4.5 mcg/actuation Hfa Aerosol Inhaler 2 puff INHALATION BID RF: 0 Discharge Instructions Instructions: How to Stop Smoking (ED), Superficial Thrombophlebitis (ED) Additional Instructions: Please take aspirin 325 mg daily. Please stop smoking immediately. Please contact your primary care physician to arrange follow-up. Call to schedule timely follow-up. Return to the ER for any worsening or new concerning symptoms. Referrals: Preston Tran NP [Primary Care Provider] - Discharge Data Discharge Date/Time-TO BE ENTERED AT DEPARTURE: 07/26/19 11:50 Medical Decision Making 33-year-old female with borderline personality disorder, noncompliant with treatment plans, recently diagnosed with superficial thrombophlebitis here with persistent pain left inner thigh, also with some dizziness. Patient saturating well with no respiratory distress. Screening ECG was reviewed and interpreted by me: Sinus rhythm 88 bpm, normal axis, no significant changes from prior ECG 07/25/2015. Patient continues to have superficial thrombophlebitis with no signs of infection. Medical screening exam was performed in no acute medical condition identified. Patient was encouraged to follow-up with her primary care physician. She was agreeable to reviewing discharge instructions today. She was encouraged to start taking aspirin daily and to apply warm compresses. Patient is a smoker and does have IUD placed somewhat recently. I will direct her to follow-up with primary care physician. She may be at risk for venous thrombus and if she is not able to stop smoking, consideration should be made for discontinuation of exogenous estrogens. Consideration should also be made if symptoms persist for anticoagulation. Patient understands importance of timely follow-up. HPI General Mode of arrival: ambulatory . Date/Time Provider Initiated Documentation: 07/26/19 10:52 . Limitations to Documentation: no limitations . Information obtained by: patient . HPI Narrative: 33-year-old female with history of borderline personality disorder, recently diagnosed superficial thrombophlebitis left leg, presents today with chief complaint of persistent discomfort in her left leg. Discomfort is mild to moderate. No modifiers. Patient has not been following outpatient treatment that we attempted to review with her on discharge during her last ED visit. Patient also states that she has had some dizziness intermittently. She denies chest pain or shortness of breath. No fever. Related Data Home Medications Medication Instructions Recorded Confirmed ipratropium-albuterol 3 ml IN Q4H PRN PRN 07/26/15 07/19/19 blood-glucose meter #1 each 04/22/19 07/17/19 gabapentin 100 mg PO DAILY@1400 #0 cap 05/07/19 07/19/19 gabapentin 200 mg PO BID #30 cap 05/07/19 07/19/19 inhalational spacing device #1 each 05/11/19 07/17/19 buspirone 15 mg PO TID 05/27/19 07/19/19 lorazepam [Ativan] 2 mg PO 5XW 05/27/19 07/19/19 omeprazole 40 mg PO DAILY AM 05/27/19 07/19/19 olanzapine 5 mg tablet 5 mg PO BID #30 tab 05/29/19 07/19/19 Symbicort 2 puff INHALATION BID 06/25/19 07/19/19 albuterol sulfate 90 mcg/actuation 1 puff INHALATION Q4H PRN PRN #200 06/25/19 07/19/19 aerosol inhaler inh ibuprofen 600 mg tablet 600 mg PO Q6H PRN #30 tab 06/26/19 07/19/19 levonorgestrel 20 mcg/24 hours (5 1 device IY ONCE 07/11/19 07/19/19 yrs) 52 mg intrauterine device oxycodone-acetaminophen 5 mg-325 1 tab PO Q8H PRN #20 tab MDD 3 07/15/19 07/19/19 mg tablet aspirin 325 mg PO DAILY #60 tab 07/26/19 Previous Rx's Medication Instructions Recorded blood-glucose meter #1 each 04/22/19 gabapentin 100 mg PO DAILY@1400 #0 cap 05/07/19 gabapentin 200 mg PO BID #30 cap 05/07/19 inhalational spacing device #1 each 05/11/19 olanzapine 5 mg tablet 5 mg PO BID #30 tab 05/29/19 albuterol sulfate 90 mcg/actuation 1 puff INHALATION Q4H PRN PRN #200 06/25/19 aerosol inhaler inh ibuprofen 600 mg tablet 600 mg PO Q6H PRN #30 tab 06/26/19 oxycodone-acetaminophen 5 mg-325 1 tab PO Q8H PRN #20 tab MDD 3 07/15/19 mg tablet aspirin 325 mg PO DAILY #60 tab 07/26/19 Allergies Allergy/AdvReac Type Severity Reaction Status Date / Time No Known Allergies Allergy Verified 07/19/19 13:46 General Stated Complaint: Dizzy/Sync DOROTEO: 3 Review of Systems All systems reviewed & are unremarkable except as noted in HPI and below Constitutional Constitutional: Denies fever(s) and Denies headache(s) ENT Ears, Nose, Mouth, and Throat: Denies headache(s) Cardiovascular Cardiovascular: Denies chest pain and Denies dyspnea Respiratory Respiratory: Denies dyspnea Neurologic Neurologic: Denies headache(s), Denies focal weakness and Denies sensory deficit PFSH Medical History Asthma Borderline personality disorder (Acute) Cellulitis of left lower extremity without foot (Resolved) 05/03/19. Onset of pain with cellulitis. Rx with Keflex. Chronic anxiety with depression Difficulty voiding (Inactive 01/08/15) urge to void, but only able to void in small amounts Encounter for IUD insertion (Acute) Lymphedema (Acute) 2nd trimester. 02/2019. nl bilateral LE dopplers. ARLEY hose not helpful (hard time staying on). 04/2019 PT declined massage secondary to new onset of LLE cellulitis Obesity Obesity affecting , antepartum (Inactive 10/08/14) early 1hr GTT. (Resolved) PTSD (post-traumatic stress disorder) (Acute) Right leg swelling (Resolved) Supervision of normal first (Inactive 10/08/14) Tobacco use Surgical History Myringotomy w/ PE (pressure equalizing) tubes as a child Social History Smoking/Tobacco Use Status: Current every day Tobacco Type: cigarettes Alcohol Intake: former Drug use: Daily Substance use type: does not use Details: marijuana 3 x daily Do you feel safe at home: Yes Do you feel safe in your relationship?: Yes Female Reproductive History Menstrual Age of Menarche: 12 Duration of menses: 3-5 days control method: none and progestin IUCD (Mirena IUD inserted by Dr Epperson 07/11/19. Lot#[id number] EXP AUG 2021) History History 6 Para 4 Hx # Term Pregnancies 4 Multiple births 0 Hx # Pregnancies Ectopic pregnancies 0 AB induced 1 Hx Number of Living Children 4 AB spontaneous 1 Past Pregnancies Del. Date GA/Weeks # Outcome Route Wgt Sex Labor Lgth Anesthes ia Location Prov Complic Unknown 40 No Successful vaginal 2.325 kg Female 20 min [place], by an rn dr conley Unknown 02/11/09 40 No Successful vaginal 2.325 kg Male [address] conley 04/16/15 No Successful vaginal precipitous deliv ered 20 min after admission rn in [place] 06/24/19 39 No Successful vaginal 2.41 kg Male An [place] Delivery Date: On 01/02/19 @ 14:04 ERICA TALAMANTES precipitous, Delivery Date: On 01/14/19 @ 13:15 ERICA TALAMANTES DATE/INFO UNKNOWN, PT CLAIMS SHE HAS NO RECOLLECTION OF ONE OF HER PREGNANCIES. Delivery Date: 02/11/09 No notes to display Delivery Date: 04/16/15 On 01/31/19 @ 11:24 ERICA TALAMANTES precipitous delivery w/o pp complications Delivery Date: 06/24/19 On 07/03/19 @ 15:45 Bharati Martell Artificial ROM; augemented by oxytocin; 18hrs 45 min. Exam Const General: cooperative and no acute distress HENMT Mouth: moist mucous membranes Eyes Conjunctivae: normal conjunctivae Sclera: normal sclerae EOM: EOM intact bilaterally Neck Neck: no JVD Resp Auscultation: clear to auscultation bilaterally, no rales, no rhonchi and no wheezes Cardio Jugular venous pressure: no JVD Rate: regular rate and not tachycardic Rhythm: regular rhythm Heart Sounds: no gallops, no murmurs and no rubs GI Palpation: soft, not firm, no guarding, no masses, not rigid and nontender Skin General skin exam: no rashes or lesions noted Neuro General: alert, awake, oriented x3 and tone normal Extrem General: no calf tenderness and no edema Left lower extremity: hip/thigh Details: tenderness (Along superficial venous cord medial thigh) Location: other and other (No erythema); no swelling and no unusual warmth and lower leg Details: no edema; no erythema, no localized swelling and no palpable cords Psych Appearance: grossly normal Course Vital Signs Vital signs: Vital Signs Temperature 36.2 C L 07/26/19 10:44 Pulse 97 H 07/26/19 10:44 Respiratory Rate 18 07/26/19 10:44 Blood Pressure 126/71 07/26/19 10:44 Pulse Oximetry 98 07/26/19 10:44 Temperature 36.2 C L 07/26/19 10:44 Temperature Source Skin 07/26/19 10:44 Pulse 97 H 07/26/19 10:44 Respiratory Rate 18 07/26/19 10:44 Respiratory Effort 07/26/19 10:50 Blood Pressure 126/71 07/26/19 10:44 Blood Pressure Position Sitting 07/26/19 10:44 Pulse Oximetry 98 07/26/19 10:44 Oxygen Delivery Method Room Air 07/26/19 10:44 Oxygen Flow Rate 0 07/26/19 10:44
[2019-07-26 11:43] VITALS: RESP 16
[2019-07-26] MEDS: Aspirin 325 MG TAB PO (11:46)
[2019-07-26 11:51] VITALS: BP 126/71; PULSE 97; RESP 16; TEMP 36.2; O2SAT 98
== END 2019-07-26 11:50 | disposition home or self-care (01) ==
PROVIDERS: Emergency Provider Student in an Organized Health Care Education/Training Program; PCP Nurse Practitioner Family
DX: I82.812 Embolism and thrombosis of superficial veins of left lower extremity (principal); R42 Dizziness and giddiness; F17.210 Nicotine dependence, cigarettes, uncomplicated; Z91.19 Patient's noncompliance with other medical treatment and regimen
CPT/HCPCS: 93005; 99283; 93010

== ENCOUNTER 2019-08-07 10:28 | Emergency (ER) | payer MEDICARE, MEDICAID, SELFPAY | END 2019-08-07 20:30 | LOC: ER 20:32 | PROVIDERS: Emergency Provider Student in an Organized Health Care Education/Training Program; PCP Nurse Practitioner Family | DX: Z53.21 Procedure and treatment not carried out due to patient leaving prior to being seen by health care provider (principal) ==

== ENCOUNTER 2019-08-19 09:13 | Outpatient (REF) | payer MEDICARE, MEDICAID, SELFPAY ==
[2019-08-19 12:53] LABS: HCT 45.3 % (36.0-46.0); HGB 14.4 g/dL (12.0-15.5); Mean Corp. HGB Concentration 31.8 g/dL (32.0-36.0); Mean Corpuscular Hemoglobin 28.1 pg (27.0-33.0); Mean Corpuscular Volume 88.3 fL (80-95); Platelet Count 301 x1000/uL (130-400); RBC 5.13 m/cumm (4.00-5.20); RBC Distribution Width 16.1 % (11.7-14.6); White Blood Cell Count 8.28 k/cumm (4.4-10.8)
[2019-08-19 12:59] LABS: ALT 18 U/L (14-59); AST 31 U/L (15-37); Albumin 3.8 g/dL (3.4-5.0); Alkaline Phosphatase 93 U/L (46-116); BUN 9 mg/dL (7-18); Bilirubin, Total 0.5 mg/dL (0.2-1.0); CREATININE 0.87 mg/dL (0.55-1.02); Calcium 9.2 mg/dL (8.5-10.1); Chloride 105 mmol/L (98-107); Glucose 90 mg/dL (74-106); Sodium 142 mmol/L (136-145); Total Protein 7.5 g/dL (6.4-8.2)
[2019-08-20 09:45] LABS: HBs Antibody, Quant 3.9 mIU/mL (See Note); Hepatitis B Surface Ab Negative (See Note); Hepatitis B Surface Ag Negative (Negative)
[2019-08-20 10:40] LABS: HIV-1/2 Ag & Ab Screen Negative (Negative)
[2019-08-20 11:24] LABS: Hepatitis C Ab w Rflx HCV PCR Negative (Negative)
[2019-08-20 14:30] LABS: Chlamydia Result Negative (Negative); GC Result Negative (Negative)
[2019-08-20 15:40] LABS: Syphilis Serology (RPR) Negative (Negative)
== END 2019-08-19 09:33 ==
LOC: NCHCN 09:13
PROVIDERS: PCP Nurse Practitioner Family; Visit Provider Nurse Practitioner Family
DX: Z20.2 Contact with and (suspected) exposure to infections with a predominantly sexual mode of transmission (principal); Z11.4 Encounter for screening for human immunodeficiency virus [HIV]; Z11.3 Encounter for screening for infections with a predominantly sexual mode of transmission; Z11.59 Encounter for screening for other viral diseases
CPT/HCPCS: 80053; 85027; 86706; 86803; 87340; 87389; 87491; 87591; 86592; 87480; 87510; 87660

== ENCOUNTER 2019-10-23 06:28 | Emergency (ER) | payer MEDICARE, SELFPAY ==
[2019-10-23 06:37] VITALS: BP 136/78; PULSE 99; RESP 18; TEMP 36.6
--- NOTE | 2019-10-23 07:05 | ED.GENADUL_ITS ---
Discharge Plan Disposition Patient Disposition: HOME Condition: Good Discharge Details Chief Complaint: Nk/Back Pain Clinical Impression: Left low back pain Primary Care Provider: Preston Tran ED Provider: Augie Luu Home Meds and New Rx's Prescriptions: New cyclobenzaprine [cyclobenzaprine] 10 MG tablet 10 mg PO Q6H PRN PRN (Reason: Spasms) Qty: 10 RF: 0 Continued (DME) POCKET CHAMBER Spacer See Rx Instructions .ROUTE .MEDSUPPLY Qty: 1 RF: 0 Mirena 20 mcg/24 hours (5 yrs) 52 mg intrauterine device 1 device IY ONCE RF: 0 (DME) blood-glucose meter [Accu-Chek Ethel Plus Meter] Misc See Rx Instructions .ROUTE .MEDSUPPLY Qty: 1 RF: 0 olanzapine [Zyprexa] 5 mg tablet 5 mg PO BID Qty: 30 RF: 4 albuterol sulfate [Ventolin HFA] 90 mcg/actuation HFA aerosol inhaler 1 puff Inhalation Q4H PRN PRN (Reason: bronchospasm) Qty: 200 RF: 5 ipratropium-albuterol 3 ML solution for nebulization 3 ml IN Q4H PRN PRNRF: 0 omeprazole 40 mg Capsule,Delayed Release(Dr/Ec) 40 mg PO DAILY AM RF: 0 buspirone 5 mg tablet 30 mg PO BID RF: 0 lorazepam [Ativan] 2 mg Tablet 2 mg PO 5XW RF: 0 gabapentin 100 mg capsule 300 mg PO BID RF: 0 Vraylar 1.5 mg Capsule 1.5 mg PO DAILY RF: 0 ibuprofen 600 mg tablet 600 mg PO Q6H PRN (Reason: pain) Qty: 10 RF: 0 budesonide-formoterol [Symbicort] 160-4.5 mcg/actuation Hfa Aerosol Inhaler 2 puff INHALATION BID RF: 0 aspirin 325 mg tablet 325 mg PO DAILY Qty: 60 RF: 0 Discharge Instructions Instructions: Acute Low Back Pain (ED), Muscle Spasm (ED) Additional Instructions: This is likely low back strain with spasm and should respond to some rest, heat, gentle stretching in addition to ibuprofen and cyclobenzaprine. Follow-up with primary care. Return to ED for fever, abdominal pain, vomiting, neurologic changes. Referrals: Preston Tran, ERICK [Primary Care Provider] - Medical Decision Making Patient is nontoxic-appearing with normal vitals. Tenderness with back pain that is worse with movement suggesting musculoskeletal etiology. There is no midline tenderness and no radiation of pain or neurologic symptoms. She has no urinary symptoms. Does have pain up in the costovertebral angle area but I suspect again musculoskeletal. Will check urine and urinalysis. If negative will treat with ibuprofen and cyclobenzaprine and refer to primary care. test negative. Urine dip negative. Patient medicated and will be discharged with prescription for ibuprofen and cyclobenzaprine for the next couple days until she can see primary care. Return to ED for fever, abdominal pain, neurologic changes, other concerns. HPI General Mode of arrival: ambulatory . Date/Time Provider Initiated Documentation: 10/23/19 07:05 . Limitations to Documentation: no limitations . Information obtained by: patient and RN notes reviewed . HPI Narrative: Patient presents to ED with complaint of left lower back pain that at times radi ates across to the right. Has been present for few days now. Is worse with movement especially bending or twisting but even with walking. She denies having any chest pain or shortness of breath. She denies any fever. There is no abdominal pain. She has no urinary symptoms. She has no neurologic symptoms. Pain is not midline. It does not radiate down the legs. She reports trying Excedrin yesterday but nothing this morning and has not called her primary. Related Data Home Medications Medication Instructions Recorded Confirmed ipratropium-albuterol 3 ml IN Q4H PRN PRN 07/26/15 10/23/19 blood-glucose meter #1 each 04/22/19 07/17/19 inhalational spacing device #1 each 05/11/19 07/17/19 buspirone 30 mg PO BID 05/27/19 10/23/19 lorazepam [Ativan] 2 mg PO 5XW 05/27/19 10/23/19 omeprazole 40 mg PO DAILY AM 05/27/19 10/23/19 olanzapine 5 mg tablet 5 mg PO BID #30 tab 05/29/19 10/23/19 albuterol sulfate 90 mcg/actuation 1 puff INHALATION Q4H PRN PRN #200 06/25/19 10/23/19 aerosol inhaler inh budesonide-formoterol [Symbicort] 2 puff INHALATION BID 06/25/19 10/23/19 levonorgestrel 20 mcg/24 hours (5 1 device IY ONCE 07/11/19 10/23/19 yrs) 52 mg intrauterine device aspirin 325 mg PO DAILY #60 tab 07/26/19 10/23/19 Vraylar 1.5 mg PO DAILY 10/23/19 10/23/19 cyclobenzaprine 10 mg PO Q6H PRN PRN #10 tab 10/23/19 gabapentin 300 mg PO BID 10/23/19 10/23/19 ibuprofen 600 mg PO Q6H PRN #10 tab 10/23/19 Previous Rx's Medication Instructions Recorded blood-glucose meter #1 each 04/22/19 inhalational spacing device #1 each 05/11/19 olanzapine 5 mg tablet 5 mg PO BID #30 tab 05/29/19 albuterol sulfate 90 mcg/actuation 1 puff INHALATION Q4H PRN PRN #200 06/25/19 aerosol inhaler inh aspirin 325 mg PO DAILY #60 tab 07/26/19 cyclobenzaprine 10 mg PO Q6H PRN PRN #10 tab 10/23/19 ibuprofen 600 mg PO Q6H PRN #10 tab 10/23/19 Allergies Allergy/AdvReac Type Severity Reaction Status Date / Time No Known Allergies Allergy Verified 10/23/19 07:07 General Stated Complaint: Nk/Back Pain DOROTEO: 4 Review of Systems Narrative: As documented in HPI otherwise negative as below. Const: no fever, chills, weakness Resp: no cough, SOB, pleuritic pain CV: no CP, diaphoresis, edema, syncope GI: no abdominal pain, nausea, vomiting, diarrhea Neuro: no headache, numbness, focal weakness, confusion PFSH Social History Smoking/Tobacco Use Status: Current every day Tobacco Type: cigarettes Alcohol Intake: former Drug use: Daily Substance use type: does not use Details: marijuana 3 x daily Do you feel safe at home: Yes Do you feel safe in your relationship?: Yes Female Reproductive History Menstrual Age of Menarche: 12 Duration of menses: 3-5 days control method: none and progestin IUCD (Mirena IUD inserted by Dr Epperson 07/11/19. Lot#[id number] EXP AUG 2021) History History 6 Para 4 Hx # Term Pregnancies 4 Multiple births 0 Hx # Pregnancies Ectopic pregnancies 0 AB induced 1 Hx Number of Living Children 4 AB spontaneous 1 Past Pregnancies Del. Date GA/Weeks # Outcome Route Wgt Sex Labor Lgth Anesthes ia Location Prov Complic Unknown 40 No Successful vaginal 2.325 kg Female 20 min cottage, by an rn dr conley Unknown 02/11/09 40 No Successful vaginal 2.325 kg Male [address] conley 04/16/15 No Successful vaginal precipitous deliv ered 20 min after admission rn in 06/24/19 39 No Successful vaginal 2.41 kg Male [place] Delivery Date: On 01/02/19 @ 14:04 ERICA TALAMANTES precipitous, Delivery Date: On 01/14/19 @ 13:15 ERICA TALAMANTES DATE/INFO UNKNOWN, PT CLAIMS SHE HAS NO RECOLLECTION OF ONE OF HER PREGNANCIES. Delivery Date: 02/11/09 No notes to display Delivery Date: 04/16/15 On 01/31/19 @ 11:24 ERICA TALAMANTES precipitous delivery w/o pp complications Delivery Date: 06/24/19 On 07/03/19 @ 15:45 Bharati Martell Artificial ROM; augemented by oxytocin; 18hrs 45 min. Exam Narrative Exam Narrative: Vitals: Afebrile. Normal vitals and room air pulse ox. Const: Obese female in NAD. HEENT: NC/AT. Normal facial exam. Eyes: Normal conjunctiva and sclera. Neck: Supple. Trachea midline. Lungs: Normal respiratory effort. Lungs are clear. Cor: RRR without murmur/gallop. Back: Left side low back tenderness from upper lumbar to mid lumbar area. No mid-line tenderness. Neuro: A+O x 3. Normal speech, mentation, ambulates with cane at baseline. Cranial nerves II - XII grossly intact. No gross motor or sensory deficit. Skin: Warm and dry without rash. Course Vital Signs Vital signs: Vital Signs Temperature 97.9 F 10/23/19 06:37 Pulse 99 H 10/23/19 06:37 Respiratory Rate 18 10/23/19 06:37 Blood Pressure 136/78 02/26/20 06:37 Temperature 97.9 F 10/23/19 06:37 Temperature Source Skin 10/23/19 06:37 Pulse 99 H 10/23/19 06:37 Respiratory Rate 18 10/23/19 06:37 Respiratory Effort Non-Labored 10/23/19 06:41 Blood Pressure 136/78 10/23/19 06:37 Blood Pressure Position Sitting 10/23/19 06:37 Oxygen Delivery Method Room Air 10/23/19 06:37 Oxygen Flow Rate 0 10/23/19 06:37 Pain Level 9 10/23/19 06:37
[2019-10-23] MEDS: Cyclobenzaprine 10 MG TAB PO (07:34)
[2019-10-23] MEDS: Ibuprofen 600 MG TAB PO (07:34)
== END 2019-10-23 07:42 | disposition home or self-care (01) ==
PROVIDERS: Emergency Provider Emergency Medicine; PCP Nurse Practitioner Family
DX: M54.5 Low back pain (principal); M62.830 Muscle spasm of back
CPT/HCPCS: 81025; 99283

== ENCOUNTER 2019-10-29 18:28 | Outpatient (REF) | payer MEDICARE, SELFPAY ==
[2019-10-31 14:55] LABS: Chlamydia Result Negative (Negative); GC Result Negative (Negative)
== END 2019-10-29 18:48 ==
LOC: NCHCN 18:28
PROVIDERS: PCP Nurse Practitioner Family; Visit Provider Nurse Practitioner Family
DX: Z20.2 Contact with and (suspected) exposure to infections with a predominantly sexual mode of transmission (principal); Z11.3 Encounter for screening for infections with a predominantly sexual mode of transmission
CPT/HCPCS: 87491; 87591

== ENCOUNTER 2019-11-06 02:13 | Outpatient (CLI) | payer MEDICARE, SELFPAY ==
--- NOTE | 2019-11-06 13:30 | DI.US_ITS ---
EXAM: US PELVIS AND TRANSVAGINAL CLINICAL HISTORY: CANNOT FIND THE IUD STRINGS,PREVIOUSLY ABLE TO FEEL THEM, T83.32XA. TECHNIQUE: Ultrasound of the pelvic, both abdominal and transvaginal was performed using standard pr otocol. COMPARISON: No exams were available for comparison FINDINGS: KIDNEYS: Kidneys are symmetric in size. No evidence of renal calculi. No evidence of hydronephrosis. No renal mass or cyst identified. UTERUS: Position: Anteverted. Size: 7.9 x 4.4 x 6.7 cm Endometrium: 0.5 cm. An IUD is seen within the endometrium. It appears appropriately positioned. Myometrium: Unremarkable. Cervix: Unremarkable. OVARIES: Right: 3.9 x 2.4 x 2.3 cm Cyst or mass: 2.6 centimeter dominant follicle. Left: 3.1 x 1.2 x 1.2 cm Cyst or mass: None. DOPPLER: Color: Symmetric and uniform flow to both ovaries. No hyperemia. Duplex: Normal ovarian arterial waveforms visualized. CUL-DE-SAC: Free fluid: None. IMPRESSION: 1. Normal sonographic appearance of the kidneys. 2. Normal-appearing uterus with IUD in place. 3. Unremarkable bilateral ovaries. DATA REPOSITORY:
== END 2019-11-06 02:33 ==
PROVIDERS: PCP Nurse Practitioner Family; Visit Provider Obstetrics & Gynecology Gynecology
DX: T83.32XA Displacement of intrauterine contraceptive device, initial encounter (principal); N83.01 Follicular cyst of right ovary
CPT/HCPCS: 76830; 76856

== ENCOUNTER 2019-11-25 16:36 | Outpatient (REF) | payer MEDICARE, SELFPAY ==
[2019-11-27 16:27] LABS: SARS-CoV-2 RNA Undetected (Undetected); SARS-CoV-2 Specimen Source Nasopharynx
== END 2019-11-25 16:56 ==
LOC: NCHCN 16:36
PROVIDERS: PCP Nurse Practitioner Family; Visit Provider Nurse Practitioner Family
DX: Z20.828 Contact with and (suspected) exposure to other viral communicable diseases (principal)
CPT/HCPCS: U0003

== ENCOUNTER 2020-02-11 13:31 | Emergency (ER) | payer MEDICARE, SELFPAY ==
[2020-02-11 13:40] VITALS: BP 132/80; PULSE 97; RESP 18; TEMP 36.4; O2SAT 96
[2020-02-11 13:43] VITALS: RESP 16
--- NOTE | 2020-02-11 13:45 | DI.US_ITS ---
EXAM: US LOWER EXTREMITY VENOUS RT CLINICAL HISTORY: pain in calf, swelling. TECHNIQUE: Right lower extremity venous ultrasound performed using grayscale, color-flow, and spectr al Doppler analysis. COMPARISON: No exams were available for comparison FINDINGS: The right common femoral, femoral and popliteal veins demonstrate normal compressibility, augmentatio n, and color Doppler. The posterior tibial veins show thrombus proximally but are patent distally.. No saphenous vein thrombosis or other superficial venous thrombosis is seen. No hematoma or Brewer's cyst is seen. IMPRESSION: Thrombosis in the proximal posterior tibial veins. There remainder of the deep venous system is free of thrombus.. DATA REPOSITORY:
--- NOTE | 2020-02-11 14:12 | W.ED.GENAD ---
Discharge Plan Disposition Patient Disposition: HOME Condition: Stable Discharge Details Chief Complaint: Vascular Clinical Impression: DVT (deep venous thrombosis) Primary Care Provider: Preston Tran ED Provider: Hugo Mcclure Home Meds and New Rx's Prescriptions: New Supriya DVT-PE Treat 30D Start 5 mg (74 tabs) tablets,dose pack See Rx Instructions .ROUTE .COMPLEX Qty: 74 RF: 0 Continued (DME) POCKET CHAMBER Spacer See Rx Instructions .ROUTE .MEDSUPPLY Qty: 1 RF: 0 Mirena 20 mcg/24 hours (5 yrs) 52 mg intrauterine device 1 device IY ONCE RF: 0 (DME) blood-glucose meter [Accu-Chek Ethel Plus Meter] Misc See Rx Instructions .ROUTE .MEDSUPPLY Qty: 1 RF: 0 olanzapine [Zyprexa] 5 mg tablet 5 mg PO BID Qty: 30 RF: 4 albuterol sulfate [Ventolin HFA] 90 mcg/actuation HFA aerosol inhaler 1 puff Inhalation Q4H PRN PRN (Reason: bronchospasm) Qty: 200 RF: 5 ipratropium-albuterol 3 ML solution for nebulization 3 ml IN Q4H PRN PRNRF: 0 omeprazole 40 mg Capsule,Delayed Release(Dr/Ec) 40 mg PO DAILY AM RF: 0 buspirone 5 mg tablet 30 mg PO BID RF: 0 lorazepam [Ativan] 2 mg Tablet 2 mg PO 5XW RF: 0 gabapentin 100 mg capsule 300 mg PO BID RF: 0 Vraylar 1.5 mg Capsule 1.5 mg PO DAILY RF: 0 cyclobenzaprine 10 MG tablet 10 mg PO Q6H PRN PRN (Reason: Spasms) Qty: 10 RF: 0 ibuprofen 600 mg tablet 600 mg PO Q6H PRN (Reason: pain) Qty: 10 RF: 0 budesonide-formoterol [Symbicort] 160-4.5 mcg/actuation Hfa Aerosol Inhaler 2 puff INHALATION BID RF: 0 methylphenidate HCl [Ritalin] 10 mg Tablet 10 mg BID RF: 0 Discharge Instructions Instructions: Deep Vein Thrombosis (ED), Fall Prevention (ED) Additional Instructions: Please contact your primary care physician to arrange follow-up. Please call today to arrange timely follow-up. Return to the ER for any worsening or new concerning symptoms. Referrals: Preston Tarn NP [Primary Care Provider] - Discharge Data Discharge Date/Time-TO BE ENTERED AT DEPARTURE: 02/11/20 15:15 Medical Decision Making 34-year-old female here with right calf pain, mild swelling of lower extremity with some superficial venous varicosities. Consider DVT. Ultrasound reviewed and interpreted by radiology: DVT. Plan to start Eliquis 10mg. I spoke with PCP manager flight operations provider who notes prior history of DVT in 2014, patient is not currently anticoagulated, I informed Jeanette of findings, treatment and need for followup. Patient is given Tylenol 650mg p.o. for discomfort. Results and treatment plan including discharge instructions were reviewed with the patient. HPI General Mode of arrival: ambulatory. Date/Time Provider Initiated Documentation: 02/11/20 13:45. Limitations to Documentation: no limitations. Information obtained by: patient. HPI Narrative: 34-year-old female presents with chief complaint of right leg pain. Patient notes pain in her calf and anterior distal thigh that started 4 days ago and has persisted and progressed. She states she is had varicose veins in the past. She has no history of DVT. Pain is moderate. Worse on compression of her calf. No associated shortness of breath or chest pain. Related Data Home Medications Medication Instructions Recorded Confirmed ipratropium-albuterol 3 ml IN Q4H PRN PRN 07/26/15 02/11/20 blood-glucose meter #1 each 04/22/19 02/11/20 inhalational spacing device #1 each 05/11/19 02/11/20 buspirone 30 mg PO BID 05/27/19 02/11/20 lorazepam [Ativan] 2 mg PO 5XW 05/27/19 02/11/20 omeprazole 40 mg PO DAILY AM 05/27/19 02/11/20 olanzapine 5 mg tablet 5 mg PO BID #30 tab 05/29/19 02/11/20 albuterol sulfate 90 mcg/actuation 1 puff INHALATION Q4H PRN PRN #200 06/25/19 02/11/20 aerosol inhaler inh budesonide-formoterol [Symbicort] 2 puff INHALATION BID 06/25/19 02/11/20 levonorgestrel 20 mcg/24 hours (5 1 device IY ONCE 07/11/19 02/11/20 yrs) 52 mg intrauterine device Vraylar 1.5 mg PO DAILY 10/23/19 02/11/20 cyclobenzaprine 10 mg PO Q6H PRN PRN #10 tab 10/23/19 02/11/20 gabapentin 300 mg PO BID 10/23/19 02/11/20 ibuprofen 600 mg PO Q6H PRN #10 tab 10/23/19 02/11/20 apixaban [Eliquis DVT-PE Treat 30D See Rx Instructions .ROUTE 02/11/20 Start] .COMPLEX #74 dose pk methylphenidate HCl [Ritalin] 10 mg BID 02/11/20 02/11/20 Previous Rx's Medication Instructions Recorded blood-glucose meter #1 each 04/22/19 inhalational spacing device #1 each 05/11/19 olanzapine 5 mg tablet 5 mg PO BID #30 tab 05/29/19 albuterol sulfate 90 mcg/actuation 1 puff INHALATION Q4H PRN PRN #200 06/25/19 aerosol inhaler inh cyclobenzaprine 10 mg PO Q6H PRN PRN #10 tab 10/23/19 ibuprofen 600 mg PO Q6H PRN #10 tab 10/23/19 apixaban [Eliquis DVT-PE Treat 30D See Rx Instructions .ROUTE 02/11/20 Start] .COMPLEX #74 dose pk Allergies Allergy/AdvReac Type Severity Reaction Status Date / Time No Known Allergies Allergy Verified 10/23/19 07:07 General Stated Complaint: Vascular DOROTEO: 3 Review of Systems Constitutional Constitutional: Denies fever(s) Cardiovascular Cardiovascular: Denies chest pain and Denies dyspnea Respiratory Respiratory: Denies dyspnea Integumentary/Breasts Skin/Breast: Denies rash [facility] Medical History Asthma Borderline personality disorder (Acute) Chronic anxiety with depression Lymphedema (Acute) 2nd trimester. 02/2019. nl bilateral LE dopplers. ARLEY hose not helpful (hard time staying on). 04/2019 PT declined massage secondary to new onset of LLE cellulitis Obesity PTSD (post-traumatic stress disorder) (Acute) Right leg swelling (Resolved) Tobacco use Surgical History Myringotomy w/ PE (pressure equalizing) tubes as a child Social History Smoking/Tobacco Use Status: Current every day Tobacco Type: cigarettes Alcohol Intake: former Drug use: Daily Substance use type: does not use Details: marijuana 3 x daily Do you feel safe at home: Yes Do you feel safe in your relationship?: Yes Female Reproductive History Menstrual Age of Menarche: 12 Duration of menses: 3-5 days control method: none and progestin IUCD (Mirena IUD inserted by Dr Epperson 07/11/19. Lot#[id number] EXP AUG 2021) History History 6 Para 4 Hx # Term Pregnancies 4 Multiple births 0 Hx # Pregnancies Ectopic pregnancies 0 AB induced 1 Hx Number of Living Children 4 AB spontaneous 1 Past Pregnancies Del. Date GA/Weeks # Outcome Route Wgt Sex Labor Lgth Anesthesia Location Prov Complic Unknown 40 No Successful vaginal 2.325 kg Female 20 min cottage, by an rn dr conley Unknown 02/11/09 40 No Successful vaginal 2.325 kg Male [address] conley 04/16/15 No Successful vaginal precipitous delivered 20 min after admission rn in 06/24/19 39 No Successful vaginal 2.41 kg Male Shayy Willard Delivery Date: precipitous, ERICA TALAMANTES Delivery Date: DATE/INFO UNKNOWN, PT CLAIMS SHE HAS NO RECOLLECTION OF ONE OF HER PREGNANCIES. ERICA TALAMANTES Delivery Date: 02/11/09 No notes to display Delivery Date: 04/16/15 precipitous delivery w/o pp complications [facility] Delivery Date: 06/24/19 Artificial ROM; augemented by oxytocin; 18hrs 45 min. Bharati Martell Exam Const General: cooperative and no acute distress Resp Auscultation: clear to auscultation bilaterally, no rales, no rhonchi and no wheezes Cardio Jugular venous pressure: no JVD Rate: regular rate and not tachycardic Rhythm: regular rhythm Pulses: posterior tibial pulses present bilaterally 2+ Neuro General: patient alert, patient awake, patient oriented x3 and tone normal Extrem General: no calf tenderness, edema Laterality: right (mild) and other (Tenderness along dilated superficial veins distal anterior lateral thigh) Course Vital Signs Vital signs: Vital Signs Temperature 36.4 C L 02/11/20 13:40 Pulse 97 H 06/16/20 13:40 Respiratory Rate 18 02/11/20 13:40 Blood Pressure 132/80 02/11/20 13:40 Pulse Oximetry 96 02/11/20 13:40 Temperature 36.4 C L 02/11/20 13:40 Temperature Source Tympanic 02/11/20 13:40 Pulse 97 H 02/11/20 13:40 Respiratory Rate 16 02/11/20 13:43 Respiratory Effort Non-Labored 02/11/20 13:43 Respiratory Depth Normal 02/11/20 13:43 Respiratory Pattern Normal 02/11/20 13:43 Blood Pressure 132/80 02/11/20 13:40 Blood Pressure Position Sitting 02/11/20 13:40 Pulse Oximetry 96 02/11/20 13:40 Oxygen Delivery Method Room Air 02/11/20 13:40 Oxygen Flow Rate 0 02/11/20 13:40 Pain Level 8 02/11/20 13:43
[2020-02-11] MEDS: Acetaminophen 325 MG TAB 650 MG PO (14:45)
[2020-02-11] MEDS: Apixaban 5 MG TAB 10 MG PO (14:46)
[2020-02-11 14:50] VITALS: BP 134/86; PULSE 86; RESP 16; TEMP 36.8; O2SAT 98
== END 2020-02-11 15:15 | disposition home or self-care (01) ==
PROVIDERS: Emergency Provider Student in an Organized Health Care Education/Training Program; PCP Nurse Practitioner Family
DX: I82.4Z1 Acute embolism and thrombosis of unspecified deep veins of right distal lower extremity (principal); I83.91 Asymptomatic varicose veins of right lower extremity; Z86.718 Personal history of other venous thrombosis and embolism
CPT/HCPCS: 99284; 93971

== ENCOUNTER → 2020-03-04 02:03 | Outpatient (CLI) | payer MEDICARE, SELFPAY ==
--- NOTE | 2020-03-04 | DI.MRI_ITS ---
EXAM: MR LUMBAR SPINE WO CLINICAL HISTORY: LOWER BACK PAIN M54.5. TECHNIQUE: Multiplanar multisequence MRI was performed. COMPARISON: CR XR humerus LT from 12/27/[address] ABDOMEN PELVIS WO from 07/14/2019 FINDINGS: There are endplate osteophytes projecting anteriorly at the T11-12 level. There are degenerative s ignal changes in the endplates. This corresponds to an area of sclerosis seen on previous CT of the abdomen and pelvis. The marrow signal is otherwise normal. The conus medullaris appears normal. T11-12 through L3-4 disc as well as L5-S1 discs show normal height and hydration. There is partial d isc desiccation at the L4 5 disc with switch shows slight bulging. There are mild facet degenerative changes at L4-5 and L5-S1 but no neural foraminal narrowing or central canal stenosis. IMPRESSION: Mild degenerative changes at T11-12 and L4-5. No evidence of disc herniation, central canal stenosi s or neural foraminal narrowing. DATA REPOSITORY:
[2020-03-09 09:11] LABS: SARS-CoV-2 RNA Undetected (Undetected); SARS-CoV-2 Specimen Source Nasopharynx
== END ==
PROVIDERS: Nurse Practitioner Family; PCP Nurse Practitioner Family; Visit Provider Nurse Practitioner Family
DX: M54.5 Low back pain (principal); M47.817 Spondylosis without myelopathy or radiculopathy, lumbosacral region
CPT/HCPCS: U0003; 72148

== ENCOUNTER 2020-03-06 15:54 | Outpatient (REF) | payer MEDICARE, SELFPAY ==
[2020-03-09 10:05] LABS: Hepatitis C Ab w Rflx HCV PCR Negative (Negative)
== END 2020-03-06 16:14 ==
LOC: NCHCN 15:54
PROVIDERS: PCP Nurse Practitioner Family; Visit Provider Nurse Practitioner Family
DX: Z11.59 Encounter for screening for other viral diseases (principal)
CPT/HCPCS: 86803; 81003

== ENCOUNTER 2020-04-13 14:14 | Outpatient (REF) | payer MEDICARE, SELFPAY ==
[2020-04-17 06:16] LABS: SARS-CoV-2 RNA Undetected (Undetected); SARS-CoV-2 Specimen Source Nasopharynx
== END 2020-04-13 14:34 ==
LOC: NCHCN 14:14
PROVIDERS: PCP Nurse Practitioner Family; Visit Provider Nurse Practitioner Family
DX: R05 Cough (principal)
CPT/HCPCS: U0003

== ENCOUNTER 2020-04-13 15:53 | Outpatient (REF) | payer MEDICARE, SELFPAY ==
[2020-04-15 10:12] LABS: Syphilis Serology (RPR) Negative (Negative)
[2020-04-15 10:21] LABS: Hepatitis C Ab w Rflx HCV PCR Negative (Negative)
[2020-04-15 10:40] LABS: HIV-1/2 Ag & Ab Screen Negative (Negative)
== END 2020-04-13 16:13 ==
LOC: EP 15:53
PROVIDERS: PCP Nurse Practitioner Family; Visit Provider Nurse Practitioner Family
DX: Z11.3 Encounter for screening for infections with a predominantly sexual mode of transmission (principal); Z11.4 Encounter for screening for human immunodeficiency virus [HIV]; Z11.59 Encounter for screening for other viral diseases
CPT/HCPCS: 86803; 87389; 87491; 87591; 86592

== ENCOUNTER 2020-08-07 04:02 | Outpatient (CLI) | payer MEDICARE, SELFPAY ==
[2020-08-09 19:20] LABS: COVID-19 RT-PCR Result NEGATIVE (Negative)
== END 2020-08-07 04:22 ==
PROVIDERS: PCP Nurse Practitioner Family; Visit Provider Family Medicine
DX: J45.909 Unspecified asthma, uncomplicated (principal)
CPT/HCPCS: U0003

== ENCOUNTER → 2020-08-10 03:57 | Outpatient (CLI) | payer MEDICARE, SELFPAY ==
[2020-08-10] MEDS: Albuterol HFA 18 GM 200 PUFF INH IH (14:08)
[2020-08-10] MEDS: Inhaler, Assist Device 1 EACH MC (14:09)
--- NOTE | 2020-08-12 16:42 | W.PFT ---
Date of service: 08/10/20 Time of Service: 01:03 Pulmonary Function Test Result Interpretation Spirometry: Shows moderately severe obstructive airways disease with no significant bronchodilator response Lung Volumes: No evidence of restriction Diffusion Capacity: Normal Airway Pressure: Elevated Impression Moderately severe obstructive airways disease with no significant bronchodilator response, this is associated with elevated airways resistance Clinical Correlation therefore is recommended.
== END ==
PROVIDERS: PCP Nurse Practitioner Family; Visit Provider Nurse Practitioner Family
DX: J45.31 Mild persistent asthma with (acute) exacerbation (principal); F17.210 Nicotine dependence, cigarettes, uncomplicated
CPT/HCPCS: 94060; 94726; 94729

== ENCOUNTER 2020-10-02 05:36 | Emergency (ER) | payer MEDICARE, SELFPAY ==
--- NOTE | 2020-10-02 05:34 | ED.GENADUL_ITS ---
Discharge Plan Disposition Patient Disposition: LEFT WITHOUT BEING SEEN Discharge Details Chief Complaint: GenMedical Primary Care Provider: Preston Tran ED Provider: Augie Luu Home Meds and New Rx's Prescriptions: No Action (DME) POCKET CHAMBER Spacer See Rx Instructions .ROUTE .MEDSUPPLY Qty: 1 RF: 0 Mirena 20 mcg/24 hours (5 yrs) 52 mg intrauterine device 1 device IY ONCE RF: 0 (DME) blood-glucose meter [Accu-Chek Ethel Plus Meter] Misc See Rx Instructions .ROUTE .MEDSUPPLY Qty: 1 RF: 0 olanzapine [Zyprexa] 5 mg tablet 5 mg PO BID Qty: 30 RF: 4 albuterol sulfate [Ventolin HFA] 90 mcg/actuation HFA aerosol inhaler 1 puff Inhalation Q4H PRN PRN (Reason: bronchospasm) Qty: 200 RF: 5 ipratropium-albuterol 3 ML solution for nebulization 3 ml IN Q4H PRN PRNRF: 0 omeprazole 40 mg Capsule,Delayed Release(Dr/Ec) 40 mg PO DAILY AM RF: 0 buspirone 5 mg tablet 30 mg PO BID RF: 0 lorazepam [Ativan] 2 mg Tablet 2 mg PO 5XW RF: 0 gabapentin 100 mg capsule 300 mg PO BID RF: 0 Vraylar 1.5 mg Capsule 1.5 mg PO DAILY RF: 0 cyclobenzaprine 10 MG tablet 10 mg PO Q6H PRN PRN (Reason: Spasms) Qty: 10 RF: 0 ibuprofen 600 mg tablet 600 mg PO Q6H PRN (Reason: pain) Qty: 10 RF: 0 budesonide-formoterol [Symbicort] 160-4.5 mcg/actuation Hfa Aerosol Inhaler 2 puff INHALATION BID RF: 0 Eliquis DVT-PE Treat 30D Start 5 mg (74 tabs) tablets,dose pack See Rx Instructions .ROUTE .COMPLEX Qty: 74 RF: 0 methylphenidate HCl [Ritalin] 10 mg Tablet 10 mg BID RF: 0 Medical Decision Making Patient not wishing to be seen. She is agitated. This is baseline behavior for patient. History of claiming SI to get out of uncomfortable situations. Once in the ED tends to recant. Patient does have capacity and will not be held. She chooses to leave without being seen. HPI General Mode of arrival: EMS . Date/Time Provider Initiated Documentation: 10/02/20 05:43 . Information obtained by: patient, EMS, RN notes reviewed and old records reviewed . HPI Narrative: Patient brought in by EMS from the police station for evaluation. Patient known to me from prior encounters. Patient had been brought to the police station to sign a promise to appear citation. Patient has tendency to escalate when she is under stressful situations. This occurred at the police station. She refused to sign. She complained of being short of breath. She complained of wanting to harm herself. She refused to see mental health at the police station. EMS was then called. Patient continued to yell and scream during the entire transport. Once here patient refused to be seen. She denies being suic idal homicidal. She denies being short of breath. She wants to go home, smoke a cigarette, have breakfast and get on with her day. She is not interested in being evaluated. Related Data Home Medications Medication Instructions Recorded Confirmed ipratropium-albuterol 3 ml IN Q4H PRN PRN 07/26/15 02/11/20 blood-glucose meter #1 each 04/22/19 02/11/20 inhalational spacing device #1 each 05/11/19 02/11/20 buspirone 30 mg PO BID 05/27/19 02/11/20 lorazepam [Ativan] 2 mg PO 5XW 05/27/19 02/11/20 omeprazole 40 mg PO DAILY AM 05/27/19 02/11/20 olanzapine 5 mg tablet 5 mg PO BID #30 tab 05/29/19 02/11/20 albuterol sulfate 90 mcg/actuation 1 puff INHALATION Q4H PRN PRN #200 06/25/19 02/11/20 aerosol inhaler inh budesonide-formoterol [Symbicort] 2 puff INHALATION BID 06/25/19 02/11/20 levonorgestrel 20 mcg/24 hours (6 1 device IY ONCE 07/11/19 02/11/20 yrs) 52 mg intrauterine device Vraylar 1.5 mg PO DAILY 10/23/19 02/11/20 cyclobenzaprine 10 mg PO Q6H PRN PRN #10 tab 02/26/20 06/16/20 gabapentin 300 mg PO BID 10/23/19 02/11/20 ibuprofen 600 mg PO Q6H PRN #10 tab 10/23/19 02/11/20 apixaban [Eliquis DVT-PE Treat 30D See Rx Instructions .ROUTE 02/11/20 Start] .COMPLEX #74 dose pk methylphenidate HCl [Ritalin] 10 mg BID 02/11/20 02/11/20 Previous Rx's Medication Instructions Recorded blood-glucose meter #1 each 04/22/19 inhalational spacing device #1 each 05/11/19 olanzapine 5 mg tablet 5 mg PO BID #30 tab 05/29/19 albuterol sulfate 90 mcg/actuation 1 puff INHALATION Q4H PRN PRN #200 06/25/19 aerosol inhaler inh cyclobenzaprine 10 mg PO Q6H PRN PRN #10 tab 10/23/19 ibuprofen 600 mg PO Q6H PRN #10 tab 10/23/19 apixaban [Eliquis DVT-PE Treat 30D See Rx Instructions .ROUTE 02/11/20 Start] .COMPLEX #74 dose pk Allergies Allergy/AdvReac Type Severity Reaction Status Date / Time No Known Allergies Allergy Verified 10/23/19 07:07 General DOROTEO: 3 Review of Systems Narrative: Refuses to answer [facility] Medical History Asthma Borderline personality disorder Chronic anxiety with depression Lymphedema 2nd trimester. 02/2019. nl bilateral LE dopplers. ARLEY hose not helpful (hard time staying on). 04/2019 PT declined massage secondary to new onset of LLE cellulitis Obesity PTSD (post-traumatic stress disorder) Right leg swelling Tobacco use Surgical History Myringotomy w/ PE (pressure equalizing) tubes as a child Social History Smoking/Tobacco Use Status: Current every day Tobacco Type: cigarettes Smoking risk assessment performed?: Yes Alcohol Intake: former Drug use: Daily Substance use type: does not use Details: marijuana 3 x daily Do you feel safe at home: Yes Do you feel safe in your relationship?: Yes Female Reproductive History Menstrual Age of Menarche: 12 Duration of menses: 3-5 days control method: none and progestin IUCD (Mirena IUD inserted by Dr Epperson 07/11/19. Lot#[id number] EXP AUG 2021) History History 6 Para 4 Hx # Term Pregnancies 4 Multiple births 0 Hx # Pregnancies Ectopic pregnancies 0 AB induced 1 Hx Number of Living Children 4 AB spontaneous 1 Past Pregnancies Del. Date GA/Weeks # Outcome Route Wgt Sex Labor Lgth Anesthes ia Location Prov Complic Unknown 40 No Successful vaginal 2324.661 g Female 20 min cottage, by an rn dr conley Unknown 02/11/09 40 No Successful vaginal 2324.661 g Male [address] conley 04/16/15 No Successful vaginal precipitous deliv ered 20 min after admission rn in 06/24/19 39 No Successful vaginal 2409.709 g Male Shayy Aquino'Jeff Delivery Date: precipitous, VINITAANEA Delivery Date: DATE/INFO UNKNOWN, PT CLAIMS SHE HAS NO RECOLLECTION OF ONE OF HER PREGNANCIES. LELONGANEHoa Delivery Date: 02/11/09 No notes to display Delivery Date: 04/16/15 precipitous delivery w/o pp complications LELONG,ANEA Delivery Date: 06/24/19 Artificial ROM; augemented by oxytocin; 18hrs 45 min. Bharati Martell Exam Narrative Exam Narrative: Const: WDWN female in NAD agitated and swearing. HEENT: NC/AT. Normal facial exam. Eyes: Normal conjunctiva and sclera. Neck: Supple. Trachea midline. Lungs: Normal respiratory effort. Neuro: A+O x 3. Normal speech, mentation, gait. Cranial nerves II - XII grossly intact. No gross motor or sensory deficit. Psych: Agitated. Swearing. Denies SI/HI
== END 2020-10-02 05:55 | disposition left before discharge ==
PROVIDERS: Emergency Provider Emergency Medicine; PCP Nurse Practitioner Family
DX: Z53.21 Procedure and treatment not carried out due to patient leaving prior to being seen by health care provider (principal)

== ENCOUNTER 2020-10-02 05:50 | Emergency (ER) | payer MEDICARE, SELFPAY ==
--- NOTE | 2020-10-02 05:56 | ED.GENADUL_ITS ---
Discharge Plan Disposition Patient Disposition: LEFT WITHOUT BEING SEEN Discharge Details Primary Care Provider: Preston Tran ED Provider: Augie Luu Home Meds and New Rx's Prescriptions: No Action (DME) POCKET CHAMBER Spacer See Rx Instructions .ROUTE .MEDSUPPLY Qty: 1 RF: 0 Mirena 20 mcg/24 hours (5 yrs) 52 mg intrauterine device 1 device IY ONCE RF: 0 (DME) blood-glucose meter [Accu-Chek Ethel Plus Meter] Misc See Rx Instructions .ROUTE .MEDSUPPLY Qty: 1 RF: 0 olanzapine [Zyprexa] 5 mg tablet 5 mg PO BID Qty: 30 RF: 4 albuterol sulfate [Ventolin HFA] 90 mcg/actuation HFA aerosol inhaler 1 puff Inhalation Q4H PRN PRN (Reason: bronchospasm) Qty: 200 RF: 5 ipratropium-albuterol 3 ML solution for nebulization 3 ml IN Q4H PRN PRNRF: 0 omeprazole 40 mg Capsule,Delayed Release(Dr/Ec) 40 mg PO DAILY AM RF: 0 buspirone 5 mg tablet 30 mg PO BID RF: 0 lorazepam [Ativan] 2 mg Tablet 2 mg PO 5XW RF: 0 gabapentin 100 mg capsule 300 mg PO BID RF: 0 Vraylar 1.5 mg Capsule 1.5 mg PO DAILY RF: 0 cyclobenzaprine 10 MG tablet 10 mg PO Q6H PRN PRN (Reason: Spasms) Qty: 10 RF: 0 ibuprofen 600 mg tablet 600 mg PO Q6H PRN (Reason: pain) Qty: 10 RF: 0 budesonide-formoterol [Symbicort] 160-4.5 mcg/actuation Hfa Aerosol Inhaler 2 puff INHALATION BID RF: 0 Eliquis DVT-PE Treat 30D Start 5 mg (74 tabs) tablets,dose pack See Rx Instructions .ROUTE .COMPLEX Qty: 74 RF: 0 methylphenidate HCl [Ritalin] 10 mg Tablet 10 mg BID RF: 0 HPI General Date/Time Provider Initiated Documentation: 10/02/20 05:56 . Related Data Home Medications Medication Instructions Recorded Confirmed ipratropium-albuterol 3 ml IN Q4H PRN PRN 07/26/15 02/11/20 blood-glucose meter #1 each 04/22/19 02/11/20 inhalational spacing device #1 each 05/11/19 02/11/20 buspirone 30 mg PO BID 05/27/19 02/11/20 lorazepam [Ativan] 2 mg PO 5XW 05/27/19 02/11/20 omeprazole 40 mg PO DAILY AM 05/27/19 02/11/20 olanzapine 5 mg tablet 5 mg PO BID #30 tab 05/29/19 02/11/20 albuterol sulfate 90 mcg/actuation 1 puff INHALATION Q4H PRN PRN #200 06/25/19 02/11/20 aerosol inhaler inh budesonide-formoterol [Symbicort] 2 puff INHALATION BID 06/25/19 02/11/20 levonorgestrel 20 mcg/24 hours (6 1 device IY ONCE 07/11/19 02/11/20 yrs) 52 mg intrauterine device Vraylar 1.5 mg PO DAILY 10/23/19 02/11/20 cyclobenzaprine 10 mg PO Q6H PRN PRN #10 tab 10/23/19 02/11/20 gabapentin 300 mg PO BID 10/23/19 02/11/20 ibuprofen 600 mg PO Q6H PRN #10 tab 10/23/19 02/11/20 apixaban [Eliquis DVT-PE Treat 30D See Rx Instructions .ROUTE 02/11/20 Start] .COMPLEX #74 dose pk methylphenidate HCl [Ritalin] 10 mg BID 02/11/20 02/11/20 Previous Rx's Medication Instructions Recorded blood-glucose meter #1 each 04/22/19 inhalational spacing device #1 each 05/11/19 olanzapine 5 mg tablet 5 mg PO BID #30 tab 05/29/19 albuterol sulfate 90 mcg/actuation 1 puff INHALATION Q4H PRN PRN #200 06/25/19 aerosol inhaler inh cyclobenzaprine 10 mg PO Q6H PRN PRN #10 tab 10/23/19 ibuprofen 600 mg PO Q6H PRN #10 tab 10/23/19 apixaban [Eliquis DVT-PE Treat 30D See Rx Instructions .ROUTE 02/11/20 Start] .COMPLEX #74 dose pk Allergies Allergy/AdvReac Type Severity Reaction Status Date / Time No Known Allergies Allergy Verified 10/23/19 07:07 General DOROTEO: 5 PFS Medical History Asthma Borderline personality disorder Chronic anxiety with depression Lymphedema 2nd trimester. 02/2019. nl bilateral LE dopplers. ARLEY hose not helpful (hard time staying on). 04/2019 PT declined massage secondary to new onset of LLE cellulitis Obesity PTSD (post-traumatic stress disorder) Right leg swelling Tobacco use Surgical History Myringotomy w/ PE (pressure equalizing) tubes as a child Social History Smoking/Tobacco Use Status: Current every day Tobacco Type: cigarettes Smoking risk assessment performed?: Yes Alcohol Intake: former Drug use: Daily Substance use type: does not use Details: marijuana 3 x daily Do you feel safe at home: Yes Do you feel safe in your relationship?: Yes Female Reproductive History Menstrual Age of Menarche: 12 Duration of menses: 3-5 days control method: none and progestin IUCD (Mirena IUD inserted by Dr Epperson 07/11/19. Lot#[id number] EXP AUG 2021) History History 6 Para 4 Hx # Term Pregnancies 4 Multiple births 0 Hx # Pregnancies Ectopic pregnancies 0 AB induced 1 Hx Number of Living Children 4 AB spontaneous 1 Past Pregnancies Del. Date GA/Weeks # Outcome Route Wgt Sex Labor Lgth Anesthes ia Location Prov Complic Unknown 40 No Successful vaginal 2324.661 g Female 20 min cottage, by an rn dr conley Unknown 02/11/09 40 No Successful vaginal 2324.661 g Male [address] conley 04/16/15 No Successful vaginal precipitous deliv ered 20 min after admission rn in 06/24/19 39 No Successful vaginal 2409.709 g Male Shayy O'Jeff Delivery Date: precipitous, LELONG,ANEA Delivery Date: DATE/INFO UNKNOWN, PT CLAIMS SHE HAS NO RECOLLECTION OF ONE OF HER PREGNANCIES. LELONG,ANEA Delivery Date: 02/11/09 No notes to display Delivery Date: 04/16/15 precipitous delivery w/o pp complications LELONG,ANEA Delivery Date: 06/24/19 Artificial ROM; augemented by oxytocin; 18hrs 45 min. Bharati Martell
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
--- NOTE | 2020-10-02 06:09 | NUR.NOTE ---
Nursing Note:left without being seen for second time
== END 2020-10-02 06:00 | disposition left before discharge ==
PROVIDERS: Emergency Provider Emergency Medicine; PCP Nurse Practitioner Family
DX: Z53.21 Procedure and treatment not carried out due to patient leaving prior to being seen by health care provider (principal)

== ENCOUNTER 2020-10-17 05:47 | Emergency (ER) | payer MEDICARE, SELFPAY ==
[2020-10-17 05:45] VITALS: BP 143/94; PULSE 86; RESP 14; TEMP 36.4; O2SAT 96
[2020-10-17 05:52] VITALS: RESP 14
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
== END 2020-10-17 06:10 | disposition left against medical advice (07) ==
LOC: ER 06:22
PROVIDERS: Emergency Provider Emergency Medicine; PCP Nurse Practitioner Family
DX: J45.909 Unspecified asthma, uncomplicated (principal); F17.210 Nicotine dependence, cigarettes, uncomplicated; F60.3 Borderline personality disorder; Z53.29 Procedure and treatment not carried out because of patient's decision for other reasons
CPT/HCPCS: 99283; J3490

== ENCOUNTER → 2020-12-03 20:09 | Outpatient (CLI) | payer MEDICARE, SELFPAY ==
--- NOTE | 2020-12-03 | DI.RAD_ITS ---
EXAM: XR CHEST 2V PA LATERAL CLINICAL HISTORY: COUGH, R05 TECHNIQUE: 2D digital imaging was performed. COMPARISON: CR CHEST 2 VIEWS PA,LAT from 08/15/2016 FINDINGS: MEDIASTINUM: Normal. HEART: Normal. PULMONARY VASCULATURE: Normal. LUNGS: Clear. PLEURAL SPACE: No pleural effusion or pneumothorax. BONE:Mild thoracolumbar scoliosis. IMPRESSION: No acute pulmonary findings. DATA REPOSITORY: RADIATION DOSE DELIVERED:
== END ==
PROVIDERS: PCP Nurse Practitioner Family; Visit Provider Physician Assistant Medical
DX: R05 Cough (principal)
CPT/HCPCS: 71046

== ENCOUNTER 2021-01-19 07:33 | Emergency (ER) | payer MEDICARE, SELFPAY ==
[2021-01-19 07:38] VITALS: BP 130/86; PULSE 79; RESP 18; TEMP 36.9; O2SAT 96
--- NOTE | 2021-01-19 08:01 | ED.GENADUL_ITS ---
Discharge Plan Disposition Patient Disposition: HOME Condition: Stable Discharge Details Clinical Impression: Knee pain, left Primary Care Provider: Preston Tran ED Provider: Tomy Vidal Home Meds and New Rx's Prescriptions: New prednisone 20 mg tablet 60 mg PO DAILY 4 Days Qty: 12 RF: 0 Continued (DME) POCKET CHAMBER Spacer See Rx Instructions .ROUTE .MEDSUPPLY Qty: 1 RF: 0 Mirena 20 mcg/24 hours (5 yrs) 52 mg intrauterine device 1 device IY ONCE RF: 0 (DME) blood-glucose meter [Accu-Chek Ethel Plus Meter] Misc See Rx Instructions .ROUTE .MEDSUPPLY Qty: 1 RF: 0 olanzapine [Zyprexa] 5 mg tablet 5 mg PO BID Qty: 30 RF: 4 albuterol sulfate [Ventolin HFA] 90 mcg/actuation HFA aerosol inhaler 1 puff Inhalation Q4H PRN PRN (Reason: bronchospasm) Qty: 200 RF: 5 ipratropium-albuterol 3 ML solution for nebulization 3 ml IN Q4H PRN PRNRF: 0 omeprazole 40 mg Capsule,Delayed Release(Dr/Ec) 40 mg PO DAILY AM RF: 0 buspirone 5 mg tablet 30 mg PO BID RF: 0 lorazepam [Ativan] 2 mg Tablet 2 mg PO 5XW RF: 0 gabapentin 100 mg capsule 300 mg PO BID RF: 0 Vraylar 1.5 mg Capsule 1.5 mg PO DAILY RF: 0 budesonide-formoterol [Symbicort] 160-4.5 mcg/actuation Hfa Aerosol Inhaler 2 puff INHALATION BID RF: 0 Eliquis DVT-PE Treat 30D Start 5 mg (74 tabs) tablets,dose pack See Rx Instructions .ROUTE .COMPLEX Qty: 74 RF: 0 methylphenidate HCl [Ritalin] 10 mg Tablet 10 mg BID RF: 0 Discharge Instructions Instructions: Knee Pain (ED) Additional Instructions: You are likely suffering from a sprain or arthritis continue to take 1000mg tylenol every 6 hours as needed follow up with your primary care provider in 1-2 weeks if pain continues if you feel more ill, have severe worsening pain, fevers or redness of the knee return to the emergency department Medical Decision Making 35 yo female who comes in with left knee pain for a week and denies any falls or trauma. She does walk a lot and started to have medial knee pain and has been worsening over the week. She is able to bear weight fully range the knee. Normal intact distal sensaiton and pulses. No swelling on exam of the leg or knee compared to the right knee. No calf tenderness. Has pain over the medial joint line. Suspect arthritis vs sprain and less likely bursitis. Given lack of trauma do not feel xrays indicated. Could also be meniscus injury though with no known injury less likely. Will place in knee brace and given she is on eliquis try prednisone for antiinflammatory. Will have her f/u with her pcp if pain continues and return precautions given. No redness, swelling or warmth on exam so doubt septic joint. Differential Diagnosis Differential Diagnosis: bursitis, arthritis, strain, sprain HPI General Mode of arrival: ambulatory . Date/Time Provider Initiated Documentation: 01/19/21 07:56 . Limitations to Documentation: no limitations . Information obtained by: patient . History of Present Illness 35 year old F presents to the emergency department with the chief complaint of left knee pain, described as moderate, with intensity rated at 5. Quality is described as aching, and is localized to the left and lower extremity. Patient started experiencing this week(s) (1) and it has been constant. Rest improves symptom(s), Movement worsens symptoms . Patient notes no other symptoms.. Related Data Home Medications Medication Instructions Recorded Confirmed ipratropium-albuterol 3 ml IN Q4H PRN PRN 07/26/15 01/19/21 blood-glucose meter #1 each 04/22/19 01/19/21 inhalational spacing device #1 each 05/11/19 01/19/21 buspirone 30 mg PO BID 05/27/19 01/19/21 lorazepam [Ativan] 2 mg PO 5XW 05/27/19 01/19/21 omeprazole 40 mg PO DAILY AM 05/27/19 01/19/21 olanzapine 5 mg tablet 5 mg PO BID #30 tab 05/29/19 01/19/21 albuterol sulfate 90 mcg/actuation 1 puff INHALATION Q4H PRN PRN #200 06/25/19 01/19/21 aerosol inhaler inh budesonide-formoterol [Symbicort] 2 puff INHALATION BID 06/25/19 01/19/21 levonorgestrel 20 mcg/24 hours (6 1 device IY ONCE 07/11/19 01/19/21 yrs) 52 mg intrauterine device Vraylar 1.5 mg PO DAILY 10/23/19 01/19/21 gabapentin 300 mg PO BID 10/23/19 01/19/21 Eliquis DVT-PE Treat 30D Start See Rx Instructions .ROUTE 02/11/20 01/19/21 .COMPLEX #74 dose pk methylphenidate HCl [Ritalin] 10 mg BID 02/11/20 01/19/21 prednisone 60 mg PO DAILY 4 Days #12 tab 01/19/21 Previous Rx's Medication Instructions Recorded blood-glucose meter #1 each 04/22/19 inhalational spacing device #1 each 05/11/19 olanzapine 5 mg tablet 5 mg PO BID #30 tab 05/29/19 albuterol sulfate 90 mcg/actuation 1 puff INHALATION Q4H PRN PRN #200 06/25/19 aerosol inhaler inh Eliquis DVT-PE Treat 30D Start See Rx Instructions .ROUTE 02/11/20 .COMPLEX #74 dose pk prednisone 60 mg PO DAILY 4 Days #12 tab 01/19/21 Allergies Allergy/AdvReac Type Severity Reaction Status Date / Time No Known Allergies Allergy Verified 01/19/21 07:45 General Stated Complaint: Orthopedic DOROTEO: 4 Review of Systems All systems reviewed & are unremarkable except as noted in HPI and below Constitutional Constitutional: Denies chills, Denies fever(s) and Denies weakness Cardiovascular Cardiovascular: Denies chest pain and Denies dyspnea Respiratory Respiratory: Denies cough and Denies dyspnea Gastrointestinal Gastrointestinal: Denies abdominal pain, Denies nausea and Denies vomiting Musculoskeletal Musculoskeletal: Denies joint swelling Neurologic Neurologic: Denies weakness Psychiatric Psychiatric: Denies depression FORMERLY [facility] Medical History (Updated 01/19/21 @ 08:05 by Tomy Vidal MD) Asthma Borderline personality disorder Chronic anxiety with depression Lymphedema 2nd trimester. 02/2019. nl bilateral LE dopplers. ARLEY hose not helpful (hard time staying on). 04/2019 PT declined massage secondary to new onset of LLE cellulitis Obesity PTSD (post-traumatic stress disorder) Right leg swelling Tobacco use Surgical History Myringotomy w/ PE (pressure equalizing) tubes as a child Social History Smoking/Tobacco Use Status: Current every day Tobacco Type: cigarettes Smoking risk assessment performed?: Yes Alcohol Intake: former Drug use: Daily Substance use type: does not use Details: marijuana 3 x daily Do you feel safe at home: Yes Do you feel safe in your relationship?: Yes Female Reproductive History Menstrual Age of Menarche: 12 Duration of menses: 3-5 days control method: none and progestin IUCD (Mirena IUD inserted by Dr Epperson 07/11/19. Lot#[id number] EXP AUG 2021) History History 6 Para 4 Hx # Term Pregnancies 4 Multiple births 0 Hx # Pregnancies Ectopic pregnancies 0 AB induced 1 Hx Number of Living Children 4 AB spontaneous 1 Past Pregnancies Del. Date GA/Weeks # Outcome Route Wgt Sex Labor Lgth Anesthes ia Location Prov Complic Unknown 40 No Successful vaginal 2324.661 g Female 20 min cottage, by an rn dr conley Unknown 02/11/09 40 No Successful vaginal 2324.661 g Male [address] conley 04/16/15 No Successful vaginal precipitous deliv ered 20 min after admission rn in 06/24/19 39 No Successful vaginal 2409.709 g Male Shayy Willard Delivery Date: precipitous, LELONG,ANEA Delivery Date: DATE/INFO UNKNOWN, PT CLAIMS SHE HAS NO RECOLLECTION OF ONE OF HER PREGNANCIES. LELONG,ANEA Delivery Date: 02/11/09 No notes to display Delivery Date: 04/16/15 precipitous delivery w/o pp complications LELONG,ANEA Delivery Date: 06/24/19 Artificial ROM; augemented by oxytocin; 18hrs 45 min. Bharati Martell Exam Const General: no acute distress Orientation: alert HENMT Head: normal to inspection Ears: external ears normal General nose exam: external nose normal Mouth: moist mucous membranes Eyes General: appearance normal, both eyes and all related structures Neck Neck: normal visual inspection Resp Effort & Inspection: normal respiratory effort and able to speak in complete sentences Cardio Rate: regular rate Skin General skin exam: no rashes or lesions noted Neuro General: patient alert and patient oriented x3 Extrem General: normal to inspection Psych Mental Status: mental status grossly normal Course Vital Signs Vital signs: Vital Signs Temperature 36.9 C 01/19/21 07:38 Pulse 79 01/19/21 07:38 Respiratory Rate 18 01/19/21 07:38 Blood Pressure 130/86 01/19/21 07:38 Pulse Oximetry 96 01/19/21 07:38 Temperature 36.9 C 01/19/21 07:38 Temperature Source Oral 01/19/21 07:38 Pulse 79 01/19/21 07:38 Respiratory Rate 18 01/19/21 07:38 Respiratory Effort Non-Labored 01/19/21 07:43 Blood Pressure 130/86 01/19/21 07:38 Blood Pressure Position Sitting 01/19/21 07:38 Pulse Oximetry 96 01/19/21 07:38 Oxygen Delivery Method Room Air 01/19/21 07:38 Oxygen Flow Rate 0 01/19/21 07:38 Pain Level 8 01/19/21 07:44
[2021-01-19] MEDS: predniSONE 20 MG TAB 60 MG PO (08:04)
--- NOTE | 2021-01-19 08:08 | NUR.NOTE ---
Nursing Note: Referral faxed to PCP for follow up in 1-2 weeks for knee pain. Susan Cardoso
== END 2021-01-19 08:17 | disposition home or self-care (01) ==
PROVIDERS: Emergency Provider Emergency Medicine; PCP Nurse Practitioner Family
DX: M25.562 Pain in left knee (principal)
CPT/HCPCS: 29505; 99283; J7512

== ENCOUNTER 2021-01-26 15:16 | Outpatient (REF) | payer MEDICARE, SELFPAY ==
[2021-01-28 13:33] LABS: Chlamydia Result Negative (Negative); GC Result Negative (Negative)
== END 2021-01-26 15:17 | disposition home or self-care (01) ==
LOC: NCHCN 15:16
PROVIDERS: PCP Nurse Practitioner Family; Visit Provider Nurse Practitioner Family
DX: R10.30 Lower abdominal pain, unspecified (principal); Z11.3 Encounter for screening for infections with a predominantly sexual mode of transmission
CPT/HCPCS: 87491; 87591; 87480; 87510; 87660

== ENCOUNTER 2021-02-15 07:36 | Emergency (ER) | payer MEDICARE, SELFPAY ==
[2021-02-15 07:40] VITALS: BP 150/93; PULSE 86; RESP 18; TEMP 36.4; O2SAT 98
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
== END 2021-02-15 09:05 | disposition home or self-care (01) ==
PROVIDERS: Emergency Provider Physician Assistant; PCP Nurse Practitioner Family
DX: S60.221A Contusion of right hand, initial encounter (principal); S09.90XA Unspecified injury of head, initial encounter; Y04.0XXA Assault by unarmed brawl or fight, initial encounter; R45.1 Restlessness and agitation; Z53.29 Procedure and treatment not carried out because of patient's decision for other reasons
CPT/HCPCS: 99284; 70450; 73130

== ENCOUNTER 2021-03-04 07:37 | Emergency (ER) | payer MEDICARE, SELFPAY ==
[2021-03-04 07:43] VITALS: BP 138/86; PULSE 82; RESP 18; TEMP 36; O2SAT 96
--- NOTE | 2021-03-04 07:59 | ED.GENADUL_ITS ---
Discharge Plan Disposition Patient Disposition: HOME Condition: Stable Discharge Details Clinical Impression: Hip pain, right Primary Care Provider: Preston Tran ED Provider: Brady Angel Home Meds and New Rx's Prescriptions: New acetaminophen [Tylenol] 325 mg capsule 650 mg PO Q6H PRNQty: 30 RF: 0 Continued (DME) POCKET CHAMBER Spacer See Rx Instructions .ROUTE .MEDSUPPLY Qty: 1 RF: 0 Mirena 20 mcg/24 hours (5 yrs) 52 mg intrauterine device 1 device IY ONCE RF: 0 (DME) blood-glucose meter [Accu-Chek Ethel Plus Meter] Misc See Rx Instructions .ROUTE .MEDSUPPLY Qty: 1 RF: 0 olanzapine [Zyprexa] 5 mg tablet 5 mg PO BID Qty: 30 RF: 4 albuterol sulfate [Ventolin HFA] 90 mcg/actuation HFA aerosol inhaler 1 puff Inhalation Q4H PRN PRN (Reason: bronchospasm) Qty: 200 RF: 5 ipratropium-albuterol 3 ML solution for nebulization 3 ml IN Q4H PRN PRNRF: 0 omeprazole 40 mg Capsule,Delayed Release(Dr/Ec) 40 mg PO DAILY AM RF: 0 buspirone 5 mg tablet 30 mg PO BID RF: 0 lorazepam [Ativan] 2 mg Tablet 2 mg PO TID RF: 0 gabapentin 100 mg capsule 400 mg PO BID RF: 0 Vraylar 1.5 mg Capsule 1.5 mg PO DAILY RF: 0 budesonide-formoterol [Symbicort] 160-4.5 mcg/actuation Hfa Aerosol Inhaler 2 puff INHALATION BID RF: 0 Eliquis DVT-PE Treat 30D Start 5 mg (74 tabs) tablets,dose pack See Rx Instructions .ROUTE .COMPLEX Qty: 74 RF: 0 methylphenidate HCl [Ritalin] 10 mg Tablet 10 mg BID RF: 0 tolterodine 2 mg capsule,extended release 24hr 4 mg PO DAILY RF: 0 trazodone 100 mg tablet 100 mg PO QHS RF: 0 bupropion HCl 300 mg tablet extended release 24 hr 300 mg PO DAILY RF: 0 Discharge Instructions Instructions: Hip Pain (ED) Additional Instructions: Tylenol as directed. Cool and/or warm compresses every 2 hours for 20 minutes. Gentle stretching as tolerated. Use cane as needed, advance activity as tolerated. I am giving you a referral to physical therapy, contact them with her today or tomorrow at your convenience. Please watch for new or worsening symptoms and return to the ER for any concerns. I would like you also to recheck your primary care provider later today or tomorrow to discuss your symptoms and need for outpatient reevaluation. Stand Alone Forms: Physical Therapy Referral Medical Decision Making <SOM Arevalo - Last Filed: 03/04/21 09:22> This is a 35-year-old female presents to the ER for right hip pain has been ongoing for approximately 1 week. Patient states that she awoke with hip pain, no obvious trauma. Denies any numbness, weakness, fever, radiation of pain. Pain is a dull ache at rest but worse with movement or ambulation. She did take Tylenol with minimal relief. She is to have a cane but she gave the cane away and now does not have one. Clinically she appears well, nontoxic, no signs of septic joint. Vital signs are unremarkable. Given the pain is atraumatic low suspicion for acute bony normality but I believe obtaining an x-ray is reasonable place to start. Patient will also be given a cane. She is requesting a prescription for Tylenol, this will be given as well. We also discussed physical therapy which she is agreeable to at least trying to see if it makes any difference in her symptoms. X-ray of the right hip and pelvis read by radiology as negative. Discussed x-ray findings with patient. She has no additional questions or concerns and is comfortable discharge. Able to use the cane steadily. Prescription for Tylenol given and referral to physical therapy. Standard discharge and return precautions given. Medical Records Medical records reviewed: Yes I reviewed the patient's medical records. Imaging Data Radiologic Study: Attestation: I personally reviewed and interpreted this imaging study as follows: Imaging: X-Ray Radiologist's impression: Right hip and pelvis: No fracture or dislocation. Hip joint spaces well maintained. IUD incidentally noted.] Lab Data Lab results reviewed: Yes I reviewed the patient's lab results. Labs: Negative POC <Hugo Mcclure MD - Last Filed: 03/04/21 09:04> Patient seen, examined, and discussed with SOM Angel. I agree with treatment plan as discussed/documented. HPI <SOM Arevalo - Last Filed: 03/04/21 09:22> General Mode of arrival: ambulatory . Date/Time Provider Initiated Documentation: 03/04/21 07:58 . Limitations to Documentation: no limitations . Information obtained by: patient . HPI Narrative: This is a 35-year-old female, past medical history of asthma, borderline personality disorder, anxiety, obesity, PTSD, current smoker, presenting to the ER complaining of 1 week history of right hip pain. Patient states that she woke up 1 morning with pain, assumed that she slept on it awkwardly. She states the pain is on the lateral aspect and does wrap around a little bit to the front. Reports the pain is mild and achy but worse with movement or bearing weight. She denies any fever, redness, back pain, knee pain, calf pain, redness or swelling. Denies chest pain or shortness of breath. Took a single Tylenol yesterday for her discomfort. Patient states that she had a cane in the past but gave it away to an elderly person. Denies radiation of the pain, denies weakness, numbness, falling. Related Data Home Medications Medication Instructions Recorded Confirmed ipratropium-albuterol 3 ml IN Q4H PRN PRN 07/26/15 03/04/21 blood-glucose meter #1 each 04/22/19 01/19/21 inhalational spacing device #1 each 05/11/19 01/19/21 buspirone 30 mg PO BID 05/27/19 03/04/21 lorazepam [Ativan] 2 mg PO TID 05/27/19 03/04/21 omeprazole 40 mg PO DAILY AM 05/27/19 01/19/21 olanzapine 5 mg tablet 5 mg PO BID #30 tab 05/29/19 01/19/21 albuterol sulfate 90 mcg/actuation 1 puff INHALATION Q4H PRN PRN #200 06/25/19 03/04/21 aerosol inhaler inh budesonide-formoterol [Symbicort] 2 puff INHALATION BID 06/25/19 03/04/21 levonorgestrel 20 mcg/24 hours (6 1 device IY ONCE 07/11/19 01/19/21 yrs) 52 mg intrauterine device Vraylar 1.5 mg PO DAILY 10/23/19 03/04/21 gabapentin 400 mg PO BID 10/23/19 03/04/21 Eliquis DVT-PE Treat 30D Start See Rx Instructions .ROUTE 02/11/20 03/04/21 .COMPLEX #74 dose pk methylphenidate HCl [Ritalin] 10 mg BID 02/11/20 01/19/21 acetaminophen [Tylenol] 650 mg PO Q6H PRN #30 cap 03/04/21 bupropion HCl 300 mg PO DAILY 03/04/21 03/04/21 tolterodine 4 mg PO DAILY 03/04/21 03/04/21 trazodone 100 mg PO QHS 03/04/21 03/04/21 Previous Rx's Medication Instructions Recorded blood-glucose meter #1 each 04/22/19 inhalational spacing device #1 each 05/11/19 olanzapine 5 mg tablet 5 mg PO BID #30 tab 05/29/19 albuterol sulfate 90 mcg/actuation 1 puff INHALATION Q4H PRN PRN #200 06/25/19 aerosol inhaler inh Eliquis DVT-PE Treat 30D Start See Rx Instructions .ROUTE 02/11/20 .COMPLEX #74 dose pk acetaminophen [Tylenol] 650 mg PO Q6H PRN #30 cap 03/04/21 Allergies Allergy/AdvReac Type Severity Reaction Status Date / Time No Known Allergies Allergy Verified 03/04/21 07:46 General Stated Complaint: Orthopedic DOROTEO: 3 Review of Systems <SOM Arevalo - Last Filed: 03/04/21 09:22> Constitutional Constitutional: Denies fever(s) and Denies weakness Cardiovascular Cardiovascular: Denies chest pain and Denies dyspnea Respiratory Respiratory: Denies dyspnea Musculoskeletal Musculoskeletal: Denies deformity, Denies numbness, Reports stiffness and Denies tingling Integumentary/Breasts Skin/Breast: Denies erythema Neurologic Neurologic: Denies numbness, Denies tingling and Denies weakness PFSH <SOM Arevalo - Last Filed: 03/04/21 09:22> Medical History (Updated 03/04/21 @ 08:52 by SOM Arevalo) Asthma Borderline personality disorder Chronic anxiety with depression Lymphedema 2nd trimester. 02/2019. nl bilateral LE dopplers. ARLEY hose not helpful (hard time staying on). 04/2019 PT declined massage secondary to new onset of LLE cellulitis Obesity PTSD (post-traumatic stress disorder) Right leg swelling Tobacco use Surgical History Myringotomy w/ PE (pressure equalizing) tubes as a child Social History Smoking/Tobacco Use Status: Current every day Tobacco Type: cigarettes Smoking risk assessment performed?: Yes Alcohol Intake: current Alcohol Intake frequency: holidays/special occasions only Alcohol type: hard liquor Drug use: Daily Substance use type: marijuana Details: marijuana 3 x daily Do you feel safe at home: No (homeless) Female Reproductive History Menstrual Age of Menarche: 12 Duration of menses: 3-5 days control method: none and progestin IUCD (Mirena IUD inserted by Dr Epperson 07/11/19. Lot#[id number] EXP AUG 2021) History History 6 Para 4 Hx # Term Pregnancies 4 Multiple births 0 Hx # Pregnancies Ectopic pregnancies 0 AB induced 1 Hx Number of Living Children 4 AB spontaneous 1 Past Pregnancies Del. Date GA/Weeks # Outcome Route Wgt Sex Labor Lgth Anesthes ia Location Prov Complic Unknown 40 No Successful vaginal 2324.661 g Female 20 min cottage, by an rn dr conley Unknown 02/11/09 40 No Successful vaginal 2324.661 g Male [address] conley 04/16/15 No Successful vaginal precipitous deliv ered 20 min after admission rn in 06/24/19 39 No Successful vaginal 2409.709 g Male Shayy Aquino'Jeff Delivery Date: precipitous, LELONG,ANEA Delivery Date: DATE/INFO UNKNOWN, PT CLAIMS SHE HAS NO RECOLLECTION OF ONE OF HER PREGNANCIES. LELONG,ANEA Delivery Date: 02/11/09 No notes to display Delivery Date: 04/16/15 precipitous delivery w/o pp complications LELONG,ANEA Delivery Date: 06/24/19 Artificial ROM; augemented by oxytocin; 18hrs 45 min. Bharati Martell Exam <SOM Arevalo - Last Filed: 03/04/21 09:22> Const General: cooperative, healthy appearing, comfortable and no acute distress Orientation: alert and awake HENMT Head: normal to inspection, normocephalic and atraumatic Eyes General: appearance normal, both eyes and all related structures Conjunctivae: conjunctivae normal Neck Neck: normal visual inspection, trachea midline and supple Resp Effort & Inspection: normal respiratory effort and able to speak in complete sentences Auscultation: clear to auscultation bilaterally Cardio Rate: regular rate Rhythm: regular rhythm Back/Spine/Pelvis Back: no CVA tenderness and No back tenderness Skin General skin exam: no rashes or lesions noted Neuro General: patient alert, patient awake, moves all extremities and no focal motor deficits Cognition: normal cognition Speech: speech normal Gait: antalgic (Minimally) Motor: muscle tone normal throughout Sensory Exam: no sensory deficits noted Extrem General: normal to inspection, full ROM, capillary refill normal, no pedal edema and no calf tenderness Right lower extremity: normal to inspection, normal capillary refill, hip/thigh Details: normal to inspection; no tenderness and no swelling, knee Details: normal to inspection and normal ROM; no tenderness and no swelling, lower leg Details: normal to inspection; no tenderness and no palpable cords, ankle Details: normal to inspection; no tenderness and no swelling and foot Details: normal capillary refill, normal to inspection and toes with normal ROM; no tenderness Left lower extremity: normal to inspection, full ROM and normal capillary refill Other: Right hip unremarkable inspection. Patient does have a limited flexion and external rotation. She is able to bear weight and ambulate with a slightly antalgic gait. There is no erythema, warmth, or evidence of septic joint. Neuro, vascular, tendon intact. Knee, calf, foot and ankle unremarkable. Normal cap refill and dorsalis pedal pulse. Psych Appearance: grossly normal Mental Status: mental status grossly normal Course <SOM Arevalo - Last Filed: 03/04/21 09:22> Vital Signs Vital signs: Vital Signs Temperature 36 C L 03/04/21 07:43 Pulse 82 03/04/21 07:43 Respiratory Rate 18 03/04/21 07:43 Blood Pressure 138/86 03/04/21 07:43 Pulse Oximetry 96 03/04/21 07:43 Temperature 36 C L 03/04/21 07:43 Temperature Source Temporal Artery Scan 03/04/21 07:43 Pulse 82 03/04/21 07:43 Respiratory Rate 18 03/04/21 07:43 Respiratory Effort Non-Labored 03/04/21 07:48 Blood Pressure 138/86 03/04/21 07:43 Blood Pressure Position Sitting 03/04/21 07:43 Pulse Oximetry 96 03/04/21 07:43 Oxygen Delivery Method Room Air 03/04/21 07:43 Oxygen Flow Rate 0 03/04/21 07:43 Pain Level 9 03/04/21 07:48
--- NOTE | 2021-03-04 08:00 | DI.RAD_ITS ---
Exam(s) XR HIP RT COMPLETE AP PELVIS EXAM: XR HIP RT COMPLETE AP PELVIS INDICATION: pain. COMPARISON: No exams were available for comparison TECHNIQUE: 2D digital imaging was performed. FINDINGS: No fracture or dislocation. Hip joint spaces well maintained. IUD incidentally noted. IMPRESSION: No acute abnormality. DATA REPOSITORY: RADIATION DOSE DELIVERED:
--- NOTE | 2021-03-04 09:13 | DI.VRAD_ITS ---
PROCEDURE INFORMATION: Exam: XR Right Hip Exam date and time: 03/04/2021 8:42 AM Age: 35 years old Clinical indication: Hip pain; Right hip TECHNIQUE: Imaging protocol: XR Right hip. Views: 2 or 3 views hip with pelvis when performed. COMPARISON: CT ABDOMEN PELVIS WO 07/14/2019 8:18 PM FINDINGS: Tubes, catheters and devices: There is an intrauterine device present. Bones/joints: No fracture. No dislocation. No hip joint space narrowing. The symphysis pubis and sacroiliac joints are not diastatic. Soft tissues: No acute soft tissue abnormality. IMPRESSION: No acute osseous abnormality. Dictated and Authenticated by: Mario Lou MD. Ordering:BRAYDEN Abreu MD
== END 2021-03-04 09:01 | disposition home or self-care (01) ==
PROVIDERS: Emergency Provider Physician Assistant; PCP Nurse Practitioner Family
DX: M25.551 Pain in right hip (principal)
CPT/HCPCS: 81025; 99283; 73502

== ENCOUNTER 2021-07-29 06:27 | Emergency (ER) | payer MEDICARE, SELFPAY ==
[2021-07-29 06:32] VITALS: BP 167/101; PULSE 88; RESP 18; TEMP 36.6; O2SAT 98
--- NOTE | 2021-07-29 06:51 | ED.GENADUL_ITS ---
Discharge Plan Disposition Patient Disposition: AGAINST MEDICAL ADVICE Condition: Stable Discharge Details Clinical Impression: Acute pain of left knee Primary Care Provider: Preston Tran ED Provider: Maria Esther Nieto Home Meds and New Rx's Prescriptions: Continued (DME) POCKET CHAMBER Spacer See Rx Instructions .ROUTE .MEDSUPPLY Qty: 1 RF: 0 Mirena 20 mcg/24 hours (5 yrs) 52 mg intrauterine device 1 device IY ONCE RF: 0 (DME) blood-glucose meter [Accu-Chek Ethel Plus Meter] Misc See Rx Instructions .ROUTE .MEDSUPPLY Qty: 1 RF: 0 olanzapine [Zyprexa] 5 mg tablet 5 mg PO BID Qty: 30 RF: 4 albuterol sulfate [Ventolin HFA] 90 mcg/actuation HFA aerosol inhaler 1 puff Inhalation Q4H PRN PRN (Reason: bronchospasm) Qty: 200 RF: 5 ipratropium-albuterol 3 ML solution for nebulization 3 ml IN Q4H PRN PRNRF: 0 omeprazole 40 mg Capsule,Delayed Release(Dr/Ec) 40 mg PO DAILY AM RF: 0 buspirone 5 mg tablet 30 mg PO BID RF: 0 lorazepam [Ativan] 2 mg Tablet 2 mg PO TID RF: 0 gabapentin 100 mg capsule 400 mg PO BID RF: 0 Vraylar 1.5 mg Capsule 1.5 mg PO DAILY RF: 0 budesonide-formoterol [Symbicort] 160-4.5 mcg/actuation Hfa Aerosol Inhaler 2 puff INHALATION BID RF: 0 Eliquis DVT-PE Treat 30D Start 5 mg (74 tabs) tablets,dose pack See Rx Instructions .ROUTE .COMPLEX Qty: 74 RF: 0 methylphenidate HCl [Ritalin] 10 mg Tablet 10 mg BID RF: 0 tolterodine 2 mg capsule,extended release 24hr 4 mg PO DAILY RF: 0 trazodone 100 mg tablet 100 mg PO QHS RF: 0 bupropion HCl 300 mg tablet extended release 24 hr 300 mg PO DAILY RF: 0 acetaminophen [Tylenol] 325 mg capsule 650 mg PO Q6H PRNQty: 30 RF: 0 Discharge Instructions Instructions: Knee Pain (ED) Additional Instructions: You left the hospital AGAINST MEDICAL ADVICE. You had a leg ultrasound ordered which was not completed before you left the emergency department. An outpatient leg ultrasound has been ordered. You will be contacted by the radiology department regarding scheduling this test. It is recommended that you follow-up with your primary care doctor for reevaluation. Continue to take your regular medication including your Eliquis as directed. Return immediately to the emergency department if you develop any worsening or new concerning symptoms. Discharge Data Discharge Date/Time-TO BE ENTERED AT DEPARTURE: 07/29/21 08:34 Discharge Physician: Maria Esther Nieto Medical Decision Making <Brian Radford DO - Last Filed: 07/29/21 07:54> This is a 35-year-old female with a past medical history of PTSD, asthma, DVT on Eliquis, psychiatric disorder, who presents today for left knee pain. Patient states that for the last week she has had mild pain in the knee and calf. She denies any injury, she denies any trauma. She describes it as an achy pain. Worse with movement, weightbearing, and bending of the knee. She does admit to mild swelling and edema of the left lower extremity compared to the right. She denies any chest pain or shortness of breath. She does state that she regularly misses doses of her Eliquis, and is inconsistent with taking it. She has been taking Tylenol and states that this does improve her symptoms some. No other complaints at this time. No other modifying factors. Exam demonstrates mild tenderness over the medial aspect of the left knee, worse with varus and valgus stressing. Mild posterior knee tenderness, mild tenderness in the calf as well. Tibial plateau appears mildly tender. No focal swelling around the knee that I can appreciate though. Minimal swelling in the left calf. Differential includes ligamentous injury, less likely osseous injury in the absence of a fall, however tibial plateau fracture does remain on the differential. DVT is also of concern especially with her control use and her multiple skip doses of Eliquis. We will get an ultrasound, x-ray, give a gram of Tylenol, monitor closely and reassess. Patient will be signed out to my colleague Maria Esther Nieto for follow-up on imaging and ultrasound. FINDINGS: Bones/joints: Probable incidental bone island noted proximal medial tibia. No fracture. No dislocation Soft tissues: Normal. IMPRESSION: No acute findings Thank you for allowing us to participate in the care of your patient. Dictated and Authenticated by: Keo Silva MD 07/29/2021 7:52 AM Eastern Time ([place] & [place]) <Maria Esther Nieto DO - Last Filed: 07/29/21 14:06> 0800 -- please see previous provider's notes for initial presentation, exam and plan. Case endorsed to follow-up on imaging results and final disposition. 0825 -- ultrasound reported that they can take her for ultrasound at 8:45 AM. Patient began raising her voice in the room and yelling I need Ativan, just give me Ativan. She has Ativan 2 mg 3 times daily on her medication list. Ativan was ordered but patient is reported to have taken her own ativan in her bag. Patient then began screaming and crying stating she needed to leave and catch the bus. Recommended that patient stay for ultrasound to rule out DVT but she is screaming and she walked out of the ED. Patient then walked out to the waiting room and demanded food. She was yelling at staff including security and nursing air intercept controller supervisor who were trying to calm the situation in the waiting room. [facility] contacted to remove patient from the building. After this, pt checked back in to the ED stating she wanted the ultrasound. Please see this note for specific details. She ultimately decided not to come in the ED and refused to be seen. Patient placed on care management list for follow-up with PCP and for outpatient ultrasound. HPI <Brian Radford DO - Last Filed: 07/29/21 07:54> General Date/Time Provider Initiated Documentation: 07/29/21 06:38 . HPI Narrative: This is a 35-year-old female with a past medical history of PTSD, asthma, DVT on Eliquis, psychiatric disorder, who presents today for left knee pain. Patient states that for the last week she has had mild pain in the knee and calf. She denies any injury, she denies any trauma. She describes it as an achy pain. Worse with movement, weightbearing, and bending of the knee. She does admit to mild swelling and edema of the left lower extremity compared to the right. She denies any chest pain or shortness of breath. She does state that she regularly misses doses of her Eliquis, and is inconsistent with taking it. She has been taking Tylenol and states that this does improve her symptoms some. No other complaints at this time. No other modifying factors. Related Data Home Medications Medication Instructions Recorded Confirmed ipratropium-albuterol 3 ml IN Q4H PRN PRN 07/26/15 07/29/21 blood-glucose meter #1 each 04/22/19 01/19/21 inhalational spacing device #1 each 05/11/19 01/19/21 buspirone 30 mg PO BID 05/27/19 07/29/21 lorazepam [Ativan] 2 mg PO TID 05/27/19 07/29/21 omeprazole 40 mg PO DAILY AM 05/27/19 07/29/21 olanzapine 5 mg tablet 5 mg PO BID #30 tab 05/29/19 07/29/21 albuterol sulfate 90 mcg/actuation 1 puff INHALATION Q4H PRN PRN #200 06/25/19 07/29/21 aerosol inhaler inh budesonide-formoterol [Symbicort] 2 puff INHALATION BID 06/25/19 07/29/21 levonorgestrel 20 mcg/24 hours (7 1 device IY ONCE 07/11/19 07/29/21 yrs) 52 mg intrauterine device Vraylar 1.5 mg PO DAILY 10/23/19 07/29/21 gabapentin 400 mg PO BID 10/23/19 07/29/21 Eliquis DVT-PE Treat 30D Start See Rx Instructions .ROUTE 02/11/20 07/29/21 .COMPLEX #74 dose pk methylphenidate HCl [Ritalin] 10 mg BID 02/11/20 07/29/21 acetaminophen [Tylenol] 650 mg PO Q6H PRN #30 cap 03/04/21 07/29/21 bupropion HCl 300 mg PO DAILY 03/04/21 07/29/21 tolterodine 4 mg PO DAILY 03/04/21 07/29/21 trazodone 100 mg PO QHS 03/04/21 07/29/21 Previous Rx's Medication Instructions Recorded blood-glucose meter #1 each 04/22/19 inhalational spacing device #1 each 05/11/19 olanzapine 5 mg tablet 5 mg PO BID #30 tab 05/29/19 albuterol sulfate 90 mcg/actuation 1 puff INHALATION Q4H PRN PRN #200 06/25/19 aerosol inhaler inh Eliquis DVT-PE Treat 30D Start See Rx Instructions .ROUTE 02/11/20 .COMPLEX #74 dose pk acetaminophen [Tylenol] 650 mg PO Q6H PRN #30 cap 03/04/21 Allergies Allergy/AdvReac Type Severity Reaction Status Date / Time No Known Allergies Allergy Verified 03/04/21 07:46 General Stated Complaint: Orthopedic DOROTEO: 4 Review of Systems <Brian Radford DO - Last Filed: 07/29/21 07:54> All systems reviewed & are unremarkable except as noted in HPI and below PFSH <Brian Radford DO - Last Filed: 07/29/21 07:54> Active Problem List (Updated 07/29/21 @ 11:48 by MariaE sther Nieto DO) Left low back pain (Acute) Knee pain, left (Acute) Contusion of hand (Acute) Head injury (Acute) Hip pain, right (Acute) Acute pain of left knee (Acute) Left knee pain (Acute) Eloped from emergency department (Acute) Dysfunction of both eustachian tubes (Acute) Bilateral chronic serous otitis media (Acute) Conductive hearing loss, bilateral (Acute) Encounter for insertion of mirena IUD (Acute) Encounter for IUD insertion (Acute) Self-harming behavior (Acute) Lymphedema (Acute) Borderline personality disorder (Acute) PTSD (post-traumatic stress disorder) (Acute) Dental abscess (Acute) Smoker (Chronic 12/12/14) History of psychiatric disorder (Chronic 10/08/14) Asthma (Chronic 10/08/14) Medical History (Updated 07/29/21 @ 11:48 by Maria Esther Nieto DO) Asthma Chronic anxiety with depression Obesity Right leg swelling Tobacco use Surgical History Myringotomy w/ PE (pressure equalizing) tubes as a child Social History Smoking/Tobacco Use Status: Current every day Tobacco Type: cigarettes Smoking risk assessment performed?: Yes Alcohol Intake: current Alcohol Intake frequency: holidays/special occasions only Alcohol type: hard liquor Drug use: Daily Substance use type: marijuana Details: marijuana 3 x daily Do you feel safe at home: No (homeless) Do you feel safe in your relationship?: Yes Female Reproductive History Menstrual Age of Menarche: 12 Duration of menses: 3-5 days control method: none and progestin IUCD (Mirena IUD inserted by Dr Epperson 07/11/19. Lot#[id number] EXP AUG 2021) History History 6 Para 4 Hx # Term Pregnancies 4 Multiple births 0 Hx # Pregnancies Ectopic pregnancies 0 AB induced 1 Hx Number of Living Children 4 AB spontaneous 1 Past Pregnancies Del. Date GA/Weeks # Outcome Route Wgt Sex Labor Lgth Anesthes ia Location Prov Complic Unknown 40 No Successful vaginal 2324.661 g Female 20 min cottage, by an rn dr conley Unknown 02/11/09 40 No Successful vaginal 2324.661 g Male [address] conley 04/16/15 No Successful vaginal precipitous deliv ered 20 min after admission rn in 06/24/19 39 No Successful vaginal 2409.709 g Male Shayy O'Jeff Delivery Date: precipitous, Radha Azevedo Delivery Date: DATE/INFO UNKNOWN, PT CLAIMS SHE HAS NO RECOLLECTION OF ONE OF HER PREGNANCIES. Radha Azevedo Delivery Date: 02/11/09 No notes to display Delivery Date: 04/16/15 precipitous delivery w/o pp complications Radha Azevedo Delivery Date: 06/24/19 Artificial ROM; augemented by oxytocin; 18hrs 45 min. Bharati Martell Exam <Brian Radford DO - Last Filed: 07/29/21 07:54> Narrative Exam Narrative: 1.Const: Well-nourished, Well-developed, appearing stated age 2.Eyes: PERRL, no conjunctival injection, and symmetrical lids. 3.ENT: Atraumatic external nose and ears. Moist MM. Neck: Symmetric, trachea midline, No thyromegaly. 4.CVS: +S1/S2, No murmurs or gallops. Peripheral pulses 2+ and equal in all extremities. Brisk capillary refill in all extremities. 5.RESP: Unlabored respiratory effort. Clear to auscultation bilaterally. No wheezes rales or rhonchi 6.GI: Soft, Nontender/Nondistended, No hepatosplenomegaly. No guarding or rebound. 7.MSK: Left knee demonstrates mild tenderness in the posterior aspect of the knee as well as medial lateral compartment. Mild calf tenderness. No pitting edema though. Dorsalis pedis and posterior tibial pulses +2 bilaterally. No significant pain with Siva's test, patient does have pain with full varus and valgus stressing, pain seems to be a bit worse at the medial component and on palpation of the tibial plateau. No significant tenderness on palpation of the patella. 8.Skin: Warm, Dry. Multiple pink lesions on the childs on both legs. No redness or cellulitis. 9.Neuro: financial management analyst II-XII grossly intact. Sensation grossly intact, no focal neurologic deficits. 10.Psych: (AAO) x3. Appropriate mood and affect Course <Brian Radford DO - Last Filed: 07/29/21 07:54> Vital Signs Vital signs: Vital Signs Temperature 36.6 C 07/29/21 06:32 Pulse 88 07/29/21 06:32 Respiratory Rate 18 07/29/21 06:32 Blood Pressure 167/101 H 07/29/21 06:32 Pulse Oximetry 98 07/29/21 06:32 Temperature 36.6 C 07/29/21 06:32 Temperature Source Tympanic 07/29/21 06:32 Pulse 88 07/29/21 06:32 Respiratory Rate 18 07/29/21 06:32 Respiratory Effort 07/29/21 06:36 Blood Pressure 167/101 H 07/29/21 06:32 Blood Pressure Position Sitting 07/29/21 06:32 Pulse Oximetry 98 07/29/21 06:32 Oxygen Delivery Method Room Air 07/29/21 06:32 Oxygen Flow Rate 0 07/29/21 06:32 Pain Level 8 07/29/21 06:32 Sign Out <Brian Radford DO - Last Filed: 07/29/21 07:54> Sign Out Data: Sign Out Comment: Left knee pain, ligamentous versus osseous. Pending ultrasound and x-ray results Last updated by Brian Radford DO at 07/29/21 07:34
[2021-07-29] MEDS: Acetaminophen 500 MG TAB 1000 MG PO (06:55)
--- NOTE | 2021-07-29 07:18 | DI.RAD_ITS ---
Exam(s) XR KNEE LT 3V AP,LAT,DYAN EXAM: XR KNEE LT 3V AP,LAT,DYAN CLINICAL HISTORY: medial knee pain, unknown injury. TECHNIQUE: 2D digital imaging was performed. COMPARISON: CR XR knee LT 3V AP,lat,dyan from 12/05/2018 FINDINGS: There is no evidence of fracture but there is a joint effusion which signifies a probable internal de rangement. Benign bone island in the medial proximal tibial metaphysis is unchanged from 2019. No o bvious degenerative changes. No osseous lesions. IMPRESSION: No fractures but there is density in the suprapatellar bursa consistent with joint effusion or synovi al thickening. Recommend follow-up MRI. DATA REPOSITORY: RADIATION DOSE DELIVERED:
--- NOTE | 2021-07-29 07:52 | DI.VRAD_ITS ---
PROCEDURE INFORMATION: Exam: XR Left Knee Exam date and time: 07/29/2021 6:52 AM Age: 35 years old Clinical indication: Patient HX: Left knee pain x1 week, no known injury. woke up 1 week ago with left knee pain PT sts. TECHNIQUE: Imaging protocol: XR Left knee. Views: 3 views. COMPARISON: CR XR knee LT 3V AP,lat,omaira 12/05/2018 7:20 PM FINDINGS: Bones/joints: Probable incidental bone island noted proximal medial tibia. No fracture. No dislocation Soft tissues: Normal. IMPRESSION: No acute findings Dictated and Authenticated by: Keo Silva MD. Ordering:JANAY Torres MD
--- NOTE | 2021-07-29 09:08 | NUR.NOTE ---
Nursing Note: Request for outpatient left leg ultrasound faxed to DI for left knee pain, JAVIER. Susan Cardoso Referral faxed to [facility] for follow up of left knee pain,make sure taking jose Saeed US order sent for left extremity knee pain. Susan Cardoso
--- NOTE | 2021-07-29 13:34 | NUR.NOTE ---
Nursing Note: DI called stating no voicemail set up on phone. They are unable to contact patient. Patient is unaware of the US being ordered. An FYI referral was sent to [facility] with this information. Susan Cardoso
== END 2021-07-29 08:34 | disposition left against medical advice (07) ==
PROVIDERS: Emergency Provider Physician Assistant; PCP Nurse Practitioner Family
DX: M25.562 Pain in left knee (principal); Z53.29 Procedure and treatment not carried out because of patient's decision for other reasons
CPT/HCPCS: 73562; 99281; 99285; 99283

== ENCOUNTER 2021-07-29 08:53 | Emergency (ER) | payer MEDICARE, SELFPAY ==
--- NOTE | 2021-07-29 08:56 | W.ED.GENAD ---
Discharge Plan Disposition Patient Disposition: OTHER Condition: Stable Discharge Details Clinical Impression: Left knee pain, Eloped from emergency department Primary Care Provider: Preston Tran ED Provider: Maria Esther Nieto Home Meds and New Rx's Prescriptions: Continued (DME) POCKET CHAMBER Spacer See Rx Instructions .ROUTE .MEDSUPPLY Qty: 1 RF: 0 Mirena 20 mcg/24 hours (5 yrs) 52 mg intrauterine device 1 device IY ONCE RF: 0 (DME) blood-glucose meter [Accu-Chek Ethel Plus Meter] Misc See Rx Instructions .ROUTE .MEDSUPPLY Qty: 1 RF: 0 olanzapine [Zyprexa] 5 mg tablet 5 mg PO BID Qty: 30 RF: 4 albuterol sulfate [Ventolin HFA] 90 mcg/actuation HFA aerosol inhaler 1 puff Inhalation Q4H PRN PRN (Reason: bronchospasm) Qty: 200 RF: 5 ipratropium-albuterol 3 ML solution for nebulization 3 ml IN Q4H PRN PRNRF: 0 omeprazole 40 mg Capsule,Delayed Release(Dr/Ec) 40 mg PO DAILY AM RF: 0 buspirone 5 mg tablet 30 mg PO BID RF: 0 lorazepam [Ativan] 2 mg Tablet 2 mg PO TID RF: 0 gabapentin 100 mg capsule 400 mg PO BID RF: 0 Vraylar 1.5 mg Capsule 1.5 mg PO DAILY RF: 0 budesonide-formoterol [Symbicort] 160-4.5 mcg/actuation Hfa Aerosol Inhaler 2 puff INHALATION BID RF: 0 Eliquis DVT-PE Treat 30D Start 5 mg (74 tabs) tablets,dose pack See Rx Instructions .ROUTE .COMPLEX Qty: 74 RF: 0 methylphenidate HCl [Ritalin] 10 mg Tablet 10 mg BID RF: 0 tolterodine 2 mg capsule,extended release 24hr 4 mg PO DAILY RF: 0 trazodone 100 mg tablet 100 mg PO QHS RF: 0 bupropion HCl 300 mg tablet extended release 24 hr 300 mg PO DAILY RF: 0 acetaminophen [Tylenol] 325 mg capsule 650 mg PO Q6H PRNQty: 30 RF: 0 Discharge Instructions Instructions: Knee Pain (ED) Additional Instructions: You have left before being seen. An order for an outpatient leg ultrasound has been placed and you will be contacted by the radiology department regarding scheduling this test. Continue to take your blood thinner medication Eliquis as directed. Return immediately to the emergency department if you develop any worsening or new concerning symptoms. Discharge Data Discharge Date/Time-TO BE ENTERED AT DEPARTURE: 07/29/21 08:57 Discharge Physician: Maria Esther Nieto Medical Decision Making 35-year-old female with a history of PTSD, self harming behavior and borderline personality disorder presents after she left AMA a few minutes ago now checking back in to have the leg ultrasound that she refused a few minutes ago. Before I was able to speak to the patient, she is now stating to staff that she is leaving again. When inquired if patient would like to be seen, she was yelling in the waiting room I am not talking to you and I am not going back to that suicide room. An order for an outpatient leg ultrasound was placed. Patient placed on care management list for follow-up with her PCP and to ensure that she has the outpatient leg ultrasound. Medical Records Medical records reviewed: Yes I reviewed the patient's medical records. HPI General Mode of arrival: ambulatory. Date/Time Provider Initiated Documentation: 07/29/21 08:56. Limitations to Documentation: no limitations. Information obtained by: patient. HPI Narrative: Patient is a 35-year-old female with a history of PTSD, self harming behavior, borderline personality disorder who left AMA few minutes ago after here in the ED for left knee pain waiting to have a leg ultrasound was noted to be yelling in the waiting room after she left AMA now stating she wants the leg ultrasound. Security and nursing correctional case records supervisor had been with her when she was yelling in the waiting room and trying to calm the situation when she stated she wanted to check back in and get the leg ultrasound that she refused to stay for a few minutes ago. Before I was even able to go see patient, she stated she was leaving to catch the bus. When I spoke to the patient in the waiting room and inquired if she wanted to be seen, she was yelling and stated I am not talking to you and put on her headphones. She then stated I am not going back to the suicide room. Related Data Home Medications Medication Instructions Recorded Confirmed ipratropium-albuterol 3 ml IN Q4H PRN PRN 07/26/15 07/29/21 blood-glucose meter #1 each 04/22/19 01/19/21 inhalational spacing device #1 each 05/11/19 01/19/21 buspirone 30 mg PO BID 05/27/19 07/29/21 lorazepam [Ativan] 2 mg PO TID 05/27/19 07/29/21 omeprazole 40 mg PO DAILY AM 05/27/19 07/29/21 olanzapine 5 mg tablet 5 mg PO BID #30 tab 05/29/19 07/29/21 albuterol sulfate 90 mcg/actuation 1 puff INHALATION Q4H PRN PRN #200 06/25/19 07/29/21 aerosol inhaler inh budesonide-formoterol [Symbicort] 2 puff INHALATION BID 06/25/19 07/29/21 levonorgestrel 20 mcg/24 hours (7 1 device IY ONCE 07/11/19 07/29/21 yrs) 52 mg intrauterine device Vraylar 1.5 mg PO DAILY 10/23/19 07/29/21 gabapentin 400 mg PO BID 10/23/19 07/29/21 Eliquis DVT-PE Treat 30D Start See Rx Instructions .ROUTE 02/11/20 07/29/21 .COMPLEX #74 dose pk methylphenidate HCl [Ritalin] 10 mg BID 02/11/20 07/29/21 acetaminophen [Tylenol] 650 mg PO Q6H PRN #30 cap 03/04/21 07/29/21 bupropion HCl 300 mg PO DAILY 03/04/21 07/29/21 tolterodine 4 mg PO DAILY 03/04/21 07/29/21 trazodone 100 mg PO QHS 03/04/21 07/29/21 Previous Rx's Medication Instructions Recorded blood-glucose meter #1 each 04/22/19 inhalational spacing device #1 each 05/11/19 olanzapine 5 mg tablet 5 mg PO BID #30 tab 05/29/19 albuterol sulfate 90 mcg/actuation 1 puff INHALATION Q4H PRN PRN #200 06/25/19 aerosol inhaler inh Eliquis DVT-PE Treat 30D Start See Rx Instructions .ROUTE 02/11/20 .COMPLEX #74 dose pk acetaminophen [Tylenol] 650 mg PO Q6H PRN #30 cap 07/08/21 Allergies Allergy/AdvReac Type Severity Reaction Status Date / Time No Known Allergies Allergy Verified 03/04/21 07:46 General DOROTEO: 4 Review of Systems Unobtainable due to mental status [facility] Active Problem List (Updated 07/29/21 @ 11:48 by Maria Esther Nieto DO) Left low back pain (Acute) Knee pain, left (Acute) Contusion of hand (Acute) Head injury (Acute) Hip pain, right (Acute) Acute pain of left knee (Acute) Left knee pain (Acute) Eloped from emergency department (Acute) Dysfunction of both eustachian tubes (Acute) Bilateral chronic serous otitis media (Acute) Conductive hearing loss, bilateral (Acute) Encounter for insertion of mirena IUD (Acute) Encounter for IUD insertion (Acute) Self-harming behavior (Acute) Lymphedema (Acute) Borderline personality disorder (Acute) PTSD (post-traumatic stress disorder) (Acute) Dental abscess (Acute) Smoker (Chronic 12/12/14) History of psychiatric disorder (Chronic 10/08/14) Asthma (Chronic 10/08/14) Medical History (Updated 07/29/21 @ 11:48 by Maria Esther Nieto DO) Asthma Chronic anxiety with depression Obesity Right leg swelling Tobacco use Surgical History Myringotomy w/ PE (pressure equalizing) tubes as a child Social History Smoking/Tobacco Use Status: Current every day Tobacco Type: cigarettes Smoking risk assessment performed?: Yes Alcohol Intake: current Alcohol Intake frequency: holidays/special occasions only Alcohol type: hard liquor Drug use: Daily Substance use type: marijuana Details: marijuana 3 x daily Do you feel safe at home: No (homeless) Do you feel safe in your relationship?: Yes Female Reproductive History Menstrual Age of Menarche: 12 Duration of menses: 3-5 days control method: none and progestin IUCD (Mirena IUD inserted by Dr Epperson 07/11/19. Lot#[id number] EXP AUG 2021) History History 6 Para 4 Hx # Term Pregnancies 4 Multiple births 0 Hx # Pregnancies Ectopic pregnancies 0 AB induced 1 Hx Number of Living Children 4 AB spontaneous 1 Past Pregnancies Del. Date GA/Weeks # Outcome Route Wgt Sex Labor Lgth Anesthesia Location Prov Complic Unknown 40 No Successful vaginal 2324.661 g Female 20 min cottage, by an rn dr conley Unknown 02/11/09 40 No Successful vaginal 2324.661 g Male [address] conley 04/16/15 No Successful vaginal precipitous delivered 20 min after admission rn in 06/24/19 39 No Successful vaginal 2409.709 g Male Shayy Aquino'Jeff Delivery Date: precipitous, Radha Azevedo Delivery Date: DATE/INFO UNKNOWN, PT CLAIMS SHE HAS NO RECOLLECTION OF ONE OF HER PREGNANCIES. Radha Azevedo Delivery Date: 02/11/09 No notes to display Delivery Date: 04/16/15 precipitous delivery w/o pp complications Radha Azevedo Delivery Date: 06/24/19 Artificial ROM; augemented by oxytocin; 18hrs 45 min. Bharati Martell Exam Const General: in distress (crying, agitated, irritable) Orientation: alert and awake HENUT Head: normal to inspection Face and sinus: normal facial exam Eyes General: appearance normal, both eyes and all related structures Neck Neck: normal visual inspection Resp Effort & Inspection: normal respiratory effort and able to speak in complete sentences Cardio Rate: regular rate Skin General skin exam: no rashes or lesions noted Neuro General: patient alert, patient awake and patient oriented x3 Motor: muscle tone normal throughout Extrem General: normal to inspection and full ROM Psych Appearance: disheveled Mood: angry and irritable mood Affect: irritable affect Attitude: belligerent
--- NOTE | 2021-07-29 10:32 | NUR.NOTE ---
left without being seen. did not want to stay.[facility] came for pt.Nursing Note:
--- NOTE | 2021-07-30 10:39 | PDOC.ERCMACT ---
- If Service Date Differs Date of service: 07/30/21 Time of Service: 10:39 Care Management Activity Note CM contacted the hospice care transitions coordinator at [facility] to advise them that patient is in need of a leg ultrasound and that we have been unable to reach Con[facility] to schedule the appointment. [facility] will follow up with patient.
== END 2021-07-29 08:57 | disposition other institution (70) ==
LOC: ER 09:00
PROVIDERS: Emergency Provider Physician Assistant; PCP Nurse Practitioner Family
DX: M25.562 Pain in left knee (principal); Z53.29 Procedure and treatment not carried out because of patient's decision for other reasons
CPT/HCPCS: 99281

== ENCOUNTER 2021-11-27 14:40 | Emergency (ER) | payer MEDICARE, SELFPAY ==
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
--- NOTE | 2021-11-27 14:58 | NUR.NOTE ---
refused to come out of police cruiser. yelling take me to fucking [facility]. tried to get vital signs- pt yelled you are not going to fucking touch me. It is my right. as police cruiser driving off she was yelling I'm going to kill myself now. Nursing Note:
== END 2021-11-27 15:30 | disposition home or self-care (01) ==
PROVIDERS: Emergency Provider Emergency Medicine; PCP Nurse Practitioner Family
DX: R06.02 Shortness of breath (principal); R45.1 Restlessness and agitation
CPT/HCPCS: 99285; 99281

== ENCOUNTER 2021-12-31 08:42 | Emergency (ER) | payer MEDICARE, SELFPAY ==
[2021-12-31 08:49] VITALS: BP 137/86; PULSE 95; RESP 16; TEMP 36.4; O2SAT 92
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
[2021-12-31] MEDS: LORazepam 1 MG TAB PO (09:20)
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
--- NOTE | 2021-12-31 09:32 | NUR.NOTE ---
pt offered gingerale or water - refused both Nursing Note:
--- NOTE | 2021-12-31 10:10 | NUR.NOTE ---
Nursing Note:Pt has been refusing all attempts at help. Nursing staff has attempted blood draws, assessments, offering multiple kinds of food and drink.She would insist fluids were to cold or hot, she was Allergic to every food we offered even though it was broad in variety. She did allow with some effort the Triage a set of vitals, a PO dose of Ativan which she took after refusing multiple times, and a little bit of Beeler sandwich. The Pt would go from crying hysterically to screaming all manner of profanities and insults at staff. Pt went from slamming the door so hard the whole wall shook to screaming she needed the door open when staffed would close it if it was open to reduce disturbance to other Pt's while Pt Sobbed, loudly and Hysterically. Pt was throwing anything she was giving at staff or just across or out of her room in general. Pt was given every opportunity in multiple ways to obtain any medical care she required and Pt declined every opportunity.
== END 2021-12-31 10:13 | disposition home or self-care (01) ==
PROVIDERS: Emergency Provider Emergency Medicine; PCP Nurse Practitioner Family
DX: F41.9 Anxiety disorder, unspecified (principal)
CPT/HCPCS: 80053; 99283; 80320; 80329; 84443; 85025

== ENCOUNTER 2021-12-31 14:37 | Emergency (ER) | payer MEDICARE, SELFPAY | END 2021-12-31 15:06 | LOC: ER 14:44 | PROVIDERS: PCP Nurse Practitioner Family | DX: Z53.21 Procedure and treatment not carried out due to patient leaving prior to being seen by health care provider (principal) ==

== ENCOUNTER 2022-01-14 10:47 | Emergency (ER) | payer MEDICARE, SELFPAY ==
[2022-01-14 11:02] VITALS: BP 142/83; PULSE 103; RESP 16; TEMP 35.9; O2SAT 95
--- NOTE | 2022-01-14 11:24 | ED.GENADUL_ITS ---
Discharge Plan Disposition Patient Disposition: HOME Condition: Stable Discharge Details Clinical Impression: Rash and nonspecific skin eruption Primary Care Provider: Preston Tran ED Provider: Chiquita Summers Home Meds and New Rx's Prescriptions: Continued (DME) POCKET CHAMBER Spacer See Rx Instructions .ROUTE .MEDSUPPLY Qty: 1 0RF Rx Instructions: As directed Mirena 20 mcg/24 hours (5 yrs) 52 mg intrauterine device 1 device IY ONCE Label Comments: Not taking (DME) blood-glucose meter [Accu-Chek Ethel Plus Meter] Misc See Rx Instructions .ROUTE .MEDSUPPLY Qty: 1 0RF Rx Instructions: As directed olanzapine [Zyprexa] 5 mg tablet 5 mg PO BID Qty: 30 4RF Label Comments: Not taking Rx Instructions: 1/2 tablet at night for 3 days then 1 tablet at night. on 06/04 also take one tablet in am. albuterol sulfate [Ventolin HFA] 90 mcg/actuation HFA aerosol inhaler 1 puff Inhalation Q4H PRN PRN (Reason: bronchospasm) Qty: 200 5RF ipratropium-albuterol 3 ML solution for nebulization 3 ml IN Q4H PRN PRN Label Comments: Not taking omeprazole 40 mg Capsule,Delayed Release(Dr/Ec) 40 mg PO DAILY AM Label Comments: Not taking buspirone 5 mg tablet 30 mg PO BID lorazepam [Ativan] 2 mg Tablet 2 mg PO TID Label Comments: Not taking gabapentin 100 mg capsule 400 mg PO BID Label Comments: Not taking Vraylar 1.5 mg Capsule 1.5 mg PO DAILY Eliquis 5 mg tablet 5 mg PO BID Label Comments: TAKE 1 TABLET BY MOUTH TWICE A DAY FOR BLOOD CLOTS Eliquis DVT-PE Treat 30D Start 5 mg (74 tabs) tablets,dose pack See Rx Instructions .ROUTE .COMPLEX Rx Instructions: orally per package directions. 10 mg twice daily for 7 days followed by 5 mg twice daily daily. budesonide-formoterol [Symbicort] 160-4.5 mcg/actuation Hfa Aerosol Inhaler 2 puff INHALATION BID Rx Instructions: strength verified w/[facility] 06/25/19 methylphenidate HCl [Ritalin] 10 mg Tablet 20 mg BID tolterodine 2 mg capsule,extended release 24hr 4 mg PO DAILY Label Comments: Not taking trazodone 100 mg tablet 100 mg PO QHS Label Comments: Has not taken in 3 months bupropion HCl 300 mg tablet extended release 24 hr 300 mg PO DAILY acetaminophen [Tylenol] 325 mg capsule 650 mg PO Q6H PRNQty: 30 0RF Discharge Instructions Instructions: Acute Rash (ED) Additional Instructions: Use topical cream up to three times daily as needed for rash and itching. Take 1-2 Benadryl tablets every 6-8 hours as needed for itching. You may get this over the counter. Follow up with primary care provider in 3-5 days. Return to ED sooner if any worsening or concerns. Increase oral fluids. Please take Tylenol or Ibuprofen with food every 4-6 hours as needed for pain and swelling. Referrals: Preston Tran NP [Primary Care Provider] - 3 days Medical Decision Making 36-year-old female presents to the ER chief complaint of right lower extremity rash which she noticed 2 days ago. She reports it started on her ankle and has spread up her calf and front of her leg. Benadryl 25 mg PO and 1 % Hydrocortisone cream ordered. At this time rash does not appear cellulitic no induration patient appears nontoxic. Discussed home care strict return instructions she verbalizes understanding. Care management in to speak with patient about affording her medications. This text was generated using [email or web address] dictation system, please disregard any oddities of phrase or misspellings. HPI General Mode of arrival: ambulatory . Date/Time Provider Initiated Documentation: 01/14/22 10:48 . Limitations to Documentation: no limitations . Information obtained by: patient, RN notes reviewed and old records reviewed . HPI Narrative: 36-year-old female presents to the ER chief complaint of right lower extremity rash which she noticed 2 days ago. She reports it started on her ankle and has spread up her calf and front of her leg. She denies any known exposure. She has not put any medications onto the rash or taking any medication. She reports that she has been applying a cool washcloth with little to no relief. She does have a red raised irregular area with dry patches noted to her right lower extremity. Denies any fever or chills. She does report some groin pain. 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 Related Data Home Medications Medication Instructions Recorded Confirmed ipratropium 0.5 mg-albuterol 3 mg 3 ml IN Q4H PRN PRN 07/26/15 01/14/22 (2.5 mg base)/3 mL nebulization soln blood-glucose meter (Accu-Chek #1 ea 04/22/19 12/31/21 Ethel Plus Meter) inhalational spacing device #1 ea 05/11/19 12/31/21 (POCKET CHAMBER spacer) buspirone 5 mg tablet 30 mg PO BID 05/27/19 01/14/22 lorazepam 2 mg tablet (Ativan) 2 mg PO TID 05/27/19 01/14/22 omeprazole 40 mg capsule,delayed 40 mg PO DAILY AM 05/27/19 01/14/22 release olanzapine 5 mg tablet (Zyprexa) 5 mg PO BID #30 tabs 05/29/19 01/14/22 albuterol sulfate 90 mcg/actuation 1 puff inhalation Q4H PRN PRN 06/25/19 01/14/22 aerosol inhaler (Ventolin HFA) bronchospasm #200 inhalations budesonide-formoterol HFA 160 2 puff inhalation BID 06/25/19 01/14/22 mcg-4.5 mcg/actuation aerosol inhaler (Symbicort) levonorgestrel 20 mcg/24 hours (7 1 device intrauterine ONCE 07/11/19 01/14/22 yrs) 52 mg intrauterine device (Mirena) cariprazine 1.5 mg capsule 1.5 mg PO DAILY 10/23/19 01/14/22 (Vraylar) gabapentin 100 mg capsule 400 mg PO BID 10/23/19 01/14/22 methylphenidate HCl 10 mg tablet 20 mg BID 02/11/20 01/14/22 (Ritalin) acetaminophen 325 mg capsule 650 mg PO Q6H PRN #30 caps 03/04/21 01/14/22 (Tylenol) bupropion HCl 300 mg 24 hr tablet, 300 mg PO DAILY 03/04/21 01/14/22 extended release tolterodine 2 mg capsule,extended 4 mg PO DAILY 03/04/21 01/14/22 release 24 hr trazodone 100 mg tablet 100 mg PO QHS 03/04/21 01/14/22 apixaban 5 mg (74 tabs) tablets in See Rx Instructions .Route .COMPLEX 12/31/21 01/14/22 a dose pack (Eliquis DVT-PE Treat 30D Start) apixaban 5 mg tablet (Eliquis) 5 mg PO BID 12/31/21 01/14/22 Previous Rx's Medication Instructions Recorded blood-glucose meter (Accu-Chek #1 ea 04/22/19 Ethel Plus Meter) inhalational spacing device #1 ea 05/11/19 (POCKET CHAMBER spacer) olanzapine 5 mg tablet (Zyprexa) 5 mg PO BID #30 tabs 05/29/19 albuterol sulfate 90 mcg/actuation 1 puff inhalation Q4H PRN PRN 06/25/19 aerosol inhaler (Ventolin HFA) bronchospasm #200 inhalations acetaminophen 325 mg capsule 650 mg PO Q6H PRN #30 caps 03/04/21 (Tylenol) Allergies Allergy/AdvReac Type Severity Reaction Status Date / Time seasonal Allergy Uncoded 01/14/22 11:08 General Stated Complaint: RashLesion DOROTEO: 3 Review of Systems All systems reviewed & are unremarkable except as noted in HPI and below Integumentary/Breasts Skin/Breast: Reports as per HPI, Reports pruritus, Reports rash and Reports sores PFSH All Active Problems (Updated 01/14/22 @ 11:33 by Chiquita Summers) Left low back pain (Acute) Knee pain, left (Acute) Contusion of hand (Acute) Head injury (Acute) Hip pain, right (Acute) Acute pain of left knee (Acute) Left knee pain (Acute) Eloped from emergency department (Acute) Anxiety (Chronic) Rash and nonspecific skin eruption (Acute) Dysfunction of both eustachian tubes (Acute) Bilateral chronic serous otitis media (Acute) Conductive hearing loss, bilateral (Acute) Encounter for insertion of mirena IUD (Acute) Encounter for IUD insertion (Acute) Self-harming behavior (Acute) Lymphedema (Acute) 2nd trimester. 02/2019. nl bilateral LE dopplers. ARLEY hose not helpful (hard time staying on). 04/2019 PT declined massage secondary to new onset of LLE cellulitis Borderline personality disorder (Acute) PTSD (post-traumatic stress disorder) (Acute) Dental abscess (Acute) Smoker (Chronic 12/12/14) History of psychiatric disorder (Chronic 10/08/14) chronic anxiety with depression. Asthma (Chronic 10/08/14) Medical History (Updated 01/14/22 @ 11:33 by Chiquita Summers) Asthma Chronic anxiety with depression Obesity Right leg swelling Tobacco use Surgical History Myringotomy w/ PE (pressure equalizing) tubes as a child Social History Smoking/Tobacco Use Status: Current every day Tobacco Type: cigarettes Smoking risk assessment performed?: Yes Alcohol Intake: current Alcohol Intake frequency: holidays/special occasions only Alcohol type: hard liquor Drug use: Daily Substance use type: marijuana Details: marijuana 3 x daily Do you feel safe at home: No (homeless) Do you feel safe in your relationship?: Yes Female Reproductive History Menstrual Age of Menarche: 12 Duration of menses: 3-5 days control method: none and progestin IUCD (Mirena IUD inserted by Dr Epperson 07/11/19. Lot#[id number] EXP AUG 2021) History History 6 Para 4 Hx # Term Pregnancies 4 Multiple births 0 Hx # Pregnancies Ectopic pregnancies 0 AB induced 1 Hx Number of Living Children 4 AB spontaneous 1 Past Pregnancies Del. Date GA/Weeks # Outcome Route Wgt Sex Labor Lgth Anesthes ia Location Prov Complic Unknown 40 No Successful vaginal 2324.661 g Female 20 min cottage, by an rn dr conley Unknown 02/11/09 40 No Successful vaginal 2324.661 g Male [address] conley 04/16/15 No Successful vaginal precipitous deliv ered 20 min after admission rn in 06/24/19 39 No Successful vaginal 2409.709 g Male Shayy O'Jeff Delivery Date: Last Updated by: Radha Azevedo CNM precipitous, Delivery Date: Last Updated by: Radha Azevedo CNM DATE/INFO UNKNOWN, PT CLAIMS SHE HAS NO RECOLLECTION OF ONE OF HER PREGNANCIES. Delivery Date: 04/16/15 Last Updated by: Radha Azevedo CNM precipitous delivery w/o pp complications Delivery Date: 06/24/19 Last Updated by: Bharati Portillo LPN Artificial ROM; augemented by oxytocin; 18hrs 45 min. Exam Skin General skin exam: erythema and excoriation Rashes: rashes noted maculopapular rash right lower lower leg size, arrangement confluent, borders irregular, color red, distribution (Circumferential RLE) and surface erythematous, rough and warm; fluctuant not assessed Full body images: 1. Erythemic rash, raised, confluent, with irregular borders, Scaly dry patches. 2. Multiple excoriations noted from what patient reports as picking Course Vital Signs Vital signs: Vital Signs Temperature 35.9 C L 01/14/22 11:02 Pulse 103 H 01/14/22 11:02 Respiratory Rate 16 01/14/22 11:02 Blood Pressure 142/83 H 01/14/22 11:02 Pulse Oximetry 95 01/14/22 11:02 Temperature 35.9 C L 01/14/22 11:02 Temperature Source Tympanic 01/14/22 11:02 Pulse 103 H 01/14/22 11:02 Respiratory Rate 16 01/14/22 11:02 Respiratory Effort 01/14/22 11:02 Blood Pressure 142/83 H 01/14/22 11:02 Blood Pressure Position Sitting 01/14/22 11:02 Pulse Oximetry 95 01/14/22 11:02 Oxygen Delivery Method Room Air 01/14/22 11:02 Oxygen Flow Rate 0 01/14/22 11:02 Pain Level 10 01/14/22 11:02
[2022-01-14] MEDS: diphenhydrAMINE 25 MG CAP PO (11:32)
[2022-01-14] MEDS: Hydrocortisone 1% CR 30 GM TUBE TP (11:32)
--- NOTE | 2022-01-14 11:38 | NUR.NOTE ---
Patient told manual writer she cannot afford her meds due to no insurance. Care Management notified and speaking with patient.
--- NOTE | 2022-01-14 12:29 | CMPROGNOTE_ITS ---
- If Service Date Differs Date of service: 01/14/22 Time of Service: 12:29 Care Management Progress Note Conchita presents in the ED for an itchy rash. CM meets with her at the request of ED RN to assess her needs. Conchita reports she has been without her medication for several months because she cannot afford the co-pay. She states she has been trying to schedule a meeting with [facility] PROP CUTTER to enlist their help with obtaining her meds but she alleges PROP CUTTER is not returning her phone calls. With h er permission and with her present in the room, CM calls PROP CUTTER and speaks with Sanjana who advises Conchita had an appointment scheduled with her PROP CUTTER showcase trimmer but she did not show for the appointment. Sanjana states PROP CUTTER is trying to devise a plan with Conchita so she can get her meds from the [facility] but thus far, Conchita has been unwilling to meet with her showcase trimmer. CM inquires if another meeting can be scheduled and Sanjana requests that Conchita call her showcase trimmer directly to schedule that appointment. This is relayed to Conchita who agrees to contact Sia, her showcase trimmer. After the phone call, Conchita states she only has a few minutes to catch the [facility] bus so she does not have time to talk about anything else. A while later, CM receives a phone call from Kate Gardner, PROP CUTTER director, who reiterates PROP CUTTER is trying to work with Conchita but Conchita has not attended appointments and has seemingly been unwilling to work with them. Kate states that Conchita has only been without her meds for a few weeks and says that Conchita was not taking her meds when she was getting them, as the medication did not show up in her blood work. She further states that Dr. Wagoner, [facility] psychiatrist, has been working closely with Conchita's PCP around the med issue. PROP CUTTER will continue to try to engage Conchita in a plan around her medication.
--- NOTE | 2022-01-14 12:29 | PDOC.ERCMPRO ---
- If Service Date Differs Date of service: 01/14/22 Time of Service: 12:29 Care Management Progress Note Conchita presents in the ED for an itchy rash. CM meets with her at the request of ED RN to assess her needs. Conchita reports she has been without her medication for several months because she cannot afford the co-pay. She states she has been trying to schedule a meeting with [facility] RN to enlist their help with obtaining her meds but she alleges RENAL DIALYSIS RN is not returning her phone calls. With her permission and with her present in the room, CM calls RENAL DIALYSIS RN and speaks with Sanjana who advises Conchita had an appointment scheduled with her RENAL DIALYSIS RN upper caser but she did not show for the appointment. Sanjana states RENAL DIALYSIS RN is trying to devise a plan with Conchita so she can get her meds from the [facility] but thus far, Conchita has been unwilling to meet with her upper caser. CM inquires if another meeting can be scheduled and Sanjana requests that Conchita call her upper caser directly to schedule that appointment. This is relayed to Conchita who agrees to contact Sia, her upper caser. After the phone call, Conchita states she only has a few minutes to catch the [facility] bus so she does not have time to talk about anything else. A while later, CM receives a phone call from Kate Gardner, RENAL DIALYSIS RN director, who reiterates RENAL DIALYSIS RN is trying to work with Conchita but Conchita has not attended appointments and has seemingly been unwilling to work with them. Kate states that Conchita has only been without her meds for a few weeks and says that Conchita was not taking her meds when she was getting them, as the medication did not show up in her blood work. She further states that Dr. Wagoner, [facility] psychiatrist, has been working closely with Conchita's PCP around the med issue. RENAL DIALYSIS RN will continue to try to engage Conchita in a plan around her medication.
== END 2022-01-14 12:11 | disposition home or self-care (01) ==
PROVIDERS: Emergency Provider Registered Nurse Emergency; PCP Nurse Practitioner Family
DX: R21 Rash and other nonspecific skin eruption (principal)
CPT/HCPCS: 99282

== ENCOUNTER 2022-01-14 18:29 | Emergency (ER) | payer MEDICARE, SELFPAY ==
[2022-01-14 19:58] VITALS: BP 117/81; PULSE 98; RESP 20; TEMP 36.4; O2SAT 98
--- NOTE | 2022-01-14 21:41 | W.ED.GENAD ---
Discharge Plan Disposition Patient Disposition: AGAINST MEDICAL ADVICE Condition: Serious Discharge Details Clinical Impression: Cellulitis of leg, Acute kidney injury Primary Care Provider: Preston Tran ED Provider: Estrella Doll Discharge Instructions Instructions: Clindamycin (By mouth), Cellulitis (ED) Additional Instructions: I am very concerned with you leaving so abruptly and not staying to receive treatment. Your leg appears to have developed an infection and requires antibiotics. Choosing to leave early does put you at risk for worsening infection which may lead to bone infection, loss of limb or loss of your life. You may return at anytime for continued management evaluation of your infection. Please take the oral antibiotic as prescribed and follow-up with your primary care soon as possible. If you develop any new or worsening symptoms please seek care urgently once again. Referrals: Preston Tran, [employer] [Primary Care Provider] - Discharge Data Discharge Date/Time-TO BE ENTERED AT DEPARTURE: 01/15/22 00:48 Medical Decision Making Patient is a 36-year-old female presented with chief complaint of right lower extremity pain. Patient was seen here earlier today for the same rash. At that time, patient was noted to have erythema up to the mid calf and was treated for rash and nonspecific skin eruption. Patient reported that time it rash began approximately 2 days ago and has spread up to her mid calf, particular along the anterior aspect. Patient was treated with Benadryl and hydrocortisone cream. Since then, patient has gone to urgent care for the same rash. When they evaluated the patient, they were concerned for potential cellulitis versus potential DVT and sent her here for evaluation via EMS. Past medical history pertinent for anxiety, borderline personality disorder, PTSD, asthma. On exam, patient is anxious, verbally combative with staff. She appears nontoxic, she is afebrile with stable vital signs. After de-escalating the patient, I was able to evaluate the right lower extremity. She has a bright red circumferential area on the right lower extremity with well demarcated area superiorly. This does spare the foot with a sock like running around the ankle. She is 2+ distal pulses, intact sensation, able to move her foot well, ambulating well. The rash is primarily along the anterior aspect spreading anteriorly up to mid calf where posteriorly reaches around much lower. She has no pain outside of the erythematous lesions. It is not indurated, no area of fluctuance, no crepitus. Rash has a very unusual look and is unusually bright red with irregular but well defined borders. This is not raised, not consistent with erysipelas. Patient does not appear septic. The anterior area of erythema is not consistent with DVT. She has not had any increase shortness of breath, chest pain. No recent travel or periods of being sedentary. Patient is not on any estrogen supplementation. She actually states that she has not taken her medications in the past 3 months secondary to financial constriction. I am concerned for potential infection. Given the slow progression of spread, lack of crepitus or systemic illness, her leg is not consistent with necrotizing fasciitis. Will obtain baseline labs and begin antibiotics. Labs reviewed, concerning for an elevated white count of 20. Patient slightly hyponatremic at 131. Patient's creatinine is elevated at 1.5 which is atypical. Discussed the findings with the patient. Throughout her stay here, she come back and forth from her being quite agreeable and pleasant to very upset and yelling and swearing at staff. I asked Dr. Mcclure as well as Dr. Nieto to both to take a look at the patient's rash for further input and patient has refused anyone else to look at her leg. She is aware that this was recommended for her health and so she declines. The erythematous area was marked with a surgical marker by myself. Primarily, patient has gone back and forth on how she will receive the abx. Patient now agrees to IV antibiotics. Initially, patient refusing IV so straight stick for blood was performed. Now, she is refusing p.o. medications and would prefer IV. After going back and forth with the patient numerous times regarding IV versus p.o. as well as offering lorazepam, patient would like to begin IV antibiotics. She declined the lorazepam. As the patient has gone back and forth so many times and does have significant psychiatric history, mental health evaluation was offered numerous times and patient continues to decline. She did deny any suicidal or homicidal ideation. While receiving the IV antibiotics, patient again began to escalate and requesting the IV out. When we attempted to take the IV out as the patient requested, she refused and wanted to have the IV in. Again, the patient just continues to go back and forth and does become verbally assaulting calling those around her a bitch and threatening staff. She then, after refusing to have staff remove the IV in a safe manner, pulled the IV out herself. She then refused to have Band-Aid or tape placed over the area of the insertion site. Patient then began to panic when blood came from the IV insertion site and requesting to leave. Again, mental health was given as an option for the patient which she declined. Patient has been offered anxiolytic, she has been given food, offered MH multiple times. She is answering questions appropriately and does not appear to be confused at this time. She reports that she like to go home. We discussed that I am concerned regarding her right lower extremity cellulitis and her need for continued antibiotics. She is well aware of the risk of progression of illness and infection and is leaving AGAINST MEDICAL ADVICE. Patient continues to swear, yell at staff but not want to have treatment. Patient declined her discharge paperwork. She is aware that I prescribed her oral antibiotics which have been sent to her pharmacy. She did receive one IV dose here. I encouraged that she pick these up and continue with them tomorrow morning. Patient was able to ambulate without antalgic gait to the waiting room. She did have food while in the department, declined more to take home. [facility] is aware that she may return with worsening symptoms. Encouraged close f/u with PCP. I have asked care management to contact patient regarding her inability to get her medications previously. HPI General Date/Time Provider Initiated Documentation: 01/14/22 20:02. Limitations to Documentation: no limitations. Information obtained by: patient, RN/MD (contacted by urgent care prior to patients arrival), EMS, RN notes reviewed and old records reviewed. History of Present Illness 36 year old F presents to the emergency department with the chief complaint of right lower extremity redness and pain, described as severe, with intensity rated at 10. Quality is described as burning, and is localized to the right and lower extremity. Patient reports no radiation. Patient started experiencing this day(s) and it has been constant. Immobilization improves symptom(s), Movement worsens symptoms (pressure on the are of erythema) . Patient notes rash; denies chest pain, cough, diaphoresis, fever/chills (reports fever at urgent care but did not have one prior, denies symptoms, afebrile now), headaches, nausea/vomiting, shortness of breath and weakness. Patient did receive the following treatments prior to arrival, other (topical) Related Data Allergies Allergy/AdvReac Type Severity Reaction Status Date / Time seasonal Allergy Uncoded 01/14/22 21:58 General Stated Complaint: RashLesion DOROTEO: 3 Review of Systems Constitutional Constitutional: Reports as per HPI, Denies chills, Denies fever(s) and Denies headache(s) ENT Ears, Nose, Mouth, and Throat: Denies headache(s) Cardiovascular Cardiovascular: Reports as per HPI, Denies dyspnea and Denies dyspnea on exertion Respiratory Respiratory: Reports as per HPI, Denies cough, Denies pain on inspiration, Denies dyspnea and Denies dyspnea on exertion Gastrointestinal Gastrointestinal: Reports as per HPI, Denies abdominal pain, Denies diarrhea, Denies nausea and Denies vomiting Musculoskeletal Musculoskeletal: Reports as per HPI Integumentary/Breasts Skin/Breast: Reports as per HPI Neurologic Neurologic: Reports as per HPI and Denies headache(s) [facility] All Active Problems (Updated 01/14/22 @ 23:34 by SOM Naylor) Left low back pain (Acute) Knee pain, left (Acute) Contusion of hand (Acute) Head injury (Acute) Hip pain, right (Acute) Acute pain of left knee (Acute) Left knee pain (Acute) Eloped from emergency department (Acute) Anxiety (Chronic) Rash and nonspecific skin eruption (Acute) Cellulitis of leg (Acute) Acute kidney injury (Acute) Dysfunction of both eustachian tubes (Acute) Bilateral chronic serous otitis media (Acute) Conductive hearing loss, bilateral (Acute) Encounter for insertion of mirena IUD (Acute) Encounter for IUD insertion (Acute) Self-harming behavior (Acute) Lymphedema (Acute) 2nd trimester. 02/2019. nl bilateral LE dopplers. ARLEY hose not helpful (hard time staying on). 04/2019 PT declined massage secondary to new onset of LLE cellulitis Borderline personality disorder (Acute) PTSD (post-traumatic stress disorder) (Acute) Dental abscess (Acute) Smoker (Chronic 12/12/14) History of psychiatric disorder (Chronic 10/08/14) chronic anxiety with depression. Asthma (Chronic 10/08/14) Medical History (Updated 01/14/22 @ 23:34 by SOM Naylor) Asthma Chronic anxiety with depression Obesity Right leg swelling Tobacco use Surgical History Myringotomy w/ PE (pressure equalizing) tubes as a child Social History Smoking/Tobacco Use Status: Current every day Tobacco Type: cigarettes Smoking risk assessment performed?: Yes Alcohol Intake: current Alcohol Intake frequency: holidays/special occasions only Alcohol type: hard liquor Drug use: Daily Substance use type: marijuana Details: marijuana 3 x daily Do you feel safe at home: No (homeless) Do you feel safe in your relationship?: Yes Female Reproductive History Menstrual Age of Menarche: 12 Duration of menses: 3-5 days control method: none and progestin IUCD (Mirena IUD inserted by Dr Epperson 07/11/19. Lot#[id number] EXP AUG 2021) History History 6 Para 4 Hx # Term Pregnancies 4 Multiple births 0 Hx # Pregnancies Ectopic pregnancies 0 AB induced 1 Hx Number of Living Children 4 AB spontaneous 1 Past Pregnancies Del. Date GA/Weeks # Outcome Route Wgt Sex Labor Lgth Anesthesia Location Prov Complic Unknown 40 No Successful vaginal 2324.661 g Female 20 min cottage, by an rn dr conley Unknown 02/11/09 40 No Successful vaginal 2324.661 g Male [address] conley 04/16/15 No Successful vaginal precipitous delivered 20 min after admission rn in 06/24/19 39 No Successful vaginal 2409.709 g Male Shayy Willard Delivery Date: Last Updated by: Radha Azevedo CNM precipitous, Delivery Date: Last Updated by: Radha Azevedo CNM DATE/INFO UNKNOWN, PT CLAIMS SHE HAS NO RECOLLECTION OF ONE OF HER PREGNANCIES. Delivery Date: 04/16/15 Last Updated by: Radha Azevedo CNM precipitous delivery w/o pp complications Delivery Date: 06/24/19 Last Updated by: Bharati Portillo LPN Artificial ROM; augemented by oxytocin; 18hrs 45 min. Exam Const General: cooperative, healthy appearing, comfortable, no acute distress, No well groomed, disheveled and not ill appearing Nutritional Appearance: well nourished and overweight Orientation: alert, awake and oriented x3 HENMT Mouth: oral mucosae normal (no intraoral rash) Eyes General: appearance normal, both eyes and all related structures Chest Chest: normal inspection of the chest, normal palpation of entire chest wall and no crepitus Resp Effort & Inspection: normal respiratory effort, able to speak in complete sentences and no respiratory distress Auscultation: clear to auscultation bilaterally, no rales, no rhonchi and no wheezes Cardio Rate: regular rate Rhythm: regular rhythm Heart Sounds: S1 normal and S2 normal GI Inspection: normal to inspection, no edema and non-distended Palpation: soft, no hepatosplenomegaly, not firm, no guarding, not rigid and nontender Auscultation: normal bowel sounds Back/Spine/Pelvis Back: no CVA tenderness Thoracic/Lumbar Spine: thoracic and lumbar spine normal to inspection Skin General skin exam: erythema Neuro General: patient alert, patient awake and patient oriented x3 Cognition: normal cognition Speech: speech normal Gait: normal gait Extrem General: normal gait and other (2+ distal pulses) Upper/lower leg/hip images: 1. Area of erythema. Bright red. Longer superior to inferior anterior, narrow area of circumferential discoloration posteriorly. Very tender. No warmth. No palpable cord posteriorly. Full ROM of knee and ankle. No joint involvement. Pain is anterior, no pain posteriorly. Psych Appearance: grossly normal and well kempt Mental Status: mental status grossly normal Speech and Movement: speech and movement normal Course Vital Signs Vital signs: Vital Signs Temperature 36.4 C L 01/14/22 19:58 Pulse 98 H 01/14/22 19:58 Respiratory Rate 01/14/22 19:58 Blood Pressure 117/81 01/14/22 19:58 Pulse Oximetry 98 01/14/22 19:58 Temperature 36.4 C L 01/14/22 19:58 Temperature Source Skin 01/14/22 19:58 Pulse 98 H 01/14/22 19:58 Respiratory Rate 01/14/22 19:58 Blood Pressure 117/81 01/14/22 19:58 Blood Pressure Position Sitting 01/14/22 19:58 Pulse Oximetry 98 01/14/22 19:58 Oxygen Delivery Method Room Air 01/14/22 19:58 Oxygen Flow Rate 0 01/14/22 19:58 Pain Level 11 01/14/22 19:58
[2022-01-14 21:57] VITALS: BP 116/75; PULSE 85; RESP 14; TEMP 36.6; O2SAT 95
--- NOTE | 2022-01-14 22:26 | NUR.NOTE ---
Pt Refused an IV, Refused blood draw but later allowed blood work via straight blood draw only still refusing IV, JELENA
--- NOTE | 2022-01-14 22:27 | NUR.NOTE ---
Pt requested a sandwich but refused when ofererd, she was offered again and again refused, JELENA
[2022-01-14 22:28] LABS: Absolute Basophil Count 0.06 10^3/uL (0.0-0.2); Absolute Eosinophil Count 0.04 10^3/uL (0.0-0.7); Absolute Lymphocyte Count 1.92 10^3/uL (1.2-3.4); Absolute Monocyte Count 1.49 10^3/uL (0.1-0.8); Absolute Neutrophil Count 16.57 10^3/uL (1.2-6.7); Basophils % 0.3; Eosinophils % 0.2; HCT 45.3 % (36.0-46.0); HGB 15.1 g/dL (11.2-15.7); Immature Grans % 0.5; Lymphocytes % 9.5; MCH 29.9 pg (27.0-33.0); MCHC 33.3 % (32.0-36.0); MCV 90 fL (80-95); MPV 9.7 fL (8.0-11.0); Monocytes % 7.4; Neutrophils % 82.1; Platelet Count 267 10^3/uL (130-400); RBC 5.05 10^6/uL (3.93-5.22); RDW 13.4 % (11.7-14.6); RDW-SD 44.2 fL; WBC 20.18 10^3/uL (4.4-10.8)
[2022-01-14 22:42] LABS: ALT 13 U/L (14-59); AST 19 U/L (15-37); Albumin 3.5 g/dL (3.4-5.0); Alkaline Phosphatase 88 U/L (46-116); Anion Gap 9.9 mmol/L (3-11); BUN 20 mg/dL (7-18); Bilirubin, Total 0.8 mg/dL (0.2-1.0); CO2 23.1 mmol/L (21.0-32.0); CREATININE 1.5 mg/dL (0.55-1.02); Calcium 9.3 mg/dL (8.5-10.1); Chloride 98 mmol/L (98-107); Estimated GFR 39.29 (mL/min/1.73m2); Glucose 88 mg/dL (74-106); Magnesium 2.1 mg/dL (1.8-2.4); Potassium 3.9 mmol/L (3.5-5.1); Sodium 131 mmol/L (136-145); Total Protein 8.2 g/dL (6.4-8.2)
[2022-01-15] MEDS: CLINDAMYCIN 600 MG/50 ML BAG 100 MG IVPB (00:22)
--- NOTE | 2022-01-15 01:23 | NUR.NOTE ---
Pt was seen here at [facility] earlier today and discharged, she came back stating her rash was worse, she refused IV and blood work but later allowed blood work via straight draw only, later she agreed to IV, she again changed her mind when we attempted to give her IV antibiotics, Antibiotic order was changed to oral administration and patient then pleaded for IV antibiotics, while IV antibiotics were being administered she removed the IV herself and demanded to leave, she left AMA, she refused any further treatment, she refused discharge vitals, she refused to sign paperwork, JELENA
== END 2022-01-15 00:48 | disposition left against medical advice (07) ==
PROVIDERS: Emergency Provider Physician Assistant; PCP Nurse Practitioner Family
DX: L03.115 Cellulitis of right lower limb (principal); N17.9 Acute kidney failure, unspecified; Z53.29 Procedure and treatment not carried out because of patient's decision for other reasons; R45.1 Restlessness and agitation
CPT/HCPCS: 36415; 80053; 96374; 99282; 99284; 83735; 85025; 99283

== ENCOUNTER 2022-01-31 14:01 | Emergency (ER) | payer MEDICARE, SELFPAY ==
[2022-01-31 13:47] VITALS: BP 121/79; PULSE 93; RESP 16; TEMP 36.8; O2SAT 97
--- NOTE | 2022-01-31 15:33 | ED.GENADUL_ITS ---
Discharge Plan Disposition Patient Disposition: HOME Condition: Stable Discharge Details Clinical Impression: Cellulitis Primary Care Provider: Preston Tran ED Provider: Cullen Gomez Home Meds and New Rx's Prescriptions: New clindamycin HCl 300 mg capsule 300 mg PO Q6H 4 Days Qty: 16 0RF Discharge Instructions Instructions: Cellulitis (ED) Additional Instructions: Please take your medications as prescribed, you are given your initial dose here in the emergency department and given tomorrow's dose in pill form, please fill prescription tomorrow. Return to the emergency department for worsening pain swelling or other signs of illness. Medical Decision Making 36-year-old female, undomiciled, presents concern for developing cellulitis left lower extremity, localized area of erythema mild warmth and slight induration, no peripheral edema or deformity, does have chronic appearing skin findings consistent with skin picking consider psychogenic in nature versus skin popping versus scabies, lower extremity skin discoloration appears similar to right lower extremity consider poor venous return versus lymphedema mild in nature versus developing cellulitis. Patient endorses that this feels like her prior cellulitis. No systemic signs of illness such as tachycardia fever tachypnea fevers or chills. We will treat empirically with clindamycin. Will give first dose here as well as home pack as patient does endorse financial difficulties, will also be given prescription. Home care instructions and strict return precautions given. Of note patient was initially cooperative and resting comfortably, currently she is swearing and had to be spoken to by security, currently endorses that she does not want a wait as her ride is here. Will attempt to print this note as well as her prescriptions before she decides to leave [facility] General Date/Time Provider Initiated Documentation: 01/31/22 15:11 . HPI Narrative: 36-year-old undomiciled female presents with left lower extremity redness and d iscomfort has been present for the past several days, localized to left ankle, denies fevers chills nausea or vomiting, endorses that this is similar to her prior cellulitis. Related Data Home Medications Medication Instructions Recorded Confirmed clindamycin HCl 300 mg capsule 300 mg PO Q6H 4 days #16 caps 01/31/22 Previous Rx's Medication Instructions Recorded clindamycin HCl 300 mg capsule 300 mg PO Q6H 4 days #16 caps 01/31/22 Allergies Allergy/AdvReac Type Severity Reaction Status Date / Time seasonal Allergy Uncoded 01/31/22 13:53 General Stated Complaint: Cellulitis DOROTEO: 3 Review of Systems Narrative: Review of Systems Constitutional: negative Eyes: negative ENT: negative Cardiovascular: negative Respiratory: negative Gastrointestinal: negative : negative Musculoskeletal: negative Skin: Rash Neurologic: negative Psych: negative PFSH All Active Problems (Updated 01/31/22 @ 15:38 by Cullen Gomez MD) Left low back pain (Acute) Knee pain, left (Acute) Contusion of hand (Acute) Head injury (Acute) Hip pain, right (Acute) Acute pain of left knee (Acute) Left knee pain (Acute) Eloped from emergency department (Acute) Rash and nonspecific skin eruption (Acute) Cellulitis of leg (Acute) Acute kidney injury (Acute) Cellulitis (Acute) Dysfunction of both eustachian tubes (Acute) Bilateral chronic serous otitis media (Acute) Conductive hearing loss, bilateral (Acute) Encounter for insertion of mirena IUD (Acute) Encounter for IUD insertion (Acute) Self-harming behavior (Acute) Lymphedema (Acute) 2nd trimester. 02/2019. nl bilateral LE dopplers. ARLEY hose not helpful (hard time staying on). 04/2019 PT declined massage secondary to new onset of LLE cellulitis Borderline personality disorder (Acute) PTSD (post-traumatic stress disorder) (Acute) Dental abscess (Acute) Smoker (Chronic 12/12/14) History of psychiatric disorder (Chronic 10/08/14) chronic anxiety with depression. Asthma (Chronic 10/08/14) Medical History (Updated 01/31/22 @ 15:38 by Cullen Gomez MD) Asthma Chronic anxiety with depression Obesity Right leg swelling Tobacco use Surgical History Myringotomy w/ PE (pressure equalizing) tubes as a child Social History Smoking/Tobacco Use Status: Current every day Tobacco Type: cigarettes Smoking risk assessment performed?: Yes Alcohol Intake: current Alcohol Intake frequency: holidays/special occasions only Alcohol type: hard liquor Drug use: Daily Substance use type: marijuana Details: marijuana 3 x daily Do you feel safe at home: No (homeless) Do you feel safe in your relationship?: Yes Female Reproductive History Menstrual Age of Menarche: 12 Duration of menses: 3-5 days control method: none and progestin IUCD (Mirena IUD inserted by Dr Epperson 07/11/19. Lot#[id number] EXP AUG 2021) History History 6 Para 4 Hx # Term Pregnancies 4 Multiple births 0 Hx # Pregnancies Ectopic pregnancies 0 AB induced 1 Hx Number of Living Children 4 AB spontaneous 1 Past Pregnancies Del. Date GA/Weeks # Outcome Route Wgt Sex Labor Lgth Anesthes ia Location Prov Complic Unknown 40 No Successful vaginal 2324.661 g Female 20 min cottage, by an rn dr conley Unknown 02/11/09 40 No Successful vaginal 2324.661 g Male [address] conley 04/16/15 No Successful vaginal precipitous deliv ered 20 min after admission rn in 06/24/19 39 No Successful vaginal 2409.709 g Male Shayy Aquino'Jeff Delivery Date: Last Updated by: Radha Azevedo CNM precipitous, Delivery Date: Last Updated by: Radha Azevedo CNM DATE/INFO UNKNOWN, PT CLAIMS SHE HAS NO RECOLLECTION OF ONE OF HER PREGNANCIES. Delivery Date: 04/16/15 Last Updated by: Radha Azevedo CNM precipitous delivery w/o pp complications Delivery Date: 06/24/19 Last Updated by: Bharati Portillo LPN Artificial ROM; augemented by oxytocin; 18hrs 45 min. Exam Narrative Exam Narrative: Physical Examination General: alert, awake, cooperative, resting comfortably, no acute distress HEENT: normocephalic, atraumatic; PERRL, EOM intact, conjunctiva normal; no nasal discharge; moist mucous membranes, oral and pharyngeal mucosa normal, tolerating secretions Neck: supple, trachea midline; full ROM Chest: normal to inspection Respiratory: normal respiratory effort, speaking in full sentences, clear to auscultation, no wheezing, rales or rhonchi Cardiac: regular rate, regular rhythm, S1S2 intact, no murmurs rubs or gallops GI: abdomen soft, non-tender, non-distended; no palpable mass or hepatosplenomegaly Skin: Localized area of minimal erythema medial aspect of left ankle, mildly indurated, no crepitus no bulla, slightly warm, of note patient has multiple superficial abrasions and excoriations and scabs consistent with skin picking and/or chronic appearing skin infestation such as possible scabies versus psychogenic versus skin popping Neuro: AAOx3, normal speech, moving all extremities Extremities: No apparent deformity or edema Psych: Appropriate mood and affect Course Vital Signs Vital signs: Vital Signs Temperature 36.8 C 01/31/22 13:47 Pulse 93 H 01/31/22 13:47 Respiratory Rate 16 01/31/22 13:47 Blood Pressure 121/79 01/31/22 13:47 Pulse Oximetry 97 01/31/22 13:47 Temperature 36.8 C 01/31/22 13:47 Temperature Source Skin 01/31/22 13:47 Pulse 93 H 01/31/22 13:47 Respiratory Rate 16 01/31/22 13:47 Respiratory Effort 01/31/22 14:38 Blood Pressure 121/79 01/31/22 13:47 Blood Pressure Position Sitting 01/31/22 13:47 Pulse Oximetry 97 01/31/22 13:47 Oxygen Delivery Method Room Air 01/31/22 13:47 Oxygen Flow Rate 0 01/31/22 13:47 Pain Level 8 01/31/22 13:47
[2022-01-31] MEDS: Clindamycin 300 MG CAP 450 MG PO (15:42)
[2022-01-31] MEDS: Clindamycin 150 MG CAP, 12 CAPS/BTL 450 MG PO (15:42)
[2022-01-31] MEDS: Clindamycin 150 MG CAP (15:42)
== END 2022-01-31 15:47 | disposition home or self-care (01) ==
PROVIDERS: Emergency Provider Emergency Medicine; PCP Nurse Practitioner Family
DX: L03.116 Cellulitis of left lower limb (principal)
CPT/HCPCS: 99283

== ENCOUNTER 2022-02-09 07:28 | Emergency (ER) | payer MEDICARE, SELFPAY ==
[2022-02-09 07:29] VITALS: BP 134/87; PULSE 73; RESP 16; TEMP 36.3; O2SAT 100
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
== END 2022-02-09 09:12 | disposition home or self-care (01) ==
PROVIDERS: Emergency Provider Student in an Organized Health Care Education/Training Program; PCP Nurse Practitioner Family
DX: S00.83XA Contusion of other part of head, initial encounter (principal); Y04.8XXA Assault by other bodily force, initial encounter; Y07.59 Other non-family member, perpetrator of maltreatment and neglect
CPT/HCPCS: 99282

== ENCOUNTER 2022-04-04 11:51 | Emergency (ER) | payer MEDICARE, SELFPAY ==
[2022-04-04] VITALS (39 sets, daily range): BP systolic 132–196; BP diastolic 76–127; PULSE 58–97; RESP 12–30; TEMP 37; O2SAT 94–100
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
[2022-04-04] MEDS: diphenhydrAMINE 50 MG/ML VIAL (13:39)
[2022-04-04] MEDS: Ketamine 500 MG/5 ML VIAL (13:39)
[2022-04-04] MEDS: Haloperidol 5 MG/ML VIAL (13:39)
[2022-04-04] MEDS: Ketamine 500 MG/10 ML VIAL 160 MG IM ×2 (13:39→14:28)
[2022-04-04] MEDS: LORazepam 20 MG/10 ML VIAL (13:40)
[2022-04-04] MEDS: LORazepam 1 MG TAB (13:40)
--- NOTE | 2022-04-04 13:47 | NUR.NOTE ---
BP 179/93 Resp 26 o2 100% on room air heart rate 92 time 1348 RN notified Nursing Note:
--- NOTE | 2022-04-04 13:53 | NUR.NOTE ---
BP 163/90 o2 at 100% on room air heart rate 88 resp - 29 RN notified Nursing Note:
--- NOTE | 2022-04-04 14:00 | DI.CT_ITS ---
Exam(s) CT HEAD CERVICAL SPINE WO EXAM: CT HEAD CERVICAL SPINE WO CLINICAL HISTORY: trauma. TECHNIQUE: Imaging Protocol: Axial computed tomography images with coronal and sagittal reformatted images were created and reviewed COMPARISON: CT CT HEAD WO from 02/15/2021 FINDINGS: BRAIN: There are no skull fractures nor fluid in the visualized paranasal sinuses. There is no evidence of intracranial hemorrhage, mass effect, or shift of midline structures. There are no extra-axial fluid collections. The ventricles are not enlarged or shifted and there is no blo od within the ventricular system nor within the basal cisterns. CERVICAL SPINE: There is no evidence of fracture nor listhesis. No significant prevertebral soft tissue swelling. There is no significant facet joint malalignment. No significant osseous lesions evident. IMPRESSION: No acute intracranial findings on this noninfused CT scan of the brain. No evidence of cervical spine fracture, malalignment, nor acute compromise of the cervical spinal can al. RADIATION DOSE DELIVERED: 1,827.25mGy.cm Total DLP DATA REPOSITORY: All CT scans at this facility are submitted to the National Radiology Data Registry (NRDR) Dose Index Registry (DIR) with the [employer] ([employer]). RADIATION OPTIMIZATION: All CT scans at this facility use at least one of these dose optimization te chniques: automated exposure control; mA and/or kV adjustment per patient size (includes targeted exa ms where dose is matched to clinical indication); or iterative reconstruction.
--- NOTE | 2022-04-04 14:00 | RT.EKG_ITS ---
APPROVED REPORT Exam: Resting ECG Reason for Exam: trauma Patient Location: E HR:70 bpm ECG Measurements Heart Rate 70 AXIS ME 178 P 69 QRSd 89 QRS 39 QT 422 T 32 QTc 456 Conclusion Sinus rhythm...normal P axis, V-rate 60- 99 ST elev, probable normal early repol pattern...ST elevation, age<55 sinus rhythm, normal axis, normal intervals
--- NOTE | 2022-04-04 14:00 | DI.CT_ITS ---
Exam(s) CT CHEST/ABD/PEL W EXAM: CT CHEST/ABD/PEL W CLINICAL HISTORY: trauma. TECHNIQUE: Imaging Protocol: Axial computed tomography images with coronal and sagittal reformatted images were created and reviewed CONTRAST MATERIAL: Intravenous: Omnipaque 350 Contrast volume:100 ml Oral: None COMPARISON: CT CT ABDOMEN PELVIS WO from 07/14/2019 FINDINGS: CHEST: LUNGS: No evidence of lung contusion, pleural effusion, nor pneumothorax. Incidentally noted is a pl eural-based 3 millimeter noncalcified nodule in the lateral basal segment of the left lower lobe. An other similar size noncalcified nodule is seen in the lateral segment of the right middle lobe, also pleural based. Another 2 millimeter nodule also seen in the right middle lobe. No pleural effusions on either side. No significant focal findings in the trachea and mainstem bronchi. MEDIASTINUM: No evidence of mediastinal hematoma. No sternal fracture. No hilar nor mediastinal chidi nopathy. Partially visualized thyroid unremarkable. CARDIAC: Heart size is normal. There is no pericardial effusion.Caliber of the thoracic aorta is wit hin normal limits. OSSEOUS: No fractures.No significant osseous lesions.. ABDOMEN: There is no ascites. There is no evidence of mesenteric nor bowel wall hematoma. LIVER: No a patent laceration. Hypodense area in the right hepatic lobe adjacent to the interhemisph ciro fissure is noted which is probably fatty parenchymal change. No other focal hepatic findings. No dilated intrahepatic ducts. GALLBLADDER/BILIARY: Mild sludge. No obvious calculi CBD is not dilated. PANCREAS: No evidence of pancreatic mass nor dilatation of the pancreatic duct. SPLEEN: Spleen size is normal. No splenic lacerations. Nose perisplenic fluid. Splenic and portal veins are patent. ADRENALS: There are no significant adrenal masses. KIDNEYS: No evidence of renal laceration nor subcapsular hematoma.. No cysts nor solid renal masses. Extrarenal pelves bilaterally. The right ureter somewhat dilated. Left ureter is not dilated. ABDOMINAL AORTA: Abdominal aorta is not enlarged. LYMPH NODES: There is no retroperitoneal nor paraaortic adenopathy. ABDOMINAL WALL: No evidence of significant anterior abdominal wall nor inguinal hernia. GI: There is no evidence of bowel obstruction. PELVIS: LYMPH NODES: There is no intrapelvic nor inguinal adenopathy. GI: No evidence of appendicitis.No evidence of sigmoid diverticulitis. URINARY BLADDER: Distended. REPRODUCTIVE: There is an IUD in the uterine cavity. Left adnexa unremarkable. There is a right adn exal-right ovarian cyst measuring 4.5 x 3.7 cm. No free fluid in the pelvis. OSSEOUS: No significant osseous lesions. IMPRESSION: 1. No significant acute trauma sequelae in the chest, abdomen, and pelvis. Also no fractures evident 2. There are a few bilateral 3 millimeter noncalcified pleural base nodules in the lungs. This be fo llowed with repeat CT scan in 6 months. 3. There is a 4.5 x 3.7 cm right adnexal cyst which is most probably ovarian. No free fluid to sugge st obvious torsion. 4. IUD is noted in the uterine cavity. Report called by myself to ER provider. RADIATION DOSE DELIVERED: 1,603.03mGy.cm Total DLP DATA REPOSITORY: All CT scans at this facility are submitted to the National Radiology Data Registry (NRDR) Dose Index Registry (DIR) with the [employer] ([employer]). RADIATION OPTIMIZATION: All CT scans at this facility use at least one of these dose optimization te chniques: automated exposure control; mA and/or kV adjustment per patient size (includes targeted exa ms where dose is matched to clinical indication); or iterative reconstruction.
--- NOTE | 2022-04-04 14:05 | NUR.NOTE ---
IV inserted in R AC 18 gauge-- by RN at 1405 Nursing Note:
[2022-04-04] MEDS: Lactated Ringers 1,000 ML 1000 ML IV (14:37)
[2022-04-04 14:57] LABS: Abs Immature Grans 0.04 10^3/uL (0.0-0.06); Absolute Eosinophil Count 0.22 10^3/uL (0.0-0.7); Absolute Lymphocyte Count 2.12 10^3/uL (1.2-3.4); Absolute Monocyte Count 1.05 10^3/uL (0.1-0.8); Basophils % 0.5; HCT 41.7 % (36.0-46.0); HGB 13.5 g/dL (11.2-15.7); Immature Grans % 0.4; Lymphocytes % 19.2; MCH 29.7 pg (27.0-33.0); MCHC 32.4 % (32.0-36.0); MCV 92 fL (80-95); Monocytes % 9.5; Neutrophils % 68.4; Platelet Count 263 10^3/uL (130-400); RBC 4.55 10^6/uL (3.93-5.22); RDW 14.4 % (11.7-14.6); RDW-SD 48.7 fL; WBC 11.06 10^3/uL (4.4-10.8)
[2022-04-04 14:58] LABS: Absolute Basophil Count 0.06 10^3/uL (0.0-0.2); Absolute Neutrophil Count 7.57 10^3/uL (1.2-6.7)
[2022-04-04 15:15] LABS: ALT 17 U/L (14-59); AST 23 U/L (15-37); Albumin 3.7 g/dL (3.4-5.0); Alkaline Phosphatase 68 U/L (46-116); Anion Gap 10.1 mmol/L (3-11); BUN 15 mg/dL (7-18); Bilirubin, Total 0.6 mg/dL (0.2-1.0); CO2 24.9 mmol/L (21.0-32.0); CREATININE 0.9 mg/dL (0.55-1.02); Calcium 8.8 mg/dL (8.5-10.1); Chloride 105 mmol/L (98-107); Glucose 84 mg/dL (74-106); Magnesium 1.9 mg/dL (1.8-2.4); Potassium 3.4 mmol/L (3.5-5.1); Sodium 140 mmol/L (136-145); Total Protein 7.4 g/dL (6.4-8.2); Troponin I < 50 ng/L (<or=60)
[2022-04-04] MEDS: Ketamine 500 MG/10 ML VIAL (15:45)
[2022-04-04] MEDS: Omnipaque 350 MG/ML 100 ML BTL IJ (16:01)
[2022-04-04 16:28] LABS: Bilirubin Negative (Negative); Blood Trace-intact (Negative); Clarity Clear (Clear); Glucose Negative (Negative); Ketones Negative (Negative); Leukocyte Esterase Negative (Negative); Nitrite Negative (Negative); Specific Gravity <= 1.005 (1.005-1.025); Urobilinogen 0.2 EU/dL (Up TO 0.2); pH 5.5 (5-8)
[2022-04-04 16:38] LABS: Bacteria Negative HPF (Negative); C & S Indicated? No; Crystals Negative HPF (Negative); Epithelial Cells Few HPF (Negative); Mucus Negative (Negative); RBC 0-2 HPF (0-2); WBC 0-2 HPF (0-5)
== END 2022-04-04 19:35 | disposition home or self-care (01) ==
PROVIDERS: Physician Assistant; Emergency Provider Registered Nurse Emergency; PCP Nurse Practitioner Family
DX: S00.11XA Contusion of right eyelid and periocular area, initial encounter (principal); S50.811A Abrasion of right forearm, initial encounter; S80.211A Abrasion, right knee, initial encounter; R45.4 Irritability and anger; J45.909 Unspecified asthma, uncomplicated; F17.210 Nicotine dependence, cigarettes, uncomplicated; V29.9XXA Motorcycle rider (driver) (passenger) injured in unspecified traffic accident, initial encounter
CPT/HCPCS: 36415; 74177; 80053; 81025; 93005; 96360; 99291; 70450; 71260; 72125; 81003; 81015; 83735; 84484; 85025; 93010; J1200; J1630; J3490